=== PATIENT | female | born 1950 | race Hispanic/Latino ===

== ENCOUNTER 2017-06-29 15:21 | Inpatient (IN) | payer MEDICARE, BC ==
[~2017-06-29] VITALS: Ht 167.6 cm; Wt 86.2 kg
[~2017-06-29 15:21] MED LIST: ACETAMINOPHEN325 M1 PO; AMITIZA24 MCG PO; ASPIR 8181 MG PO; CARVEDILOL12.5 MG PO; COREG12.5 MG PO; GABAPENTIN300 MG PO; GLYBURIDE5 MG PO; LANTUS 3ML100 UNITS/ SQ; LIDODERM TP; METOPROLOL TART25 MG PO; MULTIVITAMINS1 EAC7 PO; NOVOLOG MI100 UNITS/ SQ; Novolog SC; PANTOPRAZOLE SO40 MG PO; PHOSLO667 MG PO; PLAVIX75 MG PO; RAMIPRIL5 MG PO; ULTRAM 50MG50 MG PO; ULTRAM50 MG PO; [UNRECOGNIZED DRUG - OTHER]
[2017-06-29] MEDS ORDERED: PANTOPRAZOLE SO40 MG PO (15:36)
[2017-06-29 16:06] LABS: BASOPHILS % 0.4 % (0.0-1.0); EOSINOPHILS # (AUTO) 0.1 (0.0-0.4); EOSINOPHILS % 2.2 % (0.0-6.0); LYMPHOCYTES # (AUTO) 0.3 (1.0-3.2); LYMPHOCYTES % 13.5 % (18.0-39.1); MEAN CORPUSCULAR HEMOGLOBIN 28.3 pg (28-32); MEAN CORPUSCULAR HGB CONC 32.3 g/dL (31-35); MEAN CORPUSCULAR VOLUME 87.7 fL (81-99); MONOCYTES # (AUTO) 0.1 (0.2-0.8); MONOCYTES % 5.2 % (4.4-11.3); NEUTROPHILS # (AUTO) 1.8 (2.1-6.9); NEUTROPHILS % 78.7 % (38.7-80.0); PLATELET COUNT 80 x10e3/uL (140-360); RED BLOOD COUNT 2.12 x10e6/uL (3.6-5.1); RED CELL DISTRIBUTION WIDTH 17.6 % (11.7-14.4)
[2017-06-29 16:09] LABS: HEMATOCRIT 18.6 % (34.2-44.1)
[2017-06-29 16:23] LABS: ALBUMIN 3.2 g/dL (3.5-5.0); ALBUMIN/GLOBULIN RATIO 0.8 (0.8-2.0); ANION GAP 11.9 mmol/L (8-16); CALCIUM 8.5 mg/dL (8.4-10.2); CREATININE, SERUM 3.76 mg/dL (0.57-1.11); POTASSIUM 3.9 mmol/L (3.5-5.1)
[2017-06-29 17:02] LABS: EOSINOPHILS % (MANUAL) 3 % (0-7); LYMPHOCYTES % (MANUAL) 12 % (19-48); MONOCYTES % (MANUAL) 8 % (3.4-9.0); NEUTROPHILS % (MANUAL) 77 % (40-74)
[2017-06-29 17:03] LABS: HYPOCHROMASIA MODERATE; OVALOCYTES FEW; PLATELET ESTIMATE MODERATELY DECREASED; RBC MORPHOLOGY COMMENT ABNORMAL; TEAR DROP CELLS FEW
[2017-06-29] MEDS ORDERED: SODIUM CHLORIDE 0.9% 250ML 250 ML IV ONE (18:00)
--- NOTE | 2017-06-29 18:43 | Diagnostic Imaging Report ---
PROCEDURE: Frontal and lateral views of the chest. COMPARISON: 04/07/2017 and prior INDICATIONS: SOB FINDINGS: Lines/tubes: None. Lungs: The lungs are well inflated and clear. There is no evidence of pneumonia or pulmonary edema. Stable calcified granuloma in the right midlung. Pleura: There is no pleural effusion or pneumothorax. Heart and mediastinum: The heart and the mediastinum are normal. Bones: No acute bony abnormality. IMPRESSION: 1. No acute cardiopulmonary disease. Dictated by: Nolan Ferrell M.D. on 06/29/2017 at 18:51 Electronically approved by: Nolan Ferrell M.D. on 06/29/2017 at 18:51
[2017-06-29] MEDS ORDERED: SODIUM CHLORIDE FLUSH 10 ML SYR INJ PRN (19:00)
[2017-06-29] MEDS ORDERED: SODIUM CHLORIDE 0.9% 250ML 250 ML ONE (21:01)
[2017-06-30] VITALS (8 sets, daily range): BP systolic 144–178; BP diastolic 53–74
[2017-06-30] MEDS ORDERED: DEXTROSE 50% SYRINGE 50 ML IV PRN (01:00)
[2017-06-30 03:36] LABS: HEMOGLOBIN 5.1 g/dL (12.0-16.0)
[2017-06-30] MEDS: INSULIN REGULAR, HUMAN 100 UNIT/1 ML 3ML VIAL SQ SCH ×4 (08:52→20:26)
[2017-06-30] MEDS: PANTOPRAZOLE 40 MG 10ML VIAL IV SCH (08:54)
[2017-06-30 09:49] LABS: HEMOGLOBIN 5.2 g/dL (12.0-16.0)
[2017-06-30 09:50] LABS: HEMATOCRIT 16.2 % (34.2-44.1)
[2017-06-30 10:21] LABS: % IRON SATURATION 18 % (15-50); IRON 46 ug/dL (50-170); TOTAL IRON BINDING CAPACITY 259 ug/dL (261-478); TRANSFERRIN 185 mg/dL (180-382)
[2017-06-30] MEDS ORDERED: SODIUM CHLORIDE 0.9% 250ML 250 ML IV ONE (10:30)
--- NOTE | 2017-06-30 13:07 | Consultation ---
DATE OF CONSULTATION: June 30, 2017 RENAL CONSULTATION HISTORY OF PRESENT ILLNESS: This is a delightful 66-year-old lady who is well known to me. Has numerous AV malformations, has been scoped and addressed multiple times and has had multiple packed RBC transfusions. Presented with black stools. Renal consulted for management of kidney failure. She is otherwise comfortable, lying supine, no apparent distress. Has an existing AV fistula. Her hemoglobin is 5.1. She has got antibodies in her blood; so, no blood is ready. She is scheduled for dialysis today. Rest of her labs show sodium 137, potassium 3.9, bicarbonate 31, creatinine 3.7. Platelets 80,000. White count 2.3. Hemoglobin 5.1. LFTs relatively normal. ALLERGIES: NO APPARENT DRUG ALLERGIES. SOCIAL HISTORY: Does not smoke or drink. FAMILY HISTORY: Significant for hypertension and diabetes. PAST MEDICAL HISTORY: End-stage renal disease. 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 Anemia due to gastrointestinal bleed. Underlying secondary hyperparathyroidism. Chronic thrombocytopenia. Has been seen by Dr. Bradford in the past. PHYSICAL EXAMINATION: GENERAL: Awake, alert, lying supine, no apparent distress. VITALS: Blood pressure 146/65. Pulse rate 81. Afebrile. Oxygen saturation 97% room air. Temperature 98.8. Respiratory rate 17. HEAD AND NECK: Cornea clear. Oral mucosa dry. LUNGS: Occasional rales, right lower zone more than left. HEART: S1/S2 audible. ABDOMEN: Soft, nontender. No apparent visceromegaly. LOWER EXTREMITY EXAMINATION: Shows no edema. IMPRESSION: 1. End-stage renal disease. 2. Anemia. Will consult GI. Obtain iron profile. Schedule dialysis. Will transfuse 3 units of packed RBC when blood available. Please see orders. Job#: [id number] EV
[2017-06-30 15:51] LABS: HEMATOCRIT 16.8 % (34.2-44.1); HEMOGLOBIN 5.3 g/dL (12.0-16.0)
[2017-06-30] MEDS ORDERED: HYDROCORTISONE SOD SUCCINATE 100 MG VIAL IV STA (16:25)
[2017-06-30] MEDS ORDERED: DIPHENHYDRAMINE HCL INJ 50 MG/ML VIAL IV ONE (16:30)
--- NOTE | 2017-06-30 17:00 | History and Physical ---
HISTORY OF PRESENT ILLNESS: Ms. Ware is a pleasant, 66-year-old woman known to us for many years, who presented to the emergency room with a complaint of weakness, anemia and black stools. The patient has had multiple similar hospitalizations requiring transfusions because of AV malformations. PAST MEDICAL HISTORY: Significant for repeated hospitalizations requiring transfusion. Also previous studies at [facility]. She has had upper GI's, colonoscopies and pill cams. She has history of colon cancer with partial colectomy in the past remote, remote hysterectomy, longstanding hypertension, diabetes and end-stage renal failure. HOME MEDICATIONS: Please see the chart. SOCIAL HISTORY: She does not smoke or drink and she lives with family. PHYSICAL EXAMINATION: GENERAL: Shows a pleasant, obese woman. VITAL SIGNS: Blood pressure 120/50. Pulse 80. HEENT: Unremarkable. NECK: No jugular venous distention. CARDIOVASCULAR: Heart sounds S1 and S3, murmurs. LUNGS: Clear. ABDOMEN: Protuberant. EXTREMITIES: No cyanosis, REVIEW OF SYSTEMS: CARDIAC: The patient had coronary stent placed in May of 2016 at [facility], but was unable to take aspirin and Plavix. Apparently did not have any cardiac complication with this probably due to her thrombocytopenia. PERTINENT LABORATORY: Now shows hemoglobin 5.2, platelet count 80,000, white count 2.3. BUN 42, creatinine 3.76, glucose 245. ASSESSMENT: 1. Gastrointestinal blood loss anemia. 2. AV malformations. 3. End-stage renal failure. 4. Type 2 adult onset diabetes. PLAN: Will continue medications and look for appropriate packed red blood cells for transfusion. Has been difficult due to cross tracking antibodies. Further management based on clinical course. Job#: [id number] cc:DENNIS ROJAS MD cc:ALFREDO PEREZ MD cc:JR GILLIS MD
[2017-06-30] MEDS: HYDROCORTISONE SOD SUCCINATE 100 MG VIAL IV SCH ×3 (17:05→19:21)
[2017-06-30] MEDS ORDERED: SODIUM CHLORIDE 0.9% 250ML 250 ML ONE (19:19)
[2017-06-30 21:38] LABS: HEMATOCRIT 27.2 % (34.2-44.1); HEMOGLOBIN 9.1 g/dL (12.0-16.0)
[2017-07-01] VITALS (7 sets, daily range): BP systolic 145–194; BP diastolic 65–82
[2017-07-01 06:47] LABS: HEMATOCRIT 25.1 % (34.2-44.1); HEMOGLOBIN 8.3 g/dL (12.0-16.0); LYMPHOCYTES # (AUTO) 0.6 (1.0-3.2); LYMPHOCYTES % 15.6 % (18.0-39.1); MEAN CORPUSCULAR HGB CONC 33.1 g/dL (31-35); MEAN CORPUSCULAR VOLUME 84.8 fL (81-99); MONOCYTES # (AUTO) 0.3 (0.2-0.8); MONOCYTES % 8.4 % (4.4-11.3); NEUTROPHILS # (AUTO) 2.8 (2.1-6.9); NEUTROPHILS % 75.2 % (38.7-80.0); PLATELET COUNT 75 x10e3/uL (140-360); RED BLOOD COUNT 2.96 x10e6/uL (3.6-5.1); RED CELL DISTRIBUTION WIDTH 17.4 % (11.7-14.4); RETICULOCYTE % 3.1 % (0.8-2.2)
[2017-07-01] MEDS ORDERED: SODIUM CHLORIDE 0.9% 1000ML 2,000 ML ONE (07:01)
[2017-07-01] MEDS: INSULIN REGULAR, HUMAN 100 UNIT/1 ML 3ML VIAL SQ SCH ×4 (08:40→20:40)
[2017-07-01] MEDS: CARVEDILOL 12.5 MG TAB PO SCH ×2 (09:00→17:00)
[2017-07-01] MEDS ORDERED: PANTOPRAZOLE SOD 40 MG TABEC PO SCH (09:00)
[2017-07-01] MEDS ORDERED: SODIUM CHLORIDE 0.9% 250ML 250 ML IV ONE (09:30)
[2017-07-01] MEDS ORDERED: ALBUMIN HUMAN 12.5GM / 50ML IV PRN (09:30)
[2017-07-01] MEDS ORDERED: SODIUM CHLORIDE 0.9% 250ML 500 ML IV PRN (09:30)
[2017-07-01] MEDS ORDERED: MANNITOL 25% 12.5GM/50 ML VIAL IV PRN (09:30)
[2017-07-01] MEDS ORDERED: SODIUM CHLORIDE 0.9% 1000ML 2,000 ML IV PRN (09:30)
[2017-07-01] MEDS: MULTIVITAMINS/MINERALS TAB PO SCH (10:11)
[2017-07-01] MEDS: PANTOPRAZOLE 40 MG 10ML VIAL IV SCH (10:11)
[2017-07-01] MEDS: ASPIRIN 81 MG CHEW TAB PO SCH (10:11)
[2017-07-01 10:54] LABS: INR 0.97; PARTIAL THROMBOPLASTIN TIME 26.5 seconds (23.8-35.5); PROTHROMBIN TIME 13.4 seconds (11.9-14.5)
[2017-07-01 11:03] LABS: HEMATOCRIT 28.6 % (34.2-44.1); HEMOGLOBIN 9.5 g/dL (12.0-16.0)
[2017-07-01 11:05] LABS: BLEEDING TIME 4.5 MINUTES (1-7)
[2017-07-01] MEDS: IRON SUCROSE 100 MG in SODIUM CHLORIDE 0.9% 100 ML 100 ML IV SCH (11:56)
[2017-07-01 18:59] LABS: HEMATOCRIT 27.4 % (34.2-44.1); HEMOGLOBIN 8.8 g/dL (12.0-16.0)
[2017-07-02 05:00] VITALS: BP 167/70
[2017-07-02 06:49] LABS: HEMATOCRIT 24.6 % (34.2-44.1)
[2017-07-02] MEDS: INSULIN REGULAR, HUMAN 100 UNIT/1 ML 3ML VIAL SQ SCH ×4 (07:30→21:11)
[2017-07-02 08:32] VITALS: BP 167/72
[2017-07-02] MEDS: ASPIRIN 81 MG CHEW TAB PO SCH (08:44)
[2017-07-02] MEDS: CARVEDILOL 12.5 MG TAB PO SCH ×2 (08:45→17:18)
[2017-07-02] MEDS: MULTIVITAMINS/MINERALS TAB PO SCH (08:45)
[2017-07-02] MEDS: PANTOPRAZOLE 40 MG 10ML VIAL IV SCH ×2 (08:54→21:11)
[2017-07-02 09:30] VITALS: BP 149/66
[2017-07-02] MEDS: IRON SUCROSE 100 MG in SODIUM CHLORIDE 0.9% 100 ML 100 ML IV SCH (11:14)
[2017-07-02 12:08] LABS: HEMATOCRIT 28.4 % (34.2-44.1); HEMOGLOBIN 9.2 g/dL (12.0-16.0)
[2017-07-02 12:45] VITALS: BP 148/67
[2017-07-02] MEDS ORDERED: GLUCAGON FOR INJ 1 MG VIAL ONE (13:41)
[2017-07-02] MEDS ORDERED: HYOSCYAMINE SULFATE 0.5 MG/ML AMP ONE (13:41)
[2017-07-02] MEDS ORDERED: LIDOCAINE HCL 2% LOCAL INJ 5 ML SDV VIAL INJ ONE (13:58)
[2017-07-02] MEDS ORDERED: PROPOFOL IV EMULSION 10 MG/ML 20 ML VIAL ONE (13:58)
[2017-07-02] MEDS ORDERED: FENTANYL CITRATE/PF 100MCG/2 ML INJ ONE (15:38)
[2017-07-02] MEDS ORDERED: PANTOPRAZOLE 40 MG 10ML VIAL IV STA (16:46)
[2017-07-02] MEDS ORDERED: PANTOPRAZOLE 40 MG 10ML VIAL IV SCH (17:00)
--- NOTE | 2017-07-02 17:28 | Operative Report ---
DATE OF PROCEDURE: July 02, 2017 REFERRING PHYSICIAN: Dr. Miquel Zelaya. PROCEDURE PERFORMED: 1. Esophagogastroduodenoscopy. 2. Enteroscopy with fulguration of gastric and jejunal arteriovenous malformations. INDICATIONS FOR PROCEDURE: Anemia, melena, history of AVMs. MEDICATION: Patient was done under MAC. Please see anesthesiologist's note. PROCEDURE: With the patient in the left lateral decubitus position, the flexible fiberoptic Olympus gastroscope was introduced into the esophagus under direct visualization without any difficulty. The esophagus appeared to be within normal limits. The scope was then advanced with ease into the stomach, and the mucosa overlying the antrum and the body revealed some patchy areas of erythema. A minute AVM was noted in the peripyloric area that was fulgurated with the size 7-[place] Gold Probe. The pylorus was of normal contour and shape, was intubated with ease, and the scope was advanced all the way to the 2nd portion of the duodenum. The scope was then withdrawn slowly. Mucosa overlying the 2nd portion as well as the duodenal bulb appeared to be within normal limits. The scope was then withdrawn back into the stomach and retroflexed, and an AVM was noted right below the cardia and that was also fulgurated with size 7-[place] Gold Probe. The scope was then straightened out. The stomach was decompressed. The scope was subsequently withdrawn. Olympus pediatric colonoscope was then introduced into the esophagus and advanced to a distal point of approximately 60 cm from the incisors. Two AVMs were noted in the proximal jejunum, and those were fulgurated with size 7-[place] Gold Probe. The scope was then withdrawn slowly, and the rest of the proximal jejunum as well as the 4th portion, 3rd portion of the duodenum, as well as the 2nd and the duodenal bulb all appeared to be within normal limits. The scope was subsequently withdrawn. Patient tolerated the procedure well. IMPRESSION: 1. Normal esophagus. 2. Arteriovenous malformations just below cardia, fulgurated with size 7-[place] Gold Probe. 3. Gastritis. 4. Arteriovenous malformations x 2, proximal jejunum, fulgurated with size 7-[place] Gold Probe. PLAN: Follow H\T\H. Continue current therapy. Job#: [id number] EV cc:MD DENNIS DICKERSON MD JACK MULLINS, MD
[2017-07-02 18:39] LABS: HEMATOCRIT 26.9 % (34.2-44.1); HEMOGLOBIN 8.6 g/dL (12.0-16.0)
[2017-07-02 19:30] VITALS: BP 117/55
[2017-07-02] MEDS: SUCRALFATE 1 GM TAB PO SCH (21:11)
[2017-07-03 04:00] VITALS: BP 163/71
[2017-07-03 07:29] LABS: BASOPHILS % 0.4 % (0.0-1.0); EOSINOPHILS # (AUTO) 0.1 (0.0-0.4); EOSINOPHILS % 1.7 % (0.0-6.0); HEMATOCRIT 25.3 % (34.2-44.1); HEMOGLOBIN 8.2 g/dL (12.0-16.0); LYMPHOCYTES # (AUTO) 0.7 (1.0-3.2); LYMPHOCYTES % 14.1 % (18.0-39.1); MEAN CORPUSCULAR HEMOGLOBIN 28.4 pg (28-32); MEAN CORPUSCULAR HGB CONC 32.4 g/dL (31-35); MEAN CORPUSCULAR VOLUME 87.5 fL (81-99); MONOCYTES # (AUTO) 0.3 (0.2-0.8); MONOCYTES % 7.1 % (4.4-11.3); NEUTROPHILS # (AUTO) 3.7 (2.1-6.9); NEUTROPHILS % 76.5 % (38.7-80.0); PLATELET COUNT 91 x10e3/uL (140-360); RED BLOOD COUNT 2.89 x10e6/uL (3.6-5.1); RED CELL DISTRIBUTION WIDTH 18.6 % (11.7-14.4)
[2017-07-03] MEDS: ASPIRIN 81 MG CHEW TAB PO SCH (08:25)
[2017-07-03] MEDS: PANTOPRAZOLE 40 MG 10ML VIAL IV SCH (08:25)
[2017-07-03] MEDS: SUCRALFATE 1 GM TAB PO SCH ×2 (08:25→11:18)
[2017-07-03] MEDS: CARVEDILOL 12.5 MG TAB PO SCH (08:26)
[2017-07-03] MEDS: INSULIN REGULAR, HUMAN 100 UNIT/1 ML 3ML VIAL SQ SCH ×2 (08:26→12:25)
[2017-07-03] MEDS: MULTIVITAMINS/MINERALS TAB PO SCH (08:26)
[2017-07-03 08:37] VITALS: BP 154/70
[2017-07-03] MEDS: IRON SUCROSE 100 MG in SODIUM CHLORIDE 0.9% 100 ML 100 ML IV SCH (11:18)
[2017-07-03 12:17] VITALS: BP 129/57
[2017-07-03 16:00] VITALS: BP 138/64
--- NOTE | 2017-07-04 09:04 | Discharge Summary ---
Ms. Ware was an unfortunate 66-year-old woman with long-standing hypertension, end-stage renal failure and chronic recurring gastrointestinal bleeding. HOSPITAL COURSE: Patient was admitted with severe anemia with hemoglobin of 5.2. There was difficulty obtaining cross match available blood due to the number of antibodies she has had due to the number of transfusions she has had in the past. However, eventually able to find some blood and she was transfused. Her dialysis was continued. She was seen by Dr. Bradford and given iron infusion for iron deficiency. On July 02, 2017, the patient had upper endoscopy, which showed suspicious areas in her stomach, although no active bleeding. Today, she has finished dialysis and feeling well. Her hemoglobin today is 8.2. She is discharged home to discontinue any aspirin, and will follow with Dr. Luciano Quinonez and with Dr. Anne for dialysis. DISCHARGE DIAGNOSES 1. Gastrointestinal bleeding. 2. Hypertension. 3. End-stage renal failure. 4. Type 2 adult-onset diabetes. ADONIS PENA MD Job#: [id number] RI cc:MD DENNIS ALVA MD MOHAMMED QURAISHI, MD
--- NOTE | 2017-08-14 13:09 | Consultation ---
DATE OF CONSULTATION: June 30, 2017 CONSULTATION TO: Dr. Miquel Lees Jeanie is a 66-year-old referred to me for evaluation of anemia. No history of having had a followup even though I have seen this lady in the past. Refuses to have a followup as she does not believe what she has. SOCIAL HISTORY: Noncontributory. FAMILY HISTORY: Noncontributory. ALLERGIES: REPORTED NONE. MEDICATIONS AT THIS TIME 1. Protonix. 2. Sodium chloride. 3. Insulin. 4. Hydrocortisone. REVIEW OF SYSTEMS HEENT: Normal. CARDIAC: History of congestive heart failure. RESPIRATORY: History of congestive heart failure. GI: AVM of the GI tract. Multiple GI bleeds. Cirrhosis of liver. : Normal. MUSCULOSKELETAL: Normal. SKIN AND BREASTS: Normal. NEUROENDOCRINE: History of diabetes mellitus. PHYSICAL EXAMINATION GENERAL: A rather obese female. No palpable adenopathy. HEART: Within normal limits. LUNGS: Coarse rales. ABDOMEN: Obese. There is no hepatosplenomegaly. RECTAL AND VAGINAL: Exams deferred. CENTRAL NERVOUS SYSTEM: Essentially normal. EXTREMITIES: 2+ pitting edema of the feet. LABORATORY DATA: Hemoglobin of 5.3, hematocrit 16.8, white count 2300, platelets 80,000. Sodium 137, potassium 3.9, chloride 98, CO2 31, BUN 42, creatinine 2.6, glucose 245. Bilirubin 0.7, SGOT 14, SGPT 19, alkaline phosphatase 125. IMPRESSION 1. Anemia of chronic disease. 2. Warm antibodies in the blood because of multiple blood transfusions. 3. Congestive heart failure. 4. Chronic renal failure. 5. Diabetes mellitus. 6. Gastrointestinal bleed. 7. Hyperkalemia initially. 8. Arteriovenous malformation of the gastrointestinal tract. 9. Thrombocytopenia. 10. Neutropenia. 11. Hypoalbuminemia. 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 PLAN, COMMENTS AND SUGGESTIONS: I will give her the blood. I have called Dr. Avalos, the pathologist, to release the blood as these are warm antibodies. I will give her Solu-Cortef. It is impossible to explain any of these things to the patient as she denies and cries as far as the diagnosis is concerned. She has never kept up with any appointments at the office as she does not want to perhaps come to costumer assistant with what she has I think. There was no hemolysis after transfusion. The patient was successfully transfused to 9.5 g on 07/01/2017. The LDH remained normal at 177. Job#: [id number] cc:MIQUEL DWYER MD
== END 2017-07-03 15:57 | disposition home or self-care (01) | DRG 299 ==
LOC: ER 15:21 → ERHOLD 19:23 → IMCU 06-30 00:23 → OBSVTOIN 07-01 10:02
PROVIDERS: ADMIT Internal Medicine Cardiovascular Disease; ATTEND Internal Medicine Cardiovascular Disease
PROC: 30233N1 Transfusion of Nonautologous Red Blood Cells into Peripheral Vein, Percutaneous Approach (ICD-10-PCS; principal; 2017-06-30)
PROC: 5A1D70Z Performance of Urinary Filtration, Intermittent, Less than 6 Hours Per Day (ICD-10-PCS; 2017-07-01)
PROC: 0D578ZZ Destruction of Stomach, Pylorus, Via Natural or Artificial Opening Endoscopic (ICD-10-PCS; 2017-07-02)
PROC: 5A1D70Z Performance of Urinary Filtration, Intermittent, Less than 6 Hours Per Day (ICD-10-PCS; 2017-07-03)
DX: Q27.33 Arteriovenous malformation of digestive system vessel (principal); N18.6 End stage renal disease; E11.22 Type 2 diabetes mellitus with diabetic chronic kidney disease; D69.6 Thrombocytopenia, unspecified; D70.9 Neutropenia, unspecified; I13.0 Hypertensive heart and chronic kidney disease with heart failure and stage 1 through stage 4 chronic kidney disease, or unspecified chronic kidney disease; D62 Acute posthemorrhagic anemia; I50.9 Heart failure, unspecified; E87.5 Hyperkalemia; D50.0 Iron deficiency anemia secondary to blood loss (chronic); Z85.41 Personal history of malignant neoplasm of cervix uteri; Z85.89 Personal history of malignant neoplasm of other organs and systems; I25.10 Atherosclerotic heart disease of native coronary artery without angina pectoris; Z95.5 Presence of coronary angioplasty implant and graft; R77.1 Abnormality of globulin; D63.1 Anemia in chronic kidney disease; Z85.038 Personal history of other malignant neoplasm of large intestine
CPT/HCPCS: 36415; 36430; 43235; 71020; 80053; 82728; 82948; 83540; 83615; 84466; 85002; 85014; 85018; 85025; 85045; 85610; 85730; 86704; 86706; 86850; 86870; 86880; 86900; 86905; 86920; 86922; 87340; 90962; 93005; 99001; 99284; G0378; J1200; J1610; J1720; J1756; J1980; J2001; J7030; J7050; P9016

== ENCOUNTER 2017-08-22 17:25 | Emergency (ER) | payer MEDICARE, BC ==
[~2017-08-22] VITALS: Ht 167.6 cm; Wt 86.2 kg
[2017-08-22] MEDS ORDERED: HYDROCODONE/APAP 7.5MG-325MG 1 EA TAB PO PRN (18:15)
--- NOTE | 2017-08-22 20:20 | Diagnostic Imaging Report ---
KNEE LEFT THREE VIEWS, LOWER LEG LEFT, ANKLE 3+ VIEWS LEFT Comparison: None Clinical history: Status post fall with left leg pain Findings: Decreased bone mineralization limits sensitivity in evaluating for nondisplaced fracture. Left knee: Suboptimal positioning with moderate joint effusion. No definite acute fracture or dislocation seen. Degenerative changes, medial compartment dominant. Left lower leg and ankle: No acute fracture or dislocation. Ankle mortise is intact. Vascular calcifications. Impression: Decreased bone mineralization limits sensitivity in evaluating for nondisplaced fracture. 1. Moderate knee joint effusion. 2. No definite acute fracture seen. Signed by: Dr Cassandra Souza MD on 08/22/2017 8:16 PM
== END 2017-08-22 20:33 | disposition home or self-care (01) ==
LOC: ER 17:25
DX: S80.02XA Contusion of left knee, initial encounter (principal); W01.0XXA Fall on same level from slipping, tripping and stumbling without subsequent striking against object, initial encounter; Y92.008 Other place in unspecified non-institutional (private) residence as the place of occurrence of the external cause
CPT/HCPCS: 99283

== ENCOUNTER → 2017-09-27 | Outpatient (CLI) | payer MEDICARE, BC ==
--- NOTE | 2017-09-27 08:57 | Diagnostic Imaging Report ---
PROCEDURE:ABDOMINAL ULTRASOUND COMPARISON:Right upper quadrant ultrasound 11/23/2016. INDICATIONS:RUQ Abdomen Pain FINDINGS: Liver: 14.8 cm in length in the right midclavicular line. Normal hepatic parenchymal echogenicity. No focal mass. Main portal vein: 1.1 cm in caliber. Hepatopedal flow. Gallbladder: Surgically removed. Common Bile Duct: 0.5 cm in caliber. No echogenic filling defect. Right kidney: 9 cm in length. No solid or cystic mass, or hydronephrosis. 7 mm echogenic focus with posterior acoustic shadowing in the midpole. Increased parenchymal echogenicity. Left kidney: 9.3 cm in length. No solid mass, echogenic calculi, or hydronephrosis. Adjacent round anechoic simple cysts measuring 2 cm and 1.8 m in maximum caliber in the mid pole. Increased parenchymal echogenicity. Spleen: 10.9 cm in length. Uniform echotexture. Pancreas: The visualized portions of the pancreas are normal. Inferior vena cava: Patent. Aorta: Non-aneurysmal. Ascites: None. CONCLUSION: Status post cholecystectomy with unremarkable sonographic appearance of the liver. 7 mm right renal calculus without hydronephrosis. Increased renal cortical echogenicity compatible with medical renal disease. Dictated by: Yg Eason M.D. on 09/27/2017 at 8:56 Electronically approved by: Yg Eason M.D. on 09/27/2017 at 8:56
== END ==
LOC: US 07:41
PROVIDERS: ATTEND Internal Medicine Gastroenterology
DX: R10.11 Right upper quadrant pain (principal)
CPT/HCPCS: 76700; 82105

== ENCOUNTER → 2018-08-22 | Day surgery (SDC) | payer MEDICARE, BC ==
[~2018-08-22] MED LIST changes: +DOCUSATE SODIU100 MG PO; +GLUCAGON FOR INJ 1 MG VIAL ONE; +HYDRALAZINE HCL25 MG PO; +INSULIN REGULAR, HUMAN 100 UNIT/1 ML 3ML VIAL ONE; +PROPOFOL IV EMULSION 10 MG/ML 50 ML VIAL ONE; +SODIUM CHLORIDE 0.9% 500ML 500 ML ONE
--- OUTSIDE RECORDS SUMMARY | 2018-08-22 08:56 | XMS REPORT | Clinical Summary ---
Author Author YUDELKA [facility] Address Unknown Phone Unavailable Care Team Providers Care Net Wpf Developer Name Role Phone HarryDulce young PCP Allergies No Known Allergies Medications End Date Status Medication Sig Dispensed Refills Start Date Active carvedilol (COREG) 12.5 Take 12.5 mg 0 MG tablet by mouth 2 (two) times daily with breakfast and dinner. Active insulin aspart (NOVOLOG) Inject 16 0 100 unit/mL Units InPnIndications: type 2 subcutaneousl diabetes mellitus y 3 (three) times daily as needed . 06/08/2018 Discontinued glipiZIDE (GLUCOTROL) 10 Take 10 mg by 0 MG tablet mouth 2 (two) times daily before meals. 06/08/2018 Discontinued aspirin 81 MG EC tablet Take 81 mg by 0 mouth daily. Active Problems Problem Noted Date Coronary artery disease involving napaimute coronary artery of napaimute heart 04/12/2016 Pre-transplant evaluation for end stage renal disease 04/10/2016 ESRD (end stage renal disease) on dialysis 04/10/2016 Essential hypertension 04/10/2016 Type 2 diabetes mellitus with neurologic complication 04/10/2016 Colon cancer 04/10/2016 ESRD (end stage renal disease) 04/10/2016 Hyperkalemia 04/10/2016 Encounters Care Team Description Date Type Specialty Antonieta Cadena MD Awaiting transplantation of kidney 07/11/2018 Orders Only Lab Aminah Trejo RN Awaiting transplantation of kidney (Primary Dx) 07/09/2018 Orders Only Transplant Antonieta Cadena MD Timmins, Katherine S., MD Awaiting transplantation of kidney (Primary Dx) 06/08/2018 Evaluation Transplant Joiner Юлия Appointment (Patient daughter called to confirm the appt for 06.08.18 and per the daugther the will be here for the appt) 06/07/2018 Telephone Transplant Antonieta Cadena MD Patient awaiting renal transplant 05/30/2018 Orders Only Lab Aminah Trejo, RICHARD Waitlist Maintenance 04/25/2018 Telephone Transplant Deng Villalpando II, MD Awaiting transplantation of kidney; ESRD (end stage renal disease) on dialysis (HCC); CAD in napaimute artery 04/20/2018 Hospital Cardiology Encounter Deng Villalpando II, MD Awaiting transplantation of kidney; ESRD (end stage renal disease) on dialysis (HCC); CAD in napaimute artery 04/20/2018 Hospital Radiology Encounter 04/20/2018 Orders Only General Internal Medicine Samira Almaguer Appointment 04/18/2018 Telephone Transplant Antonieta Cadena MD Patient awaiting renal transplant 04/14/2018 Orders Only Lab Alka Presley Appointment 03/30/2018 Telephone Transplant Alka Presley Appointment 03/28/2018 Telephone Transplant Aminah Trejo RN Awaiting transplantation of kidney (Primary Dx); ESRD (end stage renal disease) on dialysis (HCC); CAD in napaim[place] artery 03/28/2018 Documentation Transplant Antonieta Cadena MD Patient awaiting renal transplant 02/16/2018 Orders Only Lab Antonieta Cadena MD Patient awaiting renal transplant 11/22/2017 Orders Only Lab after 08/21/2017 Family History Medical History Relation Name Comments Diabetes Sister Relation Name Status Comments Sister Social History Date Tobacco Use Types Packs/Day Years Used Never Smoker Smokeless Tobacco: Never Used Alcohol Use Drinks/Week oz/Week Comments No Sex Assigned at Date Recorded Not on file Industry Job Start Date Occupation Not on file Not on file Not on file Travel End Travel History Travel Start No recent travel history available. Last Filed Vital Signs Time Taken Vital Sign Reading 06/08/2018 2:29 PM DIRECTOR OF SOFTWARE ENGINEERING Blood Pressure 148/73 06/08/2018 2:29 PM DIRECTOR OF SOFTWARE ENGINEERING Pulse 80 06/08/2018 2:29 PM DIRECTOR OF SOFTWARE ENGINEERING Temperature 37.5 C (99.5 F) 04/20/2018 9:30 AM CDT Respiratory Rate 14 06/08/2018 2:29 PM DIRECTOR OF SOFTWARE ENGINEERING Oxygen Saturation 97% - Inhaled Oxygen - Concentration 06/08/2018 2:29 PM DIRECTOR OF SOFTWARE ENGINEERING Weight 85 kg (187 lb 6.3 oz) 04/20/2018 9:00 AM CDT Height 167.6 cm (5' 6") 06/08/2018 2:29 PM DIRECTOR OF SOFTWARE ENGINEERING Body Mass Index 30.25 Plan of Treatment Health Maintenance Due Date Last Done Comments INFLUENZA VACCINE 04/04/2018 Implants Device Identifier Shelf Expiration Date Model / Serial / Lot Implanted Type Area Manufactur er 02/01/2017 [id number] / / [id number] Promus Premier Stents-Cor [place] Implanted: Qty: 1 on 04/10/2016 by MOLIsofía [employer] Sotero Bedoya MD Procedures Comments Procedure Name Priority Date/Time Associated Diagnosis AB SPECIFICITY CLASS II Routine 07/11/2018 Awaiting transplantation 12:36 PM DIRECTOR OF SOFTWARE ENGINEERING of kidney FLOW PRA CLASS I WITH Routine 07/11/2018 Awaiting transplantation REFLEX TO ANTIBODY 12:36 PM DIRECTOR OF SOFTWARE ENGINEERING of kidney SPECIFICITY FLOW PRA CLASS II WITH Routine 07/11/2018 Awaiting transplantation REFLEX TO ANTIBODY 12:36 PM DIRECTOR OF SOFTWARE ENGINEERING of kidney SPECIFICITY AB SPECIFICITY CLASS II Routine 05/30/2018 Patient awaiting renal 8:43 AM DIRECTOR OF SOFTWARE ENGINEERING transplant FLOW PRA CLASS II WITH Routine 05/30/2018 Patient awaiting renal REFLEX TO ANTIBODY 8:43 AM DIRECTOR OF SOFTWARE ENGINEERING transplant SPECIFICITY FLOW PRA CLASS I WITH Routine 05/30/2018 Patient awaiting renal REFLEX TO ANTIBODY 8:43 AM DIRECTOR OF SOFTWARE ENGINEERING transplant SPECIFICITY ECHOCARDIOGRAM REPORT - 04/20/2018 SCAN 6:50 PM CDT 2D ECHO W/ DOPPLER Routine 04/20/2018 Awaiting transplantation (CW/PW/COLOR) 10:25 AM CDT of kidney ESRD (end stage renal disease) on dialysis (HCC) CAD in napaim[place] artery NM CARDIAC PET PERFUSION Routine 04/20/2018 Awaiting transplantation REST AND/OR STRESS 10:07 AM CDT of kidney ESRD (end stage renal disease) on dialysis (HCC) CAD in napaimute artery TREADMILL Routine 04/20/2018 TOLERANCE(NON-NUCLEAR 9:24 AM CDT TREADMILL) ECG 12-LEAD Routine 04/20/2018 9:22 AM CDT ECG 12-LEAD Routine 04/20/2018 9:22 AM CDT Procedure Note - Interface, External Ris In - 04/20/2018 9:37 AM CDT Ventricula r Rate 81 BPM Atrial Rate 81 BPM P-R Interval 192 ms QRS Duration 170 ms Q-T Interval 472 ms QTC Calculatio n(Bazett) 548 ms P [place] 80 degrees R [place] -76 degrees T [place] 91 degrees Normal sinus rhythm Left axis deviation Non-specif ic intra-vent ricular conduction block Inferior infarct , age undetermin ed Abnormal ECG AB SPECIFICITY CLASS II Routine 04/14/2018 Patient awaiting renal 1:37 PM CDT transplant AB SPECIFICITY CLASS I Routine 04/14/2018 Patient awaiting renal 1:37 PM CDT transplant FLOW PRA CLASS II WITH Routine 04/14/2018 Patient awaiting renal REFLEX TO ANTIBODY 1:37 PM CDT transplant SPECIFICITY FLOW PRA CLASS I WITH Routine 04/14/2018 Patient awaiting renal REFLEX TO ANTIBODY 1:37 PM CDT transplant SPECIFICITY AB SPECIFICITY CLASS II Routine 02/16/2018 Patient awaiting renal 2:56 PM CDT transplant AB SPECIFICITY CLASS I Routine 02/16/2018 Patient awaiting renal 2:56 PM CDT transplant FLOW PRA CLASS II WITH Routine 02/16/2018 Patient awaiting renal REFLEX TO ANTIBODY 2:56 PM CDT transplant SPECIFICITY FLOW PRA CLASS I WITH Routine 02/16/2018 Patient awaiting renal REFLEX TO ANTIBODY 2:56 PM CDT transplant SPECIFICITY AB SPECIFICITY CLASS II Routine 11/22/2017 Patient awaiting renal 12:28 PM CDT transplant AB SPECIFICITY CLASS I Routine 11/22/2017 Patient awaiting renal 12:28 PM CDT transplant FLOW PRA CLASS II WITH Routine 11/22/2017 Patient awaiting renal REFLEX TO ANTIBODY 12:28 PM CDT transplant SPECIFICITY FLOW PRA CLASS I WITH Routine 11/22/2017 Patient awaiting renal REFLEX TO ANTIBODY 12:28 PM CDT transplant SPECIFICITY after 08/21/2017 Results * FLOW PRA CLASS II WITH REFLEX TO ANTIBODY SPECIFICITY (07/11/2018 12:36 PM DIRECTOR OF SOFTWARE ENGINEERING) Only the most recent of 5 results within the time period is included. Flow Class II Percent 22 [facility] Positive Flow Class Report [facility] Comments Specimen Blood Narrative Performed At Disclaimer: [facility] This test was developed and its performance characteristics determined by the [facility]. It has not been cleared or approved by the U.S. Food and Drug Administration. The FDA has determined that such clearance or approval is not necessary. This test is used for clinical purposes. It should not be regarded as investigational or for research. This laboratory is certified under the Clinical Laboratory Improvement Amendments of 1988 (CLIA-88) as qualified to perform high complexity clinical laboratory testing. Performing Organization Address City/[facility] Phone Number [facility] [address] Ace Mak, MS: [id number], [place] [id number] CLIA#[id number] CAP#[id number] UNOS#[id number] * FLOW PRA CLASS I WITH REFLEX TO ANTIBODY SPECIFICITY (07/11/2018 12:36 PM DIRECTOR OF SOFTWARE ENGINEERING) Only the most recent of 5 results within the time period is included. Flow Class I Percent 0 [facility] Positive Flow Class Report [facility] Comments Specimen Blood Narrative Performed At Disclaimer: [facility] This test was developed and its performance characteristics determined by the [facility]. It has not been cleared or approved by the U.S. Food and Drug Administration. The FDA has determined that such clearance or approval is not necessary. This test is used for clinical purposes. It should not be regarded as investigational or for research. This laboratory is certified under the Clinical Laboratory Improvement Amendments of 1988 (CLIA-88) as qualified to perform high complexity clinical laboratory testing. Performing Organization Address [facility] Phone Number [facility] [address] Ace Mak, MS: [id number], [place] [address] CLIA#[id number] CAP#[id number] UNOS#[id number] * AB SPECIFICITY CLASS II (07/11/2018 12:36 PM DIRECTOR OF SOFTWARE ENGINEERING) Only the most recent of 5 results within the time period is included. AB Specificity Class II NO CLASS II ANTIBODY DETECTED [facility] WITH MFIs > 4000 AB Specificity Titr Class [facility] Report Specimen Blood Narrative Performed At Disclaimer: [facility] This test was developed and its performance characteristics determined by the [facility]. It has not been cleared or approved by the U.S. Food and Drug Administration. The FDA has determined that such clearance or approval is not necessary. This test is used for clinical purposes. It should not be regarded as investigational or for research. This laboratory is certified under the Clinical Laboratory Improvement Amendments of 1988 (CLIA-88) as qualified to perform high complexity clinical laboratory testing. Performing Organization Address City/State/Zipcode Phone Number [facility] [address] [facility] Ob[address], MS: [id number], [place] [address] CLIA#[id number] CAP#[id number] UNOS#[id number] * ECHOCARDIOGRAM REPORT - SCAN (04/20/2018 6:50 PM CDT) Narrative Performed At * 2D Echo W/Doppler(CW/PW/Color) (04/20/2018 10:25 AM CDT) Ejection Fraction [facility] Narrative Performed At Transthoracic Echocardiography Report (TTE) [facility] Demographics 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 Clinical History Hypertension CKD Hyperlipidemia Valvular heart disease [employer] Consultant: Cherise Leon Height: 66 inches Weight: 81.19 kg (179 lbs) BSA: 1.91 m^2 BMI: 28.89 kg/m^2 HR: 77 bpm BP: 139/69 mmHg Summary 1. All of the LV segments contract normally . LVEF by Bedoya's method of disk assessment is normal (60%) . 2. The right ventricular chamber size and systolic function are within normal limits. 3. Moderate mitral annular calcification. MV gradients are moderately increased in part due to mitral annular calcification and elevated cardiac output (Mean Gradient 9.14mmhg at HR 78 bpm) 4. Mild to moderate mitral regurgitation (poorly visualized). Previous Study Compared to the previous study there was no significant change. Signature Findings Left Ventricle The left ventricle is chamber size (by PSLAX dimension) is normal (female - LVIDd 3.8-5.2cm) . Borderline concentric LV hypertrophy. All of the LV segments contract normally . LVEF by Bedoya's method of disk assessment is normal (60%) . Degree of diastolic dysfunction (LAP assessment) is inconclusive due to mitral annular calcification . Left AtriumLA size is severely enlarged (>48 ml/m2) . Right VentricleThe right ventricular chamber size and systolic function are within normal limits. Right Atrium RA size is normal. RA pacing wire is visualized . Atrial SeptumNormal interatrial septum by available views. Aortic Valve Mild AoV cusp thickening. Mild AoV cusp calcification. There is aortic valve sclerosis without evidence of significant stenosis. AoV area at rest by continuity equation is in the range of 1.8 cm2. AoV resting Peak/ Mean Gradient. 20/12 mmhg AoV resting dimensionless obstructive index (DOI). 0.6 Mitral Valve Moderate mitral annular calcification. Restricted MV leaflet mobility involves the posterior leaflet(s) and appear due to calcific degeneration . MV gradients are moderately increased in part due to mitral annular calcification and elevated cardiac output . (Mean Gradient 9.14mmhg at HR 78 bpm) Mild to moderate mitral regurgitation (poorly visualized). The mechanism for MR is calcific degeneration . Tricuspid ValveMild tricuspid regurgitation. Estimated peak systolic PA pressure is 35-40 mmHg . Pulmonic Valve Normal PV structure and function by limited views and Doppler. AortaAortic root size (SInus of Valsalva diameter) is normal . PericardiumAn echo lucent space is noted consistent with prominent pericardial fat pad. IVC/SVC/PA/PV/PleuralThe right upper pulmonary vein (RUPV) is abnormal . The estimated RA pressure by IVC dynamics 0-5mmHg . Chambers/Structures Left Atrium LA Volume: 105.14 ml LA Area: 27.6 cm^2 LA Vol. Index: 55 ml/m^2 Left Ventricle LVIDd: 5.42 cm LV Septum Diastolic: 1.16 cm LV PW Diastolic: 1.06 cm LVEDV Bedoya's:155.41 ml LVESV Bedoya's:61.76 ml LVEF Bedoya's: 60.3 %LVEDVI: 81 ml/m^2 LVESVI: 32 ml/m^2 LVOT Diameter: 1.88 cm Right Atrium RA Vol. (Sngl Plane): 25.47 ml Aorta Ao Root S of Nakita.: 2.79 cm Doppler/Quantitative Measurements Mitral Valve MV Peak E-Wave: 1.45 m/sMV Peak A-Wave: 1.56 m/s P1/2t: 84 msecE/A Ratio: 0.93 Mean Velocity: 1.45 m/s Peak Gradient: 8.44 mmHg Mean Gradient: 9.14 mmHgDeceleration Time: 234.4 msec MV Area (PHT): 2.62 cm^2Area (continuity): 1.84 cm^2 MR Velocity: 5.67 m/s MV VTI: 51.36 cm MV Blane. Peak: 2.24 m/s Tissue Doppler E' Septal Velocity: 0.04 m/sE/E': 34.25 E' Lateral Velocity: 0.06 m/s Aortic Valve Peak Velocity: 2.25 m/sMean Velocity: 1.66 m/s Peak Gradient: 20.27 mmHgMean Gradient: 12.18 mmHg AV Area (continuity): 1.87 cm^2 AV VTI: 50.64 cm AV DVI: 0.67 LVOT Peak Velocity: 1.02 m/s Peak Gradient: 4.17 mmHg Mean Velocity: 1.02 m/s Mean Gradient: 4.75 mmHg LVOT Diameter: 1.88 cmLVOT VTI: 34.08 cm LVOT Area: 2.78 cm^2LVOT SV:94.56 ml LVOT CO: 7.28 l/min LVOT CI: 3.81 l/min/m^2 Tricuspid Valve TR Velocity: 2.9 m/s TR Gradient: 33.56 mmHg Procedure Note Interface, External Ris In - 04/20/2018 6:26 PM CDT Transthoracic Echocardiography Report (TTE) Demographics Patient Name TOSHA WARE Date of Study 04/20/2018 AYO Gender Female Visit Number [id number] Race Unknown Room Number op Number Date of 1950 Referring Irasema Menjivra Physician Age 67 year(s) [employer] 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 Clinical History Hypertension CKD Hyperlipidemia Valvular heart disease [employer] Consultant: Cherise Leon Height: 66 inches Weight: 81.19 kg (179 lbs) BSA: 1.91 m^2 BMI: 28.89 kg/m^2 HR: 77 bpm BP: 139/69 mmHg Summary 1. All of the LV segments contract normally . LVEF by Bedoya's method of disk assessment is normal (60%) . 2. The right ventricular chamber size and systolic function are within normal limits. 3. Moderate mitral annular calcification. MV gradients are moderately increased in part due to mitral annular calcification and elevated cardiac output (Mean Gradient 9.14mmhg at HR 78 bpm) 4. Mild to moderate mitral regurgitation (poorly visualized). Previous Study Compared to the previous study there was no significant change. Signature Findings Left Ventricle The left ventricle is chamber size (by PSLAX dimension) is normal (female - LVIDd 3.8-5.2cm) . Borderline concentric LV hypertrophy. All of the LV segments contract normally . LVEF by Bedoya's method of disk assessment is normal (60%) . Degree of diastolic dysfunction (LAP assessment) is inconclusive due to mitral annular calcification . Left Atrium LA size is severely enlarged (>48 ml/m2) . Right Ventricle The right ventricular chamber size and systolic function are within normal limits. Right Atrium RA size is normal. RA pacing wire is visualized . Atrial Septum Normal interatrial septum by available views. Aortic Valve Mild AoV cusp thickening. Mild AoV cusp calcification. There is aortic valve sclerosis without evidence of significant stenosis. AoV area at rest by continuity equation is in the range of 1.8 cm2. AoV resting Peak/ Mean Gradient. 20/12 mmhg AoV resting dimensionless obstructive index (DOI). 0.6 Mitral Valve Moderate mitral annular calcification. Restricted MV leaflet mobility involves the posterior leaflet(s) and appear due to calcific degeneration . MV gradients are moderately increased in part due to mitral annular calcification and elevated cardiac output . (Mean Gradient 9.14mmhg at HR 78 bpm) Mild to moderate mitral regurgitation (poorly visualized). The mechanism for MR is calcific degeneration . Tricuspid Valve Mild tricuspid regurgitation. Estimated peak systolic PA pressure is 35-40 mmHg . Pulmonic Valve Normal PV structure and function by limited views and Doppler. Aorta Aortic root size (SInus of Valsalva diameter) is normal . Pericardium An echo lucent space is noted consistent with prominent pericardial fat pad. IVC/SVC/PA/PV/Pleural The right upper pulmonary vein (RUPV) is abnormal . The estimated RA pressure by IVC dynamics 0-5mmHg . Chambers/Structures Left Atrium LA Volume: 105.14 ml LA Area: 27.6 cm^2 LA Vol. Index: 55 ml/m^2 Left Ventricle LVIDd: 5.42 cm LV Septum Diastolic: 1.16 cm LV PW Diastolic: 1.06 cm LVEDV Bedoya's:155.41 ml LVESV Bedoya's:61.76 ml LVEF Bedoya's: 60.3 % LVEDVI: 81 ml/m^2 LVESVI: 32 ml/m^2 LVOT Diameter: 1.88 cm Right Atrium RA Vol. (Sngl Plane): 25.47 ml Aorta Ao Root S of Nakita.: 2.79 cm Doppler/Quantitative Measurements Mitral Valve MV Peak E-Wave: 1.45 m/s MV Peak A-Wave: 1.56 m/s P1/2t: 84 msec E/A Ratio: 0.93 Mean Velocity: 1.45 m/s Peak Gradient: 8.44 mmHg Mean Gradient: 9.14 mmHg Deceleration Time: 234.4 msec MV Area (PHT): 2.62 cm^2 Area (continuity): 1.84 cm^2 MR Velocity: 5.67 m/s MV VTI: 51.36 cm MV Blane. Peak: 2.24 m/s Tissue Doppler E' Septal Velocity: 0.04 m/s E/E': 34.25 E' Lateral Velocity: 0.06 m/s Aortic Valve Peak Velocity: 2.25 m/s Mean Velocity: 1.66 m/s Peak Gradient: 20.27 mmHg Mean Gradient: 12.18 mmHg AV Area (continuity): 1.87 cm^2 AV VTI: 50.64 cm AV DVI: 0.67 LVOT Peak Velocity: 1.02 m/s Peak Gradient: 4.17 mmHg Mean Velocity: 1.02 m/s Mean Gradient: 4.75 mmHg LVOT Diameter: 1.88 cm LVOT VTI: 34.08 cm LVOT Area: 2.78 cm^2 LVOT SV:94.56 ml LVOT CO: 7.28 l/min LVOT CI: 3.81 l/min/m^2 Tricuspid Valve TR Velocity: 2.9 m/s TR Gradient: 33.56 mmHg Performing Organization Address City/State/Zipcode Phone Number [facility] * NM myocardial perfusion PET (rest and stress) (04/20/2018 10:07 AM CDT) Narrative Performed At FINAL REPORT [employer] PROCEDURE: Rest/Stress MYOCARDIAL PERFUSION PET with regadenoson\\XA9\\ CPT CODE:48322 INDICATION:ESRD, Risk stratification, prior to renal transplant HISTORY: Cardiac risk factors: Diabetes, hypertension. Other cardiovascular history: Known CAD, prior coronary stent. Current cardiovascular-related medications: Carvedilol, hydralazine, nifedipine. PROTOCOL:Limited low-dose CT imaging was performed for attenuation correction. 40.1 mCi of Rb-82 chloride was injected iv at rest, and gated PET (positron emission tomography) images were obtained. Subsequently, 40.1 mCi of Rb-82 chloride was injected iv at expected peak pharmacologic effect, and gated PET images were obtained. PRELIMINARY STRESS TEST DATA FROM NONINVASIVE CARDIOLOGY: Pharmacologic stress was by 10-second iv infusion of 0.4 mg of regadenoson. Radiotracer was injected 30 seconds after start of stress. Heart rate was 81 beats/min at rest and 90 beats/min (59% of MPHR) at tracer injection. BP was 120/80 mmHg at rest and 128/62 mmHg at tracer injection. Stress was stopped for predetermined endpoint. The patient experienced dyspnea; treatment was not required. Preliminary ECG evaluation revealed sinus rhythm, first-degree AV block, and left bundle-branch block at rest and no ischemic changes with stress. (Final ECG interpretation and other stress and monitoring data are reported separately by Cardiology.) IMAGING FINDINGS: Study quality is good. Images obtained after stress injection show mild decrease in activity in the mid inferolateral LV. Images after resting injection show normal LV activity. LV and RV volumes appear normal. Gated images obtained at rest and with stress show mild apical tardykinesis but otherwise normal LV wall motion and thickening. LVEF at rest is 65%. LVEF at stress is 68%. IMPRESSION: 1. Abnormal study.2. Appropriate pharmacologic stress.3. Abnormal myocardial perfusion. There is a small, mild, reversible perfusion defect in the mid inferolateral LV. 4. Normal resting LVEF with mild focal wall motion defect. No deterioration of function is noted with pharmacologic stress.5. Normal extracardiac tracer distribution.6. No previous [facility] study for comparison. Signed: Dinesh Perez MD Report Verified Date/Time:04/20/2018 16:04:01 Reading Location: [address] Reading Room Procedure Note Interface, External Ris In - 04/20/2018 4:06 PM CDT FINAL REPORT PROCEDURE: Rest/Stress MYOCARDIAL PERFUSION PET with regadenoson\\XA9\\ CPT CODE: 02807 INDICATION: ESRD, Risk stratification, prior to renal transplant HISTORY: Cardiac risk factors: Diabetes, hypertension. Other cardiovascular history: Known CAD, prior coronary stent. Current cardiovascular-related medications: Carvedilol, hydralazine, nifedipine. PROTOCOL: Limited low-dose CT imaging was performed for attenuation correction. 40.1 mCi of Rb-82 chloride was injected iv at rest, and gated PET (positron emission tomography) images were obtained. Subsequently, 40.1 mCi of Rb-82 chloride was injected iv at expected peak pharmacologic effect, and gated PET images were obtained. PRELIMINARY STRESS TEST DATA FROM NONINVASIVE CARDIOLOGY: Pharmacologic stress was by 10-second iv infusion of 0.4 mg of regadenoson. Radiotracer was injected 30 seconds after start of stress. Heart rate was 81 beats/min at rest and 90 beats/min (59% of MPHR) at tracer injection. BP was 120/80 mmHg at rest and 128/62 mmHg at tracer injection. Stress was stopped for predetermined endpoint. The patient experienced dyspnea; treatment was not required. Preliminary ECG evaluation revealed sinus rhythm, first-degree AV block, and left bundle-branch block at rest and no ischemic changes with stress. (Final ECG interpretation and other stress and monitoring data are reported separately by Cardiology.) IMAGING FINDINGS: Study quality is good. Images obtained after stress injection show mild decrease in activity in the mid inferolateral LV. Images after resting injection show normal LV activity. LV and RV volumes appear normal. Gated images obtained at rest and with stress show mild apical tardykinesis but otherwise normal LV wall motion and thickening. LVEF at rest is 65%. LVEF at stress is 68%. IMPRESSION: 1. Abnormal study. 2. Appropriate pharmacologic stress. 3. Abnormal myocardial perfusion. There is a small, mild, reversible perfusion defect in the mid inferolateral LV. 4. Normal resting LVEF with mild focal wall motion defect. No deterioration of function is noted with pharmacologic stress. 5. Normal extracardiac tracer distribution. 6. No previous [facility] study for comparison. Signed: Dinesh Perez MD Report Verified Date/Time: 04/20/2018 16:04:01 Reading Location: [address] [facility] Reading Room Performing Organization Address City/State/Zipcode Phone Number GE RIS * Treadmill tolerance(Non-Nuclear Treadmill) (04/20/2018 9:24 AM CDT) Narrative Performed At Protocol Name Regadenoson GE MUSE Time In Exercise Phase 00:01:00 Max. Systolic BP 128 mmHg Max Diastolic BP 52 mmHg Max Heart Rate 90 BPM Max Predicted Heart Rate 152 BPM Reason For Termination Predetermined end point Reason for Test ESRD,Awaiting Renal Transplant Target HR Formula (220 - Age)*100% Arrhythmias none Resting ECG Normal sinus rhythm 1st Degree AV Block Left bundle branch block ST Changes No Significant Changes Overall Impression Indeterminate due to pharmacological stress Chest Pain none HR Response To Exercise BP Response To Exercise carvedilol,hydralazine,nifedipine, Confirmed by fellow Reji Wilkins ([id number]) on 04/20/2018 10:04:03 AM Confirmed by MD METZ JOSEPH P ([id number]) on 05/06/2018 6:05:04 AM Procedure Note Interface, External Ris In - 05/06/2018 6:05 AM CDT Protocol Name Regadenoson Time In Exercise Phase 00:01:00 Max. Systolic BP 128 mmHg Max Diastolic BP 52 mmHg Max Heart Rate 90 BPM Max Predicted Heart Rate 152 BPM Reason For Termination Predetermined end point Reason for Test ESRD,Awaiting Renal Transplant Target HR Formula (220 - Age)*100% Arrhythmias none Resting ECG Normal sinus rhythm 1st Degree AV Block Left bundle branch block ST Changes No Significant Changes Overall Impression Indeterminate due to pharmacological stress Chest Pain none HR Response To Exercise BP Response To Exercise carvedilol,hydralazine,nifedipine, Confirmed by fellow Reji Wilkins ([id number]) on 04/20/2018 10:04:03 AM Confirmed by MD METZ JOSEPH P ([id number]) on 05/06/2018 6:05:04 AM Performing Organization Address City/State/Zipcode Phone Number GE MUSE * ECG 12 lead (04/20/2018 9:22 AM CDT) Narrative Performed At Ventricular Rate 81 BPM GE MUSE Atrial Rate 81 BPM P-R Interval 192 ms QRS Duration 170 ms Q-T Interval 472 ms QTC Calculation(Bazett) 548 ms P [place] 80 degrees R [place] -76 degrees T [place] 91 degrees Normal sinus rhythm Left axis deviation Non-specific intra-ventricular conduction block Inferior infarct , age undetermined Abnormal ECG Confirmed by MD METZ JOSEPH P ([id number]) on 04/21/2018 6:24:52 AM Procedure Note Interface, External Ris In - 04/21/2018 6:25 AM CDT Ventricular Rate 81 BPM Atrial Rate 81 BPM P-R Interval 192 ms QRS Duration 170 ms Q-T Interval 472 ms QTC Calculation(Bazett) 548 ms P [place] 80 degrees R [place] -76 degrees T [place] 91 degrees Normal sinus rhythm Left axis deviation Non-specific intra-ventricular conduction block Inferior infarct , age undetermined Abnormal ECG Confirmed by MD METZ JOSEPH P ([id number]) on 04/21/2018 6:24:52 AM Performing Organization Address City/State/[facility] Phone Number GE MUSE * AB SPECIFICITY CLASS I (04/14/2018 1:37 PM CDT) Only the most recent of 3 results within the time period is included. AB Specificity Class I NO CLASS I ANTIBODY DETECTED [facility] WITH MFIs > 4000 AB Specificity Titr Class [facility] Report Specimen Blood Narrative Performed At Disclaimer: [facility] This test was developed and its performance characteristics determined by the [facility]. It has not been cleared or approved by the U.S. Food and Drug Administration. The FDA has determined that such clearance or approval is not necessary. This test is used for clinical purposes. It should not be regarded as investigational or for research. This laboratory is certified under the Clinical Laboratory Improvement Amendments of 1988 (CLIA-88) as qualified to perform high complexity clinical laboratory testing. Performing Organization Address City/[facility] Phone Number [facility] [address], [address]: [id number], [place] [address] CLIA#[id number] CAP#[id number] UNOS#[id number] after 08/21/2017 Insurance Payer Benefit Subscriber ID Type Phone Address Plan / Group MEDICARE MEDICARE A xxxxxxxxxx Medicare B BLUE CROSS/BLUE SHIELD BCBS xxxxxxxxxxxx PPO [phone] [address] [place] [address] [place] Advance Directives For more information, please contact: [address] [place] [address] Date Inactivated Comments Code Status Date Activated 04/11/2016 8:53 PM Full Code 04/10/2016 5:00 PM This code status was determined by: Patient 04/10/2016 5:00 PM Full Code 03/25/2016 10:46 AM This code status was determined by: Patient
--- OUTSIDE RECORDS SUMMARY | 2018-08-22 08:56 | XMS REPORT | Clinical Summary ---
Author Author [facility] Address Unknown Phone Unavailable Care Team Providers [employer] Name Role Phone System, Provider Not In MD PCP Unavailable Allergies No Known Allergies Medications End Date Status Medication Sig Dispensed Refills Start Date Active carvedilol (COREG) 12.5 Take 12.5 mg 0 MG tablet by mouth 2 (two) times a day. Active cholecalciferol, vitamin Take 1,000 0 D3, (VITAMIN D3) 1,000 Units by unit tablet mouth 3 (three) times a week. After dialysis on Wed. Kady. And Sat. Active insulin ASPART (NovoLOG) Inject 0-15 0 100 unit/mL injection Units under the skin 3 (three) times a day before meals. Per sliding scale Active multivitamin (THERAGRAN) Take 1 tablet 0 tablet by mouth daily. Active clopidogrel (PLAVIX) 75 Take 75 mg by 0 mg tablet mouth daily. Active traMADol (ULTRAM) 50 mg Take 50 mg by 0 tablet mouth every 8 (eight) hours as needed for moderate pain. Active gabapentin (NEURONTIN) Take 300 mg 0 300 MG capsule by mouth daily. Active glyBURIDE (DIABETA) 5 MG Take 5 mg by 0 tablet mouth 2 (two) times a day with meals. Active Problems Problem Noted Date Severe anemia 05/09/2016 GI bleed 12/20/2015 ESRD (end stage renal disease) on dialysis 12/13/2015 Acute blood loss anemia 12/13/2015 Anemia in chronic kidney disease 12/13/2015 Type 2 diabetes mellitus without complication 12/13/2015 Lower GI bleed 12/12/2015 Social History Date Tobacco Use Types Packs/Day Years Used Never Smoker Alcohol Use Drinks/Week oz/Week Comments No Sex Assigned at Date Recorded Not on file Industry Job Start Date Occupation Not on file Not on file Not on file Travel End Travel History Travel Start No recent travel history available. Last Filed Vital Signs Not on file Plan of Treatment Health Maintenance Due Date Last Done Comments DIABETIC RETINAL EYE EXAM 1950 DIABETIC FOOT EXAM 1959 BREAST CANCER SCREENING 1999 COLON CANCER SCREENING 1999 SHINGLES VACCINES (1 of 1999 2) PNEUMOCOCCAL 2014 POLYSACCHARIDE VACCINE AGE 65 AND OVER PNEUMOCOCCAL-13 2014 INFLUENZA VACCINE 02/02/2018 Procedures Comments Procedure Name Priority Date/Time Associated Diagnosis TRANSFUSE RED BLOOD CELLS STAT 03/09/2018 5:22 PM CDT TRANSFUSE RED BLOOD CELLS STAT 03/09/2018 5:22 PM CDT TRANSFUSE RED BLOOD CELLS Routine 03/09/2018 5:22 PM CDT after 08/21/2017 Results * Transfuse RBC (03/09/2018 5:22 PM CDT) Only the most recent of 3 results within the time period is included. after 08/21/2017 Insurance Payer Benefit Subscriber ID Type Phone Address Plan / Group MEDICARE MEDICARE xxxxxxxxxx Medicare [place], [place] PART A AND B BCBS BCBS xxxxxxxxxxxx Indemnity PAR/TRAD PLAN Advance Directives Patient has advance care planning documents, and code status on file. For more i nformation, please contact: Evan Bains [address] [place] [address] Date Inactivated Comments Code Status Date Activated 05/16/2016 7:14 PM Full Code 05/09/2016 4:19 PM Code Status decision reached by: Patient 12/25/2015 4:26 PM Full Code 12/20/2015 10:11 AM Code Status decision reached by: Patient 12/16/2015 1:17 AM Full Code 12/12/2015 11:14 PM Code Status decision reached by: Patient
--- OUTSIDE RECORDS SUMMARY | 2018-08-22 08:56 | XMS REPORT ---
Author Author [facility] Address Unknown Phone Unavailable Care Team Providers Care [employer] Name Role Phone ALFREDO PEREZ Unavailable Unavailable Radha BLUE Unavailable Unavailable Magui BRAVO Unavailable Unavailable Otto MORENO Unavailable Unavailable Problems This patient has no known problems. Allergies, Adverse Reactions, Alerts This patient has no known allergies or adverse reactions. Medications This patient has no known medications. Results Test Description Test Time Test Comments Text Results Atomic Results Result Comments PET, CARDIAC PERFUSION MULTIPLE STUDIES, REST AND STRESS 2018-04-20 16:04:00 PT started dialysis 03/05/2015. Reason for Exam:->Awaiting renal transplant, ESRD on HD FINAL REPORT PROCEDURE: Rest/Stress MYOCARDIAL PERFUSION PET with regadenoson\XA9\CPT CODE: [id number]: ESRD, Risk stratification, prior to renal transplantHISTORY: Cardiac risk factors: Diabetes, hypertension. Other cardiovascular history: Known CAD, prior coronary stent. Current cardiovascular-related medications: Carvedilol, hydralazine, nifedipine.PROTOCOL: Limited low-dose CT imaging was performed for [...] There is a small, mild, reversible perfusion d efect in the mid inferolateral LV. 4. Normal resting LVEF with mild focal wall motion defect. No deterioration of function is noted with pharmacologic stress. 5. Normal extracardiac tracer distribution. 6. No previous [facility] study for comparison. Signed: Dinesh Perez MDReport Verified Date/Time: 04/20/2018 16:04:01 Reading Location: [address] Reading Room SPECIFICITY CLASS II 2017-03-16 11:09:00 DATE OF SERUM (BEAKER) (test xeqj=8270) 879716 SERUM # (BEAKER) (test mvlg=5168) 510197 AB SPECIFICITY CLASS II (BEAKER) (test jigi=3164) See Scanned Report FLOW PRA CLASS I AND [id number] 23:14:00* Test Item Value Reference Range Comments DATE OF SERUM (BEAKER) (test prqm=0801) 328945 SERUM # (BEAKER) (test ijnv=7296) 193101 FLOW PRA CLASS I AND II (test mpkz=6572) See Scanned Report HEPATITIS B SURFACE [id number] 16:55:00* Test Item Value Reference Range Comments HEPATITIS B SURFACE ANTIBODY (BEAKER) (test aduh=092) 68.8 mIU/mL <8.0 AB SPECIFICITY CLASS [id number] 13:02:00* Test Item Value Reference Range Comments DATE OF SERUM (BEAKER) (test nieb=6141) 596507 SERUM # (BEAKER) (test idzn=4809) 359951 AB SPECIFICITY CLASS II (BEAKER) (test trgj=0379) See Scanned Report FLOW PRA CLASS I AND [id number] 12:56:00* Test Item Value Reference Range Comments DATE OF SERUM (BEAKER) (test wavy=5473) 170512 SERUM # (BEAKER) (test clkn=7745) 472785 FLOW PRA CLASS I AND II (test gtjl=8127) See Scanned Report US ABDOMEN COMPLETE [place] [address] Patient Name: SAGRARIO BEAVERS MR #: [id number] : 1950 Age/Sex: 67/F Req #: [id number] Adm Physician: Ordered by: ALFREDO PEREZ MD Report #: [id number] Location: US Room/Bed: Procedure: [id number] US/US ABDOMEN COMPLETE Exam Ramirez e: Exam Time: REPORT STATUS: Signed PROCED URE: ABDOMINAL ULTRASOUND COMPARISON: Right upper quadrant ultrasound 11/23. INDICATIONS: RUQ Abdomen Pain FINDINGS: Liver: 14.8 cm in length in the right midclavicular line. Normal hepatic parenchymal echoge nicity. No focal mass. Main portal vein: 1.1 cm in caliber. Hepatopedal flow. Gallbladder: Surgically removed. Common Bile Duct: 0.5 cm in caliber. No echogenic filling defect. Right kidney: 9 cm in length. No solid or cy stic mass, or hydronephrosis. 7 mm echogenic focus with posterior acoustic sh adowing in the midpole. Increased parenchymal echogenicity. Left kidney: 9. 3 cm in length. No solid mass, echogenic calculi, or hydronephrosis. Adjacent round anechoic simple cysts measuring 2 cm and 1.8 m in maximum caliber in t he mid pole. Increased parenchymal echogenicity. Spleen: 10.9 cm in le ngth. Uniform echotexture. Pancreas: The visualized portions of the pancreas a re normal. Inferior vena cava: Patent. Aorta: Non-aneurysmal. Ascites: None. CONCLUSION: Status post cholecystectomy with unremarkable sonographic appearance of the liver. 7 mm right renal calculus without hydronephrosis. Increased renal cortical echogenicity compatible with medi jim renal disease. Dictated by: Finesse Nascimento M.D. on 018 at 8:56 Electronically approved by: Finesse Nascimento M.D. on 09/27/2017 at 8:56 Dictated By: FINESSE NASCIMENTO MD 5 Transcribed By: STEPHANIE on 09/27/17855 CO PY TO: ALFREDO PEREZ MD KNEE LEFT THREE VIEWS [place] [address] Patient Name: SAGRARIO BEAVERS MR #: [id number] : 1950 Age/Sex: 67/F Req #: [id number] Adm Physician: Ordered by: ENRRIQUE ROJAS FREIGHT CLERK Report #: [id number] Location: ER Room/Bed: Procedure: [id number] DX/KNEE LEFT THREE VIEWS Exam Date: 08/22/17 Exam Time: 1835 REPORT STATUS: S igned KNEE LEFT THREE VIEWS, LOWER LEG LEFT, ANKLE 3+ VIEWS LEFT Compari son: None Clinical history: Status post fall with left leg pain Findings: Decreased bone mineralization limits sensitivity in evaluating for nondisplac ed fracture. Left knee: Suboptimal positioning with moderate joint effusi on. No definite acute fracture or dislocation seen. Degenerative changes, medi al compartment dominant. Left lower leg and ankle: No acute fracture or d islocation. Ankle mortise is intact. Vascular calcifications. Impres homar: Decreased bone mineralization limits sensitivity in evaluating for nondi splaced fracture. 1. Moderate knee joint effusion. 2. No definite acute fr acture seen. Signed by: Dr Candace Souza MD on 08/22/2017 8:16 PM Di ctated By: CANDACE SOUZA MD 15 Transcribed By: EMMA on 08/22/172015 COPY TO: BECKI ROJAS FREIGHT CLERK ANKLE 3+ VIEWS LEFT [place] [address] Patient Name: SAGRARIO BEAVERS MR #: [id number] : 1950 Age/Sex: 67/F Req #: [id number] Adm Physician: Ordered by: ENRRIQUE ROJAS FREIGHT CLERK Report #: [id number] Location: ER Room/Bed: Procedure: [id number] DX/ANKLE 3+ VIEWS LEFT Exam Da te: 08/22/17 Exam Time: 1807 REPORT STATUS: Sig pushpa KNEE LEFT THREE VIEWS, LOWER LEG LEFT, ANKLE 3+ VIEWS LEFT Compariso n: None Clinical history: Status post fall with left leg pain Findings: Decreased bone mineralization limits sensitivity in evaluating for nondisplaced fracture. Left knee: Suboptimal positioning with moderate joint effusion. No definite acute fracture or dislocation seen. Degenerative changes, medial compartment dominant. Left lower leg and ankle: No acute fracture or dis location. Ankle mortise is intact. Vascular calcifications. Impressi on: Decreased bone mineralization limits sensitivity in evaluating for nondisp laced fracture. 1. Moderate knee joint effusion. 2. No definite acute frac ture seen. Signed by: Dr Candace Souza MD on 08/22/2017 8:16 PM Dict ated By: CANDACE SOUZA MD 15 COPY TO: MEÑO ROJAS FREIGHT CLERK LOWER LEG LEFT [facility] [address] [place] [address] Patient Name: SAGRARIO BEAVERS MR #: [id number] : 1950 Age/Sex: 67/F Req #: [id number] Adm Physician: Ordered by: ENRRIQUE ROJAS FREIGHT CLERK Report #: [id number] Location: ER Room/Bed: Procedure: [id number] DX/LOWER LEG LEFT Exam Date: 0 08/22/17 Exam Time: 1835 REPORT STATUS: Signed KNEE LEFT THREE VIEWS, LOWER LEG LEFT, ANKLE 3+ VIEWS LEFT Comparison: No ne Clinical history: Status post fall with left leg pain Findings: Decr eased bone mineralization limits sensitivity in evaluating for nondisplaced fr acture. Left knee: Suboptimal positioning with moderate joint effusion. No definite acute fracture or dislocation seen. Degenerative changes, medial comp artment dominant. Left lower leg and ankle: No acute fracture or dislocat ion. Ankle mortise is intact. Vascular calcifications. Impression: Decreased bone mineralization limits sensitivity in evaluating for nondisplaced fracture. 1. Moderate knee joint effusion. 2. No definite acute fracture seen. Signed by: Dr Candace Souza MD on 08/22/2017 8:16 PM Dictated By: CANDACE SOUZA MD 15 Transcribed By: EMMA on 08/22/172015 COPY TO: ENRRIQUE ROJAS FREIGHT CLERK CHEST 2 VIEWS [facility] [address] [place] [address] Patient Name: SAGRARIO BEAVERS MR #: [id number] : 1950 Age/Sex: 66/F Req #: [id number] Adm Physician: Ordered by: VALENTÍN BRAVO MD Report #: [id number] Location: ER Room/Bed: Procedure: [id number] DX/CHEST 2 VIEWS Exam Date: Exam Time: 1819 REPORT STATUS: Signed PROCEDURE: Frontal and lateral views of the chest. COMPARISON: 04/07/2017 and prior INDICATIONS: SOB FINDINGS: Lines/tubes: None. Lungs: The lungs are well inflated and clear. There is no evidence of p neumonia or pulmonary edema. Stable calcified granuloma in the right midlung. Pleura: There is no pleural effusion or pneumothorax. Heart and me diastinum: The heart and the mediastinum are normal. Bones: No acute bon y abnormality. IMPRESSION: 1. No acute cardiopulmonary disease. Dictated by: Kristin Ferrell M.D. on 06/29/2017 at 18:51 Electronica lly approved by: Kristin Ferrell M.D. on 06/29/2017 at 18:51 Dictated By: KRISTIN FERRELL MD 50 Transcribed By: STEPHANIE on 06/29/171850 COPY TO: VALENTÍN BRAVO MD [facility] [place] [address] Patient Name: SAGRARIO BEAVERS MR #: [id number] : 1950 Age/Sex: 66/F Req #: [id number] Adm Physician: Ordered by: LB CRUZ MD Report #: [id number] Location: ER Room/Bed: Procedure: [id number] DX/CHEST SINGLE (PORTABLE) Exam Date: Exam Time: REPORT STATUS: Signed Examination: Single AP view of the chest. COMPARISON: Chest AP 02/26/2015 and 10/24/2016 INDICATION: Low blood count, weakness IMPRESSION: 1. Lines and Tubes: Interval removal of previously visualized, right IJ dialysis catheter. No lines. 2. Stable 6-7 mm calcified granuloma in the rig ht midlung. No consolidation or effusion. 3. Stable enlargement of the card iac silhouette. Central pulmonary vasculature is normal. Atherosclerotic calci fication of the aortic arch. 4. No acute bony abnormalities. Signed by: Dr. Igor Haines M.D. on 04/07/2017 8:53 PM Dictated By: IGOR HAINES MD 52 Trans cribed By: EMMA on 04/07/172052 COPY TO: LB CRUZ MD
[2018-08-22 09:44] LABS: BASOPHILS % 0.3 % (0.0-1.0); EOSINOPHILS # (AUTO) 0.1 (0.0-0.4); EOSINOPHILS % 3.9 % (0.0-6.0); HEMATOCRIT 31.3 % (34.2-44.1); HEMOGLOBIN 9.4 g/dL (12.0-16.0); LYMPHOCYTES # (AUTO) 0.7 (1.0-3.2); LYMPHOCYTES % 21.6 % (18.0-39.1); MEAN CORPUSCULAR HEMOGLOBIN 22.4 pg (28-32); MEAN CORPUSCULAR VOLUME 74.5 fL (81-99); MONOCYTES # (AUTO) 0.3 (0.2-0.8); MONOCYTES % 9.8 % (4.4-11.3); NEUTROPHILS % 64.4 % (38.7-80.0); PLATELET COUNT 121 x10e3/uL (140-360); RED CELL DISTRIBUTION WIDTH 19.1 % (11.7-14.4)
[2018-08-22 11:52] LABS: ALBUMIN 3.7 g/dL (3.5-5.0); BILIRUBIN,DIRECT 0.2 mg/dL (0.0-0.5)
--- NOTE | 2018-08-22 13:28 | Operative Report ---
DATE OF PROCEDURE: August 22, 2018 REFERRING PHYSICIAN: Dr. Dulce Mcdonald PROCEDURES PERFORMED 1. Esophagogastroduodenoscopy with biopsies. 2. Colonoscopy with polypectomy. INDICATIONS FOR EGD: Upper abdominal pain. INDICATIONS FOR COLONOSCOPY: Surveillance colonoscopy and personal history of colon polyps. MEDICATION: Patient was done under MAC. Please see anesthesiologist's note. PROCEDURE: With the patient in the left lateral decubitus position, the flexible fiberoptic Olympus gastroscope was introduced into the esophagus under direct visualization without any difficulty. The esophagus appeared to be within normal limits. The scope was then advanced with ease into the stomach. Mucosa overlying the antrum and the body revealed some diffuse erythema and low-grade to moderate edema, and biopsies were obtained and sent to stain for H. pylori. The pylorus appeared to be of normal contour and shape. It was intubated with ease. The scope was advanced all the way to the 2nd portion of the duodenum. The scope was then withdrawn slowly and mucosa overlying the proximal 2nd portion and the duodenal bulb appeared to be within normal limits. The scope was then withdrawn back into the stomach and retroflexed. Mucosa overlying the fundus and the cardia appeared to be within normal limits. The scope was then straightened out. The stomach was decompressed. The scope was subsequently withdrawn. Patient tolerated the procedure well. IMPRESSION 1. Normal esophagus. 2. Gastritis, biopsied. Biopsies sent to stain for Helicobacter pylori. PLAN: Follow up histology. Initiate Protonix 40 mg 1 p.o. q.a.m. a.c. Patient was then turned around. After adequate lubrication of the anal canal, a flexible fiberoptic Olympus colonoscope was inserted into the rectum with ease and advanced all the way to the cecum. One polyp was snared from the cecum and polypectomy site was hemoclipped. The scope was then withdrawn slowly. Mucosa overlying the ascending appeared to be within normal limits. One polyp was hot biopsied from the transverse colon. Diverticulosis was noted in the distal descending and the sigmoid colon. One polyp was snared from the from the descending colon. The rectum grossly appeared to be within normal limits. The scope was then retroflexed into the distal rectum small internal hemorrhoids were noted, none of which was actively bleeding. The scope was then straightened out. It was subsequently withdrawn. Patient tolerated the procedure well. IMPRESSION 1. Cecal polyp snared and hemoclipped. 2. Transverse colon polyp, hot biopsied. 3. Diverticulosis. 4. Descending colon polyp, snared. 5. Internal hemorrhoids, none actively bleeding. PLAN: Follow up histology. Initiate high-fiber and low-fat diet. Initiate high-fiber supplement. Patient might benefit from a followup colonoscopy in 5 years. Job#: [id number] cc:MD DENNIS BRUNO MD SATHISH CAYENNE, MD
[2018-08-22 13:30] VITALS: BP 151/71
== END | disposition home or self-care (01) ==
LOC: OR 08:53
PROVIDERS: ATTEND Internal Medicine Gastroenterology
DX: Z12.11 Encounter for screening for malignant neoplasm of colon (principal); D64.9 Anemia, unspecified; K29.70 Gastritis, unspecified, without bleeding; Z86.010 Personal history of colon polyps; E11.22 Type 2 diabetes mellitus with diabetic chronic kidney disease; I12.0 Hypertensive chronic kidney disease with stage 5 chronic kidney disease or end stage renal disease; N18.6 End stage renal disease; Z99.2 Dependence on renal dialysis; K92.1 Melena; D12.2 Benign neoplasm of ascending colon; D12.3 Benign neoplasm of transverse colon; K75.81 Nonalcoholic steatohepatitis (NASH); Q27.33 Arteriovenous malformation of digestive system vessel; K64.8 Other hemorrhoids; K57.30 Diverticulosis of large intestine without perforation or abscess without bleeding
CPT/HCPCS: 36415; 43239; 45384; 45385; 80076; 82150; 82948; 83690; 84132; 85025; 88305; 88312; 93005; J1610; J1817; J2704; J7040; 45378

== ENCOUNTER → 2018-11-21 | Outpatient (CLI) | payer MEDICARE, BC ==
[~2018-11-21] MED LIST changes: -GLUCAGON FOR INJ 1 MG VIAL ONE; -INSULIN REGULAR, HUMAN 100 UNIT/1 ML 3ML VIAL ONE; -PROPOFOL IV EMULSION 10 MG/ML 50 ML VIAL ONE; -SODIUM CHLORIDE 0.9% 500ML 500 ML ONE
--- NOTE | 2018-11-21 12:06 | Diagnostic Imaging Report ---
EXAM: Right upper quadrant abdominal ultrasound INDICATION: Cirrhosis of the liver. COMPARISON: Abdominal ultrasound 09/27/2017. TECHNIQUE: Transverse and longitudinal images of the right upper quadrant abdomen were obtained FINDINGS: Liver: Size: 14.9 cm in the right midclavicular line, normal Appearance: Normal echogenicity, smooth contour Mass: No focal masses Gallbladder: Status post cholecystectomy. Bile Ducts: Intrahepatic Ducts: No dilatation Extrahepatic Ducts: Common bile duct measures 0.3 cm, no dilatation Pancreas: Visualized portions of the pancreatic head, neck and proximal body are normal. Kidney: The right kidney measures 9.3 cm without evidence of hydronephrosis or stone. The kidney is echogenic in appearance. Vessels: Aorta: Visualized portions are normal Inferior Vena Cava: Visualized portions are normal Main Portal Vein: 1.0 cm, normal size with hepatopetal flow. Free Fluid: No evidence of ascites. IMPRESSION: No sonographic evidence of cirrhosis. Status post cholecystectomy. Echogenic appearance of the right kidney, which may reflect medical renal disease. Signed by: Dr. Ramona Stahl MD on 11/21/2018 12:02 PM
== END ==
LOC: US 11:08
PROVIDERS: ATTEND Internal Medicine Gastroenterology
DX: K74.60 Unspecified cirrhosis of liver (principal)
CPT/HCPCS: 76705

== ENCOUNTER 2019-04-12 14:36 | Observation (INO) | payer MEDICARE, BC ==
[~2019-04-12] VITALS: Ht 167.6 cm; Wt 88.8 kg
[2019-04-12 15:32] LABS: BASOPHILS % 0.4 % (0.0-1.0); EOSINOPHILS # (AUTO) 0.1 (0.0-0.4); EOSINOPHILS % 1.9 % (0.0-6.0); HEMATOCRIT 23.7 % (34.2-44.1); HEMOGLOBIN 7.1 g/dL (12.0-16.0); LYMPHOCYTES # (AUTO) 0.6 (1.0-3.2); MEAN CORPUSCULAR HEMOGLOBIN 24.6 pg (28-32); MONOCYTES # (AUTO) 0.3 (0.2-0.8); MONOCYTES % 7.3 % (4.4-11.3); NEUTROPHILS # (AUTO) 3.7 (2.1-6.9); PLATELET COUNT 133 x10e3/uL (140-360); RED BLOOD COUNT 2.89 x10e6/uL (3.6-5.1); RED CELL DISTRIBUTION WIDTH 20.3 % (11.7-14.4)
[2019-04-12 15:35] LABS: INR 0.99; PARTIAL THROMBOPLASTIN TIME 29.2 seconds (23.8-35.5); PROTHROMBIN TIME 13.6 seconds (11.9-14.5)
[2019-04-12 15:46] LABS: CREATINE KINASE MB 3.4 ng/mL (0-5.0)
[2019-04-12 15:50] LABS: ALBUMIN 3.5 g/dL (3.5-5.0); ALBUMIN/GLOBULIN RATIO 0.8 (0.8-2.0); ANION GAP 18.6 mmol/L (8-16); CALCIUM 8.7 mg/dL (8.4-10.2); CREATININE, SERUM 6.25 mg/dL (0.57-1.11)
[2019-04-12 16:00] LABS: POTASSIUM 5.6 mmol/L (3.5-5.1)
[2019-04-12] MEDS ORDERED: SOD POLYSTYRENE SULFONATE SUSP 15 GM/60 ML BTL PO ONE (16:45)
[2019-04-12] MEDS ORDERED: SODIUM CHLORIDE 0.9% 250ML 250 ML IV ONE (19:00)
--- NOTE | 2019-04-12 19:34 | NUR ---
PT ARRIVED ON THE UNIT VIA STRETCHER AT 1934. RESPIRATION IS EVEN AND UNLABORED, NO DISTRESS NOTED. PT AND HER ORIENTED TO THE ROOM, BED IN THE LOWEST POSITION, LOCKED, AND CALL LIGHT WITHIN REACH. ADMISSION AND HEAD TO TOE ASSESSMENT COMPLETE. WILL CONTINUE TO MONITOR.
[2019-04-12 19:52] VITALS: BP 138/69
[2019-04-13] VITALS (7 sets, daily range): BP systolic 121–174; BP diastolic 53–73
--- NOTE | 2019-04-13 06:00 | NUR ---
FIRST UNIT OF BLOOD STARTED. NO REACTION NOTED. WILL CONTINUE TO MONITOR.
[2019-04-13] MEDS ORDERED: SODIUM CHLORIDE 0.9% 250ML 250 ML ONE ×2 (06:14→14:37)
--- NOTE | 2019-04-13 07:15 | NUR ---
Received patient lying in bed. Respiration even and unlabored without SOB. Call light in reach
[2019-04-13] MEDS ORDERED: SODIUM CHLORIDE 0.9% 1000ML 2,000 ML ONE (13:18)
--- NOTE | 2019-04-13 13:24 | Consultation ---
DATE OF CONSULTATION: REQUESTING PHYSICIAN: Dr. Quinonez. REASON FOR CONSULTATION: ESRD. Thank you for allowing us to participate in Ms. Ware' care. HISTORY OF PRESENT ILLNESS: This is a 68-year-old female with a history of melanotic stool for the last 7 to 8 days. Because of this, came to the ER. Hemoglobin was 7.1. Has a history of warm antibody, given 1 unit without a problem. Potassium slightly high. She had end-stage renal disease, dialyzes on a Wednesday, , Wednesday basis. 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 Denies any uremic symptoms. She has been on etelcalcetide for secondary hyperparathyroidism. There is some reports of GI bleeding, although it is not clear that the drug was the cause. Nonetheless, we favor stopping it for the time being. Calcium still 8.7. PAST MEDICAL HISTORY: 1. ESRD, recurrent GI bleed. 2. AV malformation. 3. 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 4. Hyperkalemia, intermittent. 5. History of secondary hyperparathyroidism and poorly controlled phosphorus in the past. 6. History of CHF/fluid overload. MEDICATIONS: Please see list. She did in addition to her home medicines got one dose of Kayexalate here because the potassium was somewhat high. FAMILY HISTORY: Hypertension. REVIEW OF SYSTEMS: CONSTITUTIONAL: No fever or chills. Feels strong. CARDIAC: Denies angina or syncope. RESPIRATORY: Denies cough or hemoptysis. VASCULAR: Minimal leg swelling. GI: Bleeding as above. Rest of review is negative. PHYSICAL EXAMINATION: GENERAL: On examination, sitting up, no distress. VITAL SIGNS: Temperature 96.2, pulse 98, and blood pressure 174/73. HEENT: Atraumatic. NECK: No JVD. CHEST: Clear. SKIN: Pale. EXTREMITIES: Trace edema. Few varicosities. ABDOMEN: Benign. NEUROLOGIC: Alert and appropriate. Speech is normal. VASCULAR: Patent left upper extremity AV fistula. LABORATORY DATA: K is 5.6, creatinine 6.25, and BUN 54. Hemoglobin is 7.1. Albumin is 3.5. ASSESSMENT: 1. End-stage renal disease, anemia of chronic kidney disease plus anemia from recurrent gastrointestinal bleeding. 2. Mild hyperkalemia. 3. Hypertension. 4. Minimal fluid overload. 5. Gastrointestinal bleeding is presumably from mild AV malformation. PLAN: 1. Await GI evaluation. 2. Hemodialysis today per regular schedule. We will transfuse another unit of blood available for her given the hemoglobin was quite low and she does have a tendency to lose it. 3. Keep the low potassium, low phosphorus diet. 4. Start Renvela. 5. We will follow along. MD GARCÍA Monique/REAGANL /[id number]
[2019-04-13] MEDS ORDERED: SEVELAMER CARBONATE 800 MG TAB PO SCH (17:00)
--- NOTE | 2019-04-13 18:51 | NUR ---
CALL DR. PEREZ WITH [facility] FOR POSSIBLE DISCHARGE.
[2019-04-13 19:27] LABS: HEMATOCRIT 28.9 % (34.2-44.1); HEMOGLOBIN 8.9 g/dL (12.0-16.0)
--- NOTE | 2019-04-13 19:28 | NUR ---
Report given to multicraft operator. Respiration even and unlabored without SOB. Call light in reach.
--- NOTE | 2019-04-13 19:32 | NUR ---
PT IS RESTING IN BED WITH FAMILY AT BEDSIDE. RESPIRATION IS EVEN AND UNLABORED, NO DISTRESS NOTED. BED IN THE LOWEST POSITION, LOCKED, AND CALL LIGHT WITHIN REACH. WILL CONTINUE TO MONITOR.
--- NOTE | 2019-04-13 20:02 | NUR ---
PAGE DR Amanda PEREZ TO REPORT LAB RESULT. AWAITING CALL BACK. WILL CONTINUE TO MONITOR.
--- NOTE | 2019-04-13 21:09 | NUR ---
SPOKE TO DR PEREZ ON REGARD TO H&H RESULT. HGB 8.[address] PEREZ PT CAN BE DISCHARGED. WILL CONTINUE TO MONITOR.
== END 2019-04-13 21:50 | disposition home or self-care (01) ==
LOC: ER 14:36 → ERHOLD 17:11 → MED/SURG3 19:31
DX: I12.0 Hypertensive chronic kidney disease with stage 5 chronic kidney disease or end stage renal disease (principal); N18.6 End stage renal disease; E11.22 Type 2 diabetes mellitus with diabetic chronic kidney disease; D63.8 Anemia in other chronic diseases classified elsewhere; Z99.2 Dependence on renal dialysis; Z90.49 Acquired absence of other specified parts of digestive tract; Z95.810 Presence of automatic (implantable) cardiac defibrillator; I25.10 Atherosclerotic heart disease of native coronary artery without angina pectoris; N25.81 Secondary hyperparathyroidism of renal origin; E87.5 Hyperkalemia; K55.21 Angiodysplasia of colon with hemorrhage; Z79.4 Long term (current) use of insulin
CPT/HCPCS: 36415 ×2; 36430; 80053; 82550; 82553; 82948 ×2; 84484; 85014; 85018; 85025; 85610; 85730; 86705; 86706; 86850; 86870; 86880; 86900; 86905; 86920; 86922; 87340; 90935; 93005; 99001; 99284; G0378 ×2; J7030; J7050; P9016

== ENCOUNTER 2019-12-12 09:00 | Inpatient (IN) | payer MEDICARE, BC, OTHER ==
[~2019-12-12] VITALS: Ht 167.6 cm; Wt 88.5 kg
--- OUTSIDE RECORDS SUMMARY | 2019-12-12 09:05 | XMS REPORT | Clinical Summary ---
Author Author YUDELKA [facility] Organization [facility] Address Unknown Phone Unavailable Care Team Providers Care Graphic Design Teacher Name Role Phone Harry, Josee PCP Allergies No Known Allergies Medications End Date Status Medication Sig Dispensed Refills Start Date Active carvedilol (COREG) 12.5 Take 12.5 mg 0 MG tablet by mouth 2 (two) times daily with breakfast and dinner. Active insulin aspart (NOVOLOG) Inject 16 0 100 unit/mL Units InPnIndications: type 2 subcutaneousl diabetes mellitus y 3 (three) times daily as needed . Active Problems Problem Noted Date Coronary artery disease involving [place]qug[place] coronary art mitzi of iqugmiut heart 04/12/2016 Pre-transplant evaluation for end stage renal disease 04/10/2016 ESRD (end stage renal disease) on dialysis 6 Essential hypertension 04/10/2016 Type 2 diabetes mellitus with neurologic complication 04/10/2016 Colon cancer 04/10/2016 ESRD (end stage renal disease) 04/10/2016 Hyperkalemia 04/10/2016 Encounters Care Team Description Date Type Specialty Samira Almaguer Appointment 11/07/2019 Telephone Transplant Sotero Bedoya MD Pre-transplant evaluation for ESRD (end stage renal disease) (Primary Dx); Nonrheumatic mitral valve regurgitation 11/01/2019 Orders Only Cardiology Elva Yap, RICHARD Waitlist Maintenance 10/19/2019 Telephone Transplant Sim, Na Y 10/10/2019 Documentation Transplant Mora, Lexus E 10/09/2019 Documentation Transplant Samira Almaguer Appointment 09/15/2019 Telephone Transplant Samira Almaguer Appointment 09/15/2019 Telephone Transplant Samira Almaguer Appointment 09/11/2019 Telephone Transplant Elva Yap RN 08/16/2019 Documentation Transplant ProviderIsael MD 07/14/2019 Orders Only Transplant Elva Yap, RN Awaiting transplantation of kidney (Prim sofía Dx) 07/10/2019 Orders Only Transplant Presley Quianamariza Appointment 06/26/2019 Telephone Transplant PresleyAlka gonzalez Appointment 06/20/2019 Telephone Transplant Isael Tyler MD 06/19/2019 Orders Only Transplant PresleyAlka gonzalez Appointment 06/16/2019 Telephone Transplant Samira Almaguer Appointment 06/14/2019 Telephone Transplant Antonieta Cadena MD Awaiting transplantation of kidney 12/30/2018 Orders Only Lab after 12/11/2018 Family History Medical History Relation Name Comments [...] Signs Not on file Plan of Treatment Care Team Description Date Type Specialty Sotero Bedoya MD [address] [facility] [address] [place] [address] [phone] 12/27/2019 Appointment Cardiology 01/03/2020 Evaluation Transplant Antonieta Cadena MD [address] [facility] [address] [place] [address] [phone] 01/03/2020 Orders Only Transplant Hepatolo gy 01/03/2020 Evaluation Transplant Health Maintenance Due Date Last Done Comments BREAST CANCER SCREENING 1949 DIABETIC FOOT EXAM 1959 PNEUMOCOCCAL 65+ 2014 HIGH/HIGHEST RISK (1 of 2 - PCV13) MEDICARE ANNUAL WELLNESS 07/06/2015 (YEAR 2 or FIRST YEAR if no IPPE) HEMOGLOBIN A1C 09/20/2016 03/23/2016 COLON CANCER SCREENING 04/10/2017 04/10/2016 ANNUAL FOBT INFLUENZA VACCINE (Season 03/05/2020 Ended) Implants Device Identifier Shelf Expiration Date Model / Serial / L ot Implanted Type Area Manufactur er 02/01/2017 [id number] / / [id number] Promus Premier Stents-[employer] [place] Implanted: Qty: 1 on 04/10/2016 by Sotero Harris MD Procedures Comments Procedure Name Priority Date/Time Associated Diag nosis 2D ECHO MODE W/O DOPPLER Routine 07/12/2019 2D ECHO W/ DOPPLER Routine 05/29/2019 (CW/PW/COLOR) NM MYOCARDIAL PERFUSION Routine 05/29/2019 SPECT, PHARM(LEXISCAN) AB SPECIFICITY CLASS II Routine 12/30/2018 Awaiti ng transplantation 9:42 AM CDT of kidney FLOW PRA CLASS I WITH Routine 12/30/2018 Awaiting transplantation REFLEX TO ANTIBODY 9:42 AM CDT of kidney SPECIFICITY FLOW PRA CLASS II WITH Routine 12/30/2018 Awaitin g transplantation REFLEX TO ANTIBODY 9:42 AM CDT of kidney SPECIFICITY after 12/11/2018 Results * 2D Echo W/O Doppler(No Doppler) (07/12/2019) Narrative Performed At This result has an attachment that is n ot available. * 2D Echo W/Doppler(CW/PW/Color) (05/29/2019) Narrative Performed At This result has an attachment that is n ot available. * NM myocardial perfusion SPECT,pharm(LEXISCAN) (05/29/2019) Narrative Performed At This result has an attachment that is n ot available. * FLOW PRA CLASS II WITH REFLEX TO ANTIBODY SPECIFICITY (12/30/2018 9:42 AM CDT) Flow Class II Percent 22 [facility] NG Positive Flow Class Report [facility] Comments Specimen Blood Narrative Performed At Disclaimer: [facility] This test was developed and its perform ance characteristics determined by the [facility]. It has not been cleared or approved by the U.S. Food and Drug Administration. The FDA has determined that such clearance or approval is not necessary. This test is used for clinic al purposes. It should not be regarded as investigational or for research. This l aboratory is certified under the Clinical Laboratory Improvement Amendments of 19 88 (CLIA-88) as qualified to perform high complexity clinical laboratory testing. Performing Organization Address City/State/Zipcode Ph one Number [facility] ONE [facility] [address], [address]: [id number], [place] [address] CLIA#[id number] CAP#[id number] UNOS#[id number] * FLOW PRA CLASS I WITH REFLEX TO ANTIBODY SPECIFICITY (12/30/2018 9:42 AM CDT) Flow Class I Percent 0 [facility] G Positive Flow Class Report [facility] Comments Specimen Blood Narrative Performed At Disclaimer: [facility] This test was developed and its perform ance characteristics determined by the [facility]. It has not been cleared or approved by the U.S. Food and Drug Administration. The FDA has determined that such clearance or approval is not necessary. This test is used for clinic al purposes. It should not be regarded as investigational or for research. This l aboratory is certified under the Clinical Laboratory Improvement Amendments of 19 88 (CLIA-88) as qualified to perform high complexity clinical laboratory testing. Performing Organization Address City/[facility] Ph one Number [facility] ONE [address], [address]: [id number], [place] [address] CLIA#[id number] CAP#[id number] UNOS#[id number] * AB SPECIFICITY CLASS II (12/30/2018 9:42 AM CDT) AB Specificity Class II NO CLASS II ANTIBODY DETECTED [facility] WITH MFIs > 4000 AB Specificity Titr Class [facility] Report Specimen Blood Narrative Performed At Disclaimer: [facility] This test was developed and its perform ance characteristics determined by the [facility]. It has not been cleared or approved by the U.S. Food and Drug Administration. The FDA has determined that such clearance or approval is not necessary. This test is used for clinic al purposes. It should not be regarded as investigational or for research. This l aboratory is certified under the Clinical Laboratory Improvement Amendments of 19 88 (CLIA-88) as qualified to perform high complexity clinical laboratory testing. Performing Organization Address City/State/[facility] Ph one Number [facility] ONE [address], [address]: [id number], [place] [address] CLIA#[id number] CAP#[id number] UNOS#[id number] after 12/11/2018 Insurance Payer Benefit Subscriber ID Type Phone Address Plan / Group MEDICARE MEDICARE A xxxxxxxxxxx Medicare B BLUE CROSS/BLUE SHIELD BCBS xxxxxxxxxxxx [facility] [address] [place] [address] [place] [phone] Advance Directives For more information, please contact: [facility] [address] [place] [address] Date Inactivated Comments Code Status Date Activated 04/11/2016 8:53 PM Full Code 04/10/2016 5:00 PM This code status was determined by: Patient 04/10/2016 5:00 PM Full Code 03/25/2016 10:46 AM This code status was determined by: Patient
--- OUTSIDE RECORDS SUMMARY | 2019-12-12 09:05 | XMS REPORT | Clinical Summary ---
Author Author [facility] Organization [facility] Address Unknown Phone Unavailable Care Team Providers Care Flavorer Name Role Phone System, Provider Not In [...] times a week. After dialysis on Wed. Wed. And Sat. Active insulin ASPART (NovoLOG) Inject [...] (end stage renal disease) on dialysis 6 Acute blood loss anemia 12/13/2015 Anemia in chronic kidney disease 12/13/2015 Type 2 diabetes mellitus without complication 2015 Lower GI bleed 12/12/2015 Social History Date Tobacco Use Types Packs/Day Years Used Never Smoker Drinks/Week oz/Week Comments Alcohol Use No Sex Assigned at Date Recorded Not [...] FOOT EXAM 1959 BREAST CANCER SCREENING 1999 COLONOSCOPY SCREENING 1999 SHINGLES VACCINES (#1) 1999 65+ PNEUMOCOCCAL VACCINE 2014 (1 of 2 - PCV13) INFLUENZA VACCINE 02/03/2020 Results Not on fileafter 12/11/2018 Insurance Type Payer Benefit Subscriber ID Effective Phone Address Plan / Dates Group Medicare MEDICARE MEDICARE xxxxxxxxxx 2014-P [place], PART A AND resent [place] B Indemnity BCBS BCBS xxxxxxxxxxxx 2015-P PAR/TRAD resent PLAN Advance Directives For more information, please contact: [phone] 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
--- OUTSIDE RECORDS SUMMARY | 2019-12-12 09:06 | XMS REPORT | Continuity of Care Document ---
Author Author [facility] t Organization [facility] t Address [address] [place] [address] Phone Unavailable Care Team Providers Care Stallion Keeper Name Role Phone CARLITOS SAMUEL, DULCE PCP Samira Almaguer Attphys Unavailable Aureliano SAMUEL, Sotero Attphys Fracisco RN, Elva Attphys Unavailable Sim, Y Na Attphys Unavailable Leslie Mora Attphys Unavailable Nayeli SAMUEL, Isael Attphys Alka Presley Attphys Unavailable Tammi SAMUEL, Ericka Fung Attphys [phone] ALFREDO QUINONEZ Attphys Unavailable Radha BLUE Attphys Unavailable Paula BRAVO Attphys Unavailable Otto MORENO Attphys Unavailable Payers Payer Name Policy Type Policy Number Effective Date Expiration Date S mendoza MEDICAREMEDICARE A BxxxxxxxxxxxMedicare xxxxxxxxxxx [facility] BLUE CROSS/BLUE SHIELDBCBS INDEMN[place] [id number] [id number], [place] [address] xxxxxxxxxxxx [facility] [id number] 2015 00:00:00 [facility] Medicare A & B [id number] 2014 00:00:00 [facility] Problems Condition Name Condition Details Condition Category Status Onset Date Resolution Date Last Treatment Date Treating Clinician Comments Source Severe anemia Severe anemia Disease Active 2016-05-09 00:00:00 Evan Bains Coronary artery disease involving [place] coronary [place] of [place] heart Coronary artery disease involving [place]ann[place] coronary artery of [place]osh[place]ann[place] heart Disease Active 2016-04-12 00:00:00 [facility] Pre-transplant evaluation for end stage renal disease Pre-transplant evaluation for end stage renal disease Disease Active 2016-04-10 00:00:00 [facility] ESRD (end stage renal disease) on dialysis ESRD (end s tage renal disease) on dialysis Disease Active 2016-04-10 00:00:00 [facility] Essential hypertension Essential hypertension Disease Active 2016-04-10 00:00:00 [facility] 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 Disease Active 2016-04-10 00:00:00 [facility] Colon cancer Colon cancer Disease Active 2016-04-10 00:00:00 [facility] ESRD (end stage renal disease) ESRD (end stage renal disease) Disea se Active 2016-04-10 00:00:00 [facility] Hyperkalemia Hyperkalemia Disease Active 2016-04-10 00:00:00 [facility] 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 Problem Active 2016-03-24 00:00:00 [facility] Anemia Anemia Problem Active 2016-03-24 00:00:00 [facility] Diabetes mellitus Diabetes Problem Active 2016-03-24 00:00:00 [facility] End stage renal failure on dialysis ESRD (end stage renal di sease) on dialysis Problem Active 2016-03-24 00:00:00 [facility] Weakness Weakness Problem Active 2016-03-24 00:00:00 [facility] GI bleed GI bleed Disease Active 2015-12-20 00:00:00 Evan Bains ESRD (end stage renal disease) on dialysis ESRD (end s tage renal disease) on dialysis Disease Active 2015-12-13 00:00:00 Jared Bains Acute blood loss anemia Acute blood loss anemia Disease Active 2015-12-13 00:00:00 Gordon Xiomara puentes Anemia in chronic kidney disease Anemia in chronic kidney diseas e Disease Active 2015-12-13 00:00:00 Pascalepaula Bains Type 2 diabetes mellitus without complication Type 2 d iabetes mellitus without complication Disease Active 2015-12-13 00:00:00 Evan Bains Lower GI bleed Lower GI bleed Disease Active 2015-12-12 00:00:00 Evan Bains End stage renal failure on dialysis ESRD (end stage renal di sease) on dialysis Problem Active 2015-12-07 00:00:00 [facility] Upper gastrointestinal hemorrhage Upper GI bleed Problem Activ e 2015-12-07 00:00:00 [facility] Weakness Weakness Problem Active 2015-12-07 00:00:00 [facility] Anemia Anemia Problem Active 2015-05-21 00:00:00 [facility] Cardiomegaly Cardiomegaly Problem Active 2015-05-21 00:00:00 [facility] Diabetes mellitus Diabetes Problem Active 2015-05-21 00:00:00 [facility] End stage renal failure on dialysis ESRD (end stage renal di sease) on dialysis Problem Active 2015-05-21 00:00:00 [facility] Upper gastrointestinal hemorrhage Upper GI bleed Problem Activ e 2015-05-21 00:00:00 [facility] CHF (congestive heart failure) CHF (congestive heart failure) Probl em Active 2015-03-03 00:00:00 [facility] Anemia Anemia Problem Active 2014-09-05 00:00:00 [facility] Gastrointestinal hemorrhage GI bleed Problem Active 2014-09-05 00:00:00 [facility] Renal insufficiency Renal insufficiency Problem Active 2014-09-05 00:00 :00 [facility] Occult blood in stools Occult blood in stools Problem Active [facility] Allergies, Adverse Reactions, Alerts Allergy Name Allergy Type Status Severity Reaction(s) Onset Date Inacti ve Date Treating Clinician Comments Source No Known Allergies DA Active U 2019-11-08 00:00:00 [facility] No Known Allergies DA Active U 2017-10-04 00:00:00 [facility] Family History Family Member Diagnosis Comments Start Date Stop Date Source Natural sister Diabetes [facility] Social History Social Habit Start Date Stop Date Quantity Comments Source Sex Assigned At Jared dodge [place] Alcohol intake 2016-05-15 00:00:00 2016-05-15 00:00:00 Current non-drinker of alcohol (finding) Evan Bains Smoking Status Start Date Stop Date Source Never smoker Evan Padilla t Medications Ordered Medication Name Filled Medication Name Start Date Stop Da te Current Medication? Ordering Clinician Indication Dosage Frequency Signature (SIG) Comments Components Source carvedilol (COREG) 12.5 MG tablet 2016-05-16 17:14:03 Yes 12.5mg Q.5D Take 12.5 mg by mouth 2 (two) times a day. Evan Bains cholecalciferol, vitamin D3, (VITAMIN D3) 1,000 unit tablet 2016-05-16 17:14:03 Yes 1000U Q.[id number] 3W Take 1,000 Units by mouth 3 (three) times a week. After dialysis on Wed. And Sat. Evan Bains insulin ASPART (NovoLOG) 100 unit/mL injection 2016-05-16 17:14: 03 Yes 0U Q.[id number] Inject 0-15 Units under the skin 3 (three) times a day before meals. Per sliding scale Evan Bains multivitamin (THERAGRAN) tablet 2016-05-16 17:14:03 Yes 1{tbl} QD Take 1 tablet by mouth daily. Evan Bains clopidogrel (PLAVIX) 75 mg tablet 2016-05-16 17:14:03 Yes 75mg QD Take 75 mg by mouth daily. Evan Bains traMADol (ULTRAM) 50 mg tablet 2016-05-16 17:14:03 Yes 50mg Q8H Take 50 mg by mouth every 8 (eight) hours as needed for moderate pain. Evan Bains gabapentin (NEURONTIN) 300 MG capsule 2016-05-16 17:14:03 Y es 300mg QD Take 300 mg by mouth daily. Evan Torres odcamille glyBURIDE (DIABETA) 5 MG tablet 2016-05-16 17:14:03 Yes 5mg Q.5D Take 5 mg by mouth 2 (two) times a day with meals. Evan Bains insulin aspart (NOVOLOG) 100 unit/mL InPn 2016-04-10 11:01:0 5 Yes type 2 diabetes mellitus 16U Inject 16 Units subc utaneously 3 (three) times daily as needed . [facility] carvedilol (COREG) 12.5 MG tablet 2016-01-08 14:42:49 Yes 12.5mg Take 12.5 mg by mouth 2 (two) times daily with breakfast and dinner. [facility] Carvedilol (Coreg) 12.5 Mg Tab, 12.5 Mg Oral Carvedilo l (Coreg) 12.5 Mg Tab, 12.5 Mg Oral 2015-03-07 00:00:00 2016-10-24 00:00:00 No Teodoro sky 12.5 Twice A Day [facility] Carvedilol 12.5 Mg Tablet Carvedilol 12.5 Mg Tablet Yes 25 Twice A Day [facility] Docusate Sodium 100 Mg Capsule Docusate Sodium 100 Mg Capsule Yes 100 Twice A Day [facility] Hydralazine Hcl 25 Mg Tab Hydralazine Hcl 25 Mg Tab Yes 50 Twice A Day [facility] Novolog Novolog Yes Before Meals C [facility] Multivitamin (Multivitamins) 1 Each Capsule, 1 Cap Ora l Multivitamin (Multivitamins) 1 Each Capsule, 1 Cap Oral 2018-08-15 00:00:00 No 1 Daily [facility] Pantoprazole Sodium (Protonix) 40 Mg Tablet., 40 Mg Oral Pantoprazole Sodium (Protonix) 40 Mg Tablet.dr, 40 Mg Oral 2018-08-15 00:00:00 No 40 Daily [facility] Aspirin (Aspir 81) 81 Mg Tablet., 1 Tab Oral Aspirin (Aspir 81) 81 Mg Tablet., 1 Tab Oral 2017-07-03 00:00:00 No 1 Da kenneth [facility] Acetaminophen 325 Mg Tablet, 325 Mg Oral Acetaminophen 325 Mg Tablet, 325 Mg Oral 2017-06-29 00:00:00 No 325 Every 6 Hours as n eeded for Pain [facility] Lidoderm 1 Patch Apply For 12HOURS On. , Topical Lid oderm 1 Patch Apply For 12HOURS On. , Topical 2017-06-29 00:00:00 No Every 12 Hours [facility] Tramadol Hcl (Ultram 50MG*) 50 Mg Tab, 50 Mg Oral Tram adol Hcl (Ultram 50MG*) 50 Mg Tab, 50 Mg Oral 2017-06-29 00:00:00 No 50 Twice A Day for Pain [facility] Gabapentin 300 Mg Capsule, 300 Mg Oral Gabapentin 300 Mg Capsule , 300 Mg Oral 2017-02-03 00:00:00 No 300 Daily [facility] Clopidogrel Bisulfate (Plavix) 75 Mg Tablet, 75 Mg Ora l Clopidogrel Bisulfate (Plavix) 75 Mg Tablet, 75 Mg Oral 2016-12-15 00:00:00 No 75 Daily [facility] Clopidogrel Bisulfate (Plavix) 75 Mg Tablet, 75 Mg Ora l Clopidogrel Bisulfate (Plavix) 75 Mg Tablet, 75 Mg Oral 2016-10-30 00:00:00 No 75 Daily [facility] Insulin Aspart (Novolog Mix 70-30 Vial) 100 Units/Ml M l, 16 Units Sub-Q Insulin Aspart (Novolog Mix 70-30 Vial) 100 Units/Ml Ml, 16 Units Sub-Q 2016-10-30 00:00:00 No 16 Three Times Daily With Meals [facility] Tramadol Hcl (Ultram) 50 Mg Tablet, 50 Mg Oral Tramado l Hcl (Ultram) 50 Mg Tablet, 50 Mg Oral 2016-10-24 00:00:00 No 50 Every 6 Hours as needed for Pain [facility] Calcium Acetate (Phoslo) 667 Mg Cap, 2 Tab Oral Calciu m Acetate (Phoslo) 667 Mg Cap, 2 Tab Oral 2016-08-04 00:00:00 No 2 Th ree Times Daily With Meals [facility] Glyburide 5 Mg Tablet, 10 Mg Oral Glyburide 5 Mg Tablet, 10 Mg O ral 2016-08-04 00:00:00 No 10 Twice A Day [facility] Insulin Glargine (Lantus 3ML Pen) 100 Units/1 Ml Inj, 30 Sub-Q Insulin Glargine (Lantus 3ML Pen) 100 Units/1 Ml Inj, 30 Sub-Q 2016-03-24 00:00:00 No 30 Bedtime [facility] Pantoprazole Sodium (Protonix) 40 Mg Tablet., 40 Mg Oral Pantoprazole Sodium (Protonix) 40 Mg Tablet.dr, 40 Mg Oral 2015-07-07 00:00:00 No 40 Daily [facility] Home , Home , 2015-03-07 00:00:00 No [facility] Lubiprostone (Amitiza) 24 Mcg Capsule, 8 Mcg Oral Lubi prostone (Amitiza) 24 Mcg Capsule, 8 Mcg Oral 2015-03-07 00:00:00 No 8 Twice A Day as needed for Constipation [facility] Metoprolol Tartrate 25 Mg Tablet, 25 Mg Oral Metoprolo l Tartrate 25 Mg Tablet, 25 Mg Oral 2015-03-07 00:00:00 No 25 Twice A Day [facility] Ramipril 5 Mg Capsule, 5 Mg Oral Ramipril 5 Mg Capsule, 5 Mg Ora l 2015-03-07 00:00:00 No 5 Twice A Day [facility] Insulin Aspart (Novolog Mix 70-30 Vial) 100 Units/Ml M l, 16 U Sub-Q Insulin Aspart (Novolog Mix 70-30 Vial) 100 Units/Ml Ml, 16 U Sub-Q 2014-09-05 00:00:00 No 16 Twice A Day [facility] Procedures Procedure Date / Time Performed Performing Clinician Sourvamsi e 2D ECHO MODE W/O DOPPLER 2019-07-12 00:00:00 ProviderNorberto [facility] NM MYOCARDIAL PERFUSION SPECT, PHARM(LEXISCAN) 2019-05-29 00 :00:00 ProviderIsael [facility] 2D ECHO W/ DOPPLER (CW/PW/COLOR) 2019-05-29 00:00:00 Elvin [place] istoryang [facility] FLOW PRA CLASS II WITH REFLEX TO ANTIBODY SPECIFICITY 12-30 09:42:00 Tammi [facility] FLOW PRA CLASS I WITH REFLEX TO ANTIBODY SPECIFICITY 2018-12 09:42:00 Tammi [facility] AB SPECIFICITY CLASS II 2018-12-30 09:42:00 Tammi Antonieta [facility] US Liver 2018-11-21 00:00:00 ALFREDO QUINONEZ [facility] EGD BIOPSY SINGLE/MULTIPLE 2018-08-22 00:00:00 ALFREDO QUINONEZ [facility] COLONOSCOPY W/LESION REMOVAL 2018-08-22 00:00:00 ANA ALFREDO [facility] COLONOSCOPY W/LESION REMOVAL 2018-08-22 00:00:00 QUINONEZ, ALFREDO [facility] Plan of Care Planned Activity Planned Date Details Comments Source Future Scheduled Test 2020-03-05 00:00:00 INFLUENZA VACCINE (Season Ended) [code = INFLUENZA VACCINE (Season Ended)] [facility] Future Scheduled Test 2020-02-03 00:00:00 INFLUENZA VACCINE [code = INFLUENZA VACCINE] Evan Bains Future Scheduled Test 2017-04-10 00:00:00 COLON CANCER SCREE CHANEL ANNUAL FOBT [code = COLON CANCER SCREENING ANNUAL FOBT] [facility] Future Scheduled Test 2016-09-20 00:00:00 HEMOGLOBIN A1C [co de = HEMOGLOBIN A1C] [facility] Future Scheduled Test 2015-07-06 00:00:00 MEDICARE ANNUAL WE LLNESS (YEAR 2 or FIRST YEAR if no IPPE) [code = MEDICARE ANNUAL WELLNESS (YEAR 2 or FIRST YEAR if no IPPE)] [facility] Future Scheduled Test 2014 00:00:00 PNEUMOCOCCAL 65+ H IGH/HIGHEST RISK (1 of 2 - PCV13) [code = PNEUMOCOCCAL 65+ HIGH/HIGHEST RISK (1 of 2 - PCV13)] [facility] Future Scheduled Test 2014 00:00:00 65+ PNEUMOCOCCAL V ACCINE (1 of 2 - PCV13) [code = 65+ PNEUMOCOCCAL VACCINE (1 of 2 - PCV13)] [facility] Scheduled Test 1999 00:00:00 BREAST CANCER SCRE ENING [code = BREAST CANCER SCREENING] [facility] Scheduled Test 1999 00:00:00 COLONOSCOPY SCREEN ING [code = COLONOSCOPY SCREENING] [facility] Scheduled Test 1999 00:00:00 SHINGLES VACCINES (#1) [code = SHINGLES VACCINES (#1)] [facility] Scheduled Test 1959 00:00:00 Diabetic foot exam ination (regime/therapy) [code = 634007325] [facility] Future Scheduled Test 1959 00:00:00 DIABETIC FOOT EXAM [code = DIABETIC FOOT EXAM] [facility] Scheduled Test 1949 00:00:00 BREAST CANCER SCRE ENING [code = BREAST CANCER SCREENING] [facility] Future Scheduled Test 1949 00:00:00 DIABETIC RETINAL E YE EXAM [code = DIABETIC RETINAL EYE EXAM] [facility] Encounters Start Date/Time End Date/Time Encounter Type Admission Type Att[facility] Care Department Encounter ID Source 2019-04-12 17:11:00 2019-04-13 21:50:00 Discharged Inpatient (obs) [facility] [id number] [facility] 2018-11-21 11:08:00 2018-11-21 11:08:00 Registered Clinic [address] [facility] [id number] [facility] 2018-08-22 08:53:00 2018-08-22 08:53:00 Registered Surgical Day Care [id number] [facility] Results Test Description Test Time Test Comments Results Result Comments Source GLUBED 2019-12-11 20:35:00 Test Item GLUBED (test code = GLUBED) 145 mg/dL 70-110 H [id number] 20:35:00* Test Item Value Reference Range Interpretation Comments GLUBED (test code = GLUBED) 271 mg/dL 70-110 H [id number] 20:35:00* Test Item Value Reference Range Interpretation Comments GLUBED (test code = GLUBED) 301 mg/dL 70-110 H [id number] 20:35:00* Test Item Value Reference Range Interpretation Comments GLUBED (test code = GLUBED) 193 mg/dL 70-110 H [id number] 20:35:00* Test Item Value Reference Range Interpretation Comments GLUBED (test code = GLUBED) 319 mg/dL 70-110 H [id number] 20:35:00* Test Item Value Reference Range Interpretation Comments GLUBED (test code = GLUBED) 303 mg/dL 70-110 H [id number] 20:35:00* Test Item Value Reference Range Interpretation Comments GLUBED (test code = GLUBED) 181 mg/dL 70-110 H [id number] 20:35:00* Test Item Value Reference Range Interpretation Comments GLUBED (test code = GLUBED) 182 mg/dL 70-110 H [id number] 20:35:00* Test Item Value Reference Range Interpretation Comments GLUBED (test code = GLUBED) 265 mg/dL 70-110 H ACUTE HEPATITIS [id number] 09:59:00* Test Item Value Reference Range Interpretation Comments AB HEPATITIS A IGM (test code = HAVMAB) NON REACTIVE INDEX NON REAC T. Testing done at [facility] [address] [place] [address] AB HEPATITIS B SURFACE (test code = HBSAB) 164.2 mIU/mL Immunity>9. 9 Status of Immunity Anti-HBs Level Inconsistent with Immunity 0.0 - 9.9Consistent with Immunity >9.9TEST PERFORMED AT [facility] [address] AG HEPATITIS B SURFACE (test code = HBSAG) NON REACTIVE INDEX NonRe active Testing done at [facility] [address] [place] [address] AB HEPATITIS B CORE IGM (test code = HBCMAB) NON REACTIVE INDEX NON REACT. Testing done at [facility] [address] [place] [address] AB HEPATITIS C (test code = HCVAB) NON REACTIVE INDEX NON REACT. Testing done at [facility] [address] [place] [address] AB HEPATITIS B [id number] 09:59:00* Test Item Value Reference Range Interpretation Comments AB HEPATITIS B CORE (test code = HBCAB) Negative Negative Performed At: [facility] [id number] Kyle L MD Ph:[phone] ACUTE HEPATITIS [id number] 03:19:00* Test Item Value Reference Range Interpretation Comments AB HEPATITIS A IGM (test code = HAVMAB) NON REACTIVE INDEX NON REAC T. Testing done at [facility] [address] [place] [address] AB HEPATITIS B SURFACE (test code = HBSAB) mIU/mL Immune >9.9 AG HEPATITIS B SURFACE (test code = HBSAG) NON REACTIVE INDEX NonRe active Testing done at [facility] [address] [place] [address] AB HEPATITIS B CORE IGM (test code = HBCMAB) NON REACTIVE INDEX NON REACT. Testing done at [facility] [address] [place] [address] AB HEPATITIS C (test code = HCVAB) NON REACTIVE INDEX NON REACT. Testing done at [facility] [address] [place] [address] AB HEPATITIS B [id number] 03:19:00* Test Item Value Reference Range Interpretation Comments AB HEPATITIS B CORE (test code = HBCAB) NON REACT. AB HEPATITIS A [id number] 02:39:00* Test Item Value Reference Range Interpretation Comments AB HEPATITIS A IGM (test code = HAVMAB) NON REACTIVE INDEX NON REAC T. AG HEPATITIS B [id number] 02:39:00* Test Item Value Reference Range Interpretation Comments AG HEPATITIS B SURFACE (test code = HBSAG) NON REACTIVE INDEX NonRe active AB HEPATITIS B CORE [id number] 02:39:00* Test Item Value Reference Range Interpretation Comments AB HEPATITIS B CORE IGM (test code = HBCMAB) NON REACTIVE INDEX NON REACT. AB HEPATITIS [id number] 02:39:00* Test Item Value Reference Range Interpretation Comments AB HEPATITIS C (test code = HCVAB) NON REACTIVE INDEX NON REACT. AB HEPATITIS A [id number] 02:38:00* Test Item Value Reference Range Interpretation Comments AB HEPATITIS A IGM (test code = HAVMAB) INDEX NON REACT. AG HEPATITIS B [id number] 02:38:00* Test Item Value Reference Range Interpretation Comments AG HEPATITIS B SURFACE (test code = HBSAG) NON REACTIVE INDEX NonRe active AB HEPATITIS B CORE [id number] 02:38:00* Test Item Value Reference Range Interpretation Comments AB HEPATITIS B CORE IGM (test code = HBCMAB) NON REACTIVE INDEX NON REACT. AB HEPATITIS [id number] 02:38:00* Test Item Value Reference Range Interpretation Comments AB HEPATITIS C (test code = HCVAB) NON REACTIVE INDEX NON REACT. AB HEPATITIS A [id number] 02:37:00* Test Item Value Reference Range Interpretation Comments AB HEPATITIS A IGM (test code = HAVMAB) INDEX NON REACT. AG HEPATITIS B [id number] 02:37:00* Test Item Value Reference Range Interpretation Comments AG HEPATITIS B SURFACE (test code = HBSAG) NON REACTIVE INDEX NonRe active AB HEPATITIS B CORE [id number] 02:37:00* Test Item Value Reference Range Interpretation Comments AB HEPATITIS B CORE IGM (test code = HBCMAB) INDEX NON REACT . AB HEPATITIS [id number] 02:37:00* Test Item Value Reference Range Interpretation Comments AB HEPATITIS C (test code = HCVAB) NON REACTIVE INDEX NON REACT. AB HEPATITIS A [id number] 02:12:00* Test Item Value Reference Range Interpretation Comments AB HEPATITIS A IGM (test code = HAVMAB) INDEX NON REACT. AG HEPATITIS B [id number] 02:12:00* Test Item Value Reference Range Interpretation Comments AG HEPATITIS B SURFACE (test code = HBSAG) NON REACTIVE INDEX NonRe active AB HEPATITIS B CORE [id number] 02:12:00* Test Item Value Reference Range Interpretation Comments AB HEPATITIS B CORE IGM (test code = HBCMAB) INDEX NON REACT . AB HEPATITIS [id number] 02:12:00* Test Item Value Reference Range Interpretation Comments AB HEPATITIS C (test code = HCVAB) INDEX NON REACT. [id number] 18:52:00* Test Item Value Reference Range Interpretation Comments GLUBED (test code = GLUBED) 187 mg/dL 70-110 H BASIC METABOLIC [id number] 14:13:00* Test Item Value Reference Range Interpretation Comments SODIUM (test code = NA) 130 mmol/l 134.0-147.0 L POTASSIUM (test code = K) 4.7 mmol/L 3.6-5.2 N CHLORIDE (test code = CL) 94 mmol/l 98.0-107.0 L CARBON DIOXIDE (test code = CO2) 23.2 mmol/l 21.0-33.0 N ANION GAP (test code = GAP) 17.5 0-20 N GLUCOSE (test code = GLU) 136 mg/dl 70.0-110.0 H BLOOD UREA NITROGEN (test code = BUN) 50 mg/dl 7.0-18.0 H CREATININE (test code = CREAT) 6.64 mg/dL 0.60-1.30 HH GFR NON BLACK (test code = GFRNONBLACK) 7 mL/min 70-80 L GFR BLACK (test code = GFRBLACK) 8 mL/min 85-97 L CALCIUM (test code = CA) 7.3 mg/dl 8.0-10.5 L NURSE DRAW CBC W/AUTO [id number] 13:59:00* Test Item Value Reference Range Interpretation Comments WHITE BLOOD CELL (test code = WBC) 4.7 K/mm3 4.5-11.0 N RED BLOOD CELL (test code = RBC) 2.69 M/mm3 3.80-5.20 L HEMOGLOBIN (test code = HGB) 8.3 gm/dL 12.0-16.0 L HEMATOCRIT (test code = HCT) 25.0 % 36.0-48.0 L MEAN CELL VOLUME (test code = MCV) 92.9 UM3 82.0-99.0 N MEAN CELL HGB (test code = MCH) 30.9 UUG 25.5-32.5 N MEAN CELL HGB CONCETRATION (test code = MCHC) 33.2 gm/dL 29.0-35. 5 N RED CELL DISTRIBUTION WIDTH (test code = RDW) 17.2 % 11.5-15. 0 H RED CELL DISTRIBUTION WIDTH SD (test code = RDW-SD) 57.6 fL 34 .8-50.2 H PLATELET COUNT (test code = PLT) 118 K/mm3 150-400 L MEAN PLATELET VOLUME (test code = MPV) 11.4 fl 7.4-10.4 H NEUTROPHIL % (test code = NT%) 75.2 % 49.0-76.0 N IMMATURE GRANULOCYTE % (test code = IG%) 0.2 % 0.0-0.4 N LYMPHOCYTE % (test code = LY%) 12.9 % 23.0-38.0 L MONOCYTE % (test code = MO%) 7.9 % 1.0-10.0 N EOSINOPHIL % (test code = EO%) 3.2 % 1.0-5.0 N BASOPHIL % (test code = BA%) 0.6 % 0.0-1.0 N NEUTROPHIL # (test code = NT#) 3.5 K/mm3 2.4-6.3 N IMMATURE GRANULOCYTE # (test code = IG#) 0.01 x10 3/uL 0.00-0.07 N LYMPHOCYTE # (test code = LY#) 0.6 K/mm3 1.2-4.0 L MONOCYTE # (test code = MO#) 0.4 K/mm3 0.0-0.6 N EOSINOPHIL # (test code = EO#) 0.2 K/MM3 0.0-0.7 N BASOPHIL # (test code = BA#) 0.0 K/mm3 0.0-0.2 N NURSE DRAW [id number] 12:19:00* Test Item Value Reference Range Interpretation Comments GLUBED (test code = GLUBED) 90 mg/dL 70-110 N [id number] 07:08:00* Test Item Value Reference Range Interpretation Comments GLUBED (test code = GLUBED) 123 mg/dL 70-110 H [id number] 04:32:00* Test Item Value Reference Range Interpretation Comments GLUBED (test code = GLUBED) 221 mg/dL 70-110 H [id number] 04:32:00* Test Item Value Reference Range Interpretation Comments GLUBED (test code = GLUBED) 231 mg/dL 70-110 H Novel Coronavirus 03:25:00* Test Item Value Reference Range Interpretation Comments Novel Coronavirus 2019 Inhouse (test code = [id number]) Negative Negative Positive results are indicative of the presence [id number] RNA, clinical correlation with patient historyand other diagnostic information is necessary to determinepatient infection status. Positive results do not rule outbacterial infection or co-infection with other viruses. Negative results do not preclude SARS-CoV-2 infection andshould not be used as the sole basis for patient managementdecisions. Negative results must be combined with otherclinical observations, patient history, and epidemiologicalinformation. Detection of SARS-CoV-2 RNA may be affected bysample collection methods, storage conditions, and/or stageof infection. Viral RNA mutations, vaccinations, antiviraltherapeutics, antibiotics, chemotherapeutic orimmunosuppressant drugs have not been evaluated for effectson detection. Results are for the identification of SARS-CoV-2 RNA usingthe [employer] M2000 System under the FDA Emergency UseAuthorization. The testing is performed by personneltrained in the procedures for the [employer] M2000 moleculardiagnostic SARS-CoV-2 assay in vitro.Testing done at [address] [address] Testing Criteria: OtherOther: NEEDED FOR [id number] 23:53:00* Test Item Value Reference Range Interpretation Comments GLUBED (test code = GLUBED) 133 mg/dL 70-110 H Novel Coronavirus 23:28:00* Test Item Value Reference Range Interpretation Comments Novel Coronavirus 2019 Inhouse (test code = BIEOB94SE) Negative Negative Positive results are indicative of the presence vlSKOC-JyH-1 RNA, clinical correlation with patient historyand other diagnostic information is necessary to determinepatient infection status. Positive results do not rule outbacterial infection or co-infection with other viruses. Negative results do not preclude SARS-CoV-2 infection andshould not be used as the sole basis for patient managementdecisions. Negative results must be combined with otherclinical observations, patient history, and epidemiologicalinformation. Detection of SARS-CoV-2 RNA may be affected bysample collection methods, storage conditions, and/or stageof infection. Viral RNA mutations, vaccinations, antiviraltherapeutics, antibiotics, chemotherapeutic orimmunosuppressant drugs have not been evaluated for effectson detection. Results are for the identification of SARS-CoV-2 RNA usingthe [employer] M2000 System under the FDA Emergency UseAuthorization. The testing is performed by personneltrained in the procedures for the [employer] M2000 moleculardiagnostic SARS-CoV-2 assay in vitro. Testing Criteria: OtherOther: NEEDED FOR [id number] 10:46:00* Test Item Value Reference Range Interpretation Comments GLUBED (test code = GLUBED) 120 mg/dL 70-110 H [id number] 06:58:00* Test Item Value Reference Range Interpretation Comments GLUBED (test code = GLUBED) 106 mg/dL 70-110 N D-DIMER/[id number] 06:15:00* Test Item Value Reference Range Interpretation Comments D-DIMER/FSP (test code = DDIMER) 1369 ng/mLFEU 0-500 HH Thrombosis and/or Pulmonary Embolism and the clinicalcut-off value for exclusion (500 ng/mL FEU) of theseconditions is validated by the obstetrics and gynecology professor of the method. A negative D- Dimer result when combined with a clinicalassessment of low pretest probability has been shown to havea high negative predictive value of DVT or PE. D-Dimer values >500 ng/mL FEU are not diagnostic for DVT,PE, or DIC without other confirmatory tests and appropriateclinical evaluations. NURSE DRAW [id number] 22:36:00* Test Item Value Reference Range Interpretation Comments GLUBED (test code = GLUBED) 166 mg/dL 70-110 H [id number] 16:55:00* Test Item Value Reference Range Interpretation Comments GLUBED (test code = GLUBED) 257 mg/dL 70-110 H COMPREHENSIVE METABOLIC [id number] 13:47:00* Test Item Value Reference Range Interpretation Comments SODIUM (test code = NA) 125 mmol/l 134.0-147.0 L POTASSIUM (test code = K) 4.5 mmol/L 3.6-5.2 N CHLORIDE (test code = CL) 91 mmol/l 98.0-107.0 L CARBON DIOXIDE (test code = CO2) 20.0 mmol/l 21.0-33.0 L ANION GAP (test code = GAP) 17.5 0-20 N GLUCOSE (test code = GLU) 118 mg/dl 70.0-110.0 H BLOOD UREA NITROGEN (test code = BUN) 67 mg/dl 7.0-18.0 H CREATININE (test code = CREAT) 7.68 mg/dL 0.60-1.30 HH GFR NON BLACK (test code = GFRNONBLACK) 6 mL/min 70-80 L GFR BLACK (test code = GFRBLACK) 7 mL/min 85-97 L TOTAL PROTEIN (test code = PROT) 7.0 GM/DL 6.0-8.1 N ALBUMIN (test code = ALB) 2.2 gm/dL 3.2-4.7 L CALCIUM (test code = CA) 7.5 mg/dl 8.0-10.5 L BILIRUBIN TOTAL (test code = BILT) 0.5 mg/dl 0.0-1.0 N SGOT/AST (test code = AST) 22 Units/L 15.0-37.0 N SGPT/ALT (test code = ALT) 21 Units/L 12.0-78.0 N ALKALINE PHOSPHATASE TOTAL (test code = ALKP) 164 Units/L 50.0-136 .0 H NURSE DRAW [id number] 13:47:00* Test Item Value Reference Range Interpretation Comments MAGNESIUM (test code = MAG) 1.9 mg/dl 1.8-2.4 N NURSE DRAW CBC W/AUTO [id number] 13:30:00* Test Item Value Reference Range Interpretation Comments WHITE BLOOD CELL (test code = WBC) 6.3 K/mm3 4.5-11.0 N RED BLOOD CELL (test code = RBC) 2.96 M/mm3 3.80-5.20 L HEMOGLOBIN (test code = HGB) 8.9 gm/dL 12.0-16.0 L HEMATOCRIT (test code = HCT) 26.8 % 36.0-48.0 L MEAN CELL VOLUME (test code = MCV) 90.5 UM3 82.0-99.0 N MEAN CELL HGB (test code = MCH) 30.1 UUG 25.5-32.5 N MEAN CELL HGB CONCETRATION (test code = MCHC) 33.2 gm/dL 29.0-35. 5 N RED CELL DISTRIBUTION WIDTH (test code = RDW) 17.0 % 11.5-15. 0 H RED CELL DISTRIBUTION WIDTH SD (test code = RDW-SD) 55.8 fL 34 .8-50.2 H PLATELET COUNT (test code = PLT) 131 K/mm3 150-400 L MEAN PLATELET VOLUME (test code = MPV) 11.4 fl 7.4-10.4 H NEUTROPHIL % (test code = NT%) 81.0 % 49.0-76.0 H IMMATURE GRANULOCYTE % (test code = IG%) 0.5 % 0.0-0.4 H LYMPHOCYTE % (test code = LY%) 8.2 % 23.0-38.0 L MONOCYTE % (test code = MO%) 8.2 % 1.0-10.0 N EOSINOPHIL % (test code = EO%) 1.6 % 1.0-5.0 N BASOPHIL % (test code = BA%) 0.5 % 0.0-1.0 N NEUTROPHIL # (test code = NT#) 5.1 K/mm3 2.4-6.3 N IMMATURE GRANULOCYTE # (test code = IG#) 0.03 x10 3/uL 0.00-0.07 N LYMPHOCYTE # (test code = LY#) 0.5 K/mm3 1.2-4.0 L MONOCYTE # (test code = MO#) 0.5 K/mm3 0.0-0.6 N EOSINOPHIL # (test code = EO#) 0.1 K/MM3 0.0-0.7 N BASOPHIL # (test code = BA#) 0.0 K/mm3 0.0-0.2 N NURSE DRAW [id number] 12:45:00* Test Item Value Reference Range Interpretation Comments GLUBED (test code = GLUBED) 55 mg/dL 70-110 L [id number] 06:55:00* Test Item Value Reference Range Interpretation Comments GLUBED (test code = GLUBED) 113 mg/dL 70-110 H [id number] 22:55:00* Test Item Value Reference Range Interpretation Comments GLUBED (test code = GLUBED) 318 mg/dL 70-110 H [id number] 17:34:00* Test Item Value Reference Range Interpretation Comments GLUBED (test code = GLUBED) 109 mg/dL 70-110 N [id number] 12:14:00* Test Item Value Reference Range Interpretation Comments GLUBED (test code = GLUBED) 106 mg/dL 70-110 N [id number] 08:54:00* Test Item Value Reference Range Interpretation Comments GLUBED (test code = GLUBED) 159 mg/dL 70-110 H [id number] 22:50:00* Test Item Value Reference Range Interpretation Comments GLUBED (test code = GLUBED) 316 mg/dL 70-110 H AG [id number] 20:29:00* Test Item Value Reference Range Interpretation Comments AG CARCINOEMBRYONIC (test code = CEA) 4.8 ng/mL 0.0-4.7 H Nonsmokers <3.9 Smokers <5.6[employer]ostics Electrochemiluminescence Immunoassay(ECLIA)Values obtained with different assay methods or kitscannot be used interchangeably. Results cannot beinterpreted as absolute evidence of the presence orabsence of malignant disease.Performed At: [facility] [place], [place] [id number] Kyle L MD Ph:[phone] NURSES DRAW [id number] 16:49:00* Test Item Value Reference Range Interpretation Comments GLUBED (test code = GLUBED) 95 mg/dL 70-110 N [id number] 13:29:00* Test Item Value Reference Range Interpretation Comments GLUBED (test code = GLUBED) 108 mg/dL 70-110 N [id number] 08:53:00* Test Item Value Reference Range Interpretation Comments GLUBED (test code = GLUBED) 126 mg/dL 70-110 H [id number] 22:45:00* Test Item Value Reference Range Interpretation Comments GLUBED (test code = GLUBED) 192 mg/dL 70-110 H [id number] 17:31:00* Test Item Value Reference Range Interpretation Comments GLUBED (test code = GLUBED) 123 mg/dL 70-110 H BASIC METABOLIC [id number] 14:53:00* Test Item Value Reference Range Interpretation Comments SODIUM (test code = NA) 127 mmol/l 134.0-147.0 L POTASSIUM (test code = K) 4.7 mmol/L 3.6-5.2 N CHLORIDE (test code = CL) 92 mmol/l 98.0-107.0 L CARBON DIOXIDE (test code = CO2) 23.8 mmol/l 21.0-33.0 N ANION GAP (test code = GAP) 15.9 0-20 N GLUCOSE (test code = GLU) 125 mg/dl 70.0-110.0 H BLOOD UREA NITROGEN (test code = BUN) 58 mg/dl 7.0-18.0 H CREATININE (test code = CREAT) 6.11 mg/dL 0.60-1.30 HH GFR NON BLACK (test code = GFRNONBLACK) 7 mL/min 70-80 L GFR BLACK (test code = GFRBLACK) 9 mL/min 85-97 L CALCIUM (test code = CA) 7.9 mg/dl 8.0-10.5 L [id number] 12:06:00* Test Item Value Reference Range Interpretation Comments GLUBED (test code = GLUBED) 134 mg/dL 70-110 H GASTRIC,[id number] 10:49:00 RUN DATE: 12/01/19 [facility] - Lab PAGE 1 RUN TIME: 1049 Specimen Inqui ry RUN USER: INTERFACE PATIENT: BARBARA WARE ACCT #: [id number] LOC: EVI U #: [id number] AGE/SX: 69/F ROOM: RE11/28/19REG DR: Chico Royal MD : 48 BED: DIS: STATUS: [facility] TLOC: SPEC #: [id number] RECD: 11/28/19 STATUS: ROSALIO RE #: [id number] SAL: 11/28/19- SUBM DR: Chico Royal MD ENTERED: 11/28/19 SP TYPE: GASTRIC BX OTHR DR: Jessica Ana Lilia karsisa or Family Physician Self ReferredORDERED: SPEC STAIN TARUN, GM LEVEL 4, IMMUNOHISTOCHEM, REQUEST COPIES TO: No Primary or Family Physician Self Referred Chico Royal MD [address] [place] [address] [id number] [place] [address] OTHER PHONE [phone] (CELL) PROCEDURES: SPEC STAIN TRAUN (11/29/19-1224) GM LEVEL 4 (11/29/19-1224) REQUEST (-[phone]) TISSUES: GASTRIC MUCOUS MEMBRANE - ANTRUM BX CLIN ICAL HISTORY Melena FINAL DIAGNOSIS GASTRIC ANTRUM BIOPSY: ANTRAL TYPE MUCOSA WITH MILD TO MODERATE CHRONIC GASTRITIS. NO INTESTINAL METAPLASIA. GIEMSA STAIN SHOWS STRUCTURES SUSPICIOUS FOR BACTERIA. AN H. PYLORI IMMUNOSTAIN WITH APPROPRIATE CONTROLS SHOWS NO BACTERIA. CPT CODE: 02963, 75018, 96957 MACROSCOPIC Specimen in formalin l abeled "biopsy antrum" consists of two pink fragments, 1 and 4 mm,one cassette. CONTINUED ON NEXT PAGE RUN DATE: 12/01/19 [facility] P AGE 1 RUN TIME: 1048 Specimen Inquiry RUN USER: INTERFACE SPEC #: [id number] PATIENT: BARBARA WARE #[id number] (Continued) MICROSCOPIC SEE DIAGNOSIS -- Signed SIGNATURE ON FILE Divine Ramon 0 12/01/19 1049 END OF REPORT CBC W/AUTO [id number] 08:24:00* Test Item Value Reference Range Interpretation Comments WHITE BLOOD CELL (test code = WBC) 4.9 K/mm3 4.5-11.0 N RED BLOOD CELL (test code = RBC) 3.14 M/mm3 3.80-5.20 L HEMOGLOBIN (test code = HGB) 9.5 gm/dL 12.0-16.0 L HEMATOCRIT (test code = HCT) 28.8 % 36.0-48.0 L MEAN CELL VOLUME (test code = MCV) 91.7 UM3 82.0-99.0 N MEAN CELL HGB (test code = MCH) 30.3 UUG 25.5-32.5 N MEAN CELL HGB CONCETRATION (test code = MCHC) 33.0 gm/dL 29.0-35. 5 N RED CELL DISTRIBUTION WIDTH (test code = RDW) 17.2 % 11.5-15. 0 H RED CELL DISTRIBUTION WIDTH SD (test code = RDW-SD) 57.3 fL 34 .8-50.2 H PLATELET COUNT (test code = PLT) 153 K/mm3 150-400 N MEAN PLATELET VOLUME (test code = MPV) 11.4 fl 7.4-10.4 H NEUTROPHIL % (test code = NT%) 74.8 % 49.0-76.0 N IMMATURE GRANULOCYTE % (test code = IG%) 0.4 % 0.0-0.4 N LYMPHOCYTE % (test code = LY%) 12.1 % 23.0-38.0 L MONOCYTE % (test code = MO%) 8.4 % 1.0-10.0 N EOSINOPHIL % (test code = EO%) 3.3 % 1.0-5.0 N BASOPHIL % (test code = BA%) 1.0 % 0.0-1.0 N NEUTROPHIL # (test code = NT#) 3.6 K/mm3 2.4-6.3 N IMMATURE GRANULOCYTE # (test code = IG#) 0.02 x10 3/uL 0.00-0.07 N LYMPHOCYTE # (test code = LY#) 0.6 K/mm3 1.2-4.0 L MONOCYTE # (test code = MO#) 0.4 K/mm3 0.0-0.6 N EOSINOPHIL # (test code = EO#) 0.2 K/MM3 0.0-0.7 N BASOPHIL # (test code = BA#) 0.1 K/mm3 0.0-0.2 N NURSE DRAW [id number] 07:10:00* Test Item Value Reference Range Interpretation Comments GLUBED (test code = GLUBED) 152 mg/dL 70-110 H [id number] 06:04:00* Test Item Value Reference Range Interpretation Comments GLUBED (test code = GLUBED) 160 mg/dL 70-110 H [id number] 00:32:00* Test Item Value Reference Range Interpretation Comments GLUBED (test code = GLUBED) 121 mg/dL 70-110 H [id number] 06:43:00* Test Item Value Reference Range Interpretation Comments GLUBED (test code = GLUBED) 214 mg/dL 70-110 H [id number] 23:02:00* Test Item Value Reference Range Interpretation Comments GLUBED (test code = GLUBED) 141 mg/dL 70-110 H BASIC METABOLIC [id number] 19:06:00* Test Item Value Reference Range Interpretation Comments SODIUM (test code = NA) 131 mmol/l 134.0-147.0 L POTASSIUM (test code = K) 4.4 mmol/L 3.6-5.2 N CHLORIDE (test code = CL) 95 mmol/l 98.0-107.0 L CARBON DIOXIDE (test code = CO2) 22.3 mmol/l 21.0-33.0 N ANION GAP (test code = GAP) 18.1 0-20 N GLUCOSE (test code = GLU) 151 mg/dl 70.0-110.0 H BLOOD UREA NITROGEN (test code = BUN) 64 mg/dl 7.0-18.0 H CREATININE (test code = CREAT) 6.43 mg/dL 0.60-1.30 HH GFR NON BLACK (test code = GFRNONBLACK) 7 mL/min 70-80 L GFR BLACK (test code = GFRBLACK) 8 mL/min 85-97 L CALCIUM (test code = CA) 7.5 mg/dl 8.0-10.5 L NURSE DRAW CBC W/AUTO [id number] 18:57:00* Test Item Value Reference Range Interpretation Comments WHITE BLOOD CELL (test code = WBC) 6.2 K/mm3 4.5-11.0 N RED BLOOD CELL (test code = RBC) 3.09 M/mm3 3.80-5.20 L HEMOGLOBIN (test code = HGB) 9.2 gm/dL 12.0-16.0 L HEMATOCRIT (test code = HCT) 28.0 % 36.0-48.0 L MEAN CELL VOLUME (test code = MCV) 90.6 UM3 82.0-99.0 N MEAN CELL HGB (test code = MCH) 29.8 UUG 25.5-32.5 N MEAN CELL HGB CONCETRATION (test code = MCHC) 32.9 gm/dL 29.0-35. 5 N RED CELL DISTRIBUTION WIDTH (test code = RDW) 17.0 % 11.5-15. 0 H RED CELL DISTRIBUTION WIDTH SD (test code = RDW-SD) 55.2 fL 34 .8-50.2 H PLATELET COUNT (test code = PLT) 165 K/mm3 150-400 N MEAN PLATELET VOLUME (test code = MPV) 11.3 fl 7.4-10.4 H NEUTROPHIL % (test code = NT%) 78.5 % 49.0-76.0 H IMMATURE GRANULOCYTE % (test code = IG%) 0.6 % 0.0-0.4 H LYMPHOCYTE % (test code = LY%) 9.8 % 23.0-38.0 L MONOCYTE % (test code = MO%) 7.9 % 1.0-10.0 N EOSINOPHIL % (test code = EO%) 2.6 % 1.0-5.0 N BASOPHIL % (test code = BA%) 0.6 % 0.0-1.0 N NEUTROPHIL # (test code = NT#) 4.9 K/mm3 2.4-6.3 N IMMATURE GRANULOCYTE # (test code = IG#) 0.04 x10 3/uL 0.00-0.07 N LYMPHOCYTE # (test code = LY#) 0.6 K/mm3 1.2-4.0 L MONOCYTE # (test code = MO#) 0.5 K/mm3 0.0-0.6 N EOSINOPHIL # (test code = EO#) 0.2 K/MM3 0.0-0.7 N BASOPHIL # (test code = BA#) 0.0 K/mm3 0.0-0.2 N NURSE DRAW [id number] 18:17:00* Test Item Value Reference Range Interpretation Comments GLUBED (test code = GLUBED) 146 mg/dL 70-110 H [id number] 13:07:00* Test Item Value Reference Range Interpretation Comments GLUBED (test code = GLUBED) 284 mg/dL 70-110 H [id number] 06:55:00* Test Item Value Reference Range Interpretation Comments GLUBED (test code = GLUBED) 145 mg/dL 70-110 H Novel Coronavirus 2019 [id number] 02:20:00* Test Item Value Reference Range Interpretation Comments Novel Coronavirus 2019 Inhouse (test code = COVNONPUI) Positive Negative A Novel Coronavirus 2019 [id number] 02:18:00* Test Item Value Reference Range Interpretation Comments Novel Coronavirus 2019 Inhouse (test code = COVNONPUI) Positive Negative A [id number] 23:20:00* Test Item Value Reference Range Interpretation Comments GLUBED (test code = GLUBED) 221 mg/dL 70-110 H [id number] 16:42:00* Test Item Value Reference Range Interpretation Comments GLUBED (test code = GLUBED) 198 mg/dL 70-110 H [id number] 11:59:00* Test Item Value Reference Range Interpretation Comments GLUBED (test code = GLUBED) 199 mg/dL 70-110 H [id number] 08:08:00* Test Item Value Reference Range Interpretation Comments GLUBED (test code = GLUBED) 173 mg/dL 70-110 H COMPREHENSIVE METABOLIC [id number] 06:25:00* Test Item Value Reference Range Interpretation Comments SODIUM (test code = NA) 133 mmol/l 134.0-147.0 L POTASSIUM (test code = K) 3.8 mmol/L 3.6-5.2 N CHLORIDE (test code = CL) 96 mmol/l 98.0-107.0 L CARBON DIOXIDE (test code = CO2) 27.6 mmol/l 21.0-33.0 N ANION GAP (test code = GAP) 13.2 0-20 N GLUCOSE (test code = GLU) 178 mg/dl 70.0-110.0 H BLOOD UREA NITROGEN (test code = BUN) 34 mg/dl 7.0-18.0 H CREATININE (test code = CREAT) 3.88 mg/dL 0.60-1.30 H GFR NON BLACK (test code = GFRNONBLACK) 12 mL/min 70-80 L GFR BLACK (test code = GFRBLACK) 15 mL/min 85-97 L TOTAL PROTEIN (test code = PROT) 7.5 GM/DL 6.0-8.1 N ALBUMIN (test code = ALB) 2.3 gm/dL 3.2-4.7 L CALCIUM (test code = CA) 8.0 mg/dl 8.0-10.5 N BILIRUBIN TOTAL (test code = BILT) 0.4 mg/dl 0.0-1.0 N SGOT/AST (test code = AST) 22 Units/L 15.0-37.0 N SGPT/ALT (test code = ALT) 26 Units/L 12.0-78.0 N ALKALINE PHOSPHATASE TOTAL (test code = ALKP) 167 Units/L 50.0-136 .0 H NURSE DRAW CBC W/AUTO [id number] 05:50:00* Test Item Value Reference Range Interpretation Comments WHITE BLOOD CELL (test code = WBC) 6.0 K/mm3 4.5-11.0 N RED BLOOD CELL (test code = RBC) 3.31 M/mm3 3.80-5.20 L HEMOGLOBIN (test code = HGB) 9.9 gm/dL 12.0-16.0 L HEMATOCRIT (test code = HCT) 29.8 % 36.0-48.0 L MEAN CELL VOLUME (test code = MCV) 90.0 UM3 82.0-99.0 N MEAN CELL HGB (test code = MCH) 29.9 UUG 25.5-32.5 N MEAN CELL HGB CONCETRATION (test code = MCHC) 33.2 gm/dL 29.0-35. 5 N RED CELL DISTRIBUTION WIDTH (test code = RDW) 16.8 % 11.5-15. 0 H RED CELL DISTRIBUTION WIDTH SD (test code = RDW-SD) 54.3 fL 34 .8-50.2 H PLATELET COUNT (test code = PLT) 177 K/mm3 150-400 N MEAN PLATELET VOLUME (test code = MPV) 10.5 fl 7.4-10.4 H NEUTROPHIL % (test code = NT%) 78.9 % 49.0-76.0 H IMMATURE GRANULOCYTE % (test code = IG%) 0.7 % 0.0-0.4 H LYMPHOCYTE % (test code = LY%) 9.6 % 23.0-38.0 L MONOCYTE % (test code = MO%) 8.6 % 1.0-10.0 N EOSINOPHIL % (test code = EO%) 1.7 % 1.0-5.0 N BASOPHIL % (test code = BA%) 0.5 % 0.0-1.0 N NEUTROPHIL # (test code = NT#) 4.8 K/mm3 2.4-6.3 N IMMATURE GRANULOCYTE # (test code = IG#) 0.04 x10 3/uL 0.00-0.07 N LYMPHOCYTE # (test code = LY#) 0.6 K/mm3 1.2-4.0 L MONOCYTE # (test code = MO#) 0.5 K/mm3 0.0-0.6 N EOSINOPHIL # (test code = EO#) 0.1 K/MM3 0.0-0.7 N BASOPHIL # (test code = BA#) 0.0 K/mm3 0.0-0.2 N NURSE DRAW COMPREHENSIVE METABOLIC [id number] 22:07:00* Test Item Value Reference Range Interpretation Comments SODIUM (test code = NA) 132 mmol/l 134.0-147.0 L POTASSIUM (test code = K) 4.9 mmol/L 3.6-5.2 N CHLORIDE (test code = CL) 95 mmol/l 98.0-107.0 L CARBON DIOXIDE (test code = CO2) 22.3 mmol/l 21.0-33.0 N ANION GAP (test code = GAP) 19.6 0-20 N GLUCOSE (test code = GLU) 169 mg/dl 70.0-110.0 H BLOOD UREA NITROGEN (test code = BUN) 81 mg/dl 7.0-18.0 H CREATININE (test code = CREAT) 7.34 mg/dL 0.60-1.30 HH GFR NON BLACK (test code = GFRNONBLACK) 6 mL/min 70-80 L GFR BLACK (test code = GFRBLACK) 7 mL/min 85-97 L TOTAL PROTEIN (test code = PROT) 6.8 GM/DL 6.0-8.1 N ALBUMIN (test code = ALB) 2.1 gm/dL 3.2-4.7 L CALCIUM (test code = CA) 7.2 mg/dl 8.0-10.5 L BILIRUBIN TOTAL (test code = BILT) 0.4 mg/dl 0.0-1.0 N SGOT/AST (test code = AST) 20 Units/L 15.0-37.0 N SGPT/ALT (test code = ALT) 23 Units/L 12.0-78.0 N ALKALINE PHOSPHATASE TOTAL (test code = ALKP) 183 Units/L 50.0-136 .0 H NURSES DRAW [id number] 22:07:00* Test Item Value Reference Range Interpretation Comments MAGNESIUM (test code = MAG) 1.9 mg/dl 1.8-2.4 N NURSES DRAW CBC W/AUTO [id number] 21:54:00* Test Item Value Reference Range Interpretation Comments WHITE BLOOD CELL (test code = WBC) 6.4 K/mm3 4.5-11.0 N RED BLOOD CELL (test code = RBC) 2.30 M/mm3 3.80-5.20 L HEMOGLOBIN (test code = HGB) 6.8 gm/dL 12.0-16.0 LL HEMATOCRIT (test code = HCT) 21.2 % 36.0-48.0 LL MEAN CELL VOLUME (test code = MCV) 92.2 UM3 82.0-99.0 N MEAN CELL HGB (test code = MCH) 29.6 UUG 25.5-32.5 N MEAN CELL HGB CONCETRATION (test code = MCHC) 32.1 gm/dL 29.0-35. 5 N RED CELL DISTRIBUTION WIDTH (test code = RDW) 17.8 % 11.5-15. 0 H RED CELL DISTRIBUTION WIDTH SD (test code = RDW-SD) 58.8 fL 34 .8-50.2 H PLATELET COUNT (test code = PLT) 189 K/mm3 150-400 N MEAN PLATELET VOLUME (test code = MPV) 11.6 fl 7.4-10.4 H NEUTROPHIL % (test code = NT%) 79.4 % 49.0-76.0 H IMMATURE GRANULOCYTE % (test code = IG%) 0.8 % 0.0-0.4 H LYMPHOCYTE % (test code = LY%) 10.3 % 23.0-38.0 L MONOCYTE % (test code = MO%) 6.7 % 1.0-10.0 N EOSINOPHIL % (test code = EO%) 2.2 % 1.0-5.0 N BASOPHIL % (test code = BA%) 0.6 % 0.0-1.0 N NEUTROPHIL # (test code = NT#) 5.1 K/mm3 2.4-6.3 N IMMATURE GRANULOCYTE # (test code = IG#) 0.05 x10 3/uL 0.00-0.07 N LYMPHOCYTE # (test code = LY#) 0.7 K/mm3 1.2-4.0 L MONOCYTE # (test code = MO#) 0.4 K/mm3 0.0-0.6 N EOSINOPHIL # (test code = EO#) 0.1 K/MM3 0.0-0.7 N BASOPHIL # (test code = BA#) 0.0 K/mm3 0.0-0.2 N NURSES DRAW [id number] 18:10:00* Test Item Value Reference Range Interpretation Comments GLUBED (test code = GLUBED) 132 mg/dL 70-110 H [id number] 11:59:00* Test Item Value Reference Range Interpretation Comments GLUBED (test code = GLUBED) 160 mg/dL 70-110 H [id number] 07:53:00* Test Item Value Reference Range Interpretation Comments GLUBED (test code = GLUBED) 251 mg/dL 70-110 H [id number] 23:05:00* Test Item Value Reference Range Interpretation Comments GLUBED (test code = GLUBED) 204 mg/dL 70-110 H [id number] 17:20:00* Test Item Value Reference Range Interpretation Comments GLUBED (test code = GLUBED) 142 mg/dL 70-110 H [id number] 11:42:00* Test Item Value Reference Range Interpretation Comments GLUBED (test code = GLUBED) 270 mg/dL 70-110 H [id number] 07:16:00* Test Item Value Reference Range Interpretation Comments GLUBED (test code = GLUBED) 191 mg/dL 70-110 H [id number] 23:00:00* Test Item Value Reference Range Interpretation Comments GLUBED (test code = GLUBED) 186 mg/dL 70-110 H [id number] 16:54:00* Test Item Value Reference Range Interpretation Comments GLUBED (test code = GLUBED) 248 mg/dL 70-110 H [id number] 07:09:00* Test Item Value Reference Range Interpretation Comments GLUBED (test code = GLUBED) 207 mg/dL 70-110 H [id number] 23:10:00* Test Item Value Reference Range Interpretation Comments GLUBED (test code = GLUBED) 128 mg/dL 70-110 H [id number] 17:43:00* Test Item Value Reference Range Interpretation Comments GLUBED (test code = GLUBED) 155 mg/dL 70-110 H HGB [id number] 15:58:00* Test Item Value Reference Range Interpretation Comments HEMOGLOBIN (test code = HGB) 6.8 gm/dL 12.0-16.0 LL HEMATOCRIT (test code = HCT) 21.2 % 36.0-48.0 LL CBC W/AUTO [id number] 14:36:00* Test Item Value Reference Range Interpretation Comments WHITE BLOOD CELL (test code = WBC) 7.0 K/mm3 4.5-11.0 N RED BLOOD CELL (test code = RBC) 2.16 M/mm3 3.80-5.20 L HEMOGLOBIN (test code = HGB) 6.3 gm/dL 12.0-16.0 LL HEMATOCRIT (test code = HCT) 19.6 % 36.0-48.0 LL MEAN CELL VOLUME (test code = MCV) 90.7 UM3 82.0-99.0 N MEAN CELL HGB (test code = MCH) 29.2 UUG 25.5-32.5 N MEAN CELL HGB CONCETRATION (test code = MCHC) 32.1 gm/dL 29.0-35. 5 N RED CELL DISTRIBUTION WIDTH (test code = RDW) 18.3 % 11.5-15. 0 H RED CELL DISTRIBUTION WIDTH SD (test code = RDW-SD) 58.8 fL 34 .8-50.2 H PLATELET COUNT (test code = PLT) 188 K/mm3 150-400 N MEAN PLATELET VOLUME (test code = MPV) 11.0 fl 7.4-10.4 H NEUTROPHIL % (test code = NT%) 81.9 % 49.0-76.0 H IMMATURE GRANULOCYTE % (test code = IG%) 0.9 % 0.0-0.4 H LYMPHOCYTE % (test code = LY%) 9.4 % 23.0-38.0 L MONOCYTE % (test code = MO%) 5.8 % 1.0-10.0 N EOSINOPHIL % (test code = EO%) 1.7 % 1.0-5.0 N BASOPHIL % (test code = BA%) 0.3 % 0.0-1.0 N NEUTROPHIL # (test code = NT#) 5.7 K/mm3 2.4-6.3 N IMMATURE GRANULOCYTE # (test code = IG#) 0.06 x10 3/uL 0.00-0.07 N LYMPHOCYTE # (test code = LY#) 0.7 K/mm3 1.2-4.0 L MONOCYTE # (test code = MO#) 0.4 K/mm3 0.0-0.6 N EOSINOPHIL # (test code = EO#) 0.1 K/MM3 0.0-0.7 N BASOPHIL # (test code = BA#) 0.0 K/mm3 0.0-0.2 N BASIC METABOLIC [id number] 14:02:00* Test Item Value Reference Range Interpretation Comments SODIUM (test code = NA) 131 mmol/l 134.0-147.0 L POTASSIUM (test code = K) 5.0 mmol/L 3.6-5.2 N CHLORIDE (test code = CL) 94 mmol/l 98.0-107.0 L CARBON DIOXIDE (test code = CO2) 22.8 mmol/l 21.0-33.0 N ANION GAP (test code = GAP) 19.2 0-20 N GLUCOSE (test code = GLU) 153 mg/dl 70.0-110.0 H BLOOD UREA NITROGEN (test code = BUN) 103 mg/dl 7.0-18.0 H CREATININE (test code = CREAT) 7.84 mg/dL 0.60-1.30 HH GFR NON BLACK (test code = GFRNONBLACK) 5 mL/min 70-80 L GFR BLACK (test code = GFRBLACK) 6 mL/min 85-97 L CALCIUM (test code = CA) 7.6 mg/dl 8.0-10.5 L [id number] 12:35:00* Test Item Value Reference Range Interpretation Comments GLUBED (test code = GLUBED) 218 mg/dL 70-110 H [id number] 10:44:00* Test Item Value Reference Range Interpretation Comments GLUBED (test code = GLUBED) 255 mg/dL 70-110 H [id number] 00:30:00* Test Item Value Reference Range Interpretation Comments GLUBED (test code = GLUBED) 199 mg/dL 70-110 H [id number] 16:45:00* Test Item Value Reference Range Interpretation Comments GLUBED (test code = GLUBED) 155 mg/dL 70-110 H [id number] 11:53:00* Test Item Value Reference Range Interpretation Comments GLUBED (test code = GLUBED) 240 mg/dL 70-110 H [id number] 06:41:00* Test Item Value Reference Range Interpretation Comments GLUBED (test code = GLUBED) 250 mg/dL 70-110 H [id number] 03:17:00* Test Item Value Reference Range Interpretation Comments GLUBED (test code = GLUBED) 275 mg/dL 70-110 H [id number] 23:01:00* Test Item Value Reference Range Interpretation Comments GLUBED (test code = GLUBED) 323 mg/dL 70-110 H VITAMIN [id number] 17:24:00* Test Item Value Reference Range Interpretation Comments VITAMIN B12 (test code = VITB12) 1312 pg/mL 193-986 H NURSES DRAW THYROID STIMULATING [id number] 17:24:00* Test Item Value Reference Range Interpretation Comments THYROID STIMULATING HORMONE (test code = TSH) 1.74 IU/ML 0.47-5.0 1 N Result is in International Units/milliliter NURSES DRAW COMPREHENSIVE METABOLIC [id number] 17:23:00* Test Item Value Reference Range Interpretation Comments SODIUM (test code = NA) 127 mmol/l 134.0-147.0 L POTASSIUM (test code = K) 5.7 mmol/L 3.6-5.2 H IS SAMPLE HEMOLYSED? NO CHLORIDE (test code = CL) 91 mmol/l 98.0-107.0 L CARBON DIOXIDE (test code = CO2) 19.5 mmol/l 21.0-33.0 L ANION GAP (test code = GAP) 22.2 0-20 H GLUCOSE (test code = GLU) 160 mg/dl 70.0-110.0 H BLOOD UREA NITROGEN (test code = BUN) 111 mg/dl 7.0-18.0 H CREATININE (test code = CREAT) 9.28 mg/dL 0.60-1.30 HH GFR NON BLACK (test code = GFRNONBLACK) 4 mL/min 70-80 L GFR BLACK (test code = GFRBLACK) 5 mL/min 85-97 L TOTAL PROTEIN (test code = PROT) 7.3 gm/dL 6.4-8.2 N ALBUMIN (test code = ALB) 2.0 gm/dl 3.2-4.7 L CALCIUM (test code = CA) 7.7 mg/dl 8.0-10.5 L BILIRUBIN TOTAL (test code = BILT) 0.5 mg/dl 0.0-1.0 N SGOT/AST (test code = AST) 21 Units/L 15.0-37.0 N SGPT/ALT (test code = ALT) 27 Units/L 12.0-78.0 N ALKALINE PHOSPHATASE TOTAL (test code = ALKP) 151 Units/L 50.0-136 .0 H NURSES DRAW Specimen comments: .[id number] 17:23:00* Test Item Value Reference Range Interpretation Comments MAGNESIUM (test code = MAG) 2.0 mg/dl 1.8-2.4 N NURSES DRAW Specimen comments: .[id number] 17:17:00* Test Item Value Reference Range Interpretation Comments GLUBED (test code = GLUBED) 226 mg/dL 70-110 H CBC W/AUTO [id number] 16:43:00* Test Item Value Reference Range Interpretation Comments WHITE BLOOD CELL (test code = WBC) 5.7 K/mm3 4.5-11.0 N RED BLOOD CELL (test code = RBC) 2.60 M/mm3 3.80-5.20 L HEMOGLOBIN (test code = HGB) 7.5 gm/dL 12.0-16.0 L HEMATOCRIT (test code = HCT) 23.3 % 36.0-48.0 LL MEAN CELL VOLUME (test code = MCV) 89.6 UM3 82.0-99.0 MEAN CELL HGB (test code = MCH) 28.8 UUG 25.5-32.5 N MEAN CELL HGB CONCETRATION (test code = MCHC) 32.2 gm/dL 29.0-35. 5 N RED CELL DISTRIBUTION WIDTH (test code = RDW) 18.4 % 11.5-15. 0 H RED CELL DISTRIBUTION WIDTH SD (test code = RDW-SD) 59.4 fL 34 .8-50.2 H PLATELET COUNT (test code = PLT) 207 K/mm3 150-400 N MEAN PLATELET VOLUME (test code = MPV) 10.9 fl 7.4-10.4 H NEUTROPHIL % (test code = NT%) 83.8 % 49.0-76.0 H IMMATURE GRANULOCYTE % (test code = IG%) 1.2 % 0.0-0.4 H LYMPHOCYTE % (test code = LY%) 8.1 % 23.0-38.0 L MONOCYTE % (test code = MO%) 4.6 % 1.0-10.0 N EOSINOPHIL % (test code = EO%) 1.9 % 1.0-5.0 N BASOPHIL % (test code = BA%) 0.4 % 0.0-1.0 N NEUTROPHIL # (test code = NT#) 4.8 K/mm3 2.4-6.3 N IMMATURE GRANULOCYTE # (test code = IG#) 0.07 x10 3/uL 0.00-0.07 N LYMPHOCYTE # (test code = LY#) 0.5 K/mm3 1.2-4.0 L MONOCYTE # (test code = MO#) 0.3 K/mm3 0.0-0.6 N EOSINOPHIL # (test code = EO#) 0.1 K/MM3 0.0-0.7 N BASOPHIL # (test code = BA#) 0.0 K/mm3 0.0-0.2 N NURSES DRAW [id number] 12:39:00* Test Item Value Reference Range Interpretation Comments GLUBED (test code = GLUBED) 142 mg/dL 70-110 H [id number] 07:53:00* Test Item Value Reference Range Interpretation Comments GLUBED (test code = GLUBED) 235 mg/dL 70-110 H [id number] 23:47:00* Test Item Value Reference Range Interpretation Comments GLUBED (test code = GLUBED) 134 mg/dL 70-110 H [id number] 18:54:00* Test Item Value Reference Range Interpretation Comments GLUBED (test code = GLUBED) 136 mg/dL 70-110 H [id number] 15:32:00* Test Item Value Reference Range Interpretation Comments GLUBED (test code = GLUBED) 260 mg/dL 70-110 H [id number] 08:47:00* Test Item Value Reference Range Interpretation Comments [id number] (test code = RHAVA70Cwgkedmb) POSITIVE Negative A Note: this entry is for TRACKING purposes only and the testwas done outside [facility], the performing entity isfound in specimen comments.Note: this entry is for TRACKING purposes only and the testwas done outside [facility], the performing entity isfound in specimen comments. The test was performed at: [facility]: 11/08/19Patient's account number fro m transferring facility: [id number] patient's current lab results are: Posi [id number] 07:58:00* Test Item Value Reference Range Interpretation Comments GLUBED (test code = GLUBED) 233 mg/dL 70-110 H [id number] 18:26:00* Test Item Value Reference Range Interpretation Comments GLUBED (test code = GLUBED) 149 mg/dL 70-110 H BASIC METABOLIC [id number] 08:09:00* Test Item Value Reference Range Interpretation Comments SODIUM (test code = NA) 128 mmol/l 134.0-147.0 L POTASSIUM (test code = K) 4.6 mmol/L 3.6-5.2 N CHLORIDE (test code = CL) 91 mmol/l 98.0-107.0 L CARBON DIOXIDE (test code = CO2) 20.7 mmol/l 21.0-33.0 L ANION GAP (test code = GAP) 20.9 0-20 H GLUCOSE (test code = GLU) 192 mg/dl 70.0-110.0 H BLOOD UREA NITROGEN (test code = BUN) 56 mg/dl 7.0-18.0 H CREATININE (test code = CREAT) 6.62 mg/dL 0.60-1.30 HH GFR NON BLACK (test code = GFRNONBLACK) 7 mL/min 70-80 L GFR BLACK (test code = GFRBLACK) 8 mL/min 85-97 L CALCIUM (test code = CA) 8.6 mg/dl 8.0-10.5 N NURSES DRAW CBC W/AUTO [id number] 07:22:00* Test Item Value Reference Range Interpretation Comments WHITE BLOOD CELL (test code = WBC) 4.0 K/mm3 4.5-11.0 L RED BLOOD CELL (test code = RBC) 3.06 M/mm3 3.80-5.20 L HEMOGLOBIN (test code = HGB) 9.1 gm/dL 12.0-16.0 L HEMATOCRIT (test code = HCT) 28.7 % 36.0-48.0 L MEAN CELL VOLUME (test code = MCV) 93.8 UM3 82.0-99.0 N MEAN CELL HGB (test code = MCH) 29.7 UUG 25.5-32.5 N MEAN CELL HGB CONCETRATION (test code = MCHC) 31.7 gm/dL 29.0-35. 5 N RED CELL DISTRIBUTION WIDTH (test code = RDW) 18.8 % 11.5-15. 0 H RED CELL DISTRIBUTION WIDTH SD (test code = RDW-SD) 62.7 fL 34 .8-50.2 H PLATELET COUNT (test code = PLT) 192 K/mm3 150-400 N MEAN PLATELET VOLUME (test code = MPV) 11.4 fl 7.4-10.4 H NEUTROPHIL % (test code = NT%) 77.4 % 49.0-76.0 H IMMATURE GRANULOCYTE % (test code = IG%) 1.5 % 0.0-0.4 H LYMPHOCYTE % (test code = LY%) 10.9 % 23.0-38.0 L MONOCYTE % (test code = MO%) 6.2 % 1.0-10.0 N EOSINOPHIL % (test code = EO%) 3.5 % 1.0-5.0 N BASOPHIL % (test code = BA%) 0.5 % 0.0-1.0 N NEUTROPHIL # (test code = NT#) 3.1 K/mm3 2.4-6.3 N IMMATURE GRANULOCYTE # (test code = IG#) 0.06 x10 3/uL 0.00-0.07 N LYMPHOCYTE # (test code = LY#) 0.4 K/mm3 1.2-4.0 L MONOCYTE # (test code = MO#) 0.3 K/mm3 0.0-0.6 N EOSINOPHIL # (test code = EO#) 0.1 K/MM3 0.0-0.7 N BASOPHIL # (test code = BA#) 0.0 K/mm3 0.0-0.2 N NURSES DRAW CBC W/AUTO [id number] 06:45:00* Test Item Value Reference Range Interpretation Comments WHITE BLOOD CELL (test code = WBC) 5.1 K/mm3 4.5-11.0 N RED BLOOD CELL (test code = RBC) 2.91 M/mm3 3.80-5.20 L HEMOGLOBIN (test code = HGB) 8.5 gm/dL 12.0-16.0 L HEMATOCRIT (test code = HCT) 27.2 % 36.0-48.0 L MEAN CELL VOLUME (test code = MCV) 93.5 UM3 82.0-99.0 N MEAN CELL HGB (test code = MCH) 29.2 UUG 25.5-32.5 N MEAN CELL HGB CONCETRATION (test code = MCHC) 31.3 gm/dL 29.0-35. 5 N RED CELL DISTRIBUTION WIDTH (test code = RDW) 18.9 % 11.5-15. 0 H RED CELL DISTRIBUTION WIDTH SD (test code = RDW-SD) 63.8 fL 34 .8-50.2 H PLATELET COUNT (test code = PLT) 202 K/mm3 150-400 N MEAN PLATELET VOLUME (test code = MPV) 11.4 fl 7.4-10.4 H NEUTROPHIL % (test code = NT%) 85.3 % 49.0-76.0 H IMMATURE GRANULOCYTE % (test code = IG%) 0.6 % 0.0-0.4 H LYMPHOCYTE % (test code = LY%) 6.3 % 23.0-38.0 L MONOCYTE % (test code = MO%) 4.7 % 1.0-10.0 N EOSINOPHIL % (test code = EO%) 2.9 % 1.0-5.0 N BASOPHIL % (test code = BA%) 0.2 % 0.0-1.0 N NEUTROPHIL # (test code = NT#) 4.4 K/mm3 2.4-6.3 N IMMATURE GRANULOCYTE # (test code = IG#) 0.03 x10 3/uL 0.00-0.07 N LYMPHOCYTE # (test code = LY#) 0.3 K/mm3 1.2-4.0 L MONOCYTE # (test code = MO#) 0.2 K/mm3 0.0-0.6 N EOSINOPHIL # (test code = EO#) 0.2 K/MM3 0.0-0.7 N BASOPHIL # (test code = BA#) 0.0 K/mm3 0.0-0.2 N BASIC METABOLIC [id number] 06:36:00* Test Item Value Reference Range Interpretation Comments SODIUM (test code = NA) 132 mmol/l 134.0-147.0 L POTASSIUM (test code = K) 4.1 mmol/L 3.6-5.2 N CHLORIDE (test code = CL) 95 mmol/l 98.0-107.0 L CARBON DIOXIDE (test code = CO2) 25.9 mmol/l 21.0-33.0 N ANION GAP (test code = GAP) 15.2 0-20 N GLUCOSE (test code = GLU) 285 mg/dl 70.0-110.0 H BLOOD UREA NITROGEN (test code = BUN) 39 mg/dl 7.0-18.0 H CREATININE (test code = CREAT) 5.29 mg/dL 0.60-1.30 HH GFR NON BLACK (test code = GFRNONBLACK) 8 mL/min 70-80 L GFR BLACK (test code = GFRBLACK) 10 mL/min 85-97 L CALCIUM (test code = CA) 8.4 mg/dl 8.0-10.5 N ACUTE HEPATITIS [id number] 20:56:00* Test Item Value Reference Range Interpretation Comments AB HEPATITIS A IGM (test code = HAVMAB) NON REACTIVE INDEX NON REAC T. Testing done at [facility] [address] [place] [id number] AB HEPATITIS B SURFACE (test code = HBSAB) 152.3 mIU/mL Immunity>9. 9 Status of Immunity Anti-HBs Level Inconsistent with Immunity 0.0 - 9.9Consistent with Immunity >9.9TEST PERFORMED AT [facility] [address] AG HEPATITIS B SURFACE (test code = HBSAG) NON REACTIVE INDEX NonRe active Testing done at [facility] [address] [place] [address] AB HEPATITIS B CORE IGM (test code = HBCMAB) NON REACTIVE INDEX NON REACT. Testing done at [facility] [address] [place] [address] AB HEPATITIS C (test code = HCVAB) NON REACTIVE INDEX NON REACT. Testing done at [facility] [address] [place] [address] AB HEPATITIS B [id number] 20:56:00* Test Item Value Reference Range Interpretation Comments AB HEPATITIS B CORE (test code = HBCAB) Negative Negative Performed At: [facility] [id number] Kyle L MD Ph:[phone] BASIC METABOLIC [id number] 09:12:00* Test Item Value Reference Range Interpretation Comments SODIUM (test code = NA) 130 mmol/l 134.0-147.0 L POTASSIUM (test code = K) 4.7 mmol/L 3.6-5.2 N CHLORIDE (test code = CL) 92 mmol/l 98.0-107.0 L CARBON DIOXIDE (test code = CO2) 25.2 mmol/l 21.0-33.0 N ANION GAP (test code = GAP) 17.5 0-20 N GLUCOSE (test code = GLU) 186 mg/dl 70.0-110.0 H BLOOD UREA NITROGEN (test code = BUN) 56 mg/dl 7.0-18.0 H CREATININE (test code = CREAT) 7.82 mg/dL 0.60-1.30 HH GFR NON BLACK (test code = GFRNONBLACK) 5 mL/min 70-80 L GFR BLACK (test code = GFRBLACK) 7 mL/min 85-97 L CALCIUM (test code = CA) 8.3 mg/dl 8.0-10.5 N CBC W/AUTO [id number] 09:01:00* Test Item Value Reference Range Interpretation Comments WHITE BLOOD CELL (test code = WBC) 6.0 K/mm3 4.5-11.0 N RED BLOOD CELL (test code = RBC) 3.11 M/mm3 3.80-5.20 L HEMOGLOBIN (test code = HGB) 8.9 gm/dL 12.0-16.0 L HEMATOCRIT (test code = HCT) 28.2 % 36.0-48.0 L MEAN CELL VOLUME (test code = MCV) 90.7 UM3 82.0-99.0 N MEAN CELL HGB (test code = MCH) 28.6 UUG 25.5-32.5 N MEAN CELL HGB CONCETRATION (test code = MCHC) 31.6 gm/dL 29.0-35. 5 N RED CELL DISTRIBUTION WIDTH (test code = RDW) 19.1 % 11.5-15. 0 H RED CELL DISTRIBUTION WIDTH SD (test code = RDW-SD) 63.2 fL 34 .8-50.2 H PLATELET COUNT (test code = PLT) 182 K/mm3 150-400 N MEAN PLATELET VOLUME (test code = MPV) 10.4 fl 7.4-10.4 N NEUTROPHIL % (test code = NT%) 86.6 % 49.0-76.0 H IMMATURE GRANULOCYTE % (test code = IG%) 0.5 % 0.0-0.4 H LYMPHOCYTE % (test code = LY%) 6.7 % 23.0-38.0 L MONOCYTE % (test code = MO%) 3.7 % 1.0-10.0 N EOSINOPHIL % (test code = EO%) 2.2 % 1.0-5.0 N BASOPHIL % (test code = BA%) 0.3 % 0.0-1.0 N NEUTROPHIL # (test code = NT#) 5.2 K/mm3 2.4-6.3 N IMMATURE GRANULOCYTE # (test code = IG#) 0.03 x10 3/uL 0.00-0.07 N LYMPHOCYTE # (test code = LY#) 0.4 K/mm3 1.2-4.0 L MONOCYTE # (test code = MO#) 0.2 K/mm3 0.0-0.6 N EOSINOPHIL # (test code = EO#) 0.1 K/MM3 0.0-0.7 N BASOPHIL # (test code = BA#) 0.0 K/mm3 0.0-0.2 N COMPREHENSIVE METABOLIC [id number] 12:52:00* Test Item Value Reference Range Interpretation Comments SODIUM (test code = NA) 131 mmol/l 134.0-147.0 L POTASSIUM (test code = K) 4.5 mmol/L 3.6-5.2 N CHLORIDE (test code = CL) 91 mmol/l 98.0-107.0 L CARBON DIOXIDE (test code = CO2) 27.7 mmol/l 21.0-33.0 N ANION GAP (test code = GAP) 16.8 0-20 N GLUCOSE (test code = GLU) 276 mg/dl 70.0-110.0 H BLOOD UREA NITROGEN (test code = BUN) 41 mg/dl 7.0-18.0 H CREATININE (test code = CREAT) 6.40 mg/dL 0.60-1.30 HH GFR NON BLACK (test code = GFRNONBLACK) 7 mL/min 70-80 L GFR BLACK (test code = GFRBLACK) 8 mL/min 85-97 L TOTAL PROTEIN (test code = PROT) 8.1 GM/DL 6.0-8.1 N ALBUMIN (test code = ALB) 2.3 gm/dL 3.2-4.7 L CALCIUM (test code = CA) 8.1 mg/dl 8.0-10.5 N BILIRUBIN TOTAL (test code = BILT) 1.3 mg/dl 0.0-1.0 H SGOT/AST (test code = AST) 26 Units/L 15.0-37.0 N SGPT/ALT (test code = ALT) 13 Units/L 12.0-78.0 N ALKALINE PHOSPHATASE TOTAL (test code = ALKP) 159 Units/L 50.0-136 .0 H [id number] 12:52:00* Test Item Value Reference Range Interpretation Comments MAGNESIUM (test code = MAG) 1.8 mg/dl 1.8-2.4 N D-DIMER/[id number] 12:38:00* Test Item Value Reference Range Interpretation Comments D-DIMER/FSP (test code = DDIMER) 856 ng/mL 200.0-230.0 H Per obstetrics and gynecology professor recommendation, the CUT OFFfor the Diagnosis of PE or DVT with a 100% SENSITIVITY &100% PREDICTIVE VALUE is suggested to be 230 ng/mL D- DIMERUNIT(DDU). D-DIMER RESULTS MAY BE AFFECTED BY:1. HEMOGLOBIN > 100 mg/dL2. BILIRUBIN > 10 mg/dL3. TRIGLYCERIDES > 1500 mg/dL4. The presence of RHEUMATIOID FACTOR may produce an overestimation of the test result. Specimen comments: PLEASE DRAW WITH AM LABSComments to [employer] Teacher: DRAW WITH A M LABSCBC W/AUTO [id number] 12:27:00* Test Item Value Reference Range Interpretation Comments WHITE BLOOD CELL (test code = WBC) 7.7 K/mm3 4.5-11.0 N RED BLOOD CELL (test code = RBC) 3.51 M/mm3 3.80-5.20 L HEMOGLOBIN (test code = HGB) 9.9 gm/dL 12.0-16.0 L HEMATOCRIT (test code = HCT) 31.7 % 36.0-48.0 L MEAN CELL VOLUME (test code = MCV) 90.3 UM3 82.0-99.0 N MEAN CELL HGB (test code = MCH) 28.2 UUG 25.5-32.5 N MEAN CELL HGB CONCETRATION (test code = MCHC) 31.2 gm/dL 29.0-35. 5 N RED CELL DISTRIBUTION WIDTH (test code = RDW) 19.3 % 11.5-15. 0 H RED CELL DISTRIBUTION WIDTH SD (test code = RDW-SD) 63.3 fL 34 .8-50.2 H PLATELET COUNT (test code = PLT) 220 K/mm3 150-400 N MEAN PLATELET VOLUME (test code = MPV) 11.3 fl 7.4-10.4 H NEUTROPHIL % (test code = NT%) 90.7 % 49.0-76.0 H IMMATURE GRANULOCYTE % (test code = IG%) 0.9 % 0.0-0.4 H LYMPHOCYTE % (test code = LY%) 4.5 % 23.0-38.0 L MONOCYTE % (test code = MO%) 2.8 % 1.0-10.0 N EOSINOPHIL % (test code = EO%) 1.0 % 1.0-5.0 N BASOPHIL % (test code = BA%) 0.1 % 0.0-1.0 N NEUTROPHIL # (test code = NT#) 7.0 K/mm3 2.4-6.3 H IMMATURE GRANULOCYTE # (test code = IG#) 0.07 x10 3/uL 0.00-0.07 N LYMPHOCYTE # (test code = LY#) 0.4 K/mm3 1.2-4.0 L MONOCYTE # (test code = MO#) 0.2 K/mm3 0.0-0.6 N EOSINOPHIL # (test code = EO#) 0.1 K/MM3 0.0-0.7 N BASOPHIL # (test code = BA#) 0.0 K/mm3 0.0-0.2 N ACUTE HEPATITIS [id number] 08:19:00* Test Item Value Reference Range Interpretation Comments AB HEPATITIS A IGM (test code = HAVMAB) NON REACTIVE INDEX NON REAC T. Testing done at [facility] [address] [place] [address] AB HEPATITIS B SURFACE (test code = HBSAB) mIU/mL Immune >9.9 AG HEPATITIS B SURFACE (test code = HBSAG) NON REACTIVE INDEX NonRe active Testing done at [facility] [address] [place], [place] [id number] AB HEPATITIS B CORE IGM (test code = HBCMAB) NON REACTIVE INDEX NON REACT. Testing done at [facility] [address] [place] [address] AB HEPATITIS C (test code = HCVAB) NON REACTIVE INDEX NON REACT. Testing done at [facility] [address] [place], [place] [id number] AB HEPATITIS B [id number] 08:19:00* Test Item Value Reference Range Interpretation Comments AB HEPATITIS B CORE (test code = HBCAB) NON REACT. AB HEPATITIS A [id number] 03:31:00* Test Item Value Reference Range Interpretation Comments AB HEPATITIS A IGM (test code = HAVMAB) NON REACTIVE INDEX NON REAC T. AG HEPATITIS B [id number] 03:31:00* Test Item Value Reference Range Interpretation Comments AG HEPATITIS B SURFACE (test code = HBSAG) NON REACTIVE INDEX NonRe active AB HEPATITIS B CORE [id number] 03:31:00* Test Item Value Reference Range Interpretation Comments AB HEPATITIS B CORE IGM (test code = HBCMAB) NON REACTIVE INDEX NON REACT. AB HEPATITIS [id number] 03:31:00* Test Item Value Reference Range Interpretation Comments AB HEPATITIS C (test code = HCVAB) NON REACTIVE INDEX NON REACT. AB HEPATITIS A [id number] 02:30:00* Test Item Value Reference Range Interpretation Comments AB HEPATITIS A IGM (test code = HAVMAB) INDEX NON REACT. AG HEPATITIS B [id number] 02:30:00* Test Item Value Reference Range Interpretation Comments AG HEPATITIS B SURFACE (test code = HBSAG) NON REACTIVE INDEX NonRe active AB HEPATITIS B CORE [id number] 02:30:00* Test Item Value Reference Range Interpretation Comments AB HEPATITIS B CORE IGM (test code = HBCMAB) INDEX NON REACT . AB HEPATITIS [id number] 02:30:00* Test Item Value Reference Range Interpretation Comments AB HEPATITIS C (test code = HCVAB) INDEX NON REACT. [id number] 12:52:00* Test Item Value Reference Range Interpretation Comments GLUBED (test code = GLUBED) 208 mg/dL 70-110 H [id number] 12:52:00* Test Item Value Reference Range Interpretation Comments GLUBED (test code = GLUBED) 213 mg/dL 70-110 H [id number] 10:06:00* Test Item Value Reference Range Interpretation Comments [id number] (test code = [id number]) POSITIVE Negative A Note: this entry is for TRACKING purposes only and the testwas done outside [facility], the performing entity isfound in specimen comments.Note: this entry is for TRACKING purposes only and the testwas done outside [facility], the performing entity isfound in specimen comments. The test was performed at: [facility]: 11/08/19Patient's account number fro m transferring facility: [id number] patient's current lab results are: Posi tiveCBC W/AUTO [id number] 03:54:00* Test Item Value Reference Range Interpretation Comments WHITE BLOOD CELL (test code = WBC) 8.7 K/mm3 4.5-11.0 N RED BLOOD CELL (test code = RBC) 3.59 M/mm3 3.80-5.20 L HEMOGLOBIN (test code = HGB) 10.1 gm/dL 12.0-16.0 L HEMATOCRIT (test code = HCT) 31.5 % 36.0-48.0 L MEAN CELL VOLUME (test code = MCV) 87.7 UM3 82.0-99.0 N MEAN CELL HGB (test code = MCH) 28.1 UUG 25.5-32.5 N MEAN CELL HGB CONCETRATION (test code = MCHC) 32.1 gm/dL 29.0-35. 5 N RED CELL DISTRIBUTION WIDTH (test code = RDW) 19.6 % 11.5-15. 0 H RED CELL DISTRIBUTION WIDTH SD (test code = RDW-SD) 62.1 fL 34 .8-50.2 H PLATELET COUNT (test code = PLT) 192 K/mm3 150-400 N MEAN PLATELET VOLUME (test code = MPV) 11.8 fl 7.4-10.4 H NEUTROPHIL % (test code = NT%) 93.3 % 49.0-76.0 H IMMATURE GRANULOCYTE % (test code = IG%) 0.5 % 0.0-0.4 H LYMPHOCYTE % (test code = LY%) 3.5 % 23.0-38.0 L MONOCYTE % (test code = MO%) 2.0 % 1.0-10.0 N EOSINOPHIL % (test code = EO%) 0.5 % 1.0-5.0 L BASOPHIL % (test code = BA%) 0.2 % 0.0-1.0 N NEUTROPHIL # (test code = NT#) 8.1 K/mm3 2.4-6.3 H IMMATURE GRANULOCYTE # (test code = IG#) 0.04 x10 3/uL 0.00-0.07 N LYMPHOCYTE # (test code = LY#) 0.3 K/mm3 1.2-4.0 L MONOCYTE # (test code = MO#) 0.2 K/mm3 0.0-0.6 N EOSINOPHIL # (test code = EO#) 0.0 K/MM3 0.0-0.7 N BASOPHIL # (test code = BA#) 0.0 K/mm3 0.0-0.2 N ELLIPTOCYTES (test code = ELL) 1+ PLATELET ESTIMATE (test code = PLTEST) ADQ - XR CHEST 1 [id number] 02:32:00 FAX: Mike Maravilla [phone] [employer]: St: REG Name: BARBARA CRUZ [facility] : [birth year] Age/S: 69/F [address] [facility] Unit #: [id number] [place]: [place] Phys: [place] [id number] Acct: [id number] Dis Date: Status: REG ER PHONE #: [phone] Exam Date: 11/16/2019 020 FAX #: [phone] Reason: SOB EXAMS: CPT CODE: [id number] XR CHEST 1 V [id number] Exam: Chest portable erect Location: H 12 History: SOB Comparison: 11/07. Findings: Pulmonary congestion and edema are present. The heart size is enlarged. 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 Atherosclerosis inv olves the aorta. The mediastinal silhouette is unremarkable. The bony thor ax is intact with degenerative changes noted. Impression: Chest. at 0232 Reported and signed by: Terence Garcia M.D. CC: Mike Maravilla MD Fernandez hnologist: AFTAB ESPINOZA Trnscrd Date/T laurie/By: 11/16/2019 (0232) : By: SonjaFC PAGE 1 Signed Report FAX: Mike Maravilla [phone] [employer]: St: REG Name: BARBARA WARE [facility] : 1950 Age/S: 69/F [address] [place] [facility] Unit #: [id number] Loc: [facility] Phys: [place] [id number] Acct: [id number] Dis Date: Status: REG ER PHONE #: [phone] Exam Date: 11/16/2019 020 FAX #: [phone] Reason: SOB EXAMS: CPT CODE: [id number] XR CHEST 1 V [id number] <Continued> Orig Print D/T: S: 11/16/2019 (0235) PAGE 2 Signed Report BASIC METABOLIC [id number] 02:03:00* Test Item Value Reference Range Interpretation Comments SODIUM (test code = NA) 128 mmol/l 134.0-147.0 L POTASSIUM (test code = K) 4.9 mmol/L 3.6-5.2 N CHLORIDE (test code = CL) 90 mmol/l 98.0-107.0 L CARBON DIOXIDE (test code = CO2) 26.1 mmol/l 21.0-33.0 N ANION GAP (test code = GAP) 16.8 0-20 N GLUCOSE (test code = GLU) 219 mg/dl 70.0-110.0 H BLOOD UREA NITROGEN (test code = BUN) 52 mg/dl 7.0-18.0 H CREATININE (test code = CREAT) 7.07 mg/dL 0.60-1.30 HH GFR NON BLACK (test code = GFRNONBLACK) 6 mL/min 70-80 L GFR BLACK (test code = GFRBLACK) 7 mL/min 85-97 L CALCIUM (test code = CA) 7.5 mg/dl 8.0-10.5 L HEPATIC FUNCTION PANEL [id number] 02:03:00* Test Item Value Reference Range Interpretation Comments TOTAL PROTEIN (test code = PROT) 8.5 GM/DL 6.0-8.1 H ALBUMIN (test code = ALB) 2.1 gm/dL 3.2-4.7 L BILIRUBIN TOTAL (test code = BILT) 1.2 mg/dl 0.0-1.0 H BILIRUBIN DIRECT (test code = BILD) <0.1 mg/dl 0.0-0.3 N SGOT/AST (test code = AST) 39 Units/L 15.0-37.0 H SGPT/ALT (test code = ALT) 22 Units/L 12.0-78.0 N ALKALINE PHOSPHATASE TOTAL (test code = ALKP) 140 Units/L 50.0-136 .0 H [id number] 02:03:00* Test Item Value Reference Range Interpretation Comments MAGNESIUM (test code = MAG) 2.0 mg/dl 1.8-2.4 N B-TYPE NATRIURETIC [id number] 02:03:00* Test Item Value Reference Range Interpretation Comments B-TYPE NATRIURETIC PEPTIDE (test code = BNP) 2250 PG/ML 5-100 H [id number] 02:03:00* Test Item Value Reference Range Interpretation Comments TROPONIN-I (test code = TROPI) 0.02 NG/ML 0.00-0.06 N REFERENCE RANGE TROPONIN I HEALTHY INDIVIDUALS: <0.06 ng/mL R/O ISCHEMIA: 0.07 - 0.60 ng/mL CUT-OFF RANGE FOR AMI: 0.60 - 1.5 ng/mL BASIC METABOLIC [id number] 01:59:00* Test Item Value Reference Range Interpretation Comments SODIUM (test code = NA) mmol/l 134.0-147.0 POTASSIUM (test code = K) mmol/L 3.6-5.2 CHLORIDE (test code = CL) mmol/l 98.0-107.0 CARBON DIOXIDE (test code = CO2) mmol/l 21.0-33.0 N ANION GAP (test code = GAP) 0-20 GLUCOSE (test code = GLU) 219 mg/dl 70.0-110.0 H BLOOD UREA NITROGEN (test code = BUN) 52 mg/dl 7.0-18.0 H CREATININE (test code = CREAT) 7.07 mg/dL 0.60-1.30 HH GFR NON BLACK (test code = GFRNONBLACK) 6 mL/min 70-80 L GFR BLACK (test code = GFRBLACK) 7 mL/min 85-97 L CALCIUM (test code = CA) 7.5 mg/dl 8.0-10.5 L HEPATIC FUNCTION PANEL [id number] 01:59:00* Test Item Value Reference Range Interpretation Comments TOTAL PROTEIN (test code = PROT) 8.5 GM/DL 6.0-8.1 H ALBUMIN (test code = ALB) 2.1 gm/dL 3.2-4.7 L BILIRUBIN TOTAL (test code = BILT) 1.2 mg/dl 0.0-1.0 H BILIRUBIN DIRECT (test code = BILD) <0.1 mg/dl 0.0-0.3 N SGOT/AST (test code = AST) Units/L 15.0-37.0 SGPT/ALT (test code = ALT) 22 Units/L 12.0-78.0 N ALKALINE PHOSPHATASE TOTAL (test code = ALKP) 140 Units/L 50.0-136 .0 H [id number] 01:59:00* Test Item Value Reference Range Interpretation Comments MAGNESIUM (test code = MAG) 2.0 mg/dl 1.8-2.4 N B-TYPE NATRIURETIC [id number] 01:59:00* Test Item Value Reference Range Interpretation Comments B-TYPE NATRIURETIC PEPTIDE (test code = BNP) 2250 PG/ML 5-100 H [id number] 01:59:00* Test Item Value Reference Range Interpretation Comments TROPONIN-I (test code = TROPI) 0.02 NG/ML 0.00-0.06 N REFERENCE RANGE TROPONIN I HEALTHY INDIVIDUALS: <0.06 ng/mL R/O ISCHEMIA: 0.07 - 0.60 ng/mL CUT-OFF RANGE FOR AMI: 0.60 - 1.5 ng/mL BASIC METABOLIC [id number] 01:59:00* Test Item Value Reference Range Interpretation Comments SODIUM (test code = NA) 128 mmol/l 134.0-147.0 L POTASSIUM (test code = K) 4.9 mmol/L 3.6-5.2 N CHLORIDE (test code = CL) 90 mmol/l 98.0-107.0 L CARBON DIOXIDE (test code = CO2) 26.1 mmol/l 21.0-33.0 N ANION GAP (test code = GAP) 16.8 0-20 N GLUCOSE (test code = GLU) 219 mg/dl 70.0-110.0 H BLOOD UREA NITROGEN (test code = BUN) 52 mg/dl 7.0-18.0 H CREATININE (test code = CREAT) 7.07 mg/dL 0.60-1.30 HH GFR NON BLACK (test code = GFRNONBLACK) 6 mL/min 70-80 L GFR BLACK (test code = GFRBLACK) 7 mL/min 85-97 L CALCIUM (test code = CA) 7.5 mg/dl 8.0-10.5 L HEPATIC FUNCTION PANEL [id number] 01:59:00* Test Item Value Reference Range Interpretation Comments TOTAL PROTEIN (test code = PROT) 8.5 GM/DL 6.0-8.1 H ALBUMIN (test code = ALB) 2.1 gm/dL 3.2-4.7 L BILIRUBIN TOTAL (test code = BILT) 1.2 mg/dl 0.0-1.0 H BILIRUBIN DIRECT (test code = BILD) <0.1 mg/dl 0.0-0.3 N SGOT/AST (test code = AST) Units/L 15.0-37.0 SGPT/ALT (test code = ALT) 22 Units/L 12.0-78.0 N ALKALINE PHOSPHATASE TOTAL (test code = ALKP) 140 Units/L 50.0-136 .0 H [id number] 01:59:00* Test Item Value Reference Range Interpretation Comments MAGNESIUM (test code = MAG) 2.0 mg/dl 1.8-2.4 N B-TYPE NATRIURETIC [id number] 01:59:00* Test Item Value Reference Range Interpretation Comments B-TYPE NATRIURETIC PEPTIDE (test code = BNP) 2250 PG/ML 5-100 H [id number] 01:59:00* Test Item Value Reference Range Interpretation Comments TROPONIN-I (test code = TROPI) 0.02 NG/ML 0.00-0.06 N REFERENCE RANGE TROPONIN I HEALTHY INDIVIDUALS: <0.06 ng/mL R/O ISCHEMIA: 0.07 - 0.60 ng/mL CUT-OFF RANGE FOR AMI: 0.60 - 1.5 ng/mL PROTHROMBIN [id number] 01:55:00* Test Item Value Reference Range Interpretation Comments PROTHROMBIN TIME PATIENT (test code = PTP) 14.1 SECONDS 9.9-12.8 H INTERNATIONAL NORMAL RATIO (test code = INR) 1.2 0.89-1.14 H THE INR IS TO BE USED ONLY FOR MONITORING ORAL ANTICOAGULANTTHERAPY. THE FOLLOWING ARE SUGGESTED RANGES FROM THEAMERICAN COLLEGE OF CHEST PHYSICIANS:INDICATION INR VALUEPROPHYLAXIS OF VENOUS THROMBOSIS (ORTHOPEDIC SURGERY) 2.0 - 3.0PROPHYLAXIS OF VENOUS THROMBOSIS (OTHER THAN HIGH-RISK SURGERY) 2.0 - 3.0TREATMENT OF DEEP VEIN THROMBOSIS OR PULMONARY EMBOLISM 2.0 - 3.0PREVENTION OF SYSTEMIC EMBOLISM TISSUE HEART VALVES 2.0 - 3.0 ACUTE MYOCARDIAL INFARCTION (TO PREVENT SYSTEMIC EMBOLISM) 2.0 - 3.0 ACUTE MYOCARDIAL INFARCTION (TO PREVENT RECURRENT INFARCT) 2.5 - 3.0 VALVULAR HEART DISEASE 2.0 - 3.0 ATRIAL FIBRILATION 2.0 - 3.0BILEAFLET MECHANICAL VALVE IN AORTIC POSITION 2.0 - 3.0MECHANICAL PROSTHETIC VALVES (HIGH RISK) 2.5 - 3.5PRESENCE OF LUPUS ANTICOAGULANT OR ANTIPHOSPHOLIPID ANTIBODIES 2.5 - 3.5 Is patient on anticoagulants? NBASIC METABOLIC [id number] 01:54:00* Test Item Value Reference Range Interpretation Comments SODIUM (test code = NA) mmol/l 134.0-147.0 POTASSIUM (test code = K) mmol/L 3.6-5.2 CHLORIDE (test code = CL) mmol/l 98.0-107.0 CARBON DIOXIDE (test code = CO2) mmol/l 21.0-33.0 N ANION GAP (test code = GAP) 0-20 GLUCOSE (test code = GLU) 219 mg/dl 70.0-110.0 H BLOOD UREA NITROGEN (test code = BUN) 52 mg/dl 7.0-18.0 H CREATININE (test code = CREAT) 7.07 mg/dL 0.60-1.30 HH GFR NON BLACK (test code = GFRNONBLACK) 6 mL/min 70-80 L GFR BLACK (test code = GFRBLACK) 7 mL/min 85-97 L CALCIUM (test code = CA) 7.5 mg/dl 8.0-10.5 L HEPATIC FUNCTION PANEL [id number] 01:54:00* Test Item Value Reference Range Interpretation Comments TOTAL PROTEIN (test code = PROT) 8.5 GM/DL 6.0-8.1 H ALBUMIN (test code = ALB) 2.1 gm/dL 3.2-4.7 L BILIRUBIN TOTAL (test code = BILT) 1.2 mg/dl 0.0-1.0 H BILIRUBIN DIRECT (test code = BILD) <0.1 mg/dl 0.0-0.3 N SGOT/AST (test code = AST) Units/L 15.0-37.0 SGPT/ALT (test code = ALT) 22 Units/L 12.0-78.0 N ALKALINE PHOSPHATASE TOTAL (test code = ALKP) 140 Units/L 50.0-136 .0 H [id number] 01:54:00* Test Item Value Reference Range Interpretation Comments MAGNESIUM (test code = MAG) 2.0 mg/dl 1.8-2.4 N B-TYPE NATRIURETIC [id number] 01:54:00* Test Item Value Reference Range Interpretation Comments B-TYPE NATRIURETIC PEPTIDE (test code = BNP) PG/ML 5-100 [id number] 01:54:00* Test Item Value Reference Range Interpretation Comments TROPONIN-I (test code = TROPI) 0.02 NG/ML 0.00-0.06 N REFERENCE RANGE TROPONIN I HEALTHY INDIVIDUALS: <0.06 ng/mL R/O ISCHEMIA: 0.07 - 0.60 ng/mL CUT-OFF RANGE FOR AMI: 0.60 - 1.5 ng/mL [id number] 01:49:00* Test Item Value Reference Range Interpretation Comments PHOSPHOROUS (test code = PHOS) 4.7 mg/dl 2.5-4.9 N CBC W/AUTO [id number] 01:37:00* Test Item Value Reference Range Interpretation Comments WHITE BLOOD CELL (test code = WBC) 8.7 K/mm3 4.5-11.0 N RED BLOOD CELL (test code = RBC) 3.59 M/mm3 3.80-5.20 L HEMOGLOBIN (test code = HGB) 10.1 gm/dL 12.0-16.0 L HEMATOCRIT (test code = HCT) 31.5 % 36.0-48.0 L MEAN CELL VOLUME (test code = MCV) 87.7 UM3 82.0-99.0 N MEAN CELL HGB (test code = MCH) 28.1 UUG 25.5-32.5 N MEAN CELL HGB CONCETRATION (test code = MCHC) 32.1 gm/dL 29.0-35. 5 N RED CELL DISTRIBUTION WIDTH (test code = RDW) 19.6 % 11.5-15. 0 H RED CELL DISTRIBUTION WIDTH SD (test code = RDW-SD) 62.1 fL 34 .8-50.2 H PLATELET COUNT (test code = PLT) 192 K/mm3 150-400 N MEAN PLATELET VOLUME (test code = MPV) 11.8 fl 7.4-10.4 H NEUTROPHIL % (test code = NT%) 93.3 % 49.0-76.0 H IMMATURE GRANULOCYTE % (test code = IG%) 0.5 % 0.0-0.4 H LYMPHOCYTE % (test code = LY%) 3.5 % 23.0-38.0 L MONOCYTE % (test code = MO%) 2.0 % 1.0-10.0 N EOSINOPHIL % (test code = EO%) 0.5 % 1.0-5.0 L BASOPHIL % (test code = BA%) 0.2 % 0.0-1.0 N NEUTROPHIL # (test code = NT#) 8.1 K/mm3 2.4-6.3 H IMMATURE GRANULOCYTE # (test code = IG#) 0.04 x10 3/uL 0.00-0.07 N LYMPHOCYTE # (test code = LY#) 0.3 K/mm3 1.2-4.0 L MONOCYTE # (test code = MO#) 0.2 K/mm3 0.0-0.6 N EOSINOPHIL # (test code = EO#) 0.0 K/MM3 0.0-0.7 N BASOPHIL # (test code = BA#) 0.0 K/mm3 0.0-0.2 N [id number] 05:51:00* Test Item Value Reference Range Interpretation Comments GLUBED (test code = GLUBED) 286 mg/dL 70-110 H [id number] 16:19:00* Test Item Value Reference Range Interpretation Comments GLUBED (test code = GLUBED) 252 mg/dL 70-110 H [id number] 16:18:00* Test Item Value Reference Range Interpretation Comments GLUBED (test code = GLUBED) 239 mg/dL 70-110 H [id number] 16:18:00* Test Item Value Reference Range Interpretation Comments GLUBED (test code = GLUBED) 109 mg/dL 70-110 N [id number] 16:18:00* Test Item Value Reference Range Interpretation Comments GLUBED (test code = GLUBED) 285 mg/dL 70-110 H [id number] 16:18:00* Test Item Value Reference Range Interpretation Comments GLUBED (test code = GLUBED) 238 mg/dL 70-110 H ACUTE HEPATITIS [id number] 23:13:00* Test Item Value Reference Range Interpretation Comments AB HEPATITIS A IGM (test code = HAVMAB) NON REACTIVE INDEX NON REAC T. Testing done at [facility] [address] [place] [address] AB HEPATITIS B SURFACE (test code = HBSAB) 219.1 mIU/mL Immunity>9. 9 Status of Immunity Anti-HBs Level Inconsistent with Immunity 0.0 - 9.9Consistent with Immunity >9.9TEST PERFORMED AT [address] [address] AG HEPATITIS B SURFACE (test code = HBSAG) NON REACTIVE INDEX NonRe active Testing done at [facility] [address] [place] [address] AB HEPATITIS B CORE IGM (test code = HBCMAB) NON REACTIVE INDEX NON REACT. Testing done at [address] [address] AB HEPATITIS C (test code = HCVAB) NON REACTIVE INDEX NON REACT. Testing done at [facility] [address] [place] [address] AB HEPATITIS B [id number] 23:13:00* Test Item Value Reference Range Interpretation Comments AB HEPATITIS B CORE (test code = HBCAB) Negative Negative Performed At: [facility] [address] [id number] Misael Morris MD Ph:[phone] [id number] 12:52:00* Test Item Value Reference Range Interpretation Comments HGBA1C% (test code = HGBA1C%) 8.9 %A1C 4.8-6.0 H ESTIMATED AVERAGE GLUCOSE (test code = EAG) 209 MG/DL BASIC METABOLIC [id number] 12:51:00* Test Item Value Reference Range Interpretation Comments SODIUM (test code = NA) 130 mmol/l 134.0-147.0 L POTASSIUM (test code = K) 4.8 mmol/L 3.6-5.2 N CHLORIDE (test code = CL) 93 mmol/l 98.0-107.0 L CARBON DIOXIDE (test code = CO2) 25.3 mmol/l 21.0-33.0 N ANION GAP (test code = GAP) 16.5 0-20 N GLUCOSE (test code = GLU) 203 mg/dl 70.0-110.0 H BLOOD UREA NITROGEN (test code = BUN) 54 mg/dl 7.0-18.0 H CREATININE (test code = CREAT) 8.33 mg/dL 0.60-1.30 HH GFR NON BLACK (test code = GFRNONBLACK) 5 mL/min 70-80 L GFR BLACK (test code = GFRBLACK) 6 mL/min 85-97 L CALCIUM (test code = CA) 7.4 mg/dl 8.0-10.5 L CBC W/AUTO [id number] 12:41:00* Test Item Value Reference Range Interpretation Comments WHITE BLOOD CELL (test code = WBC) 3.3 K/mm3 4.5-11.0 L RED BLOOD CELL (test code = RBC) 3.44 M/mm3 3.80-5.20 L HEMOGLOBIN (test code = HGB) 9.7 gm/dL 12.0-16.0 L HEMATOCRIT (test code = HCT) 30.1 % 36.0-48.0 L MEAN CELL VOLUME (test code = MCV) 87.5 UM3 82.0-99.0 N MEAN CELL HGB (test code = MCH) 28.2 UUG 25.5-32.5 N MEAN CELL HGB CONCETRATION (test code = MCHC) 32.2 gm/dL 29.0-35. 5 N RED CELL DISTRIBUTION WIDTH (test code = RDW) 18.6 % 11.5-15. 0 H RED CELL DISTRIBUTION WIDTH SD (test code = RDW-SD) 59.6 fL 34 .8-50.2 H PLATELET COUNT (test code = PLT) 92 K/mm3 150-400 L MEAN PLATELET VOLUME (test code = MPV) 11.7 fl 7.4-10.4 H NEUTROPHIL % (test code = NT%) 73.5 % 49.0-76.0 N IMMATURE GRANULOCYTE % (test code = IG%) 0.3 % 0.0-0.4 N LYMPHOCYTE % (test code = LY%) 16.5 % 23.0-38.0 L MONOCYTE % (test code = MO%) 8.8 % 1.0-10.0 N EOSINOPHIL % (test code = EO%) 0.3 % 1.0-5.0 L BASOPHIL % (test code = BA%) 0.6 % 0.0-1.0 N NEUTROPHIL # (test code = NT#) 2.4 K/mm3 2.4-6.3 N IMMATURE GRANULOCYTE # (test code = IG#) 0.01 x10 3/uL 0.00-0.07 N LYMPHOCYTE # (test code = LY#) 0.5 K/mm3 1.2-4.0 L MONOCYTE # (test code = MO#) 0.3 K/mm3 0.0-0.6 N EOSINOPHIL # (test code = EO#) 0.0 K/MM3 0.0-0.7 N BASOPHIL # (test code = BA#) 0.0 K/mm3 0.0-0.2 N D-DIMER/[id number] 11:54:00* Test Item Value Reference Range Interpretation Comments D-DIMER/FSP (test code = DDIMER) 649 ng/mL 200.0-230.0 H Per obstetrics and gynecology professor recommendation, the CUT OFFfor the Diagnosis of PE or DVT with a 100% SENSITIVITY &100% PREDICTIVE VALUE is suggested to be 230 ng/mL D- DIMERUNIT(DDU). D-DIMER RESULTS MAY BE AFFECTED BY:1. HEMOGLOBIN > 100 mg/dL2. BILIRUBIN > 10 mg/dL3. TRIGLYCERIDES > 1500 mg/dL4. The presence of RHEUMATIOID FACTOR may produce an overestimation of the test result. CBC W/AUTO [id number] 11:42:00* Test Item Value Reference Range Interpretation Comments WHITE BLOOD CELL (test code = WBC) 3.8 K/mm3 4.5-11.0 L RED BLOOD CELL (test code = RBC) 3.67 M/mm3 3.80-5.20 L HEMOGLOBIN (test code = HGB) 10.4 gm/dL 12.0-16.0 L HEMATOCRIT (test code = HCT) 33.0 % 36.0-48.0 L MEAN CELL VOLUME (test code = MCV) 89.9 UM3 82.0-99.0 N MEAN CELL HGB (test code = MCH) 28.3 UUG 25.5-32.5 N MEAN CELL HGB CONCETRATION (test code = MCHC) 31.5 gm/dL 29.0-35. 5 N RED CELL DISTRIBUTION WIDTH (test code = RDW) 18.9 % 11.5-15. 0 H RED CELL DISTRIBUTION WIDTH SD (test code = RDW-SD) 63.2 fL 34 .8-50.2 H PLATELET COUNT (test code = PLT) 106 K/mm3 150-400 L MEAN PLATELET VOLUME (test code = MPV) 11.9 fl 7.4-10.4 H NEUTROPHIL % (test code = NT%) 77.1 % 49.0-76.0 H IMMATURE GRANULOCYTE % (test code = IG%) 0.3 % 0.0-0.4 N LYMPHOCYTE % (test code = LY%) 11.6 % 23.0-38.0 L MONOCYTE % (test code = MO%) 10.5 % 1.0-10.0 H EOSINOPHIL % (test code = EO%) 0.0 % 1.0-5.0 L BASOPHIL % (test code = BA%) 0.5 % 0.0-1.0 N NEUTROPHIL # (test code = NT#) 2.9 K/mm3 2.4-6.3 N IMMATURE GRANULOCYTE # (test code = IG#) 0.01 x10 3/uL 0.00-0.07 N LYMPHOCYTE # (test code = LY#) 0.4 K/mm3 1.2-4.0 L MONOCYTE # (test code = MO#) 0.4 K/mm3 0.0-0.6 N EOSINOPHIL # (test code = EO#) 0.0 K/MM3 0.0-0.7 N BASOPHIL # (test code = BA#) 0.0 K/mm3 0.0-0.2 N NOT DRAWN BY DIALYSIS. AT [address] [place] [address] HEPATITIS [id number] 08:20:00* Test Item Value Reference Range Interpretation Comments AB HEPATITIS A IGM (test code = HAVMAB) NON REACTIVE INDEX NON REAC T. Testing done at [facility] [address] [place] [address] AB HEPATITIS B SURFACE (test code = HBSAB) mIU/mL Immune >9.9 AG HEPATITIS B SURFACE (test code = HBSAG) NON REACTIVE INDEX NonRe active Testing done at [facility] [address] [place] [address] AB HEPATITIS B CORE IGM (test code = HBCMAB) NON REACTIVE INDEX NON REACT. Testing done at [facility] [address] [place] [address]. [place] [address] AB HEPATITIS C (test code = HCVAB) NON REACTIVE INDEX NON REACT. Testing done at [facility] [address] [place] [address] AB HEPATITIS B [id number] 08:20:00* Test Item Value Reference Range Interpretation Comments AB HEPATITIS B CORE (test code = HBCAB) NON REACT. AB HEPATITIS A [id number] 03:11:00* Test Item Value Reference Range Interpretation Comments AB HEPATITIS A IGM (test code = HAVMAB) NON REACTIVE INDEX NON REAC T. AG HEPATITIS B [id number] 03:11:00* Test Item Value Reference Range Interpretation Comments AG HEPATITIS B SURFACE (test code = HBSAG) NON REACTIVE INDEX NonRe active AB HEPATITIS B CORE [id number] 03:11:00* Test Item Value Reference Range Interpretation Comments AB HEPATITIS B CORE IGM (test code = HBCMAB) NON REACTIVE INDEX NON REACT. AB HEPATITIS [id number] 03:11:00* Test Item Value Reference Range Interpretation Comments AB HEPATITIS C (test code = HCVAB) NON REACTIVE INDEX NON REACT. AB HEPATITIS A [id number] 02:42:00* Test Item Value Reference Range Interpretation Comments AB HEPATITIS A IGM (test code = HAVMAB) INDEX NON REACT. AG HEPATITIS B [id number] 02:42:00* Test Item Value Reference Range Interpretation Comments AG HEPATITIS B SURFACE (test code = HBSAG) NON REACTIVE INDEX NonRe active AB HEPATITIS B CORE [id number] 02:42:00* Test Item Value Reference Range Interpretation Comments AB HEPATITIS B CORE IGM (test code = HBCMAB) INDEX NON REACT . AB HEPATITIS [id number] 02:42:00* Test Item Value Reference Range Interpretation Comments AB HEPATITIS C (test code = HCVAB) INDEX NON REACT. BASIC METABOLIC [id number] 15:23:00* Test Item Value Reference Range Interpretation Comments SODIUM (test code = NA) 135 mmol/l 134.0-147.0 N POTASSIUM (test code = K) 5.1 mmol/L 3.6-5.2 N NO HEMOLYSIS OBSERVED IN THE SAMPLE. CHLORIDE (test code = CL) 97 mmol/l 98.0-107.0 L CARBON DIOXIDE (test code = CO2) 24.9 mmol/l 21.0-33.0 N ANION GAP (test code = GAP) 18.2 0-20 N GLUCOSE (test code = GLU) 86 mg/dl 70.0-110.0 N BLOOD UREA NITROGEN (test code = BUN) 45 mg/dl 7.0-18.0 H CREATININE (test code = CREAT) 8.04 mg/dL 0.60-1.30 HH GFR NON BLACK (test code = GFRNONBLACK) 5 mL/min 70-80 L GFR BLACK (test code = GFRBLACK) 6 mL/min 85-97 L CALCIUM (test code = CA) 7.5 mg/dl 8.0-10.5 L [id number] 08:11:00* Test Item Value Reference Range Interpretation Comments [id number] (test code = [id number]) POSITIVE Negative A Note: this entry is for TRACKING purposes only and the testwas done outside [facility], the performing entity isfound in specimen comments.Note: this entry is for TRACKING purposes only and the testwas done outside [facility], the performing entity isfound in specimen comments. [facility]Patient's account number aida m transferring facility: [id number] patient's current lab results are: Posi tiveCBC W/AUTO [id number] 05:25:00* Test Item Value Reference Range Interpretation Comments WHITE BLOOD CELL (test code = WBC) 4.9 K/mm3 4.5-11.0 N RED BLOOD CELL (test code = RBC) 3.67 M/mm3 3.80-5.20 L HEMOGLOBIN (test code = HGB) 10.4 gm/dL 12.0-16.0 L HEMATOCRIT (test code = HCT) 33.4 % 36.0-48.0 L MEAN CELL VOLUME (test code = MCV) 91.0 UM3 82.0-99.0 N MEAN CELL HGB (test code = MCH) 28.3 UUG 25.5-32.5 N MEAN CELL HGB CONCETRATION (test code = MCHC) 31.1 gm/dL 29.0-35. 5 N RED CELL DISTRIBUTION WIDTH (test code = RDW) 19.0 % 11.5-15. 0 H RED CELL DISTRIBUTION WIDTH SD (test code = RDW-SD) 63.3 fL 34 .8-50.2 H PLATELET COUNT (test code = PLT) 114 K/mm3 150-400 L MEAN PLATELET VOLUME (test code = MPV) 12.1 fl 7.4-10.4 H NEUTROPHIL % (test code = NT%) 82.9 % 49.0-76.0 H IMMATURE GRANULOCYTE % (test code = IG%) 0.4 % 0.0-0.4 N LYMPHOCYTE % (test code = LY%) 8.7 % 23.0-38.0 L MONOCYTE % (test code = MO%) 7.6 % 1.0-10.0 N EOSINOPHIL % (test code = EO%) 0.2 % 1.0-5.0 L BASOPHIL % (test code = BA%) 0.2 % 0.0-1.0 N NEUTROPHIL # (test code = NT#) 4.0 K/mm3 2.4-6.3 N IMMATURE GRANULOCYTE # (test code = IG#) 0.02 x10 3/uL 0.00-0.07 N LYMPHOCYTE # (test code = LY#) 0.4 K/mm3 1.2-4.0 L MONOCYTE # (test code = MO#) 0.4 K/mm3 0.0-0.6 N EOSINOPHIL # (test code = EO#) 0.0 K/MM3 0.0-0.7 N BASOPHIL # (test code = BA#) 0.0 K/mm3 0.0-0.2 N NURSES DRAW BASIC METABOLIC [id number] 05:25:00* Test Item Value Reference Range Interpretation Comments SODIUM (test code = NA) 130 mmol/l 134.0-147.0 L POTASSIUM (test code = K) 5.3 mmol/L 3.6-5.2 H IS SAMPLE HEMOLYSED? NO CHLORIDE (test code = CL) 92 mmol/l 98.0-107.0 L CARBON DIOXIDE (test code = CO2) 26.5 mmol/l 21.0-33.0 N ANION GAP (test code = GAP) 16.8 0-20 N GLUCOSE (test code = GLU) 255 mg/dl 70.0-110.0 H BLOOD UREA NITROGEN (test code = BUN) 39 mg/dl 7.0-18.0 H CREATININE (test code = CREAT) 7.34 mg/dL 0.60-1.30 HH GFR NON BLACK (test code = GFRNONBLACK) 6 mL/min 70-80 L GFR BLACK (test code = GFRBLACK) 7 mL/min 85-97 L CALCIUM (test code = CA) 7.7 mg/dl 8.0-10.5 L NURSES DRAW STREPTOCOCCUS PCR [id number] 01:44:00* Test Item Value Reference Range Interpretation Comments STREPTOCOCCUS DYSGALACTIAE (test code = STREPGC) NEGATIVE FOR G/C N EGATIVE STREPA MOLECULAR (test code = STREPAMOL) NEGATIVE FOR GRP A NEGATIV E LACTIC [id number] 17:50:00* Test Item Value Reference Range Interpretation Comments LACTIC ACID (test code = LACT) 1.1 MMOL/L 0.4-1.9 N COMPREHENSIVE METABOLIC [id number] 17:47:00* Test Item Value Reference Range Interpretation Comments SODIUM (test code = NA) 133 mmol/L 136-145 L POTASSIUM (test code = K) 5.2 mmol/L 3.5-5.1 H CHLORIDE (test code = CL) 93 mmol/L 101-109 L CARBON DIOXIDE (test code = CO2) 27.2 mmol/L 21-32 N ANION GAP (test code = GAP) 18 mmol/L 10-20 N GLUCOSE (test code = GLU) 194 mg/dL 74-106 H BLOOD UREA NITROGEN (test code = BUN) 29 mg/dL 3-21 H CREATININE (test code = CREAT) 6.75 mg/dL 0.55-1.3 H BUN/CREATININE RATIO (test code = BUN/CREA) 4.3 10-20 L TOTAL PROTEIN (test code = PROT) 8.7 g/dL 6.5-8.4 H ALBUMIN (test code = ALB) 3.3 g/dL 3.4-4.8 L GLOBULIN (test code = GLOB) 5.4 G/DL 1-10 N ALBUMIN/GLOBULIN RATIO (test code = A/G) 0.61 RATIO 0.75-1.50 L CALCIUM (test code = CA) 8.0 mg/dL 8.4-10.2 L BILIRUBIN TOTAL (test code = BILT) 0.80 mg/dL 0.0-1.0 N SGOT/AST (test code = AST) 30 U/L 6-32 N SGPT/ALT (test code = ALT) 20 U/L 12-78 N N ote: Change in REFERENCE RANGE due to new reagent method. ALKALINE PHOSPHATASE TOTAL (test code = ALKP) 164 U/L 38-126 H COMPREHENSIVE METABOLIC [id number] 17:42:00* Test Item Value Reference Range Interpretation Comments SODIUM (test code = NA) 133 mmol/L 136-145 L POTASSIUM (test code = K) 5.2 mmol/L 3.5-5.1 H CHLORIDE (test code = CL) 93 mmol/L 101-109 L CARBON DIOXIDE (test code = CO2) 27.2 mmol/L 21-32 N ANION GAP (test code = GAP) 18 mmol/L 10-20 N GLUCOSE (test code = GLU) 194 mg/dL 74-106 H BLOOD UREA NITROGEN (test code = BUN) 29 mg/dL 3-21 H CREATININE (test code = CREAT) 6.75 mg/dL 0.55-1.3 H BUN/CREATININE RATIO (test code = BUN/CREA) 4.3 10-20 L TOTAL PROTEIN (test code = PROT) gram/dL 6.4-8.2 ALBUMIN (test code = ALB) g/dL 3.4-5.0 GLOBULIN (test code = GLOB) g/dL 2.7-4.2 ALBUMIN/GLOBULIN RATIO (test code = A/G) 0.75-1.50 CALCIUM (test code = CA) 8.0 mg/dL 8.4-10.2 L BILIRUBIN TOTAL (test code = BILT) mg/dL 0.2-1.2 SGOT/AST (test code = AST) IUnit/L 15-37 SGPT/ALT (test code = ALT) U/L 10-69 ALKALINE PHOSPHATASE TOTAL (test code = ALKP) IUnit/L 45-117 CBC W/AUTO [id number] 17:33:00* Test Item Value Reference Range Interpretation Comments WHITE BLOOD CELL (test code = WBC) 4.7 K/mm3 4.5-12.5 N RED BLOOD CELL (test code = RBC) 4.14 mill/mm3 3.7-5.2 N HEMOGLOBIN (test code = HGB) 11.5 gram/dL 11.5-15.5 N HEMATOCRIT (test code = HCT) 38.1 % 36.0-46.0 N MEAN CELL VOLUME (test code = MCV) 92.0 fL 80-98 N MEAN CELL HGB (test code = MCH) 27.8 picogram 27.0-33.0 N MEAN CELL HGB CONCETRATION (test code = MCHC) 30.2 gram/dL 33.0-36. 0 L RED CELL DISTRIBUTION WIDTH (test code = RDW) 18.9 % 11.6-16. 2 H RED CELL DISTRIBUTION WIDTH SD (test code = RDW-SD) 64.3 fL 37 .0-51.0 H PLATELET COUNT (test code = PLT) 125 K/mm3 150-450 L MEAN PLATELET VOLUME (test code = MPV) 10.8 fL 6.7-11.0 N NEUTROPHIL % (test code = NT%) 78.7 % 39.0-69.0 H LYMPHOCYTE % (test code = LY%) 10.9 % 25.0-55.0 L MONOCYTE % (test code = MO%) 9.2 % 0.0-10.0 N EOSINOPHIL % (test code = EO%) 0.4 % 0.0-5.0 N BASOPHIL % (test code = BA%) 0.6 % 0.0-1.0 N NEUTROPHIL # (test code = NT#) 3.68 K/mm3 1.8-7.7 N LYMPHOCYTE # (test code = LY#) 0.51 K/mm3 1.0-5.0 L MONOCYTE # (test code = MO#) 0.43 K/mm3 0-0.8 N EOSINOPHIL # (test code = EO#) 0.02 K/mm3 0.0-0.5 N BASOPHIL # (test code = BA#) 0.03 K/mm3 0.0-0.2 N MANUAL DIFF REQUIRED (test code = MDIFF) NO Coronavirus 2018 nCoV [id number] 16:38:00* Test Item Value Reference Range Interpretation Comments Coronavirus 2019 nCoV Bedside (test code = [id number]) Positive Is patient requiring admission or transfer? YIndication for rapid COVID-19 testi ng: High Clinical Suspicion- XR CHEST 2 V 2019-11-08 16:16:00 Name: BARBARA WARE [facility] : 1950 Age/S:69 /F [address] [facility] Unit#:[id number] Loc: [place] [address] Phys: Annel Stringer MD Dis Date: PHONE #: [phone] Status: REG ER FAX #: [phone] Exam Date: 11/08/2019 Reason: cough,fever EXAMS: CPT CODE: [id number] XR CHEST 2 V [id number] EXAM: Chest x-ray,, 2 views; INFORMATION: Fever and cough; IMPRESSION: 1. No evidence of pulmonary infiltrates or other signs of active cardiopulmonary disease. 2. Compared with a study from August 22, 2019 the heart has decreased in size. It is borderline in size. 3. Otherwise, stable findings including a calcified granuloma in the right lung; dense calcifications of the mitral annulus, a stent in the LAD and calcifications of the aortic arch. 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 Location code: [facility] at 1616 Reported and signed by: Dani Meléndez M.D. CC: Annel Stringer MD; Nell Quinonez MD Technologist: CANDELARIA ALLRED, RT(R),CT Trnscrpt Data: 11/08/2019 (1616) [email or web address] Orig Print D/T: S: 11/08/2019 (7955) PAGE 1 Signed Report BASIC METABOLIC [id number] 10:34:00* Test Item Value Reference Range Interpretation Comments SODIUM (test code = NA) 132 mmol/L 136-145 L POTASSIUM (test code = K) 4.7 mmol/L 3.5-5.1 N CHLORIDE (test code = CL) 95.0 mmol/L 98-107 L CARBON DIOXIDE (test code = CO2) 27.0 mmol/L 21-32 N ANION GAP (test code = GAP) 14.7 10-20 N GLUCOSE (test code = GLU) 248 mg/dL 74-106 H BLOOD UREA NITROGEN (test code = BUN) 32 mg/dL 7-18 H RESULT VERIFIED BY REPEAT ANALYSIS GLOMERULAR FILTRATION RATE (test code = GFR) 8 mL/min >=60 Estimated GFR by using Modified MDRD formula.Chronic kidney disease is defined as either kidney damageor GFR <60 mL/min/1.73 m2 for >3 months. CREATININE (test code = CREAT) 5.60 mg/dL 0.55-1.02 H Note change in reference range due to change in reagent. BUN/CREATININE RATIO (test code = BUN/CREA) 5.7 10-20 L CALCIUM (test code = CA) 8.9 mg/dL 8.5-10.1 N CBC W/AUTO [id number] 10:29:00* Test Item Value Reference Range Interpretation Comments WHITE BLOOD CELL (test code = WBC) 3.0 K/mm3 4.5-12.5 L RED BLOOD CELL (test code = RBC) 5.59 mill/mm3 3.7-5.2 H HEMOGLOBIN (test code = HGB) 13.8 gram/dL 11.5-15.5 N HEMATOCRIT (test code = HCT) 45.6 % 36.0-46.0 N MEAN CELL VOLUME (test code = MCV) 81.6 fL 80-98 N MEAN CELL HGB (test code = MCH) 24.7 picogram 27.0-33.0 L MEAN CELL HGB CONCETRATION (test code = MCHC) 30.3 gram/dL 33.0-36. 0 L RED CELL DISTRIBUTION WIDTH (test code = RDW) 23.1 % 11.6-16. 2 H RED CELL DISTRIBUTION WIDTH SD (test code = RDW-SD) 66.8 fL 37 .0-51.0 H PLATELET COUNT (test code = PLT) 109 K/mm3 150-450 L MEAN PLATELET VOLUME (test code = MPV) TEST NOT PERFORMED fL 6.7-11 .0 NEUTROPHIL % (test code = NT%) 64.7 % 39.0-69.0 N IMMATURE GRANULOCYTE % (test code = IG%) 0.0 % 0.0-5.0 N LYMPHOCYTE % (test code = LY%) 18.0 % 25.0-55.0 L MONOCYTE % (test code = MO%) 12.9 % 0.0-10.0 H EOSINOPHIL % (test code = EO%) 3.4 % 0.0-5.0 N BASOPHIL % (test code = BA%) 1.0 % 0.0-1.0 N NUCLEATED RBC % (test code = NRBC%) 0.0 % 0-0 N NEUTROPHIL # (test code = NT#) 1.91 K/mm3 1.8-7.7 N IMMATURE GRANULOCYTE # (test code = IG#) 0.00 x10 3/uL 0-0.03 N LYMPHOCYTE # (test code = LY#) 0.53 K/mm3 1.0-5.0 L MONOCYTE # (test code = MO#) 0.38 K/mm3 0-0.8 N EOSINOPHIL # (test code = EO#) 0.10 K/mm3 0.0-0.5 N BASOPHIL # (test code = BA#) 0.03 K/mm3 0.0-0.2 N NUCLEATED RBC # (test code = NRBC#) 0.00 K/mm3 0.0-0.1 N MANUAL DIFF REQUIRED (test code = MDIFF) NO, ONLY SCAN NEEDED DIFFERENTIAL [id number] 10:29:00* Test Item Value Reference Range Interpretation Comments STAIN ACCEPTABILITY (test code = STN ACCEPTABLE) STAIN ACCEPTABLE POIKILOCYTOSIS (test code = POIK) 1+ ANISOCYTOSIS (test code = ANISO) 1+ MICROCYTOSIS (test code = MICR) 1+ PLATELET ESTIMATE (test code = PLTEST) SLIGHTLY DECREASED PLATELET MORPHOLOGY (test code = PLTMORPH) SIZE VARIABLE BASIC METABOLIC [id number] 10:17:00* Test Item Value Reference Range Interpretation Comments SODIUM (test code = NA) 132 mmol/L 136-145 L POTASSIUM (test code = K) 4.7 mmol/L 3.5-5.1 N CHLORIDE (test code = CL) 95.0 mmol/L 98-107 L CARBON DIOXIDE (test code = CO2) mmol/L 21-32 ANION GAP (test code = GAP) 10-20 GLUCOSE (test code = GLU) mg/dL 74-106 BLOOD UREA NITROGEN (test code = BUN) mg/dL 7-18 GLOMERULAR FILTRATION RATE (test code = GFR) mL/min >=60 CREATININE (test code = CREAT) mg/dL 0.55-1.02 BUN/CREATININE RATIO (test code = BUN/CREA) 10-20 CALCIUM (test code = CA) mg/dL 8.5-10.1 CBC W/AUTO [id number] 09:47:00* Test Item Value Reference Range Interpretation Comments WHITE BLOOD CELL (test code = WBC) 3.0 K/mm3 4.5-12.5 L RED BLOOD CELL (test code = RBC) 5.59 mill/mm3 3.7-5.2 H HEMOGLOBIN (test code = HGB) 13.8 gram/dL 11.5-15.5 N HEMATOCRIT (test code = HCT) 45.6 % 36.0-46.0 N MEAN CELL VOLUME (test code = MCV) 81.6 fL 80-98 N MEAN CELL HGB (test code = MCH) 24.7 picogram 27.0-33.0 L MEAN CELL HGB CONCETRATION (test code = MCHC) 30.3 gram/dL 33.0-36. 0 L RED CELL DISTRIBUTION WIDTH (test code = RDW) 23.1 % 11.6-16. 2 H RED CELL DISTRIBUTION WIDTH SD (test code = RDW-SD) 66.8 fL 37 .0-51.0 H PLATELET COUNT (test code = PLT) 109 K/mm3 150-450 L MEAN PLATELET VOLUME (test code = MPV) TEST NOT PERFORMED fL 6.7-11 .0 NEUTROPHIL % (test code = NT%) 64.7 % 39.0-69.0 N IMMATURE GRANULOCYTE % (test code = IG%) 0.0 % 0.0-5.0 N LYMPHOCYTE % (test code = LY%) 18.0 % 25.0-55.0 L MONOCYTE % (test code = MO%) 12.9 % 0.0-10.0 H EOSINOPHIL % (test code = EO%) 3.4 % 0.0-5.0 N BASOPHIL % (test code = BA%) 1.0 % 0.0-1.0 N NUCLEATED RBC % (test code = NRBC%) 0.0 % 0-0 N NEUTROPHIL # (test code = NT#) 1.91 K/mm3 1.8-7.7 N IMMATURE GRANULOCYTE # (test code = IG#) 0.00 x10 3/uL 0-0.03 N LYMPHOCYTE # (test code = LY#) 0.53 K/mm3 1.0-5.0 L MONOCYTE # (test code = MO#) 0.38 K/mm3 0-0.8 N EOSINOPHIL # (test code = EO#) 0.10 K/mm3 0.0-0.5 N BASOPHIL # (test code = BA#) 0.03 K/mm3 0.0-0.2 N NUCLEATED RBC # (test code = NRBC#) 0.00 K/mm3 0.0-0.1 N MANUAL DIFF REQUIRED (test code = MDIFF) NO, ONLY SCAN NEEDED DIFFERENTIAL [id number] 09:47:00* Test Item Value Reference Range Interpretation Comments STAIN ACCEPTABILITY (test code = STN ACCEPTABLE) CABOT RINGS (test code = CAB) MORPHOLOGY COMMENT (test code = MOC) PLATELET ESTIMATE (test code = PLTEST) PLATELET MORPHOLOGY (test code = PLTMORPH) CBC W/AUTO [id number] 09:47:00* Test Item Value Reference Range Interpretation Comments WHITE BLOOD CELL (test code = WBC) 3.0 K/mm3 4.5-12.5 L RED BLOOD CELL (test code = RBC) 5.59 mill/mm3 3.7-5.2 H HEMOGLOBIN (test code = HGB) 13.8 gram/dL 11.5-15.5 N HEMATOCRIT (test code = HCT) 45.6 % 36.0-46.0 N MEAN CELL VOLUME (test code = MCV) 81.6 fL 80-98 N MEAN CELL HGB (test code = MCH) 24.7 picogram 27.0-33.0 L MEAN CELL HGB CONCETRATION (test code = MCHC) 30.3 gram/dL 33.0-36. 0 L RED CELL DISTRIBUTION WIDTH (test code = RDW) 23.1 % 11.6-16. 2 H RED CELL DISTRIBUTION WIDTH SD (test code = RDW-SD) 66.8 fL 37 .0-51.0 H PLATELET COUNT (test code = PLT) 109 K/mm3 150-450 L MEAN PLATELET VOLUME (test code = MPV) TEST NOT PERFORMED fL 6.7-11 .0 NEUTROPHIL % (test code = NT%) 64.7 % 39.0-69.0 N IMMATURE GRANULOCYTE % (test code = IG%) 0.0 % 0.0-5.0 N LYMPHOCYTE % (test code = LY%) 18.0 % 25.0-55.0 L MONOCYTE % (test code = MO%) 12.9 % 0.0-10.0 H EOSINOPHIL % (test code = EO%) 3.4 % 0.0-5.0 N BASOPHIL % (test code = BA%) 1.0 % 0.0-1.0 N NUCLEATED RBC % (test code = NRBC%) 0.0 % 0-0 N NEUTROPHIL # (test code = NT#) 1.91 K/mm3 1.8-7.7 N IMMATURE GRANULOCYTE # (test code = IG#) 0.00 x10 3/uL 0-0.03 N LYMPHOCYTE # (test code = LY#) 0.53 K/mm3 1.0-5.0 L MONOCYTE # (test code = MO#) 0.38 K/mm3 0-0.8 N EOSINOPHIL # (test code = EO#) 0.10 K/mm3 0.0-0.5 N BASOPHIL # (test code = BA#) 0.03 K/mm3 0.0-0.2 N NUCLEATED RBC # (test code = NRBC#) 0.00 K/mm3 0.0-0.1 N MANUAL DIFF REQUIRED (test code = MDIFF) NO, ONLY SCAN NEEDED DIFFERENTIAL [id number] 09:47:00* Test Item Value Reference Range Interpretation Comments STAIN ACCEPTABILITY (test code = STN ACCEPTABLE) CABOT RINGS (test code = CAB) MORPHOLOGY COMMENT (test code = MOC) PLATELET ESTIMATE (test code = PLTEST) PLATELET MORPHOLOGY (test code = PLTMORPH) CBC W/AUTO [id number] 09:47:00* Test Item Value Reference Range Interpretation Comments WHITE BLOOD CELL (test code = WBC) 3.0 K/mm3 4.5-12.5 L RED BLOOD CELL (test code = RBC) 5.59 mill/mm3 3.7-5.2 H HEMOGLOBIN (test code = HGB) 13.8 gram/dL 11.5-15.5 N HEMATOCRIT (test code = HCT) 45.6 % 36.0-46.0 N MEAN CELL VOLUME (test code = MCV) 81.6 fL 80-98 N MEAN CELL HGB (test code = MCH) 24.7 picogram 27.0-33.0 L MEAN CELL HGB CONCETRATION (test code = MCHC) 30.3 gram/dL 33.0-36. 0 L RED CELL DISTRIBUTION WIDTH (test code = RDW) 23.1 % 11.6-16. 2 H RED CELL DISTRIBUTION WIDTH SD (test code = RDW-SD) 66.8 fL 37 .0-51.0 H PLATELET COUNT (test code = PLT) 109 K/mm3 150-450 L MEAN PLATELET VOLUME (test code = MPV) TEST NOT PERFORMED fL 6.7-11 .0 NEUTROPHIL % (test code = NT%) 64.7 % 39.0-69.0 N IMMATURE GRANULOCYTE % (test code = IG%) 0.0 % 0.0-5.0 N LYMPHOCYTE % (test code = LY%) 18.0 % 25.0-55.0 L MONOCYTE % (test code = MO%) 12.9 % 0.0-10.0 H EOSINOPHIL % (test code = EO%) 3.4 % 0.0-5.0 N BASOPHIL % (test code = BA%) 1.0 % 0.0-1.0 N NUCLEATED RBC % (test code = NRBC%) 0.0 % 0-0 N NEUTROPHIL # (test code = NT#) 1.91 K/mm3 1.8-7.7 N IMMATURE GRANULOCYTE # (test code = IG#) 0.00 x10 3/uL 0-0.03 N LYMPHOCYTE # (test code = LY#) 0.53 K/mm3 1.0-5.0 L MONOCYTE # (test code = MO#) 0.38 K/mm3 0-0.8 N EOSINOPHIL # (test code = EO#) 0.10 K/mm3 0.0-0.5 N BASOPHIL # (test code = BA#) 0.03 K/mm3 0.0-0.2 N NUCLEATED RBC # (test code = NRBC#) 0.00 K/mm3 0.0-0.1 N MANUAL DIFF REQUIRED (test code = MDIFF) NO, ONLY SCAN NEEDED DIFFERENTIAL [id number] 09:47:00* Test Item Value Reference Range Interpretation Comments STAIN ACCEPTABILITY (test code = STN ACCEPTABLE) MORPHOLOGY COMMENT (test code = MOC) PLATELET ESTIMATE (test code = PLTEST) PLATELET MORPHOLOGY (test code = PLTMORPH) CBC W/AUTO [id number] 09:47:00* Test Item Value Reference Range Interpretation Comments WHITE BLOOD CELL (test code = WBC) 3.0 K/mm3 4.5-12.5 L RED BLOOD CELL (test code = RBC) 5.59 mill/mm3 3.7-5.2 H HEMOGLOBIN (test code = HGB) 13.8 gram/dL 11.5-15.5 N HEMATOCRIT (test code = HCT) 45.6 % 36.0-46.0 N MEAN CELL VOLUME (test code = MCV) 81.6 fL 80-98 N MEAN CELL HGB (test code = MCH) 24.7 picogram 27.0-33.0 L MEAN CELL HGB CONCETRATION (test code = MCHC) 30.3 gram/dL 33.0-36. 0 L RED CELL DISTRIBUTION WIDTH (test code = RDW) 23.1 % 11.6-16. 2 H RED CELL DISTRIBUTION WIDTH SD (test code = RDW-SD) 66.8 fL 37 .0-51.0 H PLATELET COUNT (test code = PLT) 109 K/mm3 150-450 L MEAN PLATELET VOLUME (test code = MPV) TEST NOT PERFORMED fL 6.7-11 .0 NEUTROPHIL % (test code = NT%) 64.7 % 39.0-69.0 N IMMATURE GRANULOCYTE % (test code = IG%) 0.0 % 0.0-5.0 N LYMPHOCYTE % (test code = LY%) 18.0 % 25.0-55.0 L MONOCYTE % (test code = MO%) 12.9 % 0.0-10.0 H EOSINOPHIL % (test code = EO%) 3.4 % 0.0-5.0 N BASOPHIL % (test code = BA%) 1.0 % 0.0-1.0 N NUCLEATED RBC % (test code = NRBC%) 0.0 % 0-0 N NEUTROPHIL # (test code = NT#) 1.91 K/mm3 1.8-7.7 N IMMATURE GRANULOCYTE # (test code = IG#) 0.00 x10 3/uL 0-0.03 N LYMPHOCYTE # (test code = LY#) 0.53 K/mm3 1.0-5.0 L MONOCYTE # (test code = MO#) 0.38 K/mm3 0-0.8 N EOSINOPHIL # (test code = EO#) 0.10 K/mm3 0.0-0.5 N BASOPHIL # (test code = BA#) 0.03 K/mm3 0.0-0.2 N NUCLEATED RBC # (test code = NRBC#) 0.00 K/mm3 0.0-0.1 N MANUAL DIFF REQUIRED (test code = MDIFF) NO, ONLY SCAN NEEDED DIFFERENTIAL [id number] 09:47:00* Test Item Value Reference Range Interpretation Comments STAIN ACCEPTABILITY (test code = STN ACCEPTABLE) CABOT RINGS (test code = CAB) MORPHOLOGY COMMENT (test code = MOC) PLATELET ESTIMATE (test code = PLTEST) PLATELET MORPHOLOGY (test code = PLTMORPH) AB HEPATITIS B [id number] 07:35:00* Test Item Value Reference Range Interpretation Comments AB HEPATITIS B SURFACE (test code = HBSAB) Reactive () Non Reactive: Inconsistent with immunity, less than 10 mIU/mL Reactive: Consistent with immunity, greater than 9.9 mIU/mLPerformed At: [facility] [address] [id number] Kyle L MD Ph:[phone] [id number] 03:54:00* Test Item Value Reference Range Interpretation Comments GLUBED (test code = GLUBED) 292 mg/dL 74-106 H Performed by certified hydropress operator at [facility] [id number] 22:16:00* Test Item Value Reference Range Interpretation Comments GLUBED (test code = GLUBED) 257 mg/dL 74-106 H Performed by certified hydropress operator at [facility] [id number] 18:04:00* Test Item Value Reference Range Interpretation Comments GLUBED (test code = GLUBED) 177 mg/dL 74-106 H Performed by certified hydropress operator at [facility] BASIC METABOLIC [id number] 17:42:00* Test Item Value Reference Range Interpretation Comments SODIUM (test code = NA) 136 mmol/L 136-145 RESU LT VERIFIED BY REPEAT ANALYSIS POTASSIUM (test code = K) 3.7 mmol/L 3.5-5.1 RE SULT VERIFIED BY REPEAT ANALYSIS CHLORIDE (test code = CL) 98.0 mmol/L 98-107 N CARBON DIOXIDE (test code = CO2) 28.0 mmol/L 21-32 N ANION GAP (test code = GAP) 13.7 10-20 N GLUCOSE (test code = GLU) 200 mg/dL 74-106 H BLOOD UREA NITROGEN (test code = BUN) 14 mg/dL 7-18 RESULT VERIFIED BY REPEAT ANALYSIS GLOMERULAR FILTRATION RATE (test code = GFR) 17 mL/min >=60 Estimated GFR by using Modified MDRD formula.Chronic kidney disease is defined as either kidney damageor GFR <60 mL/min/1.73 m2 for >3 months. CREATININE (test code = CREAT) 2.80 mg/dL 0.55-1.02 H RESULT VERIFIED BY REPEAT ANALYSISNote change in reference range due to change in reagent. BUN/CREATININE RATIO (test code = BUN/CREA) 5.0 10-20 L CALCIUM (test code = CA) 9.2 mg/dL 8.5-10.1 N BASIC METABOLIC [id number] 17:28:00* Test Item Value Reference Range Interpretation Comments SODIUM (test code = NA) 136 mmol/L 136-145 RESU LT VERIFIED BY REPEAT ANALYSIS POTASSIUM (test code = K) 3.7 mmol/L 3.5-5.1 RE SULT VERIFIED BY REPEAT ANALYSIS CHLORIDE (test code = CL) 98.0 mmol/L 98-107 N CARBON DIOXIDE (test code = CO2) 28.0 mmol/L 21-32 N ANION GAP (test code = GAP) 13.7 10-20 N GLUCOSE (test code = GLU) 200 mg/dL 74-106 H BLOOD UREA NITROGEN (test code = BUN) 14 mg/dL 7-18 RESULT VERIFIED BY REPEAT ANALYSIS GLOMERULAR FILTRATION RATE (test code = GFR) 17 mL/min >=60 Estimated GFR by using Modified MDRD formula.Chronic kidney disease is defined as either kidney damageor GFR <60 mL/min/1.73 m2 for >3 months. CREATININE (test code = CREAT) 2.80 mg/dL 0.55-1.02 H Note change in reference range due to change in reagent. BUN/CREATININE RATIO (test code = BUN/CREA) 5.0 10-20 L CALCIUM (test code = CA) 9.2 mg/dL 8.5-10.1 N BASIC METABOLIC [id number] 17:15:00* Test Item Value Reference Range Interpretation Comments SODIUM (test code = NA) 136 mmol/L 136-145 POTASSIUM (test code = K) 3.7 mmol/L 3.5-5.1 CHLORIDE (test code = CL) 98.0 mmol/L 98-107 N CARBON DIOXIDE (test code = CO2) 28.0 mmol/L 21-32 N ANION GAP (test code = GAP) 13.7 10-20 N GLUCOSE (test code = GLU) 200 mg/dL 74-106 H BLOOD UREA NITROGEN (test code = BUN) 14 mg/dL 7-18 GLOMERULAR FILTRATION RATE (test code = GFR) 17 mL/min >=60 Estimated GFR by using Modified MDRD formula.Chronic kidney disease is defined as either kidney damageor GFR <60 mL/min/1.73 m2 for >3 months. CREATININE (test code = CREAT) 2.80 mg/dL 0.55-1.02 H Note change in reference range due to change in reagent. BUN/CREATININE RATIO (test code = BUN/CREA) 5.0 10-20 L CALCIUM (test code = CA) 9.2 mg/dL 8.5-10.1 N BASIC METABOLIC [id number] 17:09:00* Test Item Value Reference Range Interpretation Comments SODIUM (test code = NA) 136 mmol/L 136-145 POTASSIUM (test code = K) 3.7 mmol/L 3.5-5.1 CHLORIDE (test code = CL) 98.0 mmol/L 98-107 N CARBON DIOXIDE (test code = CO2) mmol/L 21-32 ANION GAP (test code = GAP) 10-20 GLUCOSE (test code = GLU) mg/dL 74-106 BLOOD UREA NITROGEN (test code = BUN) mg/dL 7-18 GLOMERULAR FILTRATION RATE (test code = GFR) mL/min >=60 CREATININE (test code = CREAT) mg/dL 0.55-1.02 BUN/CREATININE RATIO (test code = BUN/CREA) 10-20 CALCIUM (test code = CA) mg/dL 8.5-10.1 AG HEPAT B [id number] 12:28:00* Test Item Value Reference Range Interpretation Comments AG HEPAT B SURF (test code = HBSAG) Nonreactive Index Nonreactive BASIC METABOLIC [id number] 11:25:00* Test Item Value Reference Range Interpretation Comments SODIUM (test code = NA) 127 mmol/L 136-145 L POTASSIUM (test code = K) 7.5 mmol/L 3.5-5.1 Krystin ron called to [employer] [id number] V.LAB.OA 08/22/19 1125Critical results verified and read back by Nurse? Y CHLORIDE (test code = CL) 94.1 mmol/L 98-107 L CARBON DIOXIDE (test code = CO2) 23.0 mmol/L 21-32 N ANION GAP (test code = GAP) 17.4 10-20 N GLUCOSE (test code = GLU) 289 mg/dL 74-106 H BLOOD UREA NITROGEN (test code = BUN) 76 mg/dL 7-18 H GLOMERULAR FILTRATION RATE (test code = GFR) 5 mL/min >=60 Estimated GFR by using Modified MDRD formula.Chronic kidney disease is defined as either kidney damageor GFR <60 mL/min/1.73 m2 for >3 months. CREATININE (test code = CREAT) 8.62 mg/dL 0.55-1.02 H Note change in reference range due to change in reagent. BUN/CREATININE RATIO (test code = BUN/CREA) 8.8 10-20 L CALCIUM (test code = CA) 8.3 mg/dL 8.5-10.1 L [id number] 11:25:00* Test Item Value Reference Range Interpretation Comments TROPONIN-I (test code = TROPI) <0.015 ng/mL 0-0.045 N CBC W/O [id number] 10:27:00* Test Item Value Reference Range Interpretation Comments WHITE BLOOD CELL (test code = WBC) 4.3 K/mm3 4.5-12.5 L RED BLOOD CELL (test code = RBC) 5.05 mill/mm3 3.7-5.2 N HEMOGLOBIN (test code = HGB) 12.7 gram/dL 11.5-15.5 N HEMATOCRIT (test code = HCT) 41.1 % 36.0-46.0 N MEAN CELL VOLUME (test code = MCV) 81.4 fL 80-98 N MEAN CELL HGB (test code = MCH) 25.1 picogram 27.0-33.0 L MEAN CELL HGB CONCETRATION (test code = MCHC) 30.9 gram/dL 33.0-36. 0 L RED CELL DISTRIBUTION WIDTH (test code = RDW) 23.0 % 11.6-16. 2 H PLATELET COUNT (test code = PLT) 98 K/mm3 150-450 L - XR CHEST 1 [id number] 10:12:00 FAX: Dulce Obando MD [phone] [employer]: [facility]: [facility] FAX: Gretchen Gilmore DO Name: BARBAAR WARE [facility] : 1950 Age/S: 69/F [address] [facility] Unit #: [id number] Loc: [place] [address] Phys: Gretchen Gilmore DO Acct: [id number] Dis Date: Status: REG ER PHONE #: [phone] Exam Date: 08/22/[address] [facility] FAX #: [phone] Reason: CHEST PAIN EXAMS: CPT CODE: [id number] XR CHEST 1 V 90530 REASON FOR EXAM: CHEST PAIN Exam Order Date: 08/22/2019 9:05 AM Ordering MNasim: Gretchen Gilmore DO PROCEDURE: - XR CHEST 1 V COMPARISON: Chest x-ray October 20, 2017 FINDINGS: The lungs are clear other than a calcified granuloma the right midlung. There is no pleural effusion or pneumothorax. Pulmonary vascularity is within normal limits. Cardiomediastinal silhouette is prominent but stable in size. Right subclavian dual-lead pacemaker is present with leads in the right atrium and right ventricle. Mitral annular calcifications are present. Coronary stent is unchanged. Musculoskeletal structures are within normal limits. Prior cholecystectomy. IMPRESSION: No acute car diopulmonary process or significant change from prior exam. Location: [facility] Electronically Signed by Rob Romero MD on 08/22 at 1012 Reported and signed by: Rob Romero MD CC: Dulce Mcdonald MD; Gretchen Gilmore DO Technologist: RT SHARON(R) Trnscrd Date/Time/By: 08/22 (1012) : By: [email or web address] Orig Print D/T: S: 08/22/2019 (1015) PAGE 1 Signed Report - CTA ABD AORTA IF LWEX [id number] 15:03:00 Name: BARBARA WARE [facility] : 1950 Age/S: 68 / F [address] [place] [address] Blvd Unit #: [id number] Loc: [place] [address] Phys: Paulino Cavanaugh MD Acct: [id number] Dis Date: Status: REG CLI PHONE #: [phone] Exam Date: 07/26/2019 0957 FAX #: [phone] Reason: I70.223,ARTHEROSCLEROSIS OF [place] OF [place] ARTERIES OF EXAMS: CPT CODE: [id number] [place] [id number] ABDOMEN AND BILATERAL LOWER EXTREMITY RUNOFF CT ANGIOGRAM WITH IV CONTRAST AND MULTIPLANAR REFORMATS AND 3-D RECONSTRUCTIONS 07/26/2019. MEDICAL HISTORY: Bilateral leg pain. Atherosclerosis of [place] arteries of extremities. COMPARISON STUDIES: None relevant. ADMINISTERED CONTRAST: 100 mL o f Isovue 370 intravenously. DLP: 1335.3 mGy-cm FINDINGS: Con tiguous 2 mm axial images of the abdomen, pelvis and bilateral lower extre mities were obtained after IV contrast administration using the runoff CT angiogram protocol. The acquired data was used to create multiplanar refor matted images as well as 3-D volume rendering reconstructions with the use of the Workstation. Vessel probe analysis of the renal arterial circulati on was also performed with the use of the workstation. ABDOM EN AND PELVIS: CTA: Moderate aortoiliac atherosclerosis without an eurysm or dissection. Patent celiac and mesenteric arterial circulation. Heavy right and moderate left renal artery ostial calcification with at least 50-60% stenosis of the proximal 2 cm of the right main renal ar kelsey and roughly 30% stenosis of the proximal left main renal artery. Ashley re vascular calcification in the renal lay bilaterally. Cardiomegaly with multichamber enlargement and severe coronary and mitral annulus calcifica tion. No pericardial thickening or effusion. Mild to moderate eccentric ca lcified plaque involving both common iliac, external iliac and common femo ral arteries with otherwise patent iliofemoral circulation. Other abdominal findings: A cirrhotic liver is identified with no gross en hancing lesion. Cholecystectomy clips are seen with no biliary dilatation. The spleen, pancreas, adrenal glands and kidneys show no gross focal abno rmality. No hydronephrosis. Nonobstructive bowel gas pattern with moderat e colonic fecal material. Colonic diverticulosis is noted with no signs of diverticulitis. Normal caliber small bowel. The bladder is empty. The doug teena is absent. Moderate lumbosacral spondylosis without destructive bone lesions. 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 Roughly 30% stenos is of the distal right superficial femoral artery just above Osvaldo' s PAGE 1 Signed Report (CONTINUED) Na me: BARBARA WARE [facility] : Age/S: 68 / F [address] [place] [address] Blvd Unit #: [id number] Loc: [place] [address] Phys: Paulino Cavanaugh MD Acct: [id number] Dis Da te: Status: REG CLI PHONE #: Exam Date: 07/26/2019 0957 FAX #: [phone] Reason: I70.223,ARTHEROSCLEROSIS OF [place] ARTERIES OF EXAMS: CPT CODE: [id number] [place] [id number] <Continued> canal and roughly 20% multilevel segmental stenosis throughout the left superficial femoral artery, not flow-limiting. Moderate bilateral popliteal atherosclerosis with roughly 20-30% right popliteal artery stenosis by soft plaque. TRIFURCATION VESSELS: Bilateral 3 vessel trifurcation runoffs with severe diffuse porcelain calcification. A short high-grade stenosis is identified involving the left posterior tibialis artery r oughly 9 cm from its takeoff. An with preserved distal runoff to the right foot. Additional multilevel moderate segmental stenosis are seen t hroughout the right posterior tibialis artery with preserved distal runoff to the right foot. Mild bilateral heel soft tissue edema is seen without gross visible ulceration. IMPRESSION: 1. Cardiomegaly a nd moderate aortoiliac atherosclerosis without aneurysm or dissection. 2. Heavy atherosclerotic burden involving both proximal main renal arteries with at least 50% right and 30% left main renal artery stenos is. No signs of ischemic nephropathy. 3. Patent celiac, mesenteric and iliofemoral arterial circulation. 4. 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 5. Bilateral 3 vessel trifurcation runoffs with severe bilateral tri furcation atherosclerosis. Short high-grade stenosis in the left posteri or tibialis artery roughly 9 cm from its takeoff. 6. Multilevel moderate segmental stenosis throughout the right posterior tibialis artery. 7. Mild bilateral heel soft tissue edema without visible ulceration. No fluid collection. 8. Cirrhotic liver without enhancing lesion. 9. Cholecystectomy and hysterectomy. 10. Colonic diverticulosis. ____ CT imaging performed at this location utilizes radiat ion dose optimization techniques which include one or more of the follow ing: -Automated exposure control -Adjustment of the mA and/or kV according to patient size -Use of iterative reconstruction technique PAGE 2 Signed Report (CONT INUED) Name: WAREBARBARA [facility] : 1950 Age/S: 68 / F [address] [place] [address] Blvd Unit #: [id number] Loc: [place] [address] Phys: Paulino Luong MD Acct: [id number] Dis Date: Status: REG CLI LUZ NE #: [phone] Exam Date: 07/26/2019956 FAX #: Reason: I70.223,ARTHEROSCLEROSIS OF PAIUTE OF [place] ARTERIES OF EXAM S: CPT CODE: [id number] [place] [address] <Continued> SL: ER-H at 1503 Reported and signed by: Philip Pardo M.D. CC: Paulino Cavanaugh MD; Dulce Mcdonald MD Technologist:Ayo Dent RT(R) CTDI: DLP: Trnscb Date/Time: 07/26/2019 (1503) t.SDR.ERR2 Orig Print D/T: S: 07/26/2019 (5636) PAGE 3 Signed Report Bedside Uzredlo4527-19-83 21:19:00* Test Item Value Reference Range Interpretation Comments Bedside Glucose (test code = 84301-9) 218 70-120 H Meter ID: [id number] [facility] 19:29:00* Test Item Value Reference Range Interpretation Comments Hemoglobin (test code = 50824-4) 8.9 12.0-16.0 L [facility]Hematocrit2019-10-10 19:29:00* Test Item Value Reference Range Interpretation Comments Hematocrit (test code = 4544-3) 28.9 34.2-44.1 L [facility] Dpmld4769-05-32 16:00:00* Test Item Value Reference Range Interpretation Comments Sodium Level (test code = 2951-2) 133 136-145 L [facility]manPotassium Fvntd2910-15-52 16:00:00* Test Item Value Reference Range Interpretation Comments Potassium Level (test code = 2823-3) 5.6 3.5-5.1 H NO HEMOLYSIS PRESENTTexas Health KaufmanChloride Level 2019-04-12 16:00:00* Test Item Value Reference Range Interpretation Comments Chloride Level (test code = 2075-0) 92 98-107 L [facility]manCarbon Dioxide Ugrgd7880-71-03 16:00:00* Test Item Value Reference Range Interpretation Comments Carbon Dioxide Level (test code = 2028-9) 28 22-29 [facility]manAnion Scw8559-29-47 16:00:00* Test Item Value Reference Range Interpretation Comments Anion Gap (test code = 65189-8) 18.6 8-16 H [facility]manBlood Urea Cqklaaxk0568-81-73 16:00:00* Test Item Value Reference Range Interpretation Comments Blood Urea Nitrogen (test code = 3094-0) 54 7-26 H [facility]manCreatinine2019-10-09 16:00:00* Test Item Value Reference Range Interpretation Comments Creatinine (test code = 2160-0) 6.25 0.57-1.11 H [facility]manBUN/Creatinine Idxym5622-94-87 16:00:00* Test Item Value Reference Range Interpretation Comments BUN/Creatinine Ratio (test code = 3097-3) 9 6-25 [facility]aufmanEstimat Glomerular Filtration Rate 2019-04-12 16:00:00* Test Item Value Reference Range Interpretation Comments Estimat Glomerular Filtration Rate (test code = 950522820) 7 >60 L Ranges were taken from the National Kidney Disease Education Program and the [place] replaced by [facility] literature.Reference ranges:60 or greater: Svmotz18-48 ( for 3 consecutive months): Chronic kidney disease 15 or less: Kidney failureTexas Health KaufmanGlucose Trstn7790-60-70 16:00:00* Test Item Value Reference Range Interpretation Comments Glucose Level (test code = PGC0956) 278 74-118 H [facility]manCalcium Hzoty9138-27-62 16:00:00* Test Item Value Reference Range Interpretation Comments Calcium Level (test code = 36522-2) 8.7 8.4-10.2 [facility]manTotal Orejhuolq6176-40-97 16:00:00* Test Item Value Reference Range Interpretation Comments Total Bilirubin (test code = 1975-2) 0.7 0.2-1.2 [facility]aufmanAspartate Amino Transf (AST/SGOT) 2019-04-12 16:00:00* Test Item Value Reference Range Interpretation Comments Aspartate Amino Transf (AST/SGOT) (test code = Aspartate Amino Transf (AST/SGOT)) 18 5-34 [facility]manAlanine Aminotransferase (ALT/SGPT) 2019-04-12 16:00:00* Test Item Value Reference Range Interpretation Comments Alanine Aminotransferase (ALT/SGPT) (test code = 1742-6) 17 0-55 [facility] Catojyr7170-53-57 16:00:00* Test Item Value Reference Range Interpretation Comments Total Protein (test code = 2885-2) 8.1 6.5-8.1 [facility]manAlbumin2019-10-09 16:00:00* Test Item Value Reference Range Interpretation Comments Albumin (test code = 1751-7) 3.5 3.5-5.0 [facility]manGlobulin2019-10-09 16:00:00* Test Item Value Reference Range Interpretation Comments Globulin (test code = 31004-6) 4.6 2.3-3.5 H [facility]manAlbumin/Globulin Nbztw6098-75-91 16:00:00 * Test Item Value Reference Range Interpretation Comments Albumin/Globulin Ratio (test code = 1759-0) 0.8 0.8-2.0 [facility]manAlkaline Cyovdixummc2491-90-95 16:00:00* Test Item Value Reference Range Interpretation Comments Alkaline Phosphatase (test code = 6768-6) 131 40-150 [facility]manCreatine Kmzsbf9131-01-29 16:00:00* Test Item Value Reference Range Interpretation Comments Creatine Kinase (test code = 2157-6) 56 29-168 [facility]manCreatine Kinase VD2236-70-85 15:47:00* Test Item Value Reference Range Interpretation Comments Creatine Kinase MB (test code = 66727-1) 3.40 0-5.0 [facility]manTroponin T6095-80-42 15:47:00* Test Item Value Reference Range Interpretation Comments Troponin I (test code = RUP9204) 0.027 0-0.300 [facility]manProthrombin Qeuz8124-44-02 15:37:00* Test Item Value Reference Range Interpretation Comments Prothrombin Time (test code = 5902-2) 13.6 11.9-14.5 [facility]manProthromb Time International Ratio 2019-04-12 15:37:00* Test Item Value Reference Range Interpretation Comments Prothromb Time International Ratio (test code = 6301-6) 0.99 Oral Anticoagulant Therapy INR Values:1. Low Intensity Therapy 1.5 - 2.02 . Moderate Intensity Therapy 2.0 - 3.03. High Intensity Therapy(1) 2.5 - 3. 54. High Intensity Therapy(2) 3.0 - 4.05. Panic Value INR > 5.0 [facility]aufmanActivated Partial Thromboplast Time 2019-04-12 15:37:00* Test Item Value Reference Range Interpretation Comments Activated Partial Thromboplast Time (test code = 88885-5) 29.2 23.8-35.5 [facility]aufmanWhite Blood Zsoaj2070-07-38 15:36:00* Test Item Value Reference Range Interpretation Comments White Blood Count (test code = 6690-2) 4.68 4.8-10.8 L [facility]aufmanRed Blood Mxwjq6143-50-02 15:36:00* Test Item Value Reference Range Interpretation Comments Red Blood Count (test code = 789-8) 2.89 3.6-5.1 L [facility]aufmanMean Corpuscular Foseko4030-99-57 15:36:00* Test Item Value Reference Range Interpretation Comments Mean Corpuscular Volume (test code = 787-2) 82.0 81-99 [facility]manMean Corpuscular Lysgsfkkcw9367-99-00 15:36:00* Test Item Value Reference Range Interpretation Comments Mean Corpuscular Hemoglobin (test code = 785-6) 24.6 28-32 L [facility]aufmanMean Corpuscular Hemoglobin Concent 2019-04-12 15:36:00* Test Item Value Reference Range Interpretation Comments Mean Corpuscular Hemoglobin Concent (test code = 786-4) 30.0 31-35 L [facility]aufmanRed Cell Distribution Gnqqw6900-44-03 15:36:00* Test Item Value Reference Range Interpretation Comments Red Cell Distribution Width (test code = 85034-9) 20.3 11.7 -14.4 H [facility] KaufmanPlatelet Wydic4906-98-88 15:36:00* Test Item Value Reference Range Interpretation Comments Platelet Count (test code = 777-3) 133 140-360 L [facility]manNeutrophils (%) (Auto)2019-04-12 15:36:00 * Test Item Value Reference Range Interpretation Comments Neutrophils (%) (Auto) (test code = 86101-5) 78.0 38.7-80.0 [facility]manLymphocytes (%) (Auto)2019-04-12 15:36:00 * Test Item Value Reference Range Interpretation Comments Lymphocytes (%) (Auto) (test code = 736-9) 12.0 18.0-39.1 L [facility]manMonocytes (%) (Auto)2019-04-12 15:36:00* Test Item Value Reference Range Interpretation Comments Monocytes (%) (Auto) (test code = 5905-5) 7.3 4.4-11.3 [facility]manEosinophils (%) (Auto)2019-04-12 15:36:00 * Test Item Value Reference Range Interpretation Comments Eosinophils (%) (Auto) (test code = 713-8) 1.9 0.0-6.0 [facility]manBasophils (%) (Auto)2019-04-12 15:36:00* Test Item Value Reference Range Interpretation Comments Basophils (%) (Auto) (test code = 706-2) 0.4 0.0-1.0 [facility]manIM GRANULOCYTES %2019-04-12 15:36:00* Test Item Value Reference Range Interpretation Comments IM GRANULOCYTES % (test code = IM GRANULOCYTES %) 0.4 0.0- 1.0 [facility]manNeutrophils # (Auto)2019-04-12 15:36:00* Test Item Value Reference Range Interpretation Comments Neutrophils # (Auto) (test code = 751-8) 3.7 2.1-6.9 [facility]manLymphocytes # (Auto)2019-04-12 15:36:00* Test Item Value Reference Range Interpretation Comments Lymphocytes # (Auto) (test code = 48321-9) 0.6 1.0-3.2 L [facility]manMonocytes # (Auto)2019-04-12 15:36:00* Test Item Value Reference Range Interpretation Comments Monocytes # (Auto) (test code = 742-7) 0.3 0.2-0.8 [facility]manEosinophils # (Auto)2019-04-12 15:36:00* Test Item Value Reference Range Interpretation Comments Eosinophils # (Auto) (test code = 711-2) 0.1 0.0-0.4 [facility]manBasophils # (Auto)2019-04-12 15:36:00* Test Item Value Reference Range Interpretation Comments Basophils # (Auto) (test code = 704-7) 0.0 0.0-0.1 [facility]aufmanAbsolute Immature Granulocyte (auto 2019-04-12 15:36:00* Test Item Value Reference Range Interpretation Comments Absolute Immature Granulocyte (auto (noemi t code = Absolute Immature Granulocyte (auto) 0.02 0-0.1 [facility]aufmanAB SPECIFICITY CLASS JE7174-56-02 16:37:00* Test Item Value Reference Range Interpretation Comments AB Specificity Class II (test code = 3458) NO CLASS II ANTIBODY DETECTED WITH MFIs > 4000 AB Specificity Titr Class Report (test code = 3251) CHETNA (test code = CHETNA) Disclaimer: This test was de veloped and its performance characteristics determined by the [facility]. It has not been cleared or [...] to perform high complexity clinical laboratory testing. [facility] HospitalFLOW PRA CLASS I WITH REFLEX TO ANTIBODY RDKFNASKAYO6208-64-83 17:35:00* Test Item Value Reference Range Interpretation Comments Flow Class I Percent Positive (test code = 3229) 0 Flow Class Report Comments (test code = 3230) CHETNA (test code = CHETNA) Disclaimer: This test was de veloped and its performance characteristics determined by the [facility]. It has not been cleared or [...] to perform high complexity clinical laboratory testing. [facility] HospitalFLOW PRA CLASS II WITH REFLEX TO ANTIBODY XECUJGQTTMI2465-37-44 17:35:00* Test Item Value Reference Range Interpretation Comments Flow Class II Percent Positive (test code = 3231) 22 Flow Class Report Comments (test code = 3230) CHETNA (test code = CHETNA) Disclaimer: This test was de veloped and its performance characteristics determined by the [facility]. It has not been cleared or [...] to perform high complexity clinical laboratory testing. [facility] HospitalUS CGLJZ5977-82-54 12:00:00 [place] [address] Patient Name: SAGRARIO WARE MR #: [id number] : 1950 Age/Sex: 68/F Req #: [id number] Adm Physician: Ordered by: ALFREDO QUINONEZ MD Report #: [id number] Location: Room/Bed: Procedure: [id number] US/US LIVER Exam Date: 11/21/18 Exam Time: 1132 REPORT STATUS: Signed EXAM: Right upper q uadrant abdominal ultrasound INDICATION: Cirrhosis of the liver. KILLIAN RISON: Abdominal ultrasound 09/27/2017. TECHNIQUE: Transverse and longitudin al images of the right upper quadrant abdomen were obtained FINDINGS: Liver: Size: 14.9 cm in the right midclavicular line, normal Appearance: Normal echogenicity, smooth contour Mass: No focal masses Gallbladder: S tatus post cholecystectomy. Bile Ducts: Intrahepatic Ducts: No dilatation Extrahepatic Ducts: Common bile duct measures 0.3 cm, no dilatation Panc reas: Visualized portions of the pancreatic head, neck and proximal body are n ormal. Kidney: The right kidney measures 9.3 cm without evidence of hydrone phrosis or stone. The kidney is echogenic in appearance. Vessels: Aorta : Visualized portions are normal Inferior Vena Cava: Visualized portions are n ormal Main Portal Vein: 1.0 cm, normal size with hepatopetal flow. Free F luid: No evidence of ascites. IMPRESSION: No sonographic evidence of ci rrhosis. Status post cholecystectomy. Echogenic appearance of the righ t kidney, which may reflect medical renal disease. Signed by: Dr. Romy Estes MD on 11/21/2018 12:02 PM Dictated By: ROMY ESTES MD 1202 Transcribed By: EMMA on 11/21/18 202 COPY TO: ALFREDO QUINONEZ MD Direct Awlgwywfw1431-31-96 11:52:00* Test Item Value Reference Range Interpretation Comments Direct Bilirubin (test code = 74765-0) 0.2 0.0-0.5 [facility]manAmylase Mqvzj4110-72-44 11:52:00* Test Item Value Reference Range Interpretation Comments Amylase Level (test code = 1798-8) 56 25-125 [facility]aufmanLipase2019-02-18 11:52:00* Test Item Value Reference Range Interpretation Comments Lipase (test code = 3040-3) 58 8-78 [facility]aufmanPET, CARDIAC PERFUSION MULTIPLE STUDIES, REST AND GSKFUX0819-49-65 16:04:00PT started dialysis 03/05/2015. Reason for Exam:->Awaiting renal transplant, ESRD on HDFINAL REPORT PROCEDURE: Rest/Stress MYOCARDIAL PERFUSION PET with regadenoson\\XA9\\CPT CODE: 96259SCYHYUZVYG: ESRD, Risk stratification, prior to renal transplantHISTORY: Cardiac risk factors: Diabetes, hypertension. Other cardiovascular history: Known CAD, prior coronary stent. Current cardiovascular-related medications: Carvedilol, hydralazine, nifedipine.PROTOCOL: Limited low-dose CT imaging was performed for att enuation correction. 40.1 mCi of Rb-82 chloride was injected iv at rest, and gat ed PET (positron emission tomography) images were obtained. Subsequently, 40.1 m Ci of Rb-82 chloride was injected iv at expected peak pharmacologic effect, and gated PET images were obtained. PRELIMINARY STRESS TEST DATA FROM NONINVASIVE C ARDIOLOGY: Pharmacologic stress was by 10-second iv infusion of 0.4 mg of re gadenoson. Radiotracer was injected 30 seconds after start of stress. Heart rate was 81 beats/min at rest and 90 beats/min (59% of MPHR) at tracer injection. BP was 120/80 mmHg at rest and 128/62 mmHg at tracer injection. Stress was stopped for predetermined endpoint. The patient experienced dyspnea; treatment was not required. Preliminary ECG evaluation revealed sinus rhythm, first-degree AV bloc k, and left bundle-branch block at rest and no ischemic changes with stress. ([facility] ECG interpretation and other stress and monitoring data are reported separat shannan by Cardiology.) IMAGING FINDINGS: Study quality is good. Images obtaine d after stress injection show mild decrease in activity in the mid inferolateral LV. Images after resting injection show normal LV activity. LV and RV volumes a ppear normal. Gated images obtained at rest and with stress show mild apical tar dykinesis but otherwise normal LV wall motion and thickening. LVEF at rest is 65 %. LVEF at stress is 68%. IMPRESSION: 1. Abnormal study. 2. Appropriate pha rmacologic stress. 3. Abnormal myocardial perfusion. There is a small, mild, re versible perfusion defect in the mid inferolateral LV. 4. Normal resting LVEF wi th mild focal wall motion defect. No deterioration of function is noted with pha rmacologic stress. 5. Normal extracardiac tracer distribution. 6. No previous [facility] study for comparison. Signed: Malik Perez MDReport Verified Date/Time: 04/20/2018 16:04:01 Reading Location: [address] Reading Room SPECIFICITY CLASS [id number] 11:09:00* Test Item Value Reference Range Interpretation Comments DATE OF SERUM (BEAKER) (test code = 2288) 790843 SERUM # (BEAKER) (test code = 2290) 142596 AB SPECIFICITY CLASS II (BEAKER) (test code = 2430) See Scanned Rep ort FLOW PRA CLASS I AND [id number] 23:14:00* Test Item Value Reference Range Interpretation Comments DATE OF SERUM (BEAKER) (test code = 2288) 424291 SERUM # (BEAKER) (test code = 2290) 956434 FLOW PRA CLASS I AND II (test code = 2421) See Scanned Report HEPATITIS B SURFACE SZPARPCY8537-28-49 16:55:00* Test Item Value Reference Range Interpretation Comments HEPATITIS B SURFACE ANTIBODY (BEAKER) (test code = 647) 68.8 mIU/mL <8.0 H AB SPECIFICITY CLASS [id number] 13:02:00* Test Item Value Reference Range Interpretation Comments DATE OF SERUM (BEAKER) (test code = 2288) 605275 SERUM # (BEAKER) (test code = 2290) 740836 AB SPECIFICITY CLASS II (BEAKER) (test code = 2430) See Scanned Rep ort FLOW PRA CLASS I AND [id number] 12:56:00* Test Item Value Reference Range Interpretation Comments DATE OF SERUM (BEAKER) (test code = 3549) 432917 SERUM # (JACE) (test code = 0969) 451076 FLOW PRA CLASS I AND II (test code = 2421) See Scanned Report US ABDOMEN COMPLETE [place] [address] [place] [address] Patient Name: SAGRARIO WARE MR #: [id number] : 1950 Age/Sex: 67/F Req #: [id number] Adm Physician: Ordered by: ALFREDO QUINONEZ MD Report #: [id number] Location: US Room/Bed: Procedure: [id number] US/US ABDOMEN COMPLETE Exam Ramirez e: Exam [...] medi jim renal disease. Dictated by: Finesse Eason M.D. on 018 at 8:56 Electronically approved by: Finesse Eason M.D. on 09/27/2017 at 8:56 Dictated By: FINESSE EASON MD 5 Transcribed By: STEPHANIE on 09/27/17855 CO PY TO: ALFREDO QUINONEZ MD KNEE LEFT THREE VIEWS [place] [address] Patient Name: SAGRARIO WARE MR #: [id number] : 1950 Age/Sex: 67/F Req #: [id number] Adm Physician: Ordered by: ENRRIQUE ROJAS REFUSE DRIVER Report #: [id number] Location: ER Room/Bed: Procedure: [id number] DX/KNEE LEFT THREE VIEWS Exam Date: 08/22/17 [...] fr acture seen. Signed by: Dr Candace Strong MD on 08/22/2017 8:16 PM Di ctated By: CANDACE STRONG MD 15 Transcribed By: EMMA on 08/22/172015 COPY TO: BECKI ROJAS REFUSE DRIVER ANKLE 3+ VIEWS LEFT [place] [address] Patient Name: SAGRARIO WARE MR #: [id number] : 1950 Age/Sex: 67/F Req #: [id number] Adm Physician: Ordered by: ENRRIQUE ROJAS NP Report #: [id number] Location: ER Room/Bed: Procedure: [id number] DX/ANKLE 3+ VIEWS LEFT Exam Da te: [...] frac ture seen. Signed by: Dr Candace Strong MD on 08/22/2017 8:16 PM Dict ated By: CANDACE STRONG MD 15 COPY TO: MEÑO ROJAS REFUSE DRIVER LOWER LEG LEFT [place] [address] Patient Name: SAGRARIO WARE MR #: [id number] : 1950 Age/Sex: 67/F Req #: [id number] Adm Physician: Ordered by: ENRRIQUE ROJAS REFUSE DRIVER Report #: [id number] Location: ER Room/Bed: Procedure: [id number] DX/LOWER LEG LEFT Exam Date: 0 08/22/17 Exam Time: 183 REPORT STATUS: Signed KNEE LEFT THREE VIEWS, [...] acute fracture seen. Signed by: Dr Candace Strong MD on 08/22/2017 8:16 PM Dictated By: CANDACE STRONG MD 15 Transcribed By: EMMA on 08/22/172015 COPY TO: ENRRIQUE ROJAS NP CHEST 2 VIEWS [facility] [address] [place] [address] Patient Name: SAGRARIO WARE MR #: [id number] : 1950 Age/Sex: 66/F Req #: [id number] Adm Physician: Ordered by: VALENTÍN BRAVO MD Report #: [id number] Location: ER Room/Bed: Procedure: [id number] DX/CHEST 2 VIEWS Exam Date: Exam Time: [...] No acute cardiopulmonary disease. Dictated by: Kristin Ramirez M.D. on 06/29/2017 at 18:51 Electronica lly approved by: Kristin Ramirez M.D. on 06/29/2017 at 18:51 Dictated By: KRISTIN RAMIREZ MD 50 Transcribed By: STEPHANIE on 06/29/171850 COPY TO: VALENTÍN BRAVO MD CHEST SINGLE (PORTABLE) [place] [address] Patient Name: SAGRARIO WARE MR #: [id number] : 1950 Age/Sex: 66/F Req #: [id number] Adm Physician: Ordered by: LB CRUZ MD Report #: [id number] Location: ER Room/Bed: Procedure: [id number] DX/CHEST SINGLE (PORTABLE) Exam Date: Exam Time: [...] acute bony abnormalities. Signed by: Dr. Igor Garsia M.D. on 04/07/2017 8:53 PM Dictated By: IGOR GARSIA MD 52 Trans cribed By: EMMA on 04/07/172052 COPY TO: BL CRUZ MD
[2019-12-12] MEDS ORDERED: ONDANSETRON HCL INJ 2MG/ML 2ML 2 MG/ML VIAL IV NR (09:15)
--- NOTE | 2019-12-12 09:22 | NUR ---
IV INSERTION PERFORMED ANDREA [place], CLIENT BLOOD WAS COLLECTED, ALSO COLLECTED TYPE AND SCREEN AND BLOOD BAND PLACED IN CLIENT LEFT WRIST. BLOOD SENT TO LAB.
[2019-12-12 09:33] LABS: BASOPHILS % 0.8 % (0.0-1.0); EOSINOPHILS # (AUTO) 0.2 (0.0-0.4); EOSINOPHILS % 4.7 % (0.0-6.0); HEMATOCRIT 29.7 % (34.2-44.1); HEMOGLOBIN 9.3 g/dL (12.0-16.0); LYMPHOCYTES # (AUTO) 0.5 (1.0-3.2); LYMPHOCYTES % 9.8 % (18.0-39.1); MEAN CORPUSCULAR HEMOGLOBIN 28.9 pg (28-32); MEAN CORPUSCULAR HGB CONC 31.3 g/dL (31-35); MEAN CORPUSCULAR VOLUME 92.2 fL (81-99); MONOCYTES # (AUTO) 0.3 (0.2-0.8); MONOCYTES % 5.5 % (4.4-11.3); NEUTROPHILS # (AUTO) 3.9 (2.1-6.9); NEUTROPHILS % 78.6 % (38.7-80.0); PLATELET COUNT 137 x10e3/uL (140-360); RED BLOOD COUNT 3.22 x10e6/uL (3.6-5.1); RED CELL DISTRIBUTION WIDTH 17.2 % (11.7-14.4)
[2019-12-12 09:43] LABS: INR 0.96; PARTIAL THROMBOPLASTIN TIME 34.4 seconds (23.8-35.5); PROTHROMBIN TIME 13.4 seconds (11.9-14.5)
[2019-12-12] MEDS ORDERED: PROTONIX20 MG PO (09:53)
[2019-12-12] MEDS ORDERED: [UNRECOGNIZED DRUG - OTHER] PO (09:53)
[2019-12-12] MEDS ORDERED: D3 PO (09:53)
[2019-12-12] MEDS ORDERED: FERROUS SULFAT325 MG PO (09:53)
[2019-12-12] MEDS ORDERED: PANTOPRAZOLE 40 MG 10ML VIAL IV NR (10:00)
--- NOTE | 2019-12-12 10:05 | Diagnostic Imaging Report ---
Chest, 1 view, 12/12/2019. History: Shortness of breath. Comparison: None available. Findings: The cardiomediastinal silhouette and pulmonary vasculature are prominent. Diffuse bilateral alveolar opacities are present. There is no focal consolidation or effusion. Right subclavian dual-lead pacer is present. There are no acute osseous or soft tissue abnormalities. Surgical clips are noted in the left upper arm. Impression: Findings suggestive of CHF, although superimposed pneumonia cannot be excluded. Signed by: Spenser Martin on 12/12/2019 10:01 AM
--- OUTSIDE RECORDS SUMMARY | 2019-12-12 10:42 | XMS REPORT | Clinical Summary ---
Author Author YUDELKA [facility] Organization [facility] Address Unknown Phone Unavailable Care Team Providers Care Clipman Name Role Phone Harry, Josee PCP Allergies [...] Problem Noted Date Coronary artery disease involving [place] coronary art [facility] [place] heart 04/12/2016 Pre-transplant evaluation for end stage [...] regurgitation 11/01/2019 Orders Only Cardiology Elva Yap, RICHRAD Waitlist Maintenance 10/19/2019 Telephone Transplant Sim, Na [...] Date Type Specialty Sotero Bedoya MD [address] [facility] [address] [place] [address] [phone] 12/27/2019 Appointment Cardiology 01/03/2020 Evaluation Transplant Antonieta Cadena MD [address] [facility] [address] [place] [address] [phone] 01/03/2020 Orders Only Transplant Hepatolo gy 01/03/2020 [...] ot Implanted Type Area Manufactur er 02/01/2017 [id number] / / [id number] [employer] Premier Stents-Cor [place] Implanted: Qty: 1 [...] AM CDT) Flow Class II Percent 22 [facility] NG Positive Flow Class Report [facility] Comments Specimen Blood Narrative Performed At Disclaimer: [facility] This test was developed and its perform ance characteristics determined by the [facility]. It has not been cleared or [...] Performing Organization Address City/State/Zipcode Ph one Number [facility] ONE [facility] [address], MS: [id number], [place] [address] CLIA#[id number] CAP#[id number]#[id number] * FLOW PRA CLASS I WITH REFLEX TO ANTIBODY SPECIFICITY (12/30/2018 9:42 AM CDT) Flow Class I Percent 0 [facility] G Positive Flow Class Report [facility] Comments Specimen Blood Narrative Performed At Disclaimer: [facility] This test was developed and its perform ance characteristics determined by the [facility]. It has not been cleared or [...] complexity clinical laboratory testing. Performing Organization Address City/[facility] Ph one Number [facility] ONE Ace Mak, MS: [id number], [place] [address] CLIA#[id number] CAP#[id number] * AB SPECIFICITY CLASS II (12/30/2018 9:42 AM CDT) AB Specificity Class II NO CLASS II ANTIBODY DETECTED [facility] WITH MFIs > 4000 AB Specificity Titr Class [facility] Report Specimen Blood Narrative Performed At Disclaimer: [facility] This test was developed and its perform ance characteristics determined by the [facility]. It has not been cleared or [...] complexity clinical laboratory testing. Performing Organization Address City/State/[facility] Ph one Number [facility] Ace Mak, [place]: [id number], [place] [address] CLIA#[id number] CAP#[id number] UNOS#[id number] after 12/11/2018 Insurance Payer Benefit Subscriber ID Type Phone Address Plan / Group MEDICARE MEDICARE A xxxxxxxxxxx Medicare B BLUE CROSS/BLUE SHIELD BCBS xxxxxxxxxxxx [facility] [id number] [place] [address] [place] [phone] Advance Directives For more information, please contact: [facility] [address] [place] [address] Date Inactivated Comments Code Status Date Activated 04/11/2016 8:53 PM Full Code 04/10/2016 5:00 PM This code status was determined by: Patient 04/10/2016 5:00 PM Full Code 03/25/2016 10:46 AM This code status was determined by: Patient
--- OUTSIDE RECORDS SUMMARY | 2019-12-12 10:42 | XMS REPORT | Clinical Summary ---
Author Author [facility] Organization [facility] Address Unknown Phone Unavailable Care Team Providers Care Custodian Athletic Equipment Name Role Phone System, Provider Not In [...] Advance Directives For more information, please contact: [phone] Patient Collective Bargaining Specialist Explanation Type Date Recorded Advance Directives, Living Will and Medical Power of Chief Innovation Officer Date Inactivated Comments Code Status Date Activated 05/16/2016 7:14 PM Full Code 05/09/2016 4:19 PM Code Status decision reached by: Patient 12/25/2015 4:26 PM Full Code 12/20/2015 10:11 AM Code Status decision reached by: Patient 12/16/2015 1:17 AM Full Code 12/12/2015 11:14 PM Code Status decision reached by: Patient
--- OUTSIDE RECORDS SUMMARY | 2019-12-12 10:43 | XMS REPORT | Continuity of Care Document ---
Author Author [facility] t Organization [facility] t Address [address] [place] [address] Phone Unavailable Care Team Providers Care Marketing Team Lead Name Role Phone CARLITOS SAMUEL, DULCE PCP Ash CERON Attphys Unavailable Samira Almaguer Attphys Unavailable Aureliano SAMUEL, Sotero Attphys Fracisco RAMOS, Elva Attphys Unavailable Sim, Y Na Attphys Unavailable Leslie Mora Attphys Unavailable Nayeli SAMUEL, Isael Attphys Alka Presley Attphys Unavailable Tammi SAMUEL, Ericka Fung Attphys [phone] ALFREDO QUINONEZ Attphys Unavailable Radha BLUE Attphys Unavailable Magui BRAVO Attphys Unavailable Otto MORENO Attphys Unavailable Payers Payer Name Policy Type Policy Number Effective Date Expiration Date S mendoza MEDICAREMEDICARE A BxxxxxxxxxxxMedicare xxxxxxxxxxx [facility] BLUE CROSS/BLUE SHIELDBS IN[place]MN[place] [id number] [id number], [place] [address] xxxxxxxxxxxx [facility] [id number] 2015 00:00:00 [facility] Medicare A & B [id number] 2014 00:00:00 [facility] Problems Condition Name Condition Details Condition Category Status Onset Date Resolution Date Last Treatment Date Treating Clinician Comments Source Severe anemia Severe anemia Disease Active 2016-05-09 00:00:00 Evan Bains Coronary artery disease involving [place] coronary [place] heart Coronary artery disease involving [place] coronary artery of [place] heart Disease Active 2016-04-12 00:00:00 [facility] Pre-transplant evaluation for end stage renal disease Pre-transplant evaluation for end stage renal disease Disease Active 2016-04-10 00:00:00 [facility] ESRD (end stage renal disease) on dialysis ESRD (end s tage renal disease) on dialysis Disease Active 2016-04-10 00:00:00 [facility] Essential hypertension Essential hypertension Disease Active 2016-04-10 00:00:00 [facility] 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 Disease Active 2016-04-10 00:00:00 [facility] Colon cancer Colon cancer Disease Active 2016-04-10 00:00:00 [facility] ESRD (end stage renal disease) ESRD (end stage renal disease) Disea se Active 2016-04-10 00:00:00 [facility] Hyperkalemia Hyperkalemia Disease Active 2016-04-10 00:00:00 [facility] 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 Problem Active 2016-03-24 00:00:00 [facility] Anemia Anemia Problem Active 2016-03-24 00:00:00 [facility] Diabetes mellitus Diabetes Problem Active 2016-03-24 00:00:00 [facility] End stage renal failure on dialysis ESRD (end stage renal di sease) on dialysis Problem Active 2016-03-24 00:00:00 [facility] Weakness Weakness Problem Active 2016-03-24 00:00:00 [facility] GI bleed GI bleed Disease Active 2015-12-20 00:00:00 Evan Bains ESRD (end stage renal disease) on dialysis ESRD (end s tage renal disease) on dialysis Disease Active 2015-12-13 00:00:00 Jared Bains Acute blood loss anemia Acute blood loss anemia Disease Active 2015-12-13 00:00:00 Evan puentes Anemia in chronic kidney disease Anemia in chronic kidney diseas e Disease Active 2015-12-13 00:00:00 Reny Bains Type 2 diabetes mellitus without complication Type 2 d iabetes mellitus without complication Disease Active 2015-12-13 00:00:00 Evan Bains Lower GI bleed Lower GI bleed Disease Active 2015-12-12 00:00:00 Evan Bains End stage renal failure on dialysis ESRD (end stage renal di sease) on dialysis Problem Active 2015-12-07 00:00:00 [facility] Upper gastrointestinal hemorrhage Upper GI bleed Problem Activ e 2015-12-07 00:00:00 [facility] Weakness Weakness Problem Active 2015-12-07 00:00:00 [facility] Anemia Anemia Problem Active 2015-05-21 00:00:00 [facility] Cardiomegaly Cardiomegaly Problem Active 2015-05-21 00:00:00 [facility] Diabetes mellitus Diabetes Problem Active 2015-05-21 00:00:00 [facility] End stage renal failure on dialysis ESRD (end stage renal di sease) on dialysis Problem Active 2015-05-21 00:00:00 [facility] Upper gastrointestinal hemorrhage Upper GI bleed Problem Activ e 2015-05-21 00:00:00 [facility] CHF (congestive heart failure) CHF (congestive heart failure) Probl em Active 2015-03-03 00:00:00 [facility] Anemia Anemia Problem Active 2014-09-05 00:00:00 [facility] Gastrointestinal hemorrhage GI bleed Problem Active 2014-09-05 00:00:00 [facility] Renal insufficiency Renal insufficiency Problem Active 2014-09-05 00:00 :00 [facility] Occult blood in stools Occult blood in stools Problem Active [facility] Allergies, Adverse Reactions, Alerts Allergy Name Allergy Type Status Severity Reaction(s) Onset Date Inacti ve Date Treating Clinician Comments Source No Known Allergies DA Active U 2019-11-08 00:00:00 [facility] No Known Allergies DA Active U 2017-10-04 00:00:00 [facility] Family History Family Member Diagnosis Comments Start Date Stop Date Source Natural sister Diabetes [facility] Social History Social Habit Start Date Stop Date Quantity Comments Source Sex Assigned At [facility] Alcohol intake 2016-05-15 00:00:00 2016-05-15 00:00:00 Current non-drinker of alcohol (finding) Evan Bains Smoking Status Start Date Stop Date Source Never smoker [facility] Medications Ordered Medication Name Filled Medication Name Start Date Stop Da te Current Medication? Ordering Clinician Indication Dosage Frequency Signature (SIG) Comments Components Source carvedilol (COREG) 12.5 MG tablet 2016-05-16 17:14:03 Yes 12.5mg Q.5D Take 12.5 mg by mouth 2 (two) times a day. Evan Bains cholecalciferol, vitamin D3, (VITAMIN D3) 1,000 unit tablet 2016-05-16 17:14:03 Yes 1000U [id number] 3W Take 1,000 Units by mouth 3 (three) times a week. After dialysis on Wed. And Sat. Evan Bains insulin ASPART (NovoLOG) 100 unit/mL injection 2016-05-16 17:14: 03 Yes 0U [id number] Inject 0-15 Units under the skin 3 [...] 2 (two) times a day with meals. [facility] insulin aspart (NOVOLOG) 100 unit/mL InPn 2016-04-10 11:01:0 5 Yes type 2 diabetes mellitus 16U Inject 16 Units subc utaneously 3 (three) times daily as needed . [facility] carvedilol (COREG) 12.5 MG tablet 2016-01-08 14:42:49 Yes 12.5mg Take 12.5 mg by mouth 2 (two) times daily with breakfast and dinner. [facility] Carvedilol (Coreg) 12.5 Mg Tab, 12.5 Mg Oral Carvedilo l (Coreg) 12.5 Mg Tab, 12.5 Mg Oral 2015-03-07 00:00:00 2016-10-24 00:00:00 No Teodoro sky 12.5 Twice A Day [facility] Carvedilol 12.5 Mg Tablet Carvedilol 12.5 Mg Tablet Yes 25 Twice A Day [facility] Docusate Sodium 100 Mg Capsule Docusate Sodium 100 Mg Capsule Yes 100 Twice A Day [facility] Hydralazine Hcl 25 Mg Tab Hydralazine Hcl 25 Mg Tab Yes 50 Twice A Day [facility] Novolog Novolog Yes Before Meals C [facility] Multivitamin (Multivitamins) 1 Each Capsule, 1 Cap Ora l Multivitamin (Multivitamins) 1 Each Capsule, 1 Cap Oral 2018-08-15 00:00:00 No 1 Daily [facility] Pantoprazole Sodium (Protonix) 40 Mg Tablet., 40 Mg Oral Pantoprazole Sodium (Protonix) 40 Mg Tablet., 40 Mg Oral 2018-08-15 00:00:00 No 40 Daily [facility] Aspirin (Aspir 81) 81 Mg Tablet., 1 Tab Oral Aspirin (Aspir 81) 81 Mg Tablet.dr, 1 Tab Oral 2017-07-03 00:00:00 No 1 Da kenneth [facility] Acetaminophen 325 Mg Tablet, 325 Mg Oral Acetaminophen 325 Mg Tablet, 325 Mg Oral 2017-06-29 00:00:00 No 325 Every 6 Hours as n eeded for Pain [facility] Lidoderm 1 Patch Apply For 12HOURS On. , Topical Lid oderm 1 Patch Apply For 12HOURS On. , Topical 2017-06-29 00:00:00 No Every 12 Hours [facility] Tramadol Hcl (Ultram 50MG*) 50 Mg Tab, 50 Mg Oral Tram adol Hcl (Ultram 50MG*) 50 Mg Tab, 50 Mg Oral 2017-06-29 00:00:00 No 50 Twice A Day for Pain [facility] Gabapentin 300 Mg Capsule, 300 Mg Oral Gabapentin 300 Mg Capsule , 300 Mg Oral 2017-02-03 00:00:00 No 300 Daily [facility] Clopidogrel Bisulfate (Plavix) 75 Mg Tablet, 75 Mg Ora l Clopidogrel Bisulfate (Plavix) 75 Mg Tablet, 75 Mg Oral 2016-12-15 00:00:00 No 75 Daily [facility] Clopidogrel Bisulfate (Plavix) 75 Mg Tablet, 75 Mg Ora l Clopidogrel Bisulfate (Plavix) 75 Mg Tablet, 75 Mg Oral 2016-10-30 00:00:00 No 75 Daily [facility] Insulin Aspart (Novolog Mix 70-30 Vial) 100 Units/Ml M l, 16 Units Sub-Q Insulin Aspart (Novolog Mix 70-30 Vial) 100 Units/Ml Ml, 16 Units Sub-Q 2016-10-30 00:00:00 No 16 Three Times Daily With Meals [facility] Tramadol Hcl (Ultram) 50 Mg Tablet, 50 Mg Oral Tramado l Hcl (Ultram) 50 Mg Tablet, 50 Mg Oral 2016-10-24 00:00:00 No 50 Every 6 Hours as needed for Pain [facility] Calcium Acetate (Phoslo) 667 Mg Cap, 2 Tab Oral Calciu m Acetate (Phoslo) 667 Mg Cap, 2 Tab Oral 2016-08-04 00:00:00 No 2 Th ree Times Daily With Meals [facility] Glyburide 5 Mg Tablet, 10 Mg Oral Glyburide 5 Mg Tablet, 10 Mg O ral 2016-08-04 00:00:00 No 10 Twice A Day [facility] Insulin Glargine (Lantus 3ML Pen) 100 Units/1 Ml Inj, 30 Sub-Q Insulin Glargine (Lantus 3ML Pen) 100 Units/1 Ml Inj, 30 Sub-Q 2016-03-24 00:00:00 No 30 Bedtime [facility] Pantoprazole Sodium (Protonix) 40 Mg Tablet.dr, 40 Mg Oral Pantoprazole Sodium (Protonix) 40 Mg Tablet.dr, 40 Mg Oral 2015-07-07 00:00:00 No 40 Daily [facility] Home , Home , 2015-03-07 00:00:00 No [facility] Lubiprostone (Amitiza) 24 Mcg Capsule, 8 Mcg Oral Lubi prostone (Amitiza) 24 Mcg Capsule, 8 Mcg Oral 2015-03-07 00:00:00 No 8 Twice A Day as needed for Constipation [facility] Metoprolol Tartrate 25 Mg Tablet, 25 Mg Oral Metoprolo l Tartrate 25 Mg Tablet, 25 Mg Oral 2015-03-07 00:00:00 No 25 Twice A Day [facility] Ramipril 5 Mg Capsule, 5 Mg Oral Ramipril 5 Mg Capsule, 5 Mg Ora l 2015-03-07 00:00:00 No 5 Twice A Day [facility] Insulin Aspart (Novolog Mix 70-30 Vial) 100 Units/Ml M l, 16 U Sub-Q Insulin Aspart (Novolog Mix 70-30 Vial) 100 Units/Ml Ml, 16 U Sub-Q 2014-09-05 00:00:00 No 16 Twice A Day [facility] Procedures Procedure Date / Time Performed Performing Clinician Boris e 2D ECHO MODE W/O DOPPLER 2019-07-12 00:00:00 ProviderNorberto [facility] NM MYOCARDIAL PERFUSION SPECT, PHARM(LEXISCAN) 2019-05-29 00 :00:00 ProviderIsael [facility] 2D ECHO W/ DOPPLER (CW/PW/COLOR) 2019-05-29 00:00:00 Elvin Tyler [facility] FLOW PRA CLASS II WITH REFLEX TO ANTIBODY SPECIFICITY 12-30 09:42:00 Tammi Antonieta [facility] FLOW PRA CLASS I WITH REFLEX TO ANTIBODY SPECIFICITY 2018-12 09:42:00 Tammi [facility] AB SPECIFICITY CLASS II 2018-12-30 09:42:00 Antonieta Cadena [facility] US Liver 2018-11-21 00:00:00 ALFREDO QUINONEZ [facility] EGD BIOPSY SINGLE/MULTIPLE 2018-08-22 00:00:00 ALFREDO QUINONEZ [facility] COLONOSCOPY W/LESION REMOVAL 2018-08-22 00:00:00 ALFREDO QUINONEZ [facility] COLONOSCOPY W/LESION REMOVAL 2018-08-22 00:00:00 ALFREDO QUINONEZ [facility] Plan of Care Planned Activity Planned Date Details Comments Source Future Scheduled Test 2020-03-05 00:00:00 INFLUENZA VACCINE (Season Ended) [code = INFLUENZA VACCINE (Season Ended)] [facility] Future Scheduled Test 2020-02-03 00:00:00 INFLUENZA VACCINE [code = INFLUENZA VACCINE] Evan Bains Future Scheduled Test 2017-04-10 00:00:00 COLON CANCER SCREE CHANEL ANNUAL FOBT [code = COLON CANCER SCREENING ANNUAL FOBT] [facility] Future Scheduled Test 2016-09-20 00:00:00 HEMOGLOBIN A1C [co de = HEMOGLOBIN A1C] [facility] 2015-07-06 00:00:00 MEDICARE ANNUAL WE LLNESS (YEAR 2 or FIRST YEAR if no IPPE) [code = MEDICARE ANNUAL WELLNESS (YEAR 2 or FIRST YEAR if no IPPE)] [facility] Future Scheduled Test 2014 00:00:00 65+ PNEUMOCOCCAL V ACCINE (1 of 2 - PCV13) [code = 65+ PNEUMOCOCCAL VACCINE (1 of 2 - PCV13)] [facility] Scheduled Test 2014 00:00:00 PNEUMOCOCCAL 65+ H IGH/HIGHEST RISK (1 of 2 - PCV13) [code = PNEUMOCOCCAL 65+ HIGH/HIGHEST RISK (1 of 2 - PCV13)] [facility] Future Scheduled Test 1999 00:00:00 BREAST CANCER SCRE ENING [code = BREAST CANCER SCREENING] [facility] Scheduled Test 1999 00:00:00 COLONOSCOPY SCREEN ING [code = COLONOSCOPY SCREENING] [facility] Scheduled Test 1999 00:00:00 SHINGLES VACCINES (#1) [code = SHINGLES VACCINES (#1)] [facility] Scheduled Test 1959 00:00:00 DIABETIC FOOT EXAM [code = DIABETIC FOOT EXAM] [facility] Scheduled Test 1959 00:00:00 Diabetic foot exam ination (regime/therapy) [code = 812741314] [facility] Future Scheduled Test 1949 00:00:00 DIABETIC RETINAL E YE EXAM [code = DIABETIC RETINAL EYE EXAM] [facility] Scheduled Test 1949 00:00:00 BREAST CANCER SCRE ENING [code = BREAST CANCER SCREENING] [facility] Encounters Start Date/Time End Date/Time Encounter Type Admission Type Attendi [facility] Care Department Encounter ID Source 2019-04-12 17:11:00 2019-04-13 21:50:00 Discharged Inpatient (obs) [facility] [id number] [facility] 2018-11-21 11:08:00 2018-11-21 11:08:00 Registered Clinic [address] [facility] [id number] [facility] 2018-08-22 08:53:00 2018-08-22 08:53:00 Registered Surgical Day Care [facility] [id number] [facility] Results Test Description Test Time Test Comments Results Result Comments Source CHEST SINGLE (PORTABLE) 2019-12-12 10:00:00 [facility] [address] [place], [place] [address] Patient Name: SAGRARIO WARE MR #: [id number] : 1950 Age/Sex: 69/F Req #: [id number] Adm Physician: Ordered by: REGI CERON MD Report #: [id number] Location: ER Room/Bed: Procedure: [id number] DX/CHEST SINGLE (PORTABLE) Exam Date: 12/12/19 Exam Time: 909 REPORT STATUS: Signed Chest, 1 view, 12/12/2019. History: Shortness of breath. Comparison: None available. Findings: The cardiomediastinal silhouette and pulmonary vasculature are prominent. Diffuse bilateral alveolar opacities are present. There is no focal consolidation or effusion. Right subclavian dual-lead pacer is present. There are no acute osseous or soft tissue abnormalities. Surgical clips are noted in the left upper arm. Impression: Findings suggestive of CHF, although superimposed pneumonia cannot be excluded. Signed by: Spenser Martin on 12/12/2019 10:01 AM Dictated By: SPENSER MARTIN MD 1001 Transcribed By: EMMA on 12/12/19 1001 COPY TO: REGI CERON MD GLUBED 2019-12-11 20:35:00 Test Item GLUBED (test code = GLUBED) 145 mg/dL 70-110 H [id number] 20:35:00* Test Item Value Reference Range Interpretation Comments GLUBED (test code = GLUBED) 271 mg/dL 70-110 H [id number] 20:35:00* Test Item Value Reference Range Interpretation Comments GLUBED (test code = GLUBED) 301 mg/dL 70-110 H [id number] 20:35:00* Test Item Value Reference Range Interpretation Comments GLUBED (test code = GLUBED) 193 mg/dL 70-110 H [id number] 20:35:00* Test Item Value Reference Range Interpretation Comments GLUBED (test code = GLUBED) 319 mg/dL 70-110 H [id number] 20:35:00* Test Item Value Reference Range Interpretation Comments GLUBED (test code = GLUBED) 303 mg/dL 70-110 H [id number] 20:35:00* Test Item Value Reference Range Interpretation Comments GLUBED (test code = GLUBED) 181 mg/dL 70-110 H [id number] 20:35:00* Test Item Value Reference Range Interpretation Comments GLUBED (test code = GLUBED) 182 mg/dL 70-110 H [id number] 20:35:00* Test Item Value Reference Range Interpretation Comments GLUBED (test code = GLUBED) 265 mg/dL 70-110 H ACUTE HEPATITIS [id number] 09:59:00* Test Item Value Reference Range Interpretation Comments AB HEPATITIS A IGM (test code = HAVMAB) NON REACTIVE INDEX NON REAC T. Testing done at [facility] [address] [place] [address] AB HEPATITIS B SURFACE (test code = HBSAB) 164.2 mIU/mL Immunity>9. 9 Status of Immunity Anti-HBs Level Inconsistent with Immunity 0.0 - 9.9Consistent with Immunity >9.9TEST PERFORMED AT [facility] [address] AG HEPATITIS B SURFACE (test code = HBSAG) NON REACTIVE INDEX NonRe active Testing done at [facility] [address] [place] [address] AB HEPATITIS B CORE IGM (test code = HBCMAB) NON REACTIVE INDEX NON REACT. Testing done at [facility] [address] [place] [address] AB HEPATITIS C (test code = HCVAB) NON REACTIVE INDEX NON REACT. Testing done at [facility] [address] [place] [address] AB HEPATITIS B [id number] 09:59:00* Test Item Value Reference Range Interpretation Comments AB HEPATITIS B CORE (test code = HBCAB) Negative Negative Performed At: [facility] [id number] [place], [place] [id number] Misael Morris MD Ph:[phone] ACUTE HEPATITIS [id number] 03:19:00* Test Item Value Reference Range Interpretation Comments AB HEPATITIS A IGM (test code = HAVMAB) NON REACTIVE INDEX NON REAC T. Testing done at [facility] [address] [place] [address] AB HEPATITIS B SURFACE (test code = HBSAB) mIU/mL Immune >9.9 AG HEPATITIS B SURFACE (test code = HBSAG) NON REACTIVE INDEX NonRe active Testing done at [facility] [address] [place] [address] AB HEPATITIS B CORE IGM (test code = HBCMAB) NON REACTIVE INDEX NON REACT. Testing done at [facility] [address] [place] [address] AB HEPATITIS C (test code = HCVAB) NON REACTIVE INDEX NON REACT. Testing done at [facility] [address] [place] [address] AB HEPATITIS B [id number] 03:19:00* Test Item Value Reference Range Interpretation Comments AB HEPATITIS B CORE (test code = HBCAB) NON REACT. AB HEPATITIS A [id number] 02:39:00* Test Item Value Reference Range Interpretation Comments AB HEPATITIS A IGM (test code = HAVMAB) NON REACTIVE INDEX NON REAC T. AG HEPATITIS B [id number] 02:39:00* Test Item Value Reference Range Interpretation Comments AG HEPATITIS B SURFACE (test code = HBSAG) NON REACTIVE INDEX NonRe active AB HEPATITIS B CORE [id number] 02:39:00* Test Item Value Reference Range Interpretation Comments AB HEPATITIS B CORE IGM (test code = HBCMAB) NON REACTIVE INDEX NON REACT. AB HEPATITIS [id number] 02:39:00* Test Item Value Reference Range Interpretation Comments AB HEPATITIS C (test code = HCVAB) NON REACTIVE INDEX NON REACT. AB HEPATITIS A [id number] 02:38:00* Test Item Value Reference Range Interpretation Comments AB HEPATITIS A IGM (test code = HAVMAB) INDEX NON REACT. AG HEPATITIS B [id number] 02:38:00* Test Item Value Reference Range Interpretation Comments AG HEPATITIS B SURFACE (test code = HBSAG) NON REACTIVE INDEX NonRe active AB HEPATITIS B CORE [id number] 02:38:00* Test Item Value Reference Range Interpretation Comments AB HEPATITIS B CORE IGM (test code = HBCMAB) NON REACTIVE INDEX NON REACT. AB HEPATITIS [id number] 02:38:00* Test Item Value Reference Range Interpretation Comments AB HEPATITIS C (test code = HCVAB) NON REACTIVE INDEX NON REACT. AB HEPATITIS A [id number] 02:37:00* Test Item Value Reference Range Interpretation Comments AB HEPATITIS A IGM (test code = HAVMAB) INDEX NON REACT. AG HEPATITIS B [id number] 02:37:00* Test Item Value Reference Range Interpretation Comments AG HEPATITIS B SURFACE (test code = HBSAG) NON REACTIVE INDEX NonRe active AB HEPATITIS B CORE [id number] 02:37:00* Test Item Value Reference Range Interpretation Comments AB HEPATITIS B CORE IGM (test code = HBCMAB) INDEX NON REACT . AB HEPATITIS [id number] 02:37:00* Test Item Value Reference Range Interpretation Comments AB HEPATITIS C (test code = HCVAB) NON REACTIVE INDEX NON REACT. AB HEPATITIS A [id number] 02:12:00* Test Item Value Reference Range Interpretation Comments AB HEPATITIS A IGM (test code = HAVMAB) INDEX NON REACT. AG HEPATITIS B [id number] 02:12:00* Test Item Value Reference Range Interpretation Comments AG HEPATITIS B SURFACE (test code = HBSAG) NON REACTIVE INDEX NonRe active AB HEPATITIS B CORE [id number] 02:12:00* Test Item Value Reference Range Interpretation Comments AB HEPATITIS B CORE IGM (test code = HBCMAB) INDEX NON REACT . AB HEPATITIS [id number] 02:12:00* Test Item Value Reference Range Interpretation Comments AB HEPATITIS C (test code = HCVAB) INDEX NON REACT. [id number] 18:52:00* Test Item Value Reference Range Interpretation Comments GLUBED (test code = GLUBED) 187 mg/dL 70-110 H BASIC METABOLIC [id number] 14:13:00* Test Item Value Reference Range Interpretation [...] mg/dl 8.0-10.5 L NURSE DRAW CBC W/AUTO [id number] 13:59:00* Test Item Value Reference Range Interpretation [...] BA#) 0.0 K/mm3 0.0-0.2 N NURSE DRAW [id number] 12:19:00* Test Item Value Reference Range Interpretation Comments GLUBED (test code = GLUBED) 90 mg/dL 70-110 N [id number] 07:08:00* Test Item Value Reference Range Interpretation Comments GLUBED (test code = GLUBED) 123 mg/dL 70-110 H [id number] 04:32:00* Test Item Value Reference Range Interpretation Comments GLUBED (test code = GLUBED) 221 mg/dL 70-110 H [id number] 04:32:00* Test Item Value Reference Range Interpretation Comments GLUBED (test code = GLUBED) 231 mg/dL 70-110 H Novel Coronavirus 03:25:00* Test Item Value Reference Range Interpretation Comments Novel Coronavirus 2019 Inhouse (test code = [id number]) Negative Negative Positive results are indicative of the presence [id number] RNA, clinical correlation with patient historyand other [...] for the identification of SARS-CoV-2 RNA usingthe [employer] M2000 System under the FDA Emergency UseAuthorization. The testing is performed by personneltrained in the procedures for the [employer] M2000 moleculardiagnostic SARS-CoV-2 assay in vitro.Testing done at [address] [address] Testing Criteria: OtherOther: NEEDED FOR [id number] 23:53:00* Test Item Value Reference Range Interpretation Comments GLUBED (test code = GLUBED) 133 mg/dL 70-110 H Novel Coronavirus 23:28:00* Test Item Value Reference Range Interpretation Comments Novel Coronavirus 2019 Inhouse (test code = [id number]) Negative Negative Positive results are indicative of the presence ktNCHV-YwL-2 RNA, clinical correlation with patient historyand other [...] for the identification of SARS-CoV-2 RNA usingthe [employer] M2000 System under the FDA Emergency UseAuthorization. The testing is performed by personneltrained in the procedures for the [employer] M2000 moleculardiagnostic SARS-CoV-2 assay in vitro. Testing Criteria: OtherOther: NEEDED FOR [id number] 10:46:00* Test Item Value Reference Range Interpretation Comments GLUBED (test code = GLUBED) 120 mg/dL 70-110 H [id number] 06:58:00* Test Item Value Reference Range Interpretation Comments GLUBED (test code = GLUBED) 106 mg/dL 70-110 N D-DIMER/[id number] 06:15:00* Test Item Value Reference Range Interpretation Comments D-DIMER/FSP (test code = DDIMER) 1369 ng/mLFEU 0-500 HH Thrombosis and/or Pulmonary Embolism and the clinicalcut-off value for exclusion (500 ng/mL FEU) of theseconditions is validated by the material spreader of the method. A negative D- Dimer result when combined with a clinicalassessment of low pretest probability has been shown to havea high negative predictive value of DVT or PE. D-Dimer values >500 ng/mL FEU are not diagnostic for DVT,PE, or DIC without other confirmatory tests and appropriateclinical evaluations. NURSE DRAW [id number] 22:36:00* Test Item Value Reference Range Interpretation Comments GLUBED (test code = GLUBED) 166 mg/dL 70-110 H [id number] 16:55:00* Test Item Value Reference Range Interpretation Comments GLUBED (test code = GLUBED) 257 mg/dL 70-110 H COMPREHENSIVE METABOLIC [id number] 13:47:00* Test Item Value Reference Range Interpretation [...] 164 Units/L 50.0-136 .0 H NURSE DRAW [id number] 13:47:00* Test Item Value Reference Range Interpretation Comments MAGNESIUM (test code = MAG) 1.9 mg/dl 1.8-2.4 N NURSE DRAW CBC W/AUTO [id number] 13:30:00* Test Item Value Reference Range Interpretation [...] BA#) 0.0 K/mm3 0.0-0.2 N NURSE DRAW [id number] 12:45:00* Test Item Value Reference Range Interpretation Comments GLUBED (test code = GLUBED) 55 mg/dL 70-110 L [id number] 06:55:00* Test Item Value Reference Range Interpretation Comments GLUBED (test code = GLUBED) 113 mg/dL 70-110 H [id number] 22:55:00* Test Item Value Reference Range Interpretation Comments GLUBED (test code = GLUBED) 318 mg/dL 70-110 H [id number] 17:34:00* Test Item Value Reference Range Interpretation Comments GLUBED (test code = GLUBED) 109 mg/dL 70-110 N [id number] 12:14:00* Test Item Value Reference Range Interpretation Comments GLUBED (test code = GLUBED) 106 mg/dL 70-110 N [id number] 08:54:00* Test Item Value Reference Range Interpretation Comments GLUBED (test code = GLUBED) 159 mg/dL 70-110 H [id number] 22:50:00* Test Item Value Reference Range Interpretation Comments GLUBED (test code = GLUBED) 316 mg/dL 70-110 H AG [id number] 20:29:00* Test Item Value Reference Range Interpretation Comments AG CARCINOEMBRYONIC (test code = CEA) 4.8 ng/mL 0.0-4.7 H Nonsmokers <3.9 Smokers <5.6[employer]ostics Electrochemiluminescence Immunoassay(ECLIA)Values obtained with different assay methods or kitscannot be used interchangeably. Results cannot beinterpreted as absolute evidence of the presence orabsence of malignant disease.Performed At: [facility] [id number] Misael Morris MD Ph:[phone] NURSES DRAW [id number] 16:49:00* Test Item Value Reference Range Interpretation Comments GLUBED (test code = GLUBED) 95 mg/dL 70-110 N [id number] 13:29:00* Test Item Value Reference Range Interpretation Comments GLUBED (test code = GLUBED) 108 mg/dL 70-110 N [id number] 08:53:00* Test Item Value Reference Range Interpretation Comments GLUBED (test code = GLUBED) 126 mg/dL 70-110 H [id number] 22:45:00* Test Item Value Reference Range Interpretation Comments GLUBED (test code = GLUBED) 192 mg/dL 70-110 H [id number] 17:31:00* Test Item Value Reference Range Interpretation Comments GLUBED (test code = GLUBED) 123 mg/dL 70-110 H BASIC METABOLIC [id number] 14:53:00* Test Item Value Reference Range Interpretation [...] code = CA) 7.9 mg/dl 8.0-10.5 L [id number] 12:06:00* Test Item Value Reference Range Interpretation Comments GLUBED (test code = GLUBED) 134 mg/dL 70-110 H GASTRIC,[id number] 10:49:00 RUN DATE: 12/01/[address] [facility] - Lab PAGE 1 RUN TIME: 1049 Specimen Inqui ry RUN USER: INTERFACE PATIENT: BARBARA WARE ACCT #: [id number] LOC: EVI #: [id number] AGE/SX: 69/F ROOM: RE11/28/19REG DR: Chico Royal MD : 48 BED: DIS: STATUS: [facility] TLOC: SPEC #: [id number] RECD: 11/28/19 STATUS: [facility] #: [id number] SAL: 11/28/19- SUBM DR: Chico Royal MD ENTERED: 11/28/19 SP TYPE: GASTRIC BX OTHR DR: No Ana Lilia karissa or Family Physician Self ReferredORDERED: SPEC STAIN TARUN, GM LEVEL 4, IMMUNOHISTOCHEM, REQUEST COPIES TO: No Primary or Family Physician Self Referred Chico Royal MD [address] [facility] [address] [place] [address] OTHER PHONE [phone] (CELL) PROCEDURES: SPEC STAIN TARUN (11/29/19-1224) GM LEVEL 4 (11/29/19-1224) REQUEST (-1009) TISSUES: GASTRIC MUCOUS MEMBRANE - ANTRUM BX CLIN ICAL HISTORY Melena FINAL DIAGNOSIS GASTRIC ANTRUM BIOPSY: ANTRAL TYPE MUCOSA WITH MILD TO MODERATE CHRONIC GASTRITIS. NO INTESTINAL METAPLASIA. GIEMSA STAIN SHOWS STRUCTURES SUSPICIOUS FOR BACTERIA. AN H. PYLORI IMMUNOSTAIN WITH APPROPRIATE CONTROLS SHOWS NO BACTERIA. CPT CODE: 04854, 39746, [id number] MACROSCOPIC Specimen in formalin l abeled "biopsy antrum" consists of two pink fragments, 1 and 4 mm,one cassette. CONTINUED ON NEXT PAGE RUN DATE: 12/01/[address] [facility] - Lab P AGE 1 RUN TIME: 104 Specimen Inquiry RUN USER: INTERFACE SPEC #: [id number] PATIENT: BARBARA WARE #[id number] (Continued) MICROSCOPIC SEE DIAGNOSIS -- Signed SIGNATURE ON FILE Divine Ramon 0 12/01/19 1049 END OF REPORT CBC W/AUTO [id number] 08:24:00* Test Item Value Reference Range Interpretation [...] BA#) 0.1 K/mm3 0.0-0.2 N NURSE DRAW [id number] 07:10:00* Test Item Value Reference Range Interpretation Comments GLUBED (test code = GLUBED) 152 mg/dL 70-110 H [id number] 06:04:00* Test Item Value Reference Range Interpretation Comments GLUBED (test code = GLUBED) 160 mg/dL 70-110 H [id number] 00:32:00* Test Item Value Reference Range Interpretation Comments GLUBED (test code = GLUBED) 121 mg/dL 70-110 H [id number] 06:43:00* Test Item Value Reference Range Interpretation Comments GLUBED (test code = GLUBED) 214 mg/dL 70-110 H [id number] 23:02:00* Test Item Value Reference Range Interpretation Comments GLUBED (test code = GLUBED) 141 mg/dL 70-110 H BASIC METABOLIC [id number] 19:06:00* Test Item Value Reference Range Interpretation [...] mg/dl 8.0-10.5 L NURSE DRAW CBC W/AUTO [id number] 18:57:00* Test Item Value Reference Range Interpretation [...] BA#) 0.0 K/mm3 0.0-0.2 N NURSE DRAW [id number] 18:17:00* Test Item Value Reference Range Interpretation Comments GLUBED (test code = GLUBED) 146 mg/dL 70-110 H [id number] 13:07:00* Test Item Value Reference Range Interpretation Comments GLUBED (test code = GLUBED) 284 mg/dL 70-110 H [id number] 06:55:00* Test Item Value Reference Range Interpretation Comments GLUBED (test code = GLUBED) 145 mg/dL 70-110 H Novel Coronavirus 2019 [id number] 02:20:00* Test Item Value Reference Range Interpretation Comments Novel Coronavirus 2019 Inhouse (test code = COVNONPUI) Positive Negative A Novel Coronavirus 2019 [id number] 02:18:00* Test Item Value Reference Range Interpretation Comments Novel Coronavirus 2019 Inhouse (test code = COVNONPUI) Positive Negative A [id number] 23:20:00* Test Item Value Reference Range Interpretation Comments GLUBED (test code = GLUBED) 221 mg/dL 70-110 H [id number] 16:42:00* Test Item Value Reference Range Interpretation Comments GLUBED (test code = GLUBED) 198 mg/dL 70-110 H [id number] 11:59:00* Test Item Value Reference Range Interpretation Comments GLUBED (test code = GLUBED) 199 mg/dL 70-110 H [id number] 08:08:00* Test Item Value Reference Range Interpretation Comments GLUBED (test code = GLUBED) 173 mg/dL 70-110 H COMPREHENSIVE METABOLIC [id number] 06:25:00* Test Item Value Reference Range Interpretation [...] 50.0-136 .0 H NURSE DRAW CBC W/AUTO [id number] 05:50:00* Test Item Value Reference Range Interpretation [...] K/mm3 0.0-0.2 N NURSE DRAW COMPREHENSIVE METABOLIC [id number] 22:07:00* Test Item Value Reference Range Interpretation [...] 183 Units/L 50.0-136 .0 H NURSES DRAW [id number] 22:07:00* Test Item Value Reference Range Interpretation Comments MAGNESIUM (test code = MAG) 1.9 mg/dl 1.8-2.4 N NURSES DRAW CBC W/AUTO [id number] 21:54:00* Test Item Value Reference Range Interpretation [...] BA#) 0.0 K/mm3 0.0-0.2 N NURSES DRAW [id number] 18:10:00* Test Item Value Reference Range Interpretation Comments GLUBED (test code = GLUBED) 132 mg/dL 70-110 H [id number] 11:59:00* Test Item Value Reference Range Interpretation Comments GLUBED (test code = GLUBED) 160 mg/dL 70-110 H [id number] 07:53:00* Test Item Value Reference Range Interpretation Comments GLUBED (test code = GLUBED) 251 mg/dL 70-110 H [id number] 23:05:00* Test Item Value Reference Range Interpretation Comments GLUBED (test code = GLUBED) 204 mg/dL 70-110 H [id number] 17:20:00* Test Item Value Reference Range Interpretation Comments GLUBED (test code = GLUBED) 142 mg/dL 70-110 H [id number] 11:42:00* Test Item Value Reference Range Interpretation Comments GLUBED (test code = GLUBED) 270 mg/dL 70-110 H [id number] 07:16:00* Test Item Value Reference Range Interpretation Comments GLUBED (test code = GLUBED) 191 mg/dL 70-110 H [id number] 23:00:00* Test Item Value Reference Range Interpretation Comments GLUBED (test code = GLUBED) 186 mg/dL 70-110 H [id number] 16:54:00* Test Item Value Reference Range Interpretation Comments GLUBED (test code = GLUBED) 248 mg/dL 70-110 H [id number] 07:09:00* Test Item Value Reference Range Interpretation Comments GLUBED (test code = GLUBED) 207 mg/dL 70-110 H [id number] 23:10:00* Test Item Value Reference Range Interpretation Comments GLUBED (test code = GLUBED) 128 mg/dL 70-110 H [id number] 17:43:00* Test Item Value Reference Range Interpretation Comments GLUBED (test code = GLUBED) 155 mg/dL 70-110 H HGB [id number] 15:58:00* Test Item Value Reference Range Interpretation Comments HEMOGLOBIN (test code = HGB) 6.8 gm/dL 12.0-16.0 LL HEMATOCRIT (test code = HCT) 21.2 % 36.0-48.0 LL CBC W/AUTO [id number] 14:36:00* Test Item Value Reference Range Interpretation [...] BA#) 0.0 K/mm3 0.0-0.2 N BASIC METABOLIC [id number] 14:02:00* Test Item Value Reference Range Interpretation [...] code = CA) 7.6 mg/dl 8.0-10.5 L [id number] 12:35:00* Test Item Value Reference Range Interpretation Comments GLUBED (test code = GLUBED) 218 mg/dL 70-110 H [id number] 10:44:00* Test Item Value Reference Range Interpretation Comments GLUBED (test code = GLUBED) 255 mg/dL 70-110 H [id number] 00:30:00* Test Item Value Reference Range Interpretation Comments GLUBED (test code = GLUBED) 199 mg/dL 70-110 H [id number] 16:45:00* Test Item Value Reference Range Interpretation Comments GLUBED (test code = GLUBED) 155 mg/dL 70-110 H [id number] 11:53:00* Test Item Value Reference Range Interpretation Comments GLUBED (test code = GLUBED) 240 mg/dL 70-110 H [id number] 06:41:00* Test Item Value Reference Range Interpretation Comments GLUBED (test code = GLUBED) 250 mg/dL 70-110 H [id number] 03:17:00* Test Item Value Reference Range Interpretation Comments GLUBED (test code = GLUBED) 275 mg/dL 70-110 H [id number] 23:01:00* Test Item Value Reference Range Interpretation Comments GLUBED (test code = GLUBED) 323 mg/dL 70-110 H VITAMIN [id number] 17:24:00* Test Item Value Reference Range Interpretation Comments VITAMIN B12 (test code = VITB12) 1312 pg/mL 193-986 H NURSES DRAW THYROID STIMULATING [id number] 17:24:00* Test Item Value Reference Range Interpretation Comments THYROID STIMULATING HORMONE (test code = TSH) 1.74 IU/ML 0.47-5.0 1 N Result is in International Units/milliliter NURSES DRAW COMPREHENSIVE METABOLIC [id number] 17:23:00* Test Item Value Reference Range Interpretation [...] 50.0-136 .0 H NURSES DRAW Specimen comments: .[id number] 17:23:00* Test Item Value Reference Range Interpretation Comments MAGNESIUM (test code = MAG) 2.0 mg/dl 1.8-2.4 N NURSES DRAW Specimen comments: .[id number] 17:17:00* Test Item Value Reference Range Interpretation Comments GLUBED (test code = GLUBED) 226 mg/dL 70-110 H CBC W/AUTO [id number] 16:43:00* Test Item Value Reference Range Interpretation [...] BA#) 0.0 K/mm3 0.0-0.2 N NURSES DRAW [id number] 12:39:00* Test Item Value Reference Range Interpretation Comments GLUBED (test code = GLUBED) 142 mg/dL 70-110 H [id number] 07:53:00* Test Item Value Reference Range Interpretation Comments GLUBED (test code = GLUBED) 235 mg/dL 70-110 H [id number] 23:47:00* Test Item Value Reference Range Interpretation Comments GLUBED (test code = GLUBED) 134 mg/dL 70-110 H [id number] 18:54:00* Test Item Value Reference Range Interpretation Comments GLUBED (test code = GLUBED) 136 mg/dL 70-110 H [id number] 15:32:00* Test Item Value Reference Range Interpretation Comments GLUBED (test code = GLUBED) 260 mg/dL 70-110 H [id number] 08:47:00* Test Item Value Reference Range Interpretation Comments ZWGBZ50Pbgvedtn (test code = HOENK90Yadlkjzk) POSITIVE Negative A Note: this entry is for TRACKING purposes only and the testwas done outside [facility], the performing entity isfound in specimen comments.Note: this entry is for TRACKING purposes only and the testwas done outside [facility], the performing entity isfound in specimen comments. [facility]Patient's account number fro m transferring facility: [id number] patient's current lab results are: Posi [id number] 07:58:00* Test Item Value Reference Range Interpretation Comments GLUBED (test code = GLUBED) 233 mg/dL 70-110 H [id number] 18:26:00* Test Item Value Reference Range Interpretation Comments GLUBED (test code = GLUBED) 149 mg/dL 70-110 H BASIC METABOLIC [id number] 08:09:00* Test Item Value Reference Range Interpretation [...] mg/dl 8.0-10.5 N NURSES DRAW CBC W/AUTO [id number] 07:22:00* Test Item Value Reference Range Interpretation [...] K/mm3 0.0-0.2 N NURSES DRAW CBC W/AUTO [id number] 06:45:00* Test Item Value Reference Range Interpretation [...] BA#) 0.0 K/mm3 0.0-0.2 N BASIC METABOLIC [id number] 06:36:00* Test Item Value Reference Range Interpretation [...] CA) 8.4 mg/dl 8.0-10.5 N ACUTE HEPATITIS [id number] 20:56:00* Test Item Value Reference Range Interpretation Comments AB HEPATITIS A IGM (test code = HAVMAB) NON REACTIVE INDEX NON REAC T. Testing done at [facility] [address] [place] [id number] AB HEPATITIS B SURFACE (test code = HBSAB) 152.3 mIU/mL Immunity>9. 9 Status of Immunity Anti-HBs Level Inconsistent with Immunity 0.0 - 9.9Consistent with Immunity >9.9TEST PERFORMED AT [facility] [address] AG HEPATITIS B SURFACE (test code = HBSAG) NON REACTIVE INDEX NonRe active Testing done at [facility] [address] [place] [address] AB HEPATITIS B CORE IGM (test code = HBCMAB) NON REACTIVE INDEX NON REACT. Testing done at [facility] [address] [place] [address] AB HEPATITIS C (test code = HCVAB) NON REACTIVE INDEX NON REACT. Testing done at [facility] [address] [place] [address] AB HEPATITIS B [id number] 20:56:00* Test Item Value Reference Range Interpretation Comments AB HEPATITIS B CORE (test code = HBCAB) Negative Negative Performed At: [facility] [address] [id number] Kyle L MD Ph:[phone] BASIC METABOLIC [id number] 09:12:00* Test Item Value Reference Range Interpretation [...] CA) 8.3 mg/dl 8.0-10.5 N CBC W/AUTO [id number] 09:01:00* Test Item Value Reference Range Interpretation [...] BA#) 0.0 K/mm3 0.0-0.2 N COMPREHENSIVE METABOLIC [id number] 12:52:00* Test Item Value Reference Range Interpretation [...] = ALKP) 159 Units/L 50.0-136 .0 H [id number] 12:52:00* Test Item Value Reference Range Interpretation Comments MAGNESIUM (test code = MAG) 1.8 mg/dl 1.8-2.4 N D-DIMER/[id number] 12:38:00* Test Item Value Reference Range Interpretation Comments D-DIMER/FSP (test code = DDIMER) 856 ng/mL 200.0-230.0 H Per material spreader recommendation, the CUT OFFfor the Diagnosis of [...] comments: PLEASE DRAW WITH AM LABSComments to Security Strategist: DRAW WITH A M LABSCBC W/AUTO [id number] 12:27:00* Test Item Value Reference Range Interpretation [...] BA#) 0.0 K/mm3 0.0-0.2 N ACUTE HEPATITIS [id number] 08:19:00* Test Item Value Reference Range Interpretation Comments AB HEPATITIS A IGM (test code = HAVMAB) NON REACTIVE INDEX NON REAC T. Testing done at [facility] [address] [place] [address] AB HEPATITIS B SURFACE (test code = HBSAB) mIU/mL Immune >9.9 AG HEPATITIS B SURFACE (test code = HBSAG) NON REACTIVE INDEX NonRe active Testing done at [facility] [address] [place] [address] AB HEPATITIS B CORE IGM (test code = HBCMAB) NON REACTIVE INDEX NON REACT. Testing done at [facility] [address] [place] [address] AB HEPATITIS C (test code = HCVAB) NON REACTIVE INDEX NON REACT. Testing done at [facility] [address] [place] [address] AB HEPATITIS B [id number] 08:19:00* Test Item Value Reference Range Interpretation Comments AB HEPATITIS B CORE (test code = HBCAB) NON REACT. AB HEPATITIS A [id number] 03:31:00* Test Item Value Reference Range Interpretation Comments AB HEPATITIS A IGM (test code = HAVMAB) NON REACTIVE INDEX NON REAC T. AG HEPATITIS B [id number] 03:31:00* Test Item Value Reference Range Interpretation Comments AG HEPATITIS B SURFACE (test code = HBSAG) NON REACTIVE INDEX NonRe active AB HEPATITIS B CORE [id number] 03:31:00* Test Item Value Reference Range Interpretation Comments AB HEPATITIS B CORE IGM (test code = HBCMAB) NON REACTIVE INDEX NON REACT. AB HEPATITIS [id number] 03:31:00* Test Item Value Reference Range Interpretation Comments AB HEPATITIS C (test code = HCVAB) NON REACTIVE INDEX NON REACT. AB HEPATITIS A [id number] 02:30:00* Test Item Value Reference Range Interpretation Comments AB HEPATITIS A IGM (test code = HAVMAB) INDEX NON REACT. AG HEPATITIS B [id number] 02:30:00* Test Item Value Reference Range Interpretation Comments AG HEPATITIS B SURFACE (test code = HBSAG) NON REACTIVE INDEX NonRe active AB HEPATITIS B CORE [id number] 02:30:00* Test Item Value Reference Range Interpretation Comments AB HEPATITIS B CORE IGM (test code = HBCMAB) INDEX NON REACT . AB HEPATITIS [id number] 02:30:00* Test Item Value Reference Range Interpretation Comments AB HEPATITIS C (test code = HCVAB) INDEX NON REACT. [id number] 12:52:00* Test Item Value Reference Range Interpretation Comments GLUBED (test code = GLUBED) 208 mg/dL 70-110 H [id number] 12:52:00* Test Item Value Reference Range Interpretation Comments GLUBED (test code = GLUBED) 213 mg/dL 70-110 H [id number] 10:06:00* Test Item Value Reference Range Interpretation Comments LYOZW17Dcigfsxc (test code = MVKWM00Dvgchunx) POSITIVE Negative A Note: this entry is for TRACKING purposes only and the testwas done outside [facility], the performing entity isfound in specimen comments.Note: this entry is for TRACKING purposes only and the testwas done outside [facility], the performing entity isfound in specimen comments. The test was performed at: [facility]: 11/08/19Patient's account number fro m transferring facility: [id number] patient's current lab results are: Posi tiveCBC W/AUTO [id number] 03:54:00* Test Item Value Reference Range Interpretation [...] = PLTEST) ADQ - XR CHEST 1 [id number] 02:32:00 FAX: Mike Maravilla [phone] [place]: St: REG Name: BARBARA CRUZ [facility] : [birth year] Age/S: 69/F [address] Unit #: [id number] Loc: [place], [place]: [place] [address] Acct: [id number] Dis Date: Status: REG ER PHONE #: [phone] Exam Date: 11/16/2019 0201 FAX #: [phone] Reason: SOB EXAMS: CPT CODE: [id number] XR CHEST 1 V 50336 Exam: Chest portable erect Location: H 12 [...] Trnscrd Date/T laurie/By: 11/16/2019 (0232) : By: Sonja PAGE 1 Signed Report FAX: Mike Maravilla [phone] [place]: St: REG Name: BARBARA WARE [facility] : 1950 Age/S: 69/F [address] Unit #: [id number] Loc: [facility] ex [place]: [place] [address] Acct: [id number] Dis Date: Status: REG ER PHONE #: [phone] Exam Date: 11/16/2019 020 FAX #: [phone] Reason: SOB EXAMS: CPT CODE: [id number] XR CHEST 1 V 08802 <Continued> Orig Print D/T: S: 11/16/2019 (0235) PAGE 2 Signed Report BASIC METABOLIC [id number] 02:03:00* Test Item Value Reference Range Interpretation [...] 7.5 mg/dl 8.0-10.5 L HEPATIC FUNCTION PANEL [id number] 02:03:00* Test Item Value Reference Range Interpretation [...] = ALKP) 140 Units/L 50.0-136 .0 H [id number] 02:03:00* Test Item Value Reference Range Interpretation Comments MAGNESIUM (test code = MAG) 2.0 mg/dl 1.8-2.4 N B-TYPE NATRIURETIC [id number] 02:03:00* Test Item Value Reference Range Interpretation Comments B-TYPE NATRIURETIC PEPTIDE (test code = BNP) 2250 PG/ML 5-100 H [id number] 02:03:00* Test Item Value Reference Range Interpretation Comments TROPONIN-I (test code = TROPI) 0.02 NG/ML 0.00-0.06 N REFERENCE RANGE TROPONIN I HEALTHY INDIVIDUALS: <0.06 ng/mL R/O ISCHEMIA: 0.07 - 0.60 ng/mL CUT-OFF RANGE FOR AMI: 0.60 - 1.5 ng/mL BASIC METABOLIC [id number] 01:59:00* Test Item Value Reference Range Interpretation [...] 7.5 mg/dl 8.0-10.5 L HEPATIC FUNCTION PANEL [id number] 01:59:00* Test Item Value Reference Range Interpretation [...] = ALKP) 140 Units/L 50.0-136 .0 H [id number] 01:59:00* Test Item Value Reference Range Interpretation Comments MAGNESIUM (test code = MAG) 2.0 mg/dl 1.8-2.4 N B-TYPE NATRIURETIC [id number] 01:59:00* Test Item Value Reference Range Interpretation Comments B-TYPE NATRIURETIC PEPTIDE (test code = BNP) 2250 PG/ML 5-100 H [id number] 01:59:00* Test Item Value Reference Range Interpretation Comments TROPONIN-I (test code = TROPI) 0.02 NG/ML 0.00-0.06 N REFERENCE RANGE TROPONIN I HEALTHY INDIVIDUALS: <0.06 ng/mL R/O ISCHEMIA: 0.07 - 0.60 ng/mL CUT-OFF RANGE FOR AMI: 0.60 - 1.5 ng/mL BASIC METABOLIC [id number] 01:59:00* Test Item Value Reference Range Interpretation [...] 7.5 mg/dl 8.0-10.5 L HEPATIC FUNCTION PANEL [id number] 01:59:00* Test Item Value Reference Range Interpretation [...] = ALKP) 140 Units/L 50.0-136 .0 H [id number] 01:59:00* Test Item Value Reference Range Interpretation Comments MAGNESIUM (test code = MAG) 2.0 mg/dl 1.8-2.4 N B-TYPE NATRIURETIC [id number] 01:59:00* Test Item Value Reference Range Interpretation Comments B-TYPE NATRIURETIC PEPTIDE (test code = BNP) 2250 PG/ML 5-100 H [id number] 01:59:00* Test Item Value Reference Range Interpretation Comments TROPONIN-I (test code = TROPI) 0.02 NG/ML 0.00-0.06 N REFERENCE RANGE TROPONIN I HEALTHY INDIVIDUALS: <0.06 ng/mL R/O ISCHEMIA: 0.07 - 0.60 ng/mL CUT-OFF RANGE FOR AMI: 0.60 - 1.5 ng/mL PROTHROMBIN [id number] 01:55:00* Test Item Value Reference Range Interpretation [...] 3.5 Is patient on anticoagulants? NBASIC METABOLIC [id number] 01:54:00* Test Item Value Reference Range Interpretation [...] 7.5 mg/dl 8.0-10.5 L HEPATIC FUNCTION PANEL [id number] 01:54:00* Test Item Value Reference Range Interpretation [...] = ALKP) 140 Units/L 50.0-136 .0 H [id number] 01:54:00* Test Item Value Reference Range Interpretation Comments MAGNESIUM (test code = MAG) 2.0 mg/dl 1.8-2.4 N B-TYPE NATRIURETIC [id number] 01:54:00* Test Item Value Reference Range Interpretation Comments B-TYPE NATRIURETIC PEPTIDE (test code = BNP) PG/ML 5-100 [id number] 01:54:00* Test Item Value Reference Range Interpretation Comments TROPONIN-I (test code = TROPI) 0.02 NG/ML 0.00-0.06 N REFERENCE RANGE TROPONIN I HEALTHY INDIVIDUALS: <0.06 ng/mL R/O ISCHEMIA: 0.07 - 0.60 ng/mL CUT-OFF RANGE FOR AMI: 0.60 - 1.5 ng/mL [id number] 01:49:00* Test Item Value Reference Range Interpretation Comments PHOSPHOROUS (test code = PHOS) 4.7 mg/dl 2.5-4.9 N CBC W/AUTO [id number] 01:37:00* Test Item Value Reference Range Interpretation [...] code = BA#) 0.0 K/mm3 0.0-0.2 N [id number] 05:51:00* Test Item Value Reference Range Interpretation Comments GLUBED (test code = GLUBED) 286 mg/dL 70-110 H [id number] 16:19:00* Test Item Value Reference Range Interpretation Comments GLUBED (test code = GLUBED) 252 mg/dL 70-110 H [id number] 16:18:00* Test Item Value Reference Range Interpretation Comments GLUBED (test code = GLUBED) 239 mg/dL 70-110 H [id number] 16:18:00* Test Item Value Reference Range Interpretation Comments GLUBED (test code = GLUBED) 109 mg/dL 70-110 N [id number] 16:18:00* Test Item Value Reference Range Interpretation Comments GLUBED (test code = GLUBED) 285 mg/dL 70-110 H [id number] 16:18:00* Test Item Value Reference Range Interpretation Comments GLUBED (test code = GLUBED) 238 mg/dL 70-110 H ACUTE HEPATITIS [id number] 23:13:00* Test Item Value Reference Range Interpretation Comments AB HEPATITIS A IGM (test code = HAVMAB) NON REACTIVE INDEX NON REAC T. Testing done at [facility] [address] [place] [address] AB HEPATITIS B SURFACE (test code = HBSAB) 219.1 mIU/mL Immunity>9. 9 Status of Immunity Anti-HBs Level Inconsistent with Immunity 0.0 - 9.9Consistent with Immunity >9.9TEST PERFORMED AT [facility] [address] AG HEPATITIS B SURFACE (test code = HBSAG) NON REACTIVE INDEX NonRe active Testing done at [facility] [address] [place] [address] AB HEPATITIS B CORE IGM (test code = HBCMAB) NON REACTIVE INDEX NON REACT. Testing done at [facility] [address] [place] [address] AB HEPATITIS C (test code = HCVAB) NON REACTIVE INDEX NON REACT. Testing done at [facility] [address] [place] [address] AB HEPATITIS B [id number] 23:13:00* Test Item Value Reference Range Interpretation Comments AB HEPATITIS B CORE (test code = HBCAB) Negative Negative Performed At: [facility] [address] [id number] Kyle L MD Ph:[phone] [id number] 12:52:00* Test Item Value Reference Range Interpretation Comments HGBA1C% (test code = HGBA1C%) 8.9 %A1C 4.8-6.0 H ESTIMATED AVERAGE GLUCOSE (test code = EAG) 209 MG/DL BASIC METABOLIC [id number] 12:51:00* Test Item Value Reference Range Interpretation [...] CA) 7.4 mg/dl 8.0-10.5 L CBC W/AUTO [id number] 12:41:00* Test Item Value Reference Range Interpretation [...] code = BA#) 0.0 K/mm3 0.0-0.2 N D-DIMER/[id number] 11:54:00* Test Item Value Reference Range Interpretation Comments D-DIMER/FSP (test code = DDIMER) 649 ng/mL 200.0-230.0 H Per material spreader recommendation, the CUT OFFfor the Diagnosis of PE or DVT with a 100% SENSITIVITY &100% PREDICTIVE VALUE is suggested to be 230 ng/mL D- DIMERUNIT(DDU). D-DIMER RESULTS MAY BE AFFECTED BY:1. HEMOGLOBIN > 100 mg/dL2. BILIRUBIN > 10 mg/dL3. TRIGLYCERIDES > 1500 mg/dL4. The presence of RHEUMATIOID FACTOR may produce an overestimation of the test result. CBC W/AUTO [id number] 11:42:00* Test Item Value Reference Range Interpretation [...] 0.0-0.2 N NOT DRAWN BY DIALYSIS. AT [address] [place] [address] HEPATITIS [id number] 08:20:00* Test Item Value Reference Range Interpretation Comments AB HEPATITIS A IGM (test code = HAVMAB) NON REACTIVE INDEX NON REAC T. Testing done at [facility] [address] [place] [address]. [place] [address] AB HEPATITIS B SURFACE (test code = HBSAB) mIU/mL Immune >9.9 AG HEPATITIS B SURFACE (test code = HBSAG) NON REACTIVE INDEX NonRe active Testing done at [facility] [address] [place] [address]. [place] [address] AB HEPATITIS B CORE IGM (test code = HBCMAB) NON REACTIVE INDEX NON REACT. Testing done at [facility] [address] [place] [address]. [place] [id number] AB HEPATITIS C (test code = HCVAB) NON REACTIVE INDEX NON REACT. Testing done at [facility] [address] [place] [address]. [place] [id number] AB HEPATITIS B [id number] 08:20:00* Test Item Value Reference Range Interpretation Comments AB HEPATITIS B CORE (test code = HBCAB) NON REACT. AB HEPATITIS A [id number] 03:11:00* Test Item Value Reference Range Interpretation Comments AB HEPATITIS A IGM (test code = HAVMAB) NON REACTIVE INDEX NON REAC T. AG HEPATITIS B [id number] 03:11:00* Test Item Value Reference Range Interpretation Comments AG HEPATITIS B SURFACE (test code = HBSAG) NON REACTIVE INDEX NonRe active AB HEPATITIS B CORE [id number] 03:11:00* Test Item Value Reference Range Interpretation Comments AB HEPATITIS B CORE IGM (test code = HBCMAB) NON REACTIVE INDEX NON REACT. AB HEPATITIS [id number] 03:11:00* Test Item Value Reference Range Interpretation Comments AB HEPATITIS C (test code = HCVAB) NON REACTIVE INDEX NON REACT. AB HEPATITIS A [id number] 02:42:00* Test Item Value Reference Range Interpretation Comments AB HEPATITIS A IGM (test code = HAVMAB) INDEX NON REACT. AG HEPATITIS B [id number] 02:42:00* Test Item Value Reference Range Interpretation Comments AG HEPATITIS B SURFACE (test code = HBSAG) NON REACTIVE INDEX NonRe active AB HEPATITIS B CORE [id number] 02:42:00* Test Item Value Reference Range Interpretation Comments AB HEPATITIS B CORE IGM (test code = HBCMAB) INDEX NON REACT . AB HEPATITIS [id number] 02:42:00* Test Item Value Reference Range Interpretation Comments AB HEPATITIS C (test code = HCVAB) INDEX NON REACT. BASIC METABOLIC [id number] 15:23:00* Test Item Value Reference Range Interpretation [...] code = CA) 7.5 mg/dl 8.0-10.5 L [id number] 08:11:00* Test Item Value Reference Range Interpretation Comments KSGFQ40Oalbzswc (test code = JNSJO06Glmmmljz) POSITIVE Negative A Note: this entry is for TRACKING purposes only and the testwas done outside [facility], the performing entity isfound in specimen comments.Note: this entry is for TRACKING purposes only and the testwas done outside [facility], the performing entity isfound in specimen comments. The test was performed at: [facility]: 11/08/19Patient's account number fro m transferring facility: [id number] patient's current lab results are: Posi tiveCBC W/AUTO [id number] 05:25:00* Test Item Value Reference Range Interpretation [...] K/mm3 0.0-0.2 N NURSES DRAW BASIC METABOLIC [id number] 05:25:00* Test Item Value Reference Range Interpretation [...] mg/dl 8.0-10.5 L NURSES DRAW STREPTOCOCCUS PCR [id number] 01:44:00* Test Item Value Reference Range Interpretation Comments STREPTOCOCCUS DYSGALACTIAE (test code = STREPGC) NEGATIVE FOR G/C N EGATIVE STREPA MOLECULAR (test code = STREPAMOL) NEGATIVE FOR GRP A NEGATIV E LACTIC [id number] 17:50:00* Test Item Value Reference Range Interpretation Comments LACTIC ACID (test code = LACT) 1.1 MMOL/L 0.4-1.9 N COMPREHENSIVE METABOLIC [id number] 17:47:00* Test Item Value Reference Range Interpretation [...] ALKP) 164 U/L 38-126 H COMPREHENSIVE METABOLIC [id number] 17:42:00* Test Item Value Reference Range Interpretation [...] code = ALKP) IUnit/L 45-117 CBC W/AUTO [id number] 17:33:00* Test Item Value Reference Range Interpretation [...] code = MDIFF) NO Coronavirus 2018 nCoV [id number] 16:38:00* Test Item Value Reference Range Interpretation Comments Coronavirus 2019 nCoV Bedside (test code = ERJAM69FUJED) Positive Is patient requiring admission or transfer? 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 Location code: [facility] at 1616 Reported and signed by: Dani Meléndez M.D. CC: Annel Stringer MD; Nell Quinonez MD Technologist: CANDELARIA ALLRED, RT(R),CT Trnscrpt Data: 11/08/2019 (1616) Steffany.GRW Orig Print D/T: S: 11/08/2019 (7907) PAGE 1 Signed Report BASIC METABOLIC [id number] 10:34:00* Test Item Value Reference Range Interpretation [...] CA) 8.9 mg/dL 8.5-10.1 N CBC W/AUTO [id number] 10:29:00* Test Item Value Reference Range Interpretation [...] = MDIFF) NO, ONLY SCAN NEEDED DIFFERENTIAL [id number] 10:29:00* Test Item Value Reference Range Interpretation Comments STAIN ACCEPTABILITY (test code = STN ACCEPTABLE) STAIN ACCEPTABLE POIKILOCYTOSIS (test code = POIK) 1+ ANISOCYTOSIS (test code = ANISO) 1+ MICROCYTOSIS (test code = MICR) 1+ PLATELET ESTIMATE (test code = PLTEST) SLIGHTLY DECREASED PLATELET MORPHOLOGY (test code = PLTMORPH) SIZE VARIABLE BASIC METABOLIC [id number] 10:17:00* Test Item Value Reference Range Interpretation [...] code = CA) mg/dL 8.5-10.1 CBC W/AUTO [id number] 09:47:00* Test Item Value Reference Range Interpretation [...] = MDIFF) NO, ONLY SCAN NEEDED DIFFERENTIAL [id number] 09:47:00* Test Item Value Reference Range Interpretation Comments STAIN ACCEPTABILITY (test code = STN ACCEPTABLE) CABOT RINGS (test code = CAB) MORPHOLOGY COMMENT (test code = MOC) PLATELET ESTIMATE (test code = PLTEST) PLATELET MORPHOLOGY (test code = PLTMORPH) CBC W/AUTO [id number] 09:47:00* Test Item Value Reference Range Interpretation [...] = MDIFF) NO, ONLY SCAN NEEDED DIFFERENTIAL [id number] 09:47:00* Test Item Value Reference Range Interpretation Comments STAIN ACCEPTABILITY (test code = STN ACCEPTABLE) CABOT RINGS (test code = CAB) MORPHOLOGY COMMENT (test code = MOC) PLATELET ESTIMATE (test code = PLTEST) PLATELET MORPHOLOGY (test code = PLTMORPH) CBC W/AUTO [id number] 09:47:00* Test Item Value Reference Range Interpretation [...] = MDIFF) NO, ONLY SCAN NEEDED DIFFERENTIAL [id number] 09:47:00* Test Item Value Reference Range Interpretation Comments STAIN ACCEPTABILITY (test code = STN ACCEPTABLE) MORPHOLOGY COMMENT (test code = MOC) PLATELET ESTIMATE (test code = PLTEST) PLATELET MORPHOLOGY (test code = PLTMORPH) CBC W/AUTO [id number] 09:47:00* Test Item Value Reference Range Interpretation [...] = MDIFF) NO, ONLY SCAN NEEDED DIFFERENTIAL [id number] 09:47:00* Test Item Value Reference Range Interpretation Comments STAIN ACCEPTABILITY (test code = STN ACCEPTABLE) CABOT RINGS (test code = CAB) MORPHOLOGY COMMENT (test code = MOC) PLATELET ESTIMATE (test code = PLTEST) PLATELET MORPHOLOGY (test code = PLTMORPH) AB HEPATITIS B [id number] 07:35:00* Test Item Value Reference Range Interpretation Comments AB HEPATITIS B SURFACE (test code = HBSAB) Reactive () Non Reactive: Inconsistent with immunity, less than 10 mIU/mL Reactive: Consistent with immunity, greater than 9.9 mIU/mLPerformed At: [facility] [address] [id number] Misael Morris MD Ph:[phone] [id number] 03:54:00* Test Item Value Reference Range Interpretation Comments GLUBED (test code = GLUBED) 292 mg/dL 74-106 H Performed by certified bias machine operator at [facility] [id number] 22:16:00* Test Item Value Reference Range Interpretation Comments GLUBED (test code = GLUBED) 257 mg/dL 74-106 H Performed by certified bias machine operator at [facility] [id number] 18:04:00* Test Item Value Reference Range Interpretation Comments GLUBED (test code = GLUBED) 177 mg/dL 74-106 H Performed by certified bias machine operator at [facility] BASIC METABOLIC [id number] 17:42:00* Test Item Value Reference Range Interpretation [...] CA) 9.2 mg/dL 8.5-10.1 N BASIC METABOLIC [id number] 17:28:00* Test Item Value Reference Range Interpretation [...] CA) 9.2 mg/dL 8.5-10.1 N BASIC METABOLIC [id number] 17:15:00* Test Item Value Reference Range Interpretation [...] CA) 9.2 mg/dL 8.5-10.1 N BASIC METABOLIC [id number] 17:09:00* Test Item Value Reference Range Interpretation [...] = CA) mg/dL 8.5-10.1 AG HEPAT B [id number] 12:28:00* Test Item Value Reference Range Interpretation Comments AG HEPAT B SURF (test code = HBSAG) Nonreactive Index Nonreactive BASIC METABOLIC [id number] 11:25:00* Test Item Value Reference Range Interpretation Comments SODIUM (test code = NA) 127 mmol/L 136-145 L POTASSIUM (test code = K) 7.5 mmol/L 3.5-5.1 [facility] to [place] [id number] V.LAB.OA 08/22/19 1125Critical results verified and read [...] code = CA) 8.3 mg/dL 8.5-10.1 L [id number] 11:25:00* Test Item Value Reference Range Interpretation Comments TROPONIN-I (test code = TROPI) <0.015 ng/mL 0-0.045 N CBC W/O [id number] 10:27:00* Test Item Value Reference Range Interpretation [...] K/mm3 150-450 L - XR CHEST 1 [id number] 10:12:00 FAX: Dulce Obando MD [phone] [place]: St: [facility] FAX: Gretchen Gilmore DO Name: BARBARA WARE [facility] : 1950 Age/S: 69/F [address] [facility] Unit #: [id number] Loc: [place] [address] Phys: Gretchen Gilmore DO Acct: [id number] Dis Date: Status: REG ER PHONE #: [phone] Exam Date: 08/22/2019 1007 FAX #: [phone] Reason: CHEST PAIN EXAMS: CPT CODE: [id number] XR CHEST 1 V 05722 REASON FOR EXAM: CHEST PAIN Exam Order Date: 08/22/2019 9:05 AM Ordering Nael: Gretchen Gilmore DO PROCEDURE: - XR CHEST [...] or significant change from prior exam. Location: [facility] Electronically Signed by Rob Romero MD on 08/22 at 1012 Reported and signed by: Rob Romero MD CC: Dulce Mcdonald MD; Gretchen Gilmore DO Technologist: RT SHARON(R) Trnscrd Date/Time/By: 08/22 (1012) : By: [email or web address] Orig Print D/T: S: 08/22/2019 (1015) PAGE 1 Signed Report - CTA ABD AORTA IF LWEX [id number] 15:03:00 Name: BARBARA WARE [facility] : 1950 Age/S: 68 / F [address] [place] [address] Blvd Unit #: [id number] Loc: [place] [address] Phys: Paulino Cavanaugh MD Acct: [id number] Dis Date: Status: REG CLI PHONE #: [phone] Exam Date: 07/26/2019956 FAX #: [phone] Reason: I70.223,ARTHEROSCLEROSIS OF [place] ARTERIES OF EXAMS: CPT CODE: [id number] [place] [address] ABDOMEN AND BILATERAL LOWER EXTREMITY RUNOFF CT ANGIOGRAM WITH IV CONTRAST AND MULTIPLANAR REFORMATS AND 3-D RECONSTRUCTIONS 07/26/2019. MEDICAL HISTORY: Bilateral leg pain. Atherosclerosis of [place] arteries of extremities. COMPARISON STUDIES: None relevant. [...] Signed Report (CONTINUED) Na me: BARBARA WARE [facility] : Age/S: 68 / F [address] [place] [address] Blvd Unit #: [id number] Loc: [place] [address] Phys: Paulino Cavanaugh MD Acct: [id number] Dis Da te: Status: REG CLI PHONE #: [phone] Exam Date: 07/26/2019 0957 FAX #: [phone] Reason: I70.223,ARTHEROSCLEROSIS OF [place] ARTERIES OF EXAMS: CPT CODE: [id number] [place] [address] <Continued> canal and roughly 20% multilevel segmental [...] PAGE 2 Signed Report (CONT INUED) Name: BARBARA WARE [facility] : 1950 Age/S: 68 / F [address] [place], [place] [address]vd Unit #: [id number] Loc: [place] [address] Phys: Paulino Luong MD Acct: [id number] Dis Date: Status: REG CLI LUZ NE #: [phone] Exam Date: 07/26/2019 0957 FAX #: Reason: I70.223,ARTHEROSCLEROSIS OF [place] ARTERIES OF EXAM S: CPT CODE: [id number] [place] [address] <Continued> SL: ER-H at 1503 Reported and signed by: Philip Pardo M.D. CC: Paulino Cavanaugh MD; Dulce Mcdonald MD Technologist:Ayo Dent, RT(R) CTDI: DLP: Trnscb Date/Time: 07/26/2019 (1503) [email or web address] Orig Print D/T: S: 07/26/2019 (7926) PAGE 3 Signed Report Bedside [id number] 21:19:00* Test Item Value Reference Range Interpretation Comments Bedside Glucose (test code = 49421-4) 218 70-120 H Meter ID: [id number] [facility] 19:29:00* Test Item Value Reference Range Interpretation Comments Hemoglobin (test code = 29132-1) 8.9 12.0-16.0 L [facility]neyHematocrit2019-10-10 19:29:00* Test Item Value Reference Range Interpretation Comments Hematocrit (test code = 4544-3) 28.9 34.2-44.1 L [facility] Aeyjr9725-10-80 16:00:00* Test Item Value Reference Range Interpretation Comments Sodium Level (test code = 2951-2) 133 136-145 L [facility]neyPotassium [id number] 16:00:00* Test Item Value Reference Range Interpretation Comments Potassium Level (test code = 2823-3) 5.6 3.5-5.1 H NO HEMOLYSIS PRESENTBaylor Scott & [facility] – McKinneyChloride Level 2019-04-12 16:00:00* Test Item Value Reference Range Interpretation Comments Chloride Level (test code = 2075-0) 92 98-107 L [facility] McKinneyCarbon Dioxide [id number] 16:00:00* Test Item Value Reference Range Interpretation Comments Carbon Dioxide Level (test code = 2028-9) 28 22-29 [facility] McKinneyAnion [id number] 16:00:00* Test Item Value Reference Range Interpretation Comments Anion Gap (test code = 05740-0) 18.6 8-16 H [facility] McKinneyBlood Urea Dvvttfzx6956-18-93 16:00:00* Test Item Value Reference Range Interpretation Comments Blood Urea Nitrogen (test code = 3094-0) 54 7-26 H [facility] McKinneyCreatinine2019-10-09 16:00:00* Test Item Value Reference Range Interpretation Comments Creatinine (test code = 2160-0) 6.25 0.57-1.11 H [facility] McKinneyBUN/Creatinine Vivul3756-45-68 16:00:00* Test Item Value Reference Range Interpretation Comments BUN/Creatinine Ratio (test code = 3097-3) 9 6-25 [facility] McKinneyEstimat Glomerular Filtration Rate 2019-04-12 16:00:00* Test Item Value Reference Range Interpretation Comments Estimat Glomerular Filtration Rate (test code = 079656413) 7 >60 L Ranges were taken from the National Kidney Disease Education Program and the [facility] Foundation literature.Reference ranges:60 or greater: Ssleen97-64 ( for 3 consecutive months): Chronic kidney disease 15 or less: Kidney failureBaylor Scott & White Medical Center – McKinneyGlucose Uxill2983-65-55 16:00:00* Test Item Value Reference Range Interpretation Comments Glucose Level (test code = TIB1288) 278 74-118 H [facility] McKinneyCalcium Pbpxf0820-28-52 16:00:00* Test Item Value Reference Range Interpretation Comments Calcium Level (test code = 76353-1) 8.7 8.4-10.2 [facility] McKinneyTotal Mhmvjyqdc0129-00-06 16:00:00* Test Item Value Reference Range Interpretation Comments Total Bilirubin (test code = 1975-2) 0.7 0.2-1.2 [facility] McKinneyAspartate Amino Transf (AST/SGOT) 2019-04-12 16:00:00* Test Item Value Reference Range Interpretation Comments Aspartate Amino Transf (AST/SGOT) (test code = Aspartate Amino Transf (AST/SGOT)) 18 5-34 [facility] McKinneyAlanine Aminotransferase (ALT/SGPT) 2019-04-12 16:00:00* Test Item Value Reference Range Interpretation Comments Alanine Aminotransferase (ALT/SGPT) (test code = 1742-6) 17 0-55 [facility] McKinneyTotal Rlvhgoa3522-98-38 16:00:00* Test Item Value Reference Range Interpretation Comments Total Protein (test code = 2885-2) 8.1 6.5-8.1 [facility] McKinneyAlbumin2019-10-09 16:00:00* Test Item Value Reference Range Interpretation Comments Albumin (test code = 1751-7) 3.5 3.5-5.0 [facility] McKinneyGlobulin2019-10-09 16:00:00* Test Item Value Reference Range Interpretation Comments Globulin (test code = 84231-0) 4.6 2.3-3.5 H [facility] McKinneyAlbumin/Globulin Abiqq8572-56-93 16:00:00 * Test Item Value Reference Range Interpretation Comments Albumin/Globulin Ratio (test code = 1759-0) 0.8 0.8-2.0 [facility] McKinneyAlkaline Npmlfirdipw7125-83-49 16:00:00* Test Item Value Reference Range Interpretation Comments Alkaline Phosphatase (test code = 6768-6) 131 40-150 [facility] McKinneyCreatine Hxnkfk0287-85-15 16:00:00* Test Item Value Reference Range Interpretation Comments Creatine Kinase (test code = 2157-6) 56 29-168 [facility] McKinneyCreatine Kinase [id number] 15:47:00* Test Item Value Reference Range Interpretation Comments Creatine Kinase MB (test code = 61143-2) 3.40 0-5.0 [facility] McKinneyTroponin [id number] 15:47:00* Test Item Value Reference Range Interpretation Comments Troponin I (test code = DNJ7160) 0.027 0-0.300 [facility] McKinneyProthrombin Digf7595-15-06 15:37:00* Test Item Value Reference Range Interpretation Comments Prothrombin Time (test code = 5902-2) 13.6 11.9-14.5 [facility] McKinneyProthromb Time International Ratio 2019-04-12 15:37:00* Test Item Value Reference Range Interpretation Comments Prothromb Time International Ratio (test code = 6301-6) 0.99 Oral Anticoagulant Therapy INR Values:1. Low Intensity Therapy 1.5 - 2.02 . Moderate Intensity Therapy 2.0 - 3.03. High Intensity Therapy(1) 2.5 - 3. 54. High Intensity Therapy(2) 3.0 - 4.05. Panic Value INR > 5.0 [facility] McKinneyActivated Partial Thromboplast Time 2019-04-12 15:37:00* Test Item Value Reference Range Interpretation Comments Activated Partial Thromboplast Time (test code = 26400-7) 29.2 23.8-35.5 [facility] McKinneyWhite Blood Bwbby5127-06-07 15:36:00* Test Item Value Reference Range Interpretation Comments White Blood Count (test code = 6690-2) 4.68 4.8-10.8 L [facility] McKinneyRed Blood Jybgx9919-95-33 15:36:00* Test Item Value Reference Range Interpretation Comments Red Blood Count (test code = 789-8) 2.89 3.6-5.1 L [facility] McKinneyMean Corpuscular Xukzdc3846-24-12 15:36:00* Test Item Value Reference Range Interpretation Comments Mean Corpuscular Volume (test code = 787-2) 82.0 81-99 [facility] McKinneyMean Corpuscular Mvxgfghkfo2365-32-18 15:36:00* Test Item Value Reference Range Interpretation Comments Mean Corpuscular Hemoglobin (test code = 785-6) 24.6 28-32 L [facility] McKinneyMean Corpuscular Hemoglobin Concent 2019-04-12 15:36:00* Test Item Value Reference Range Interpretation Comments Mean Corpuscular Hemoglobin Concent (test code = 786-4) 30.0 31-35 L [facility] McKinneyRed Cell Distribution Sjtdf2188-04-47 15:36:00* Test Item Value Reference Range Interpretation Comments Red Cell Distribution Width (test code = 61236-2) 20.3 11.7 -14.4 [facility] [facility]neyPlatelet [id number] 15:36:00* Test Item Value Reference Range Interpretation Comments Platelet Count (test code = 777-3) 133 140-360 L [facility]neyNeutrophils (%) (Auto)2019-04-12 15:36:00 * Test Item Value Reference Range Interpretation Comments Neutrophils (%) (Auto) (test code = 10219-6) 78.0 38.7-80.0 [facility]neyLymphocytes (%) (Auto)2019-04-12 15:36:00 * Test Item Value Reference Range Interpretation Comments Lymphocytes (%) (Auto) (test code = 736-9) 12.0 18.0-39.1 L [facility]neyMonocytes (%) (Auto)2019-04-12 15:36:00* Test Item Value Reference Range Interpretation Comments Monocytes (%) (Auto) (test code = 5905-5) 7.3 4.4-11.3 [facility]neyEosinophils (%) (Auto)2019-04-12 15:36:00 * Test Item Value Reference Range Interpretation Comments Eosinophils (%) (Auto) (test code = 713-8) 1.9 0.0-6.0 [facility]neyBasophils (%) (Auto)2019-04-12 15:36:00* Test Item Value Reference Range Interpretation Comments Basophils (%) (Auto) (test code = 706-2) 0.4 0.0-1.0 [facility]neyIM GRANULOCYTES %2019-04-12 15:36:00* Test Item Value Reference Range Interpretation Comments IM GRANULOCYTES % (test code = IM GRANULOCYTES %) 0.4 0.0- 1.0 [facility]neyNeutrophils # (Auto)2019-04-12 15:36:00* Test Item Value Reference Range Interpretation Comments Neutrophils # (Auto) (test code = 751-8) 3.7 2.1-6.9 [facility] McKinneyLymphocytes # (Auto)2019-04-12 15:36:00* Test Item Value Reference Range Interpretation Comments Lymphocytes # (Auto) (test code = 21982-6) 0.6 1.0-3.2 L [facility]neyMonocytes # (Auto)2019-04-12 15:36:00* Test Item Value Reference Range Interpretation Comments Monocytes # (Auto) (test code = 742-7) 0.3 0.2-0.8 [facility]neyEosinophils # (Auto)2019-04-12 15:36:00* Test Item Value Reference Range Interpretation Comments Eosinophils # (Auto) (test code = 711-2) 0.1 0.0-0.4 [facility]neyBasophils # (Auto)2019-04-12 15:36:00* Test Item Value Reference Range Interpretation Comments Basophils # (Auto) (test code = 704-7) 0.0 0.0-0.1 [facility] McKinneyAbsolute Immature Granulocyte (auto 2019-04-12 15:36:00* Test Item Value Reference Range Interpretation Comments Absolute Immature Granulocyte (auto (noemi t code = Absolute Immature Granulocyte (auto) 0.02 0-0.1 [facility] McKinneyAB SPECIFICITY CLASS [id number] 16:37:00* Test Item Value Reference Range Interpretation Comments AB Specificity Class II (test code = 3458) NO CLASS II ANTIBODY DETECTED WITH MFIs > 4000 AB Specificity Titr Class Report (test code = 3251) CHETNA (test code = CHETNA) Disclaimer: This test was de veloped and its performance characteristics determined by the [facility]. It has not been cleared or [...] to perform high complexity clinical laboratory testing. [facility]FL[facility] CLASS I WITH REFLEX TO ANTIBODY [id number] 17:35:00* Test Item Value Reference Range Interpretation Comments Flow Class I Percent Positive (test code = 3229) 0 Flow Class Report Comments (test code = 3230) CHETNA (test code = CHETNA) Disclaimer: This test was de veloped and its performance characteristics determined by the [facility]. It has not been cleared or [...] to perform high complexity clinical laboratory testing. [facility] CenterFLOW PRA CLASS II WITH REFLEX TO ANTIBODY [id number] 17:35:00* Test Item Value Reference Range Interpretation Comments Flow Class II Percent Positive (test code = 3231) 22 Flow Class Report Comments (test code = 3230) CHETNA (test code = CHETNA) Disclaimer: This test was de veloped and its performance characteristics determined by the [facility]. It has not been cleared or [...] to perform high complexity clinical laboratory testing. [facility] CenterUS [id number] 12:00:00 [place] [address] Patient Name: SAGRARIO WARE MR #: [id number] : 1950 Age/Sex: 68/F Req #: [id number] Adm Physician: Ordered by: ALFREDO QUINONEZ MD Report #: [id number] Location: Room/Bed: Procedure: [id number] US/US LIVER Exam Date: 11/21/18 Exam Time: [...] MD 1202 Transcribed By: EMMA on 11/21/18 1 202 COPY TO: ALFREDO QUINONEZ MD Direct [id number] 11:52:00* Test Item Value Reference Range Interpretation Comments Direct Bilirubin (test code = 22540-5) 0.2 0.0-0.5 [facility] McKinneyAmylase [id number] 11:52:00* Test Item Value Reference Range Interpretation Comments Amylase Level (test code = 1798-8) 56 25-125 [facility] McKinneyLipase2019-02-18 11:52:00* Test Item Value Reference Range Interpretation Comments Lipase (test code = 3040-3) 58 8-78 [facility] McKinneyPET, CARDIAC PERFUSION MULTIPLE STUDIES, REST AND [id number] 16:04:00PT started dialysis 03/05/2015. Reason for Exam:->Awaiting renal transplant, ESRD on HDFINAL REPORT PROCEDURE: Rest/Stress MYOCARDIAL PERFUSION PET with regadenoson\\XA9\\CPT CODE: [id number]: ESRD, Risk stratification, prior to renal transplantHISTORY: [...] rest and no ischemic changes with stress. ([facility] ECG interpretation and other stress and monitoring [...] Normal extracardiac tracer distribution. 6. No previous [facility] study for comparison. Signed: Malik Perez MDReport Verified Date/Time: 04/20/2018 16:04:01 Reading Location: [address] Reading Room SPECIFICITY CLASS [id number] 11:09:00* Test Item Value Reference Range Interpretation Comments DATE OF SERUM (BEAKER) (test code = 2288) 159307 SERUM # (BEAKER) (test code = 2290) 331365 AB SPECIFICITY CLASS II (BEAKER) (test code = 2430) See Scanned Rep ort FLOW PRA CLASS I AND [id number] 23:14:00* Test Item Value Reference Range Interpretation Comments DATE OF SERUM (BEAKER) (test code = 2288) 793677 SERUM # (BEAKER) (test code = 2290) 311256 FLOW PRA CLASS I AND II (test code = 2421) See Scanned Report HEPATITIS B SURFACE [id number] 16:55:00* Test Item Value Reference Range Interpretation Comments HEPATITIS B SURFACE ANTIBODY (BEAKER) (test code = 647) 68.8 mIU/mL <8.0 H AB SPECIFICITY CLASS [id number] 13:02:00* Test Item Value Reference Range Interpretation Comments DATE OF SERUM (BEAKER) (test code = 2288) 085688 SERUM # (BEAKER) (test code = 2290) 599241 AB SPECIFICITY CLASS II (BEAKER) (test code = 2430) See Scanned Rep ort FLOW PRA CLASS I AND [id number] 12:56:00* Test Item Value Reference Range Interpretation Comments DATE OF SERUM (BEAKER) (test code = 2288) 365824 SERUM # (BEAKER) (test code = 2290) 794846 FLOW PRA CLASS I AND II (test code = 2421) See Scanned Report US ABDOMEN COMPLETE [place] [address] Patient Name: SAGRARIO WARE MR #: [id number] : 1950 Age/Sex: 67/F Req #: [id number] Adm Physician: Ordered by: ALFREDO QUINONEZ MD Report #: [id number] Location: Room/Bed: Procedure: [id number] US/US ABDOMEN COMPLETE Exam Ramirez e: Exam [...] ALFREDO QUINONEZ MD KNEE LEFT THREE VIEWS [place] [address] Patient Name: SAGRARIO WARE MR #: [id number] : 1950 Age/Sex: 67/F Req #: [id number] Adm Physician: Ordered by: SPENSER ROJAS R D MANAGER Report #: [id number] Location: ER Room/Bed: Procedure: [id number] DX/KNEE LEFT THREE VIEWS Exam Date: 08/22/17 [...] EMMA on 08/22/172015 COPY TO: BECKI ROJAS R D MANAGER ANKLE 3+ VIEWS LEFT [facility] [address] [place] [address] Patient Name: SAGRARIO WARE MR #: [id number] : 1950 Age/Sex: 67/F Req #: [id number] Adm Physician: Ordered by: SPENSER ROJAS R D MANAGER Report #: [id number] Location: ER Room/Bed: Procedure: [id number] DX/ANKLE 3+ VIEWS LEFT Exam Da te: [...] STRONG MD 15 COPY TO: MEÑO ROJAS R D MANAGER LOWER LEG LEFT [facility] [address] [place] [address] Patient Name: SAGRARIO WARE MR #: [id number] : 1950 Age/Sex: 67/F Req #: [id number] Adm Physician: Ordered by: SPENSER ROJAS R D MANAGER Report #: [id number] Location: ER Room/Bed: Procedure: [id number] DX/LOWER LEG LEFT Exam Date: 0 08/22/17 Exam Time: 1834 REPORT STATUS: Signed KNEE LEFT THREE VIEWS, [...] Transcribed By: EMMA on 08/22/172015 COPY TO: SPENSER ROJAS R D MANAGER CHEST 2 VIEWS [place] [address] Patient Name: SAGRARIO WARE MR #: [id number] : 1950 Age/Sex: 66/F Req #: [id number] Adm Physician: Ordered by: VALENTÍN BRAVO MD Report #: [id number] Location: ER Room/Bed: Procedure: [id number] DX/CHEST 2 VIEWS Exam Date: Exam Time: 1820 REPORT STATUS: Signed PROCEDURE: Frontal and lateral [...] TO: VALENTÍN BRAVO MD CHEST SINGLE (PORTABLE) [place] [address] Patient Name: SAGRARIO WARE MR #: [id number] : 1950 Age/Sex: 66/F Req #: [id number] Adm Physician: Ordered by: LB CRUZ MD Report #: [id number] Location: ER Room/Bed: Procedure: [id number] DX/CHEST SINGLE (PORTABLE) Exam Date: Exam Time: [...]
--- NOTE | 2019-12-12 10:47 | Emergency Department Note ---
History of Present Illnes History of Present Illness Chief Complaint: General Medicine Complaints History of Present Illness This is a 69 year old female SOB, COUGH X 3 DAYS. MOD-SEVERE RESP DISTRESS NOTED. BILAT LEG EDEMA. RECENT DX OF CANCER PER DAUGHTER AND MIXED CONNECTIVE TISSUE DZ. Historian: Patient, Family Member (DAUGHTER) Arrival Mode: Car Sand Technician Required: No Onset (how long ago): day(s) (3) Location: LUNGS Quality: SOB Radiation: Reports non-radiation Severity: moderate Onset quality: gradual Duration (how long): day(s) (3) Timing of current episode: constant Progression: worsening Chronicity: recurrent Context: Reports recent illness (ADENOCA LEFT LUNG, RECENT PNEUMONIA AND LEFT PL EFFUSION - HAD THORACENTESIS ~750 ML) Relieving factors: none Exacerbating factors: other (EXERTION) Associated symptoms: Reports denies other symptoms, Reports cough, Reports shortness of breath Treatments prior to arrival: none Past Medical/Family History Physician Review I have reviewed the patient's past medical and family history. Any updates have been documented here. Past Medical History Recent Fever: No Clinical Suspicion of Infectio: No New/Unexplained Change in Ment: No Past Medical History: Hypertension, Diabetes, ESRD Other Medical History: ANEMIA, GI BLEED Past Surgical History: Cholecysctectomy, Hysterectomy, Pacer/AICD Other Surgery: LEFT UPPER ARM FISTULA Social History Smoking Cessation: Never Smoker Counseling Performed: No Alcohol Use: None Any Illegal Drug Use: No TB Exposure/Symptoms: No Physically hurt or threatened: No Family History Family history of heart diseas: No Other Last Tetanus: UTD Any Pre-Existing Lines (PICC,: Yes (L/AV FISTULA) Is patient up to date on immun: Yes Last Flu: UTD Last Pneumovax: UTD Review of Systems Review of Systems Constitutional: Reports no symptoms EENTM: Reports no symptoms Cardiovascular: Reports no symptoms Respiratory: Reports as per HPI, Reports cough, Reports dyspnea, Reports dyspnea on exertion Gastrointestinal: Reports no symptoms Genitourinary: Reports no symptoms Musculoskeletal: Reports no symptoms Integumentary: Reports no symptoms Neurological: Reports no symptoms Psychological: Reports no symptoms Endocrine: Reports no symptoms Hematological/Lymphatic: Reports no symptoms Review of other systems All other systems reviewed and negative. Physical Exam Related Data Allergies: Coded Allergies: No Known Allergies (Verified , 06/29/17) Triage Vital Signs Vital Signs Date Time Temp Pulse Resp B/P (MAP) Pulse Ox O2 Delivery O2 Flow Rate FiO2 12/12/19 09:04 97.9 98 18 145/76 97 Vital signs reviewed: Yes Physical Exam CONSTITUTIONAL Constitutional: Reports well-developed, Reports well-nourished HENT HENT: Reports normocephalic, Reports atraumatic, Reports oropharynx clear/moist, Reports nose normal HENT L/R: Reports left ext ear normal, Reports right ext ear normal EYES Eyes: Reports PERRL, Reports conjunctivae normal NECK Neck: Reports ROM normal PULMONARY Pulmonary: Reports respiratory distress (MILD), Reports rhonchi (LEFT LOWER 1/2 LUNG FIELD), Reports other (DECREASED BREATH SOUNDS LEFT LUNG 1/2 WAY UP); Denies breath sounds normal CARDIOVASCULAR Cardiovascular: Reports regular rhythm, Reports heart sounds normal, Reports capillary refill normal, Reports normal rate GASTROINTESTINAL Abdominal: Reports soft, Reports nontender, Reports bowel sounds normal GENITOURINARY Genitourinary: Reports exam deferred SKIN Skin: Reports warm, Reports dry MUSCULOSKELETAL Musculoskeletal: Reports ROM normal NEUROLOGICAL Neurological: Reports alert, Reports oriented x 3, Reports no gross motor or sensory deficits PSYCHOLOGICAL Psychological: Reports mood/affect normal, Reports judgement normal Results Laboratory Result Diagram: 12/12/19 0910 Laboratory Laboratory Tests Test 12/12/19 09:10 White Blood Count 4.92 x10e3/uL (4.8-10.8) Red Blood Count 3.22 x10e6/uL (3.6-5.1) Hemoglobin 9.3 g/dL (12.0-16.0) Hematocrit 29.7 % (34.2-44.1) Mean Corpuscular Volume 92.2 fL (81-99) Mean Corpuscular Hemoglobin 28.9 pg (28-32) Mean Corpuscular Hemoglobin Concent 31.3 g/dL (31-35) Red Cell Distribution Width 17.2 % (11.7-14.4) Platelet Count 137 x10e3/uL (140-360) Neutrophils (%) (Auto) 78.6 % (38.7-80.0) Lymphocytes (%) (Auto) 9.8 % (18.0-39.1) Monocytes (%) (Auto) 5.5 % (4.4-11.3) Eosinophils (%) (Auto) 4.7 % (0.0-6.0) Basophils (%) (Auto) 0.8 % (0.0-1.0) Neutrophils # (Auto) 3.9 (2.1-6.9) Lymphocytes # (Auto) 0.5 (1.0-3.2) Monocytes # (Auto) 0.3 (0.2-0.8) Eosinophils # (Auto) 0.2 (0.0-0.4) Basophils # (Auto) 0.0 (0.0-0.1) Absolute Immature Granulocyte (auto 0.03 x10e3/uL (0-0.1) Prothrombin Time 13.4 seconds (11.9-14.5) Prothromb Time International Ratio 0.96 Activated Partial Thromboplast Time 34.4 seconds (23.8-35.5) Lab results reviewed: Yes Laboratory comments CHEMISTRIES DELAYED - HEMOLYZED AND REDRAWN Imaging Imaging results reviewed: Yes Diagnostics Tests Diagnostic test(s) reviewed: Yes Procedures 12 Lead ECG Interpretation ECG Interpretation : Sand Technician: Interpreted by ED physician Date: Dec 12, 2019 Time: 09:40 Rhythm: sinus rhythm QRS axis: left Conduction: right bundle branch block ST segments normal: Yes Q waves: II, III, aVF, V1, V2, V3, V4, V5, V6 Clinical Impression: non-specific ECG Assessment & Plan Medical Decision Making MDM WEAKNESS, MELENIC STOOLS TODAY - CHECK CBC, CHEM'S, ECG, CARDIAC ENZYMES, T&C - R/O ANEMIA, ELECTROLYTE ABNL, HYPERKALEMIA, STEMI/NSTEMI. ADMIT TO Ramesh PEREZ WHO I SPOKE WITH, ALSO SPOKE WITH Mary Jane PEREZ, AND DR ROJAS Reassessment Reassessment WEAKNESS, MELENIC STOOLS TODAY - CHECK CBC, CHEM'S, ECG, CARDIAC ENZYMES, T&C - R/O ANEMIA, ELECTROLYTE ABNL, HYPERKALEMIA, STEMI/NSTEMI. ADMIT TO Ramesh PEREZ WHO I SPOKE WITH, ALSO SPOKE WITH Mary Jane PEREZ, AND DR ROJAS Assessment & Plan Final Impression: (1) Upper GI bleed (2) ESRD (end stage renal disease) on dialysis (3) Anemia (4) Weakness Depart Disposition: ADMITTED Last Vital Signs Date Time Temp Pulse Resp B/P (MAP) Pulse Ox O2 Delivery O2 Flow Rate FiO2 12/12/19 10:05 90 18 137/67 100 12/12/19 09:04 97.9 Home Meds Reported Medications [Glucosamina Cond] No Conflict Check, 1 TAB PO DAILY 12/12/19 Ferrous Sulfate (FERROUS SULFATE) 325 Mg Tablet, 325 MG PO BID 12/12/19 Pantoprazole Sodium (PROTONIX) 20 Mg Tablet.dr, 20 MG PO DAILY, #30 TAB 12/12/19 [D3 ] No Conflict Check, 5000 PO DAILY 12/12/19 Docusate Sodium (DOCUSATE SODIUM) 100 Mg Capsule, 100 MG PO BID, CAP 08/15/18 [Novolog] No Conflict Check, U SC AC 12/09/16 Carvedilol (CARVEDILOL) 12.5 Mg Tablet, 25 MG PO BID, #60 TAB 10/24/16 Discontinued Reported Medications Hydralazine Hcl (HYDRALAZINE HCL) 25 Mg Tab, 50 MG PO BID, TAB 08/15/18 Medications in the ED Pantoprazole Sodium 40 mg ONCE IV Last administered on 12/12/19at 09:37; Admin Dose 40 MG; Start 12/12/19 at 10:00; Stop 12/12/19 at 11:00 Ondansetron HCl 4 mg ONCE IV Last administered on 12/12/19at 09:37; Admin Dose 4 MG; Start 12/12/19 at 09:15; Stop 12/12/19 at 10:59 Pantoprazole Sodium 40 mg Q12HR IV ; Start 12/12/19 at 21:00; Stop 01/11/20 at 20:59 REGI CERON MD Dec 12, 2019 10:46
[2019-12-12] MEDS ORDERED: DEXTROSE 50% SYRINGE 50 ML IV PRN (11:00)
[2019-12-12 11:04] LABS: ALBUMIN 2.6 g/dL (3.5-5.0); ALBUMIN/GLOBULIN RATIO 0.5 (0.8-2.0); ANION GAP 21.8 mmol/L (8-16); CALCIUM 8.1 mg/dL (8.4-10.2); CREATININE, SERUM 8.36 mg/dL (0.57-1.11); POTASSIUM 5.8 mmol/L (3.5-5.1)
[2019-12-12 11:11] LABS: CREATINE KINASE MB 5.8 ng/mL (0-5.0)
--- NOTE | 2019-12-12 11:11 | NUR ---
PINK TOPS X 2 TAKEN TO LAB, PATIENT HAS ANTIBODIES
[2019-12-12] MEDS ORDERED: DEXTROSE 50% SYRINGE 50 ML IV STA (11:14)
[2019-12-12] MEDS ORDERED: SODIUM BICARBONATE 8.4% INJ 50 ML SYR IV STA (11:14)
[2019-12-12] MEDS ORDERED: CALCIUM GLUCONATE 10% INJ 4.65 MEQ in SODIUM CHLORIDE 0.9% 50ML 50 ML IV ONE (11:15)
[2019-12-12] MEDS ORDERED: INSULIN REGULAR, HUMAN 100 UNIT/1 ML 3ML VIAL IV ONE (11:15)
[2019-12-12] MEDS ORDERED: CALCIUM GLUCONATE 10% INJ 0.465 MEQ/ML VIAL ONE (11:28)
[2019-12-12] MEDS ORDERED: INSULIN REGULAR, HUMAN 100 UNIT/1 ML 3ML VIAL ONE (11:29)
[2019-12-12] MEDS ORDERED: SODIUM BICARBONATE 8.4% SYRING 50 ML ONE (11:29)
[2019-12-12] MEDS ORDERED: DEXTROSE 50% SYRINGE 50 ML IV ONE (11:29)
[2019-12-12] MEDS: INSULIN LISPRO 100 UNIT/1 ML 3ML VIAL SQ SCH ×3 (11:30→21:00)
[2019-12-12] MEDS ORDERED: GLUCOSAMINE &1 EAC1 PO (12:21)
[2019-12-12] MEDS ORDERED: PROTONIX40 MG PO (12:21)
[2019-12-12] MEDS ORDERED: VITAMIN D3125 MCG PO (12:21)
[2019-12-12 12:22] VITALS: BP 138/58
--- NOTE | 2019-12-12 12:30 | NUR ---
PATIENT ADMITTED FROM ER TO ROOM 288. PATIENT IS IN STABLE CONDITION, NO S/S OF DISTRESS NOTED. DAUGHTER AT BEDSIDE. ADMISSION HISTORY AND INITIAL PHYSICAL ASSESSMENT COMPLETED. CALL LIGHT WITHIN REACH. BED IN THE LOWEST POSITION.
[2019-12-12 12:34] VITALS: BP 138/58
--- NOTE | 2019-12-12 13:34 | NUR ---
CALLED [facility] FOR STAT DIALYSIS, SPOKE TO PHILIPP.
[2019-12-12 15:21] LABS: BASOPHILS % 0.8 % (0.0-1.0); EOSINOPHILS # (AUTO) 0.1 (0.0-0.4); EOSINOPHILS % 3.3 % (0.0-6.0); HEMATOCRIT 25.9 % (34.2-44.1); LYMPHOCYTES # (AUTO) 0.6 (1.0-3.2); LYMPHOCYTES % 13.8 % (18.0-39.1); MEAN CORPUSCULAR HEMOGLOBIN 28.9 pg (28-32); MEAN CORPUSCULAR HGB CONC 30.9 g/dL (31-35); MEAN CORPUSCULAR VOLUME 93.5 fL (81-99); MONOCYTES # (AUTO) 0.3 (0.2-0.8); MONOCYTES % 6.8 % (4.4-11.3); NEUTROPHILS % 74.5 % (38.7-80.0); PLATELET COUNT 119 x10e3/uL (140-360); RED BLOOD COUNT 2.77 x10e6/uL (3.6-5.1); RED CELL DISTRIBUTION WIDTH 17.1 % (11.7-14.4)
[2019-12-12 15:41] VITALS: BP 141/69
--- NOTE | 2019-12-12 16:50 | NUR ---
DR. ROJAS IN TO SEE PATIENT. ASKED NURSE TO CALL [facility] TO FIND OUT ETA FOR PATIENT'S HD. SPOKE TO JENNY.
--- NOTE | 2019-12-12 18:17 | NUR ---
STAT CBC DRAWN BY DIRECT MARKETING SPECIALIST AT THIS TIME.
[2019-12-12 18:21] LABS: BASOPHILS % 0.5 % (0.0-1.0); EOSINOPHILS # (AUTO) 0.1 (0.0-0.4); EOSINOPHILS % 3.3 % (0.0-6.0); HEMATOCRIT 28.6 % (34.2-44.1); HEMOGLOBIN 8.7 g/dL (12.0-16.0); LYMPHOCYTES # (AUTO) 0.6 (1.0-3.2); LYMPHOCYTES % 14.7 % (18.0-39.1); MEAN CORPUSCULAR HEMOGLOBIN 28.2 pg (28-32); MEAN CORPUSCULAR HGB CONC 30.4 g/dL (31-35); MEAN CORPUSCULAR VOLUME 92.9 fL (81-99); MONOCYTES # (AUTO) 0.3 (0.2-0.8); MONOCYTES % 7.7 % (4.4-11.3); NEUTROPHILS # (AUTO) 3.2 (2.1-6.9); NEUTROPHILS % 73.3 % (38.7-80.0); PLATELET COUNT 136 x10e3/uL (140-360); RED BLOOD COUNT 3.08 x10e6/uL (3.6-5.1); RED CELL DISTRIBUTION WIDTH 17.2 % (11.7-14.4)
--- NOTE | 2019-12-12 19:10 | NUR ---
PER DIALYSIS NURSE SYLVIA, DR. ROJAS STATED NO BLOOD TO BE TRANSFUSED WITH HD TODAY.
[2019-12-12] MEDS ORDERED: SODIUM CHLORIDE 0.9% 1000ML 2,000 ML ONE (19:15)
--- NOTE | 2019-12-12 19:16 | NUR ---
Bedside shift report given to oncoming nurse. Patient is resting in bed. No acute distress noted. Dialysis nurse at bedside. Call light within reach. Bed in the lowest position.
--- NOTE | 2019-12-12 19:55 | Consultation ---
DATE OF CONSULTATION: REASON FOR CONSULTATION: COVID-19. HISTORY OF PRESENT ILLNESS: This patient who is a very pleasant 69-year-old female with history of end-stage disease on hemodialysis, history of AVM malformation. Three weeks ago, she was at [facility] with COVID-19. She was there for a couple of weeks. The patient did well. She was told that two tests of COVID-19 came back negative. She was discharged home. She is coming here because she needs to be on dialysis. The patient, when I saw her, she was alert oriented. She has no complaint. She said she has been here for dialysis. There is no fever. No chills. No cough. All within normal limit. PAST MEDICAL HISTORY: End-stage renal disease as mentioned above. PAST SURGICAL HISTORY: As above, IV access for dialysis. ALLERGIES: NKA. SOCIAL HISTORY: There is no smoking, drug abuse, or alcohol abuse. FAMILY HISTORY: Otherwise unremarkable. REVIEW OF SYSTEMS: At the present time, HEENT: Negative. PULMONARY: Negative. CARDIAC: Negative. : Negative. SKIN: There is no rash. GENERAL: There is no fever. No chills. All other symptoms within normal limits. PHYSICAL EXAMINATION: GENERAL: She is currently alert, oriented, does not seem to be in acute distress. VITAL SIGNS: Stable, currently afebrile. HEENT: She is not icteric. NECK: Supple. CHEST: Clear. HEART: S1, S2. ABDOMEN: Soft. IMPRESSION: 1. History of coronavirus disease-19 treated, asymptomatic. There is no need to be re-checked. The patient is not infectious, there is no need for isolation. 2. Fluid overload for dialysis as ordered. 3. Anemia. 4. Arteriovenous malformation. Stable from Infectious Disease point of view. Answered all the question. I will see the patient as an outpatient in a couple months to check her antibody status. MD MASOOD Medeiros/MODL /[id number]
[2019-12-12 20:00] VITALS: BP 137/67
--- NOTE | 2019-12-12 20:00 | NUR ---
Received report from AM nurse. Walking rounds completed. Patient starting dialysis at this time. Per dialysis nurse no blood to be given at this time. Patient AAOx3. Family member will be at bedside.
[2019-12-12] MEDS: PANTOPRAZOLE 40 MG 10ML VIAL IV SCH (23:00)
--- NOTE | 2019-12-12 23:06 | Consultation ---
DATE OF CONSULTATION: 12/12/2019 HISTORY OF PRESENT ILLNESS: Ms. Ware is very well known to me. She is a pleasant 69-year-old female, who was recently tested positive for cold weight, was admitted in [place]. She has recovered. She has apparently has had 2 negative tests according to family. Since then, today is her dialysis day. She came in with progressive weakness, some dyspnea on exertion and noticed black stools today. She has a history of arteriovenous malformations in the GI tract leading to anemia requiring multiple transfusions. She also has been very stubborn about not taking the IV iron at the dialysis facility. She is on erythropoietin stimulating agent, but they do not work very well given the fact that she remains iron deficient. Nevertheless, she recently lost her to COVID also. She is currently awake, alert, sitting up, in no apparent distress. She had blood tests done this morning shows a white count of 4.9 with a hemoglobin 9.3, repeat 8. Chemistry shows sodium 135, potassium 5.8, BUN 65, creatinine 8.36. Her BNP level is 1890. Chest x-ray suggestive of above pulmonary edema. ALLERGIES: NO APPARENT DRUG ALLERGIES. SOCIAL HISTORY: Does not smoke or drink. Very supportive family. PAST MEDICAL HISTORY: Diabetes, hypertension, end-stage renal disease, recurrent GI bleed. CURRENT MEDICATIONS: The patient received immediate treatment for hyperkalemia in the emergency room, currently on insulin, Protonix, Zofran p.r.n. FAMILY HISTORY: Significant for diabetes. PHYSICAL EXAMINATION: GENERAL: Awake, alert, oriented x3. Sitting up, in no apparent distress. VITAL SIGNS: Blood pressure 136/67, pulse rate 90, afebrile, respiratory rate 17. HEAD AND NECK: Cornea clear. Oral mucosa moist. NECK: Veins flat. LUNGS: Bibasilar rales. HEART: S1, S2 audible. Soft, 2 to 3/6 ejection systolic murmur heard at the left sternal border. ABDOMEN: Otherwise soft, nontender. No apparent visceromegaly. EXTREMITIES: Lower extremity examination shows no edema. IMPRESSION AND PLAN: 1. Gastrointestinal bleed, black stools with progressive drop in hemoglobin, now down to 8. 2. I will repeat a stat hemoglobin again awaiting dialysis nurse to show up. First call made at 1:34 p.m. and then subsequently 2 more calls were made. We made the contact just now hopefully dialysis nurse will show up and then we will dialyze and transfuse her with packed RBC. Dr. Luciano Quinonez to see, Dr. Graham consulted. Daughter requested to bring the negative test results to the hospital. Discussed with bedside RN. Also, has underlying fluid overload. We will place the patient on renal diet, p.o. fluid restriction. Please see orders. MD LASHANDA Dover/MEENAKSHI /[id number]
--- NOTE | 2019-12-12 23:25 | NUR ---
Dialysis completed and 4L taken off per nurse.
[2019-12-13] VITALS (7 sets, daily range): BP systolic 136–154; BP diastolic 54–79
--- NOTE | 2019-12-13 01:47 | NUR ---
Dr Quinonez on the floor to see pain. F/u with new orders.
[2019-12-13 06:55] LABS: BASOPHILS % 0.7 % (0.0-1.0); EOSINOPHILS # (AUTO) 0.2 (0.0-0.4); EOSINOPHILS % 3.6 % (0.0-6.0); HEMATOCRIT 27.2 % (34.2-44.1); HEMOGLOBIN 8.4 g/dL (12.0-16.0); LYMPHOCYTES # (AUTO) 0.5 (1.0-3.2); LYMPHOCYTES % 10.7 % (18.0-39.1); MEAN CORPUSCULAR HEMOGLOBIN 28.6 pg (28-32); MEAN CORPUSCULAR HGB CONC 30.9 g/dL (31-35); MEAN CORPUSCULAR VOLUME 92.5 fL (81-99); MONOCYTES # (AUTO) 0.3 (0.2-0.8); MONOCYTES % 7.6 % (4.4-11.3); NEUTROPHILS # (AUTO) 3.5 (2.1-6.9); PLATELET COUNT 131 x10e3/uL (140-360); RED BLOOD COUNT 2.94 x10e6/uL (3.6-5.1); RED CELL DISTRIBUTION WIDTH 17.2 % (11.7-14.4)
--- NOTE | 2019-12-13 07:15 | NUR ---
RECEIVED PT ON BEDSIDE ROUNDS RESTING QUIETLY. EASILY AWAKEN NO COMPLAINTS VOICE.
[2019-12-13 07:26] LABS: CALCIUM 8.5 mg/dL (8.4-10.2); CREATININE, SERUM 4.76 mg/dL (0.57-1.11)
[2019-12-13 08:02] LABS: FERRITIN 413.5 ng/mL (4.63-204.00)
[2019-12-13] MEDS: PANTOPRAZOLE 40 MG 10ML VIAL IV SCH ×2 (09:00→21:55)
--- NOTE | 2019-12-13 10:06 | NUR ---
THIS PT WAS BEING SEEN AT [facility] DIALYSIS UNTIL POSITIVE THEN WENT TO [facility] IF SHE GETS ANOTHER NEGATIVE SHE CAN RETURN TO [facility]. PER MADISON MANGLE TENDER AT [facility].
[2019-12-13] MEDS: INSULIN LISPRO 100 UNIT/1 ML 3ML VIAL SQ SCH ×4 (10:08→21:55)
--- NOTE | 2019-12-13 12:08 | Progress Note ---
DATE: SUBJECTIVE: The patient is seen and evaluated. Discussed with Dr. Graham in detail. Discussed with staff. REVIEW OF SYSTEMS: No nausea, vomiting, fever, chills, chest pain, shortness of breath, cough, headache, rash, or diarrhea. The patient's daughter is in her room and she also helped to answers all the questions. PHYSICAL EXAMINATION: VITAL SIGNS: Temperature is 98.1. The patient is afebrile since admission to the hospital. Pulse is 92, respirations 16, and blood pressure 154/70. GENERAL: Alert and oriented, very pleasant, in no acute distress. CV: S1 and S2. CHEST: Equal expansion. Decreased breath sounds. No acute distress. ABDOMEN: Soft, obese, and nontender. HEENT: Moist. No pallor. No JVD. EXTREMITIES: With 1+ edema of all extremities. Moves all extremities. No acute finding. MEDICATIONS: Medication list reviewed and from Infectious Disease point of view, the patient is off antibiotics. LABORATORY STUDIES: White count of 4.48, hemoglobin 8.4, and platelet 131 with a small drop from yesterday. Sodium 135, potassium 5, and creatinine 4.76. The patient is on dialysis. Ferritin level of 413.5. Serology; coronavirus PCR and hepatitis B panel both are pending. Fecal occult blood pending. MICROBIOLOGY: No new microbiology. RADIOLOGY STUDIES: Chest x-ray from 12/11, showed CHF, although superimposed pneumonia cannot be excluded. ASSESSMENT AND PLAN: This is a pleasant 69-year-old lady, who was recently treated for COVID-19 in other facility and the patient was discharged home. Apparently, she had some issues with shortness of breath and her dialysis. Therefore, the patient reported back to the hospital for shortness of breath, fluid overload, and dialysis. Remains afebrile and no cough or any other symptoms. The patient feels overall much better. We will follow with the serology and remains off the antibiotics. Continue monitor the patient off antibiotics. Refer to chart please for further information. Discussed with Dr. Graham in details. Dictated by Jacques Mathew PA-C (Al) Harpal Graham MD /MODL /[id number]
[2019-12-13 12:16] LABS: BASOPHILS % 0.9 % (0.0-1.0); EOSINOPHILS # (AUTO) 0.1 (0.0-0.4); EOSINOPHILS % 2.3 % (0.0-6.0); HEMATOCRIT 28.9 % (34.2-44.1); HEMOGLOBIN 8.9 g/dL (12.0-16.0); LYMPHOCYTES # (AUTO) 0.5 (1.0-3.2); LYMPHOCYTES % 11.5 % (18.0-39.1); MEAN CORPUSCULAR HGB CONC 30.8 g/dL (31-35); MEAN CORPUSCULAR VOLUME 94.1 fL (81-99); MONOCYTES # (AUTO) 0.3 (0.2-0.8); MONOCYTES % 7.8 % (4.4-11.3); NEUTROPHILS # (AUTO) 3.4 (2.1-6.9); NEUTROPHILS % 77.3 % (38.7-80.0); PLATELET COUNT 135 x10e3/uL (140-360); RED BLOOD COUNT 3.07 x10e6/uL (3.6-5.1); RED CELL DISTRIBUTION WIDTH 16.9 % (11.7-14.4)
--- NOTE | 2019-12-13 12:30 | NUR ---
WOUND CARE CONSULT FOR 69 YO MALE HX OF AMV OF COLON ALLEN 18 ON CONSERVATIVE PUP STATUS AND INTERVENTIONS AND ALTERNATING PRESSURE MATTRESS LABS: WBC-4.48 HGB_6.4 GLUCOSE-PEND SKIN ASSESSMENT COMPLETE PATIENT PRESENTS WITH HEALING STAGE 2 BLISTER 1CM X 2CM CLOSED BLISTER RECOMMENDATIONS: NURSING TO CONTINUE TO MAINTAIN CONSERVATIVE PUP STATUS AND INTERVENTIONS AND ALTERNATING PRESSURE MATTRESS NURSING TO CONTINUE TO ASSIST PATIENT OUT OF BED FOR MEALS AND MUCH TOLERATED NURSING TO CONTINUE TO ASSIST PATIENT NEEDED WITH MEALS AND NUTRITIONAL SUPPLEMENTS TO ENSURE PROPER REQUIREMENTS FOR HEALING NURSING TO CONTINUE TO OFFLOAD FEET AND HEELS NEEDED WITH PILLOW SUSPENSION WHEN IN BED NURSING TO CLEAN RIGHT BUTTOCKS HEALING STG 2 WITH NORMAL SALINE DAILY AND APPLY VENELEX OINTMENT AND ALLEVYN FOAM DRESSING Addendum: 12/13/19 at 1235 by Evan Kathleen RN Amended: Links added.
--- NOTE | 2019-12-13 14:15 | NUR ---
PT HAD ECHO DONE EARLIER. FAMILY MEMBER AT BEDSIDE.
--- NOTE | 2019-12-13 17:21 | NUR ---
TRANSFERRED PT TO 183 ORDERED. FAMILY AWARE OF TRANSFER
--- NOTE | 2019-12-13 18:50 | NUR ---
Resumed care of patient. Patient awake and sitting at bedside, no s/s of distress at this time. Bed locked and in lowest position, side rails up x3, call light placed within reach. Patient instructed to call for assistance if needed, verbalized understanding. All safety measures in place. Will continue to monitor.
--- NOTE | 2019-12-13 19:00 | NUR ---
Dr. Amanda Quinonez here to see patient. No new orders received at this time.
--- NOTE | 2019-12-13 20:25 | Progress Note ---
DATE: Ms. Ware is doing well. There are no complaints. Her COVID-19 came back positive, so we moved her to COVID unit. This patient, who was treated, she was sick few weeks ago. She had 2 negative, one thus came back positive. However, the patient with no complaints whatsoever. Review of systems totally negative. The patient's test came back positive and told that the patient will be moved to droplet isolation room at [facility] Unit. The patient could be discharged home with no treatment really, but we just need to arrange dialysis for her. Discussed with the family. We will follow. MD MASOOD Medeiros/MEENAKSHI /[id number]
[2019-12-14] VITALS: BP 134/68
--- NOTE | 2019-12-14 00:37 | NUR ---
Dr. Ramsey Quinonez here to see patient. No new orders received. Says patient is clear to go home from his standpoint.
[2019-12-14 04:00] VITALS: BP 138/66
[2019-12-14 05:47] LABS: BASOPHILS % 0.7 % (0.0-1.0); EOSINOPHILS # (AUTO) 0.2 (0.0-0.4); HEMOGLOBIN 8.3 g/dL (12.0-16.0); LYMPHOCYTES # (AUTO) 0.5 (1.0-3.2); LYMPHOCYTES % 13.2 % (18.0-39.1); MEAN CORPUSCULAR HEMOGLOBIN 29.7 pg (28-32); MEAN CORPUSCULAR HGB CONC 31.9 g/dL (31-35); MEAN CORPUSCULAR VOLUME 93.2 fL (81-99); MONOCYTES # (AUTO) 0.4 (0.2-0.8); MONOCYTES % 10.5 % (4.4-11.3); NEUTROPHILS # (AUTO) 2.9 (2.1-6.9); NEUTROPHILS % 71.1 % (38.7-80.0); PLATELET COUNT 135 x10e3/uL (140-360); RED BLOOD COUNT 2.79 x10e6/uL (3.6-5.1); RED CELL DISTRIBUTION WIDTH 16.8 % (11.7-14.4)
[2019-12-14 06:02] LABS: ALBUMIN 2.6 g/dL (3.5-5.0); ALBUMIN/GLOBULIN RATIO 0.5 (0.8-2.0); ANION GAP 20.2 mmol/L (8-16); CREATININE, SERUM 6.68 mg/dL (0.57-1.11); POTASSIUM 5.2 mmol/L (3.5-5.1)
--- NOTE | 2019-12-14 07:01 | NUR ---
received change of shift report from PM nurse. pt in stable condition.
[2019-12-14 08:00] VITALS: BP 147/73
[2019-12-14] MEDS: PANTOPRAZOLE 40 MG 10ML VIAL IV SCH (08:21)
[2019-12-14] MEDS: INSULIN LISPRO 100 UNIT/1 ML 3ML VIAL SQ SCH ×2 (08:21→11:30)
[2019-12-14] MEDS ORDERED: BALSAM PERU/CASTOR OIL 60 GM OINT...G. TP SCH (09:00)
[2019-12-14 09:09] VITALS: BP 147/73
--- NOTE | 2019-12-14 09:15 | NUR ---
Telephone visit attempted by Manager Of Engineering. No answer. Will follow as able. LAURENCE SCOTT Manager Of Engineering Spiritual Care Department O: [phone]
[2019-12-14] MEDS ORDERED: SODIUM CHLORIDE 0.9% 1000ML 2,000 ML ONE (10:22)
[2019-12-14 11:32] VITALS: BP 120/57
--- NOTE | 2019-12-14 14:06 | NUR ---
spoke with Dr. Live Anne at the bedside; he states from his perspective pt can be discharged home. paging Dr. Ramesh Quinonez for orders.
--- NOTE | 2019-12-14 15:31 | NUR ---
pt finished hemodialysis. tolerated well. 3L removed.
--- NOTE | 2019-12-14 19:25 | Progress Note ---
DATE: 12/14/2019 SUBJECTIVE: Ms. Ware is doing much better. She has no complaint. REVIEW OF SYSTEMS: HEENT: Negative. PULMONARY: Negative. CARDIAC: Negative. Her dialysis was arranged. PHYSICAL EXAMINATION: GENERAL: She is currently alert and oriented. VITAL SIGNS: Stable, afebrile. HEENT: She is not icteric. NECK: Supple. CHEST: Clear. HEART: S1 and S2. No S3, S4, or murmurs. ABDOMEN: Soft. IMPRESSION: History of COVID-19. Clinically, she is over it, however, still positive PCI, which could represent other fragment of the virus or very low level of virus in the nasopharynx. No need for treatment. Continue droplet isolation. Continue good hand hygiene. Dialysis to be done in COVID-19 unit. To recheck again in a week. Prefer to get 2 more negative as an outpatient. We will see her back in a month when we get to check her antibody and IgG. Discussed with the patient. Answered all her questions. MD MASOOD Medeiros/MODL /[id number]
== END 2019-12-14 17:09 | disposition home or self-care (01) | DRG 177 ==
LOC: ER 09:00 → ERHOLD 10:11 → MED/SURG3 10:52 → IMCU 12-13 16:58
DX: U07.1 COVID-19 (principal); N18.6 End stage renal disease; K92.2 Gastrointestinal hemorrhage, unspecified; Z99.2 Dependence on renal dialysis; D64.9 Anemia, unspecified; Z95.810 Presence of automatic (implantable) cardiac defibrillator
CPT/HCPCS: 36415; 71045; 80048; 80053; 82550; 82553; 82607; 82728; 82746; 82948; 83540; 83880; 84466; 84484; 85025; 85045; 85610; 85730; 86704; 86705; 86850; 86900; 86920; 86922; 87350; 87635; 90962; 93005; 93306; 96372; 99251; 99284; J0610; J1817; J2405; J7030; J7799

== ENCOUNTER → 2020-08-24 | Day surgery (SDC) | payer MEDICARE, BC ==
[~2020-08-24] MED LIST changes: +CYCLOPENTOLATE HCL 2% OPTH SOLN 2 ML BTL OP ONE; +D3 PO; +FERROUS SULFAT325 MG PO; +GLUCOSAMINE &1 EAC1 PO; +LIDOCAINE HCL 1% 2 ML AMP ONE; +NEOMYCIN/POLYMYXIN/DEX (OPTH) 3.5 GM TUBE ONE; +OR PHACO EYE KIT ONE; +POVIDONE IODINE 5% (OPTH) 30 ML BTL ONE; +PROTONIX20 MG PO; +PROTONIX40 MG PO; +RENVELA0.8 GM PO; +SODIUM CHLORIDE 0.9% 500ML 500 ML ONE; +VITAMIN D3125 MCG PO; +[UNRECOGNIZED DRUG - OTHER] PO
[2020-08-24 07:57] LABS: INR 1.01; PARTIAL THROMBOPLASTIN TIME 31.5 seconds (23.8-35.5); PROTHROMBIN TIME 13.9 seconds (11.9-14.5)
[2020-08-24 10:14] VITALS: BP 129/56
== END | disposition home or self-care (01) ==
LOC: OR 06:45
PROVIDERS: ATTEND Ophthalmology
DX: H25.11 Age-related nuclear cataract, right eye (principal); I25.10 Atherosclerotic heart disease of native coronary artery without angina pectoris; E11.22 Type 2 diabetes mellitus with diabetic chronic kidney disease; I12.0 Hypertensive chronic kidney disease with stage 5 chronic kidney disease or end stage renal disease; Z01.812 Encounter for preprocedural laboratory examination; Z20.822 Contact with and (suspected) exposure to COVID-19; N18.6 End stage renal disease; E03.9 Hypothyroidism, unspecified; Z79.4 Long term (current) use of insulin; Z99.2 Dependence on renal dialysis; Z95.0 Presence of cardiac pacemaker; Z98.61 Coronary angioplasty status
CPT/HCPCS: 36415; 66984; 82948; 84132; 85610; 85730; J2001; J7040; U0002 ×2; V2632

== ENCOUNTER → 2020-09-06 | Day surgery (SDC) | payer MEDICARE, BC ==
[2020-09-02 14:39] LABS: BASOPHILS % 0.7 % (0.0-1.0); EOSINOPHILS # (AUTO) 0.2 (0.0-0.4); EOSINOPHILS % 3.5 % (0.0-6.0); HEMATOCRIT 30.4 % (34.2-44.1); HEMOGLOBIN 9.8 g/dL (12.0-16.0); LYMPHOCYTES # (AUTO) 0.5 (1.0-3.2); MEAN CORPUSCULAR HEMOGLOBIN 27.9 pg (28-32); MEAN CORPUSCULAR HGB CONC 32.2 g/dL (31-35); MEAN CORPUSCULAR VOLUME 86.6 fL (81-99); MONOCYTES # (AUTO) 0.4 (0.2-0.8); MONOCYTES % 6.5 % (4.4-11.3); NEUTROPHILS # (AUTO) 4.3 (2.1-6.9); NEUTROPHILS % 78.7 % (38.7-80.0); PLATELET COUNT 107 x10e3/uL (140-360); RED BLOOD COUNT 3.51 x10e6/uL (3.6-5.1); RED CELL DISTRIBUTION WIDTH 16.8 % (11.7-14.4)
[2020-09-02 14:49] LABS: INR 0.97; PARTIAL THROMBOPLASTIN TIME 29.7 seconds (23.8-35.5); PROTHROMBIN TIME 13.5 seconds (11.9-14.5)
[2020-09-02 14:56] LABS: ALBUMIN 3.5 g/dL (3.5-5.0); ALBUMIN/GLOBULIN RATIO 0.7 (0.8-2.0); ANION GAP 21.9 mmol/L (8-16); CALCIUM 8.8 mg/dL (8.4-10.2); CREATININE, SERUM 7.14 mg/dL (0.57-1.11)
[2020-09-02 14:58] LABS: POTASSIUM 5.9 mmol/L (3.5-5.1)
[~2020-09-06] VITALS: Ht 170.2 cm; Wt 86.6 kg
[2020-09-06] VITALS (9 sets, daily range): BP systolic 121–138; BP diastolic 52–90
[~2020-09-06] MED LIST changes: -CYCLOPENTOLATE HCL 2% OPTH SOLN 2 ML BTL OP ONE; +FENTANYL CITRATE/PF 100MCG/2 ML INJ ONE; +HEPARIN SOD (PORCINE) 1000 UNIT/ML 30ML ONE; +HEPARIN SOD/SOD CHLORIDE 2,000 ML ONE; +IOPAMIDOL 370 MG/ML 200 ML INFUS..BTL INJ ONE; -LIDOCAINE HCL 1% 2 ML AMP ONE; +LIDOCAINE HCL 2% LOCAL 20 ML VIAL ONE; +MIDAZOLAM HCL 2 MG/2 ML VIAL ONE; -NEOMYCIN/POLYMYXIN/DEX (OPTH) 3.5 GM TUBE ONE; +NITROGLYCERIN/D5W 200 MCG/ML 250 ML ONE; +NOVOLOG100 UNIT/1 SC; +OMEPRAZOLE40 MG PO; -OR PHACO EYE KIT ONE; -POVIDONE IODINE 5% (OPTH) 30 ML BTL ONE; +SODIUM CHLORIDE 0.9% 1000ML 1,000 ML ONE; -SODIUM CHLORIDE 0.9% 500ML 500 ML ONE; +VERAPAMIL HCL 2.5 MG/ML 2 ML VIAL ONE
== END | disposition home or self-care (01) ==
LOC: CATH LAB 06:49
PROVIDERS: ATTEND Internal Medicine Cardiovascular Disease
DX: I25.110 Atherosclerotic heart disease of native coronary artery with unstable angina pectoris (principal); I49.5 Sick sinus syndrome; E11.22 Type 2 diabetes mellitus with diabetic chronic kidney disease; I12.0 Hypertensive chronic kidney disease with stage 5 chronic kidney disease or end stage renal disease; N18.6 End stage renal disease; E03.9 Hypothyroidism, unspecified; Z01.810 Encounter for preprocedural cardiovascular examination; Z01.812 Encounter for preprocedural laboratory examination; Z01.818 Encounter for other preprocedural examination; Z20.822 Contact with and (suspected) exposure to COVID-19; Z79.4 Long term (current) use of insulin; Z68.30 Body mass index [BMI] 30.0-30.9, adult; Z99.2 Dependence on renal dialysis; Z95.0 Presence of cardiac pacemaker; Z95.5 Presence of coronary angioplasty implant and graft; Z86.16 Personal history of COVID-19
CPT/HCPCS: 36415; 71046; 80048; 80053; 85025; 85610; 85730; 92978; 93005; 93458; C1753; C1760; C1769; C1887 ×2; J1644; J2001; J2250; J3010; J7030; Q9967; U0002; 99152; 99153

== ENCOUNTER 2020-09-11 12:10 | Inpatient (IN) | payer MEDICARE, BC ==
[~2020-09-11] VITALS: Ht 170.2 cm; Wt 86.6 kg
[~2020-09-11 12:10] MED LIST changes: -FENTANYL CITRATE/PF 100MCG/2 ML INJ ONE; -HEPARIN SOD (PORCINE) 1000 UNIT/ML 30ML ONE; -HEPARIN SOD/SOD CHLORIDE 2,000 ML ONE; -IOPAMIDOL 370 MG/ML 200 ML INFUS..BTL INJ ONE; -LIDOCAINE HCL 2% LOCAL 20 ML VIAL ONE; -MIDAZOLAM HCL 2 MG/2 ML VIAL ONE; -NITROGLYCERIN/D5W 200 MCG/ML 250 ML ONE; -OMEPRAZOLE40 MG PO; -SODIUM CHLORIDE 0.9% 1000ML 1,000 ML ONE; -VERAPAMIL HCL 2.5 MG/ML 2 ML VIAL ONE
[2020-09-11] MEDS ORDERED: ONDANSETRON HCL INJ 2MG/ML 2ML 2 MG/ML VIAL IV STA (12:49)
[2020-09-11] MEDS ORDERED: PANTOPRAZOLE 40 MG 10ML VIAL IV STA (12:49)
[2020-09-11 13:07] LABS: BASOPHILS % 0.3 % (0.0-1.0); EOSINOPHILS # (AUTO) 0.1 (0.0-0.4); EOSINOPHILS % 2.3 % (0.0-6.0); LYMPHOCYTES # (AUTO) 0.4 (1.0-3.2); LYMPHOCYTES % 7.1 % (18.0-39.1); MEAN CORPUSCULAR HEMOGLOBIN 27.4 pg (28-32); MEAN CORPUSCULAR HGB CONC 31.1 g/dL (31-35); MEAN CORPUSCULAR VOLUME 88.1 fL (81-99); MONOCYTES # (AUTO) 0.5 (0.2-0.8); MONOCYTES % 7.6 % (4.4-11.3); NEUTROPHILS % 82.2 % (38.7-80.0); PLATELET COUNT 120 x10e3/uL (140-360); RED BLOOD COUNT 2.19 x10e6/uL (3.6-5.1); RED CELL DISTRIBUTION WIDTH 17.8 % (11.7-14.4)
[2020-09-11 13:10] LABS: HEMATOCRIT 19.3 % (34.2-44.1)
[2020-09-11] MEDS ORDERED: OCTREOTIDE ACETATE 0.05 MG/ML AMP IV STA (13:13)
[2020-09-11 13:15] LABS: INR 1.06; PARTIAL THROMBOPLASTIN TIME 31.8 seconds (23.8-35.5); PROTHROMBIN TIME 14.5 seconds (11.9-14.5)
[2020-09-11] MEDS ORDERED: FUROSEMIDE INJ 10 MG/ML 2 ML VIAL IV SCH (13:15)
[2020-09-11] MEDS ORDERED: SODIUM CHLORIDE 0.9% 250ML 250 ML IV ONE (13:15)
[2020-09-11 13:26] LABS: ALBUMIN/GLOBULIN RATIO 0.6 (0.8-2.0); ANION GAP 19.1 mmol/L (8-16); CALCIUM 8.4 mg/dL (8.4-10.2); CREATININE, SERUM 5.7 mg/dL (0.57-1.11); MAGNESIUM 2.1 MG/DL (1.3-2.1); POTASSIUM 5.1 mmol/L (3.5-5.1)
[2020-09-11 13:33] LABS: CREATINE KINASE MB 1.4 ng/mL (0-5.0)
[2020-09-11] MEDS: OCTREOTIDE ACETATE 500 MCG in SODIUM CHLORIDE 0.9% 250ML 250 ML IV SCH ×2 (13:55→22:43)
[2020-09-11 16:39] VITALS: BP 123/58
[2020-09-11 16:59] VITALS: BP 123/58
[2020-09-11] MEDS ORDERED: SODIUM CHLORIDE 0.9% 250ML 250 ML ONE ×2 (18:07→22:54)
[2020-09-11 20:00] VITALS: BP 124/59
[2020-09-11 20:08] VITALS: BP 124/59
[2020-09-11] MEDS: PANTOPRAZOLE 40 MG 10ML VIAL IV SCH (22:38)
[2020-09-11] MEDS ORDERED: OCTREOTIDE ACETATE 2 ML ONE (22:49)
[2020-09-11 23:12] LABS: BASOPHILS % 0.5 % (0.0-1.0); EOSINOPHILS # (AUTO) 0.2 (0.0-0.4); EOSINOPHILS % 3.5 % (0.0-6.0); HEMATOCRIT 25.3 % (34.2-44.1); HEMOGLOBIN 8.1 g/dL (12.0-16.0); LYMPHOCYTES # (AUTO) 0.5 (1.0-3.2); LYMPHOCYTES % 7.9 % (18.0-39.1); MEAN CORPUSCULAR VOLUME 90.7 fL (81-99); MONOCYTES # (AUTO) 0.4 (0.2-0.8); MONOCYTES % 6.9 % (4.4-11.3); NEUTROPHILS # (AUTO) 4.9 (2.1-6.9); NEUTROPHILS % 80.4 % (38.7-80.0); PLATELET COUNT 95 x10e3/uL (140-360); RED BLOOD COUNT 2.79 x10e6/uL (3.6-5.1); RED CELL DISTRIBUTION WIDTH 15.8 % (11.7-14.4)
[2020-09-11 23:37] LABS: CREATINE KINASE MB 1.1 ng/mL (0-5.0)
[2020-09-12] VITALS (8 sets, daily range): BP systolic 123–148; BP diastolic 49–67
[2020-09-12 06:43] LABS: BASOPHILS % 0.5 % (0.0-1.0); EOSINOPHILS # (AUTO) 0.2 (0.0-0.4); EOSINOPHILS % 3.5 % (0.0-6.0); HEMATOCRIT 25.4 % (34.2-44.1); HEMOGLOBIN 8.3 g/dL (12.0-16.0); LYMPHOCYTES # (AUTO) 0.4 (1.0-3.2); LYMPHOCYTES % 6.4 % (18.0-39.1); MEAN CORPUSCULAR HEMOGLOBIN 29.9 pg (28-32); MEAN CORPUSCULAR HGB CONC 32.7 g/dL (31-35); MEAN CORPUSCULAR VOLUME 91.4 fL (81-99); MONOCYTES # (AUTO) 0.4 (0.2-0.8); NEUTROPHILS # (AUTO) 4.9 (2.1-6.9); NEUTROPHILS % 81.9 % (38.7-80.0); PLATELET COUNT 96 x10e3/uL (140-360); RED BLOOD COUNT 2.78 x10e6/uL (3.6-5.1); RED CELL DISTRIBUTION WIDTH 15.9 % (11.7-14.4)
[2020-09-12 07:03] LABS: CREATINE KINASE MB 1.1 ng/mL (0-5.0)
[2020-09-12 07:17] LABS: ANION GAP 14.6 mmol/L (8-16); CALCIUM 8.1 mg/dL (8.4-10.2); CREATININE, SERUM 3.91 mg/dL (0.57-1.11); POTASSIUM 4.6 mmol/L (3.5-5.1)
[2020-09-12] MEDS: PANTOPRAZOLE 40 MG 10ML VIAL IV SCH ×2 (08:39→21:00)
[2020-09-12] MEDS: OCTREOTIDE ACETATE 500 MCG in SODIUM CHLORIDE 0.9% 250ML 250 ML IV SCH ×2 (09:45→20:45)
[2020-09-12 11:58] LABS: BASOPHILS % 0.5 % (0.0-1.0); EOSINOPHILS # (AUTO) 0.2 (0.0-0.4); EOSINOPHILS % 3.8 % (0.0-6.0); HEMATOCRIT 27.2 % (34.2-44.1); HEMOGLOBIN 8.8 g/dL (12.0-16.0); LYMPHOCYTES # (AUTO) 0.4 (1.0-3.2); LYMPHOCYTES % 7.7 % (18.0-39.1); MEAN CORPUSCULAR HEMOGLOBIN 29.6 pg (28-32); MEAN CORPUSCULAR HGB CONC 32.4 g/dL (31-35); MEAN CORPUSCULAR VOLUME 91.6 fL (81-99); MONOCYTES # (AUTO) 0.4 (0.2-0.8); MONOCYTES % 7.7 % (4.4-11.3); NEUTROPHILS # (AUTO) 4.6 (2.1-6.9); NEUTROPHILS % 79.4 % (38.7-80.0); PLATELET COUNT 99 x10e3/uL (140-360); RED BLOOD COUNT 2.97 x10e6/uL (3.6-5.1)
[2020-09-12] MEDS ORDERED: SODIUM CHLORIDE 0.9% 1000ML 2,000 ML ONE (17:07)
[2020-09-12 18:37] LABS: BASOPHILS % 0.4 % (0.0-1.0); EOSINOPHILS # (AUTO) 0.3 (0.0-0.4); EOSINOPHILS % 5.6 % (0.0-6.0); HEMATOCRIT 23.8 % (34.2-44.1); HEMOGLOBIN 7.7 g/dL (12.0-16.0); LYMPHOCYTES # (AUTO) 0.4 (1.0-3.2); LYMPHOCYTES % 8.4 % (18.0-39.1); MEAN CORPUSCULAR HEMOGLOBIN 28.6 pg (28-32); MEAN CORPUSCULAR HGB CONC 32.4 g/dL (31-35); MEAN CORPUSCULAR VOLUME 88.5 fL (81-99); MONOCYTES # (AUTO) 0.5 (0.2-0.8); NEUTROPHILS # (AUTO) 3.8 (2.1-6.9); PLATELET COUNT 107 x10e3/uL (140-360); RED BLOOD COUNT 2.69 x10e6/uL (3.6-5.1); RED CELL DISTRIBUTION WIDTH 15.9 % (11.7-14.4)
[2020-09-13] VITALS (8 sets, daily range): BP systolic 109–144; BP diastolic 50–70
[2020-09-13] MEDS: OCTREOTIDE ACETATE 500 MCG in SODIUM CHLORIDE 0.9% 250ML 250 ML IV SCH ×2 (06:21→14:46)
[2020-09-13 06:45] LABS: BASOPHILS % 0.4 % (0.0-1.0); EOSINOPHILS # (AUTO) 0.3 (0.0-0.4); EOSINOPHILS % 5.1 % (0.0-6.0); HEMATOCRIT 25.4 % (34.2-44.1); HEMOGLOBIN 8.1 g/dL (12.0-16.0); LYMPHOCYTES # (AUTO) 0.6 (1.0-3.2); LYMPHOCYTES % 11.1 % (18.0-39.1); MEAN CORPUSCULAR HEMOGLOBIN 28.8 pg (28-32); MEAN CORPUSCULAR HGB CONC 31.9 g/dL (31-35); MEAN CORPUSCULAR VOLUME 90.4 fL (81-99); MONOCYTES # (AUTO) 0.5 (0.2-0.8); MONOCYTES % 8.9 % (4.4-11.3); NEUTROPHILS # (AUTO) 4.1 (2.1-6.9); NEUTROPHILS % 74.1 % (38.7-80.0); PLATELET COUNT 114 x10e3/uL (140-360); RED BLOOD COUNT 2.81 x10e6/uL (3.6-5.1); RED CELL DISTRIBUTION WIDTH 16.3 % (11.7-14.4)
[2020-09-13] MEDS ORDERED: SODIUM CHLORIDE 0.9% 500ML 500 ML ONE (07:20)
[2020-09-13] MEDS: PANTOPRAZOLE 40 MG 10ML VIAL IV SCH ×2 (09:02→20:53)
[2020-09-13 12:09] LABS: BASOPHILS % 0.5 % (0.0-1.0); EOSINOPHILS # (AUTO) 0.2 (0.0-0.4); EOSINOPHILS % 2.9 % (0.0-6.0); HEMATOCRIT 25.8 % (34.2-44.1); HEMOGLOBIN 8.1 g/dL (12.0-16.0); LYMPHOCYTES # (AUTO) 0.5 (1.0-3.2); LYMPHOCYTES % 6.5 % (18.0-39.1); MEAN CORPUSCULAR HEMOGLOBIN 29.1 pg (28-32); MEAN CORPUSCULAR HGB CONC 31.4 g/dL (31-35); MEAN CORPUSCULAR VOLUME 92.8 fL (81-99); MONOCYTES # (AUTO) 0.5 (0.2-0.8); NEUTROPHILS # (AUTO) 6.7 (2.1-6.9); NEUTROPHILS % 83.5 % (38.7-80.0); PLATELET COUNT 104 x10e3/uL (140-360); RED BLOOD COUNT 2.78 x10e6/uL (3.6-5.1); RED CELL DISTRIBUTION WIDTH 16.4 % (11.7-14.4)
[2020-09-13] MEDS ORDERED: FENTANYL CITRATE/PF 100MCG/2 ML INJ ONE (12:57)
[2020-09-13] MEDS ORDERED: MIDAZOLAM HCL 2 MG/2 ML VIAL ONE (12:57)
[2020-09-13 18:49] LABS: BASOPHILS % 0.4 % (0.0-1.0); EOSINOPHILS # (AUTO) 0.3 (0.0-0.4); EOSINOPHILS % 4.7 % (0.0-6.0); HEMATOCRIT 26.2 % (34.2-44.1); HEMOGLOBIN 8.4 g/dL (12.0-16.0); LYMPHOCYTES # (AUTO) 0.6 (1.0-3.2); LYMPHOCYTES % 8.8 % (18.0-39.1); MEAN CORPUSCULAR HEMOGLOBIN 29.3 pg (28-32); MEAN CORPUSCULAR HGB CONC 32.1 g/dL (31-35); MEAN CORPUSCULAR VOLUME 91.3 fL (81-99); MONOCYTES # (AUTO) 0.6 (0.2-0.8); MONOCYTES % 7.8 % (4.4-11.3); NEUTROPHILS # (AUTO) 5.5 (2.1-6.9); NEUTROPHILS % 77.7 % (38.7-80.0); PLATELET COUNT 121 x10e3/uL (140-360); RED BLOOD COUNT 2.87 x10e6/uL (3.6-5.1); RED CELL DISTRIBUTION WIDTH 16.5 % (11.7-14.4)
[2020-09-14] VITALS (8 sets, daily range): BP systolic 120–134; BP diastolic 54–68
[2020-09-14] MEDS: OCTREOTIDE ACETATE 500 MCG in SODIUM CHLORIDE 0.9% 250ML 250 ML IV SCH ×2 (01:28→11:45)
[2020-09-14 07:04] LABS: BASOPHILS % 0.7 % (0.0-1.0); EOSINOPHILS # (AUTO) 0.3 (0.0-0.4); EOSINOPHILS % 5.2 % (0.0-6.0); HEMATOCRIT 23.4 % (34.2-44.1); HEMOGLOBIN 7.4 g/dL (12.0-16.0); LYMPHOCYTES # (AUTO) 0.6 (1.0-3.2); LYMPHOCYTES % 11.4 % (18.0-39.1); MEAN CORPUSCULAR HEMOGLOBIN 28.5 pg (28-32); MEAN CORPUSCULAR HGB CONC 31.6 g/dL (31-35); MONOCYTES # (AUTO) 0.5 (0.2-0.8); MONOCYTES % 8.8 % (4.4-11.3); NEUTROPHILS % 73.5 % (38.7-80.0); PLATELET COUNT 113 x10e3/uL (140-360); RED CELL DISTRIBUTION WIDTH 16.9 % (11.7-14.4)
[2020-09-14 07:29] LABS: ALBUMIN 2.8 g/dL (3.5-5.0); ALBUMIN/GLOBULIN RATIO 0.7 (0.8-2.0); CALCIUM 7.9 mg/dL (8.4-10.2); CREATININE, SERUM 5.67 mg/dL (0.57-1.11)
[2020-09-14] MEDS ORDERED: DEXTROSE 50% SYRINGE 50 ML IV PRN (08:15)
[2020-09-14] MEDS: INSULIN ASPART 70/30 100 UNITS/ML VIAL SC SCH ×3 (09:00→20:59)
[2020-09-14] MEDS: PANTOPRAZOLE 40 MG 10ML VIAL IV SCH (09:37)
[2020-09-14] MEDS ORDERED: ALBUMIN 25% 12.5GM 0.25 GM/ML BTL IV PRN (10:30)
[2020-09-14] MEDS ORDERED: SODIUM CHLORIDE 0.9% 1000ML 2,000 ML IV PRN (10:30)
[2020-09-14] MEDS: INSULIN LISPRO 100 UNIT/1 ML 3ML VIAL SQ SCH ×3 (11:30→20:58)
[2020-09-14] MEDS ORDERED: SODIUM CHLORIDE 0.9% 250ML 250 ML IV ONE (12:00)
[2020-09-14 12:11] LABS: BASOPHILS % 0.2 % (0.0-1.0); EOSINOPHILS # (AUTO) 0.3 (0.0-0.4); EOSINOPHILS % 5.9 % (0.0-6.0); LYMPHOCYTES # (AUTO) 0.5 (1.0-3.2); LYMPHOCYTES % 8.6 % (18.0-39.1); MEAN CORPUSCULAR HEMOGLOBIN 28.9 pg (28-32); MEAN CORPUSCULAR HGB CONC 32.2 g/dL (31-35); MEAN CORPUSCULAR VOLUME 89.5 fL (81-99); MONOCYTES # (AUTO) 0.4 (0.2-0.8); MONOCYTES % 6.5 % (4.4-11.3); NEUTROPHILS # (AUTO) 4.2 (2.1-6.9); NEUTROPHILS % 78.4 % (38.7-80.0); PLATELET COUNT 117 x10e3/uL (140-360); RED BLOOD COUNT 2.39 x10e6/uL (3.6-5.1); RED CELL DISTRIBUTION WIDTH 16.7 % (11.7-14.4)
[2020-09-14 12:15] LABS: HEMATOCRIT 21.4 % (34.2-44.1)
[2020-09-14 12:16] LABS: HEMOGLOBIN 6.9 g/dL (12.0-16.0)
[2020-09-14] MEDS ORDERED: SODIUM CHLORIDE 0.9% 250ML 250 ML ONE (20:45)
[2020-09-14] MEDS ORDERED: HYDROCORTISONE ACETATE 25 MG/SUPP.RECT SUPP RC STA (23:50)
[2020-09-15] VITALS: BP 115/70
[2020-09-15 04:00] VITALS: BP 131/66
[2020-09-15 08:03] VITALS: BP 131/66
[2020-09-15 08:12] VITALS: BP 125/53
[2020-09-15] MEDS: INSULIN ASPART 70/30 100 UNITS/ML VIAL SC SCH (08:23)
[2020-09-15] MEDS: INSULIN LISPRO 100 UNIT/1 ML 3ML VIAL SQ SCH (08:23)
[2020-09-15] MEDS ORDERED: HYDROCORTISONE ACETATE 25 MG/SUPP.RECT SUPP RC SCH (09:00)
[2020-09-15 09:09] LABS: HEMATOCRIT 25.4 % (34.2-44.1); HEMOGLOBIN 8.2 g/dL (12.0-16.0)
[2020-09-15] MEDS ORDERED: OMEPRAZOLE40 MG PO (10:54)
== END 2020-09-15 12:00 | disposition home or self-care (01) | DRG 377 ==
LOC: ER 12:23 → ERHOLD 13:50 → MED/SURG3 16:14
PROC: 30233N1 Transfusion of Nonautologous Red Blood Cells into Peripheral Vein, Percutaneous Approach (ICD-10-PCS; 2020-09-11)
PROC: 5A1D70Z Performance of Urinary Filtration, Intermittent, Less than 6 Hours Per Day (ICD-10-PCS; 2020-09-11)
PROC: 5A1D70Z Performance of Urinary Filtration, Intermittent, Less than 6 Hours Per Day (ICD-10-PCS; 2020-09-12)
PROC: 0D578ZZ Destruction of Stomach, Pylorus, Via Natural or Artificial Opening Endoscopic (ICD-10-PCS; 2020-09-13)
PROC: 0D568ZZ Destruction of Stomach, Via Natural or Artificial Opening Endoscopic (ICD-10-PCS; principal; 2020-09-13 07:44)
PROC: 30233N1 Transfusion of Nonautologous Red Blood Cells into Peripheral Vein, Percutaneous Approach (ICD-10-PCS; 2020-09-14)
PROC: 5A1D70Z Performance of Urinary Filtration, Intermittent, Less than 6 Hours Per Day (ICD-10-PCS; 2020-09-14)
DX: K31.811 Angiodysplasia of stomach and duodenum with bleeding (principal); N18.6 End stage renal disease; D62 Acute posthemorrhagic anemia; I12.0 Hypertensive chronic kidney disease with stage 5 chronic kidney disease or end stage renal disease; K44.9 Diaphragmatic hernia without obstruction or gangrene; E11.22 Type 2 diabetes mellitus with diabetic chronic kidney disease; Z99.2 Dependence on renal dialysis; Z86.16 Personal history of COVID-19; Z95.810 Presence of automatic (implantable) cardiac defibrillator; Z90.49 Acquired absence of other specified parts of digestive tract; I25.10 Atherosclerotic heart disease of native coronary artery without angina pectoris; Z83.3 Family history of diabetes mellitus; E11.43 Type 2 diabetes mellitus with diabetic autonomic (poly)neuropathy; K31.84 Gastroparesis; Z79.4 Long term (current) use of insulin; Z20.822 Contact with and (suspected) exposure to COVID-19
CPT/HCPCS: 36415; 43235; 71045; 80048; 80053; 82270; 82550; 82553; 82607; 82728; 82746; 82948; 83735; 84132; 84484; 85014; 85018; 85025; 85045; 85610; 85730; 86704; 86706; 86850; 86900; 86920; 86922; 87340; 90962; 93005; 99284; J1815; J2250; J2353; J2354; J2405; J3010; J7030; J7040; J7050; P9016; U0002

== ENCOUNTER 2021-03-08 20:00 | Emergency (ER) | payer MEDICARE, BC ==
[~2021-03-08] VITALS: Ht 157.5 cm; Wt 88.5 kg
[~2021-03-08 20:00] MED LIST changes: +OMEPRAZOLE40 MG PO
[2021-03-08] MEDS ORDERED: DOXYCYCLINE HY100 MG PO (20:25)
== END 2021-03-08 20:45 | disposition home or self-care (01) ==
LOC: FSED 20:20
DX: L03.115 Cellulitis of right lower limb (principal); I12.0 Hypertensive chronic kidney disease with stage 5 chronic kidney disease or end stage renal disease; E11.22 Type 2 diabetes mellitus with diabetic chronic kidney disease; N18.6 End stage renal disease; Z99.2 Dependence on renal dialysis; D64.9 Anemia, unspecified
CPT/HCPCS: 99282

== ENCOUNTER 2021-03-25 17:45 | Inpatient (IN) | payer MEDICARE, BC ==
[~2021-03-25] VITALS: Ht 157.5 cm; Wt 88.5 kg
[~2021-03-25 17:45] MED LIST changes: +DOXYCYCLINE HY100 MG PO
[2021-03-25 18:36] LABS: BASOPHILS % 0.5 % (0.0-1.0); EOSINOPHILS % 0.7 % (0.0-6.0); LYMPHOCYTES # (AUTO) 0.3 (1.0-3.2); MEAN CORPUSCULAR HEMOGLOBIN 27.4 pg (28-32); MONOCYTES # (AUTO) 0.3 (0.2-0.8); NEUTROPHILS # (AUTO) 3.6 (2.1-6.9); NEUTROPHILS % 84.3 % (38.7-80.0); PLATELET COUNT 101 x10e3/uL (140-360); RED BLOOD COUNT 2.23 x10e6/uL (3.6-5.1); RED CELL DISTRIBUTION WIDTH 19.4 % (11.7-14.4)
[2021-03-25 18:39] LABS: HEMATOCRIT 20.3 % (34.2-44.1)
[2021-03-25 18:40] LABS: HEMOGLOBIN 6.1 g/dL (12.0-16.0)
[2021-03-25 18:47] LABS: ANION GAP 17.8 mmol/L (8-16); CALCIUM 7.9 mg/dL (8.4-10.2); CREATININE, SERUM 3.65 mg/dL (0.57-1.11); POTASSIUM 3.8 mmol/L (3.5-5.1)
[2021-03-25 18:55] LABS: INR 1.04; PARTIAL THROMBOPLASTIN TIME 30.3 seconds (23.8-35.5); PROTHROMBIN TIME 13.8 seconds (11.9-14.5)
[2021-03-25] MEDS ORDERED: SODIUM CHLORIDE 0.9% 250ML 250 ML IV ONE (19:00)
[2021-03-25] MEDS ORDERED: DEXTROSE 50% SYRINGE 50 ML IV PRN (19:00)
[2021-03-25] MEDS: SODIUM CHLORIDE 0.9% 1000ML 1,000 ML IV SCH (20:55)
[2021-03-25] MEDS: INSULIN REGULAR, HUMAN 100 UNIT/1 ML SQ SCH (21:00)
[2021-03-25] MEDS ORDERED: SODIUM CHLORIDE 0.9% 250ML 250 ML ONE (23:44)
[2021-03-26 00:15] LABS: % IRON SATURATION 95 % (15-50); IRON 280 ug/dL (50-170); TOTAL IRON BINDING CAPACITY 294 ug/dL (261-478); TRANSFERRIN 210 mg/dL (180-382)
[2021-03-26 05:44] LABS: HEMATOCRIT 21.9 % (34.2-44.1); HEMOGLOBIN 6.6 g/dL (12.0-16.0)
[2021-03-26] MEDS ORDERED: SODIUM CHLORIDE 0.9% 250ML 250 ML IV ONE ×2 (06:00→14:00)
[2021-03-26 06:01] LABS: ANION GAP 17.2 mmol/L (8-16); CALCIUM 7.5 mg/dL (8.4-10.2); CREATININE, SERUM 4.23 mg/dL (0.57-1.11); POTASSIUM 4.2 mmol/L (3.5-5.1)
[2021-03-26] MEDS: INSULIN REGULAR, HUMAN 100 UNIT/1 ML SQ SCH ×4 (07:30→21:00)
[2021-03-26] MEDS ORDERED: NON-FORMULARY MEDICATION (Cholecalciferol (Vitamin D3) (Vitamin D3) 1 TAB) PO SCH (09:00)
[2021-03-26] MEDS ORDERED: DOXYCYCLINE HYCLATE TABLET 100 MG TAB PO SCH (09:00)
[2021-03-26] MEDS ORDERED: INSULIN LISPRO 100 UNIT/1 ML 3ML VIAL SQ SCH (11:30)
[2021-03-26] MEDS: CARVEDILOL 12.5 MG TAB PO SCH ×2 (11:39→17:41)
[2021-03-26] MEDS: SEVELAMER CARBONATE 800 MG TAB PO SCH ×2 (12:00→17:00)
[2021-03-26] MEDS: CHOLECALCIFEROL 1,000 UNIT TAB PO SCH (13:00)
[2021-03-26 15:09] LABS: HEMOGLOBIN 6.9 g/dL (12.0-16.0)
[2021-03-26 15:10] LABS: HEMATOCRIT 22.5 % (34.2-44.1)
[2021-03-26] MEDS: SODIUM CHLORIDE 0.9% 1000ML 1,000 ML IV SCH (17:39)
[2021-03-26 18:15] VITALS: BP 136/65
[2021-03-26] MEDS ORDERED: SODIUM CHLORIDE 0.9% 250ML 250 ML ONE (19:35)
[2021-03-26 20:00] VITALS: BP 128/56
[2021-03-26 20:31] VITALS: BP 128/56
[2021-03-27] VITALS (8 sets, daily range): BP systolic 123–149; BP diastolic 51–67
[2021-03-27 02:05] LABS: HEMATOCRIT 28.4 % (34.2-44.1); HEMOGLOBIN 8.9 g/dL (12.0-16.0)
[2021-03-27] MEDS ORDERED: COLACE100 MG PO (04:20)
[2021-03-27 05:59] LABS: HEMATOCRIT 27.7 % (34.2-44.1); HEMOGLOBIN 8.8 g/dL (12.0-16.0)
[2021-03-27] MEDS: INSULIN REGULAR, HUMAN 100 UNIT/1 ML SQ SCH ×4 (07:30→21:00)
[2021-03-27] MEDS: SEVELAMER CARBONATE 800 MG TAB PO SCH ×3 (07:32→17:14)
[2021-03-27] MEDS: CARVEDILOL 12.5 MG TAB PO SCH ×2 (09:00→17:18)
[2021-03-27 09:13] LABS: BASOPHILS % 0.5 % (0.0-1.0); EOSINOPHILS # (AUTO) 0.1 (0.0-0.4); EOSINOPHILS % 1.2 % (0.0-6.0); HEMATOCRIT 28.1 % (34.2-44.1); HEMOGLOBIN 8.8 g/dL (12.0-16.0); LYMPHOCYTES # (AUTO) 0.3 (1.0-3.2); LYMPHOCYTES % 8.2 % (18.0-39.1); MEAN CORPUSCULAR HEMOGLOBIN 27.8 pg (28-32); MEAN CORPUSCULAR HGB CONC 31.3 g/dL (31-35); MEAN CORPUSCULAR VOLUME 88.6 fL (81-99); MONOCYTES # (AUTO) 0.3 (0.2-0.8); MONOCYTES % 8.4 % (4.4-11.3); NEUTROPHILS # (AUTO) 3.3 (2.1-6.9); NEUTROPHILS % 81.2 % (38.7-80.0); PLATELET COUNT 66 x10e3/uL (140-360); RED BLOOD COUNT 3.17 x10e6/uL (3.6-5.1); RED CELL DISTRIBUTION WIDTH 17.7 % (11.7-14.4)
[2021-03-27] MEDS ORDERED: LIDOCAINE HCL 5% OINMENT 35.44 GM TUBE TP PRN (09:30)
[2021-03-27 09:34] LABS: ANION GAP 20.3 mmol/L (8-16); CREATININE, SERUM 2.83 mg/dL (0.57-1.11); POTASSIUM 4.3 mmol/L (3.5-5.1)
[2021-03-27] MEDS: SODIUM CHLORIDE 0.9% 1000ML 1,000 ML IV SCH (11:00)
[2021-03-27 14:02] LABS: HEMATOCRIT 29.3 % (34.2-44.1)
[2021-03-27] MEDS: DOCUSATE SODIUM 100 MG CAP PO SCH (17:13)
[2021-03-27] MEDS: CHOLECALCIFEROL 1,000 UNIT TAB PO SCH (17:13)
[2021-03-27 18:10] LABS: HEMATOCRIT 30.8 % (34.2-44.1); HEMOGLOBIN 9.4 g/dL (12.0-16.0)
[2021-03-28] VITALS (7 sets, daily range): BP systolic 113–152; BP diastolic 50–67
[2021-03-28 06:01] LABS: HEMATOCRIT 26.8 % (34.2-44.1); HEMOGLOBIN 8.2 g/dL (12.0-16.0)
[2021-03-28] MEDS: SODIUM CHLORIDE 0.9% 1000ML 1,000 ML IV SCH (07:00)
[2021-03-28] MEDS: INSULIN REGULAR, HUMAN 100 UNIT/1 ML SQ SCH ×4 (07:30→20:17)
[2021-03-28] MEDS: SEVELAMER CARBONATE 800 MG TAB PO SCH ×3 (08:00→17:00)
[2021-03-28] MEDS: DOCUSATE SODIUM 100 MG CAP PO SCH (09:00)
[2021-03-28] MEDS: CHOLECALCIFEROL 1,000 UNIT TAB PO SCH (09:00)
[2021-03-28] MEDS: CARVEDILOL 12.5 MG TAB PO SCH ×3 (09:00→21:27)
[2021-03-28 12:17] LABS: HEMATOCRIT 30.7 % (34.2-44.1); HEMOGLOBIN 9.3 g/dL (12.0-16.0)
[2021-03-28] MEDS ORDERED: HEPARIN SOD (PORCINE) 1000 UNIT/ML SDV ONE (15:30)
[2021-03-28] MEDS ORDERED: BISACODYL 5 MG TAB EC PO ONE ×2 (16:00→20:00)
[2021-03-28 19:03] LABS: HEMATOCRIT 27.7 % (34.2-44.1); HEMOGLOBIN 8.3 g/dL (12.0-16.0)
[2021-03-29] VITALS: BP 116/60
[2021-03-29 04:02] VITALS: BP 115/48
[2021-03-29 06:42] LABS: BASOPHILS % 0.3 % (0.0-1.0); EOSINOPHILS # (AUTO) 0.1 (0.0-0.4); EOSINOPHILS % 2.1 % (0.0-6.0); HEMATOCRIT 27.2 % (34.2-44.1); HEMOGLOBIN 8.3 g/dL (12.0-16.0); LYMPHOCYTES # (AUTO) 0.5 (1.0-3.2); LYMPHOCYTES % 14.2 % (18.0-39.1); MEAN CORPUSCULAR HEMOGLOBIN 27.7 pg (28-32); MEAN CORPUSCULAR HGB CONC 30.5 g/dL (31-35); MEAN CORPUSCULAR VOLUME 90.7 fL (81-99); MONOCYTES # (AUTO) 0.4 (0.2-0.8); MONOCYTES % 12.4 % (4.4-11.3); NEUTROPHILS # (AUTO) 2.3 (2.1-6.9); NEUTROPHILS % 70.4 % (38.7-80.0); PLATELET COUNT 70 x10e3/uL (140-360); RED CELL DISTRIBUTION WIDTH 18.6 % (11.7-14.4)
[2021-03-29] MEDS: INSULIN REGULAR, HUMAN 100 UNIT/1 ML SQ SCH ×2 (07:30→11:30)
[2021-03-29] MEDS: SEVELAMER CARBONATE 800 MG TAB PO SCH ×2 (08:00→11:50)
[2021-03-29 08:32] VITALS: BP 141/66
[2021-03-29] MEDS ORDERED: SODIUM CHLORIDE 0.9% 1000ML 1,000 ML ONE (08:47)
[2021-03-29] MEDS: CHOLECALCIFEROL 1,000 UNIT TAB PO SCH (09:00)
[2021-03-29] MEDS: DOCUSATE SODIUM 100 MG CAP PO SCH (09:00)
[2021-03-29] MEDS: CARVEDILOL 12.5 MG TAB PO SCH (09:00)
[2021-03-29 09:02] LABS: ANION GAP 14.6 mmol/L (8-16); CALCIUM 7.7 mg/dL (8.4-10.2); CREATININE, SERUM 5.43 mg/dL (0.57-1.11); POTASSIUM 4.6 mmol/L (3.5-5.1)
[2021-03-29 09:31] VITALS: BP 141/66
[2021-03-29] MEDS ORDERED: SODIUM CHLORIDE 0.9% 250ML 500 ML IV PRN (09:45)
[2021-03-29] MEDS ORDERED: SODIUM CHLORIDE 0.9% 1000ML 2,000 ML IV PRN (09:45)
[2021-03-29 12:18] VITALS: BP 134/61
== END 2021-03-29 16:15 | disposition home or self-care (01) | DRG 377 ==
LOC: ER 17:52 → ERHOLD 19:14 → MED/SURG 03-26 18:12
PROVIDERS: ADMIT Internal Medicine; ATTEND Internal Medicine
PROC: 30233N1 Transfusion of Nonautologous Red Blood Cells into Peripheral Vein, Percutaneous Approach (ICD-10-PCS; 2021-03-25)
PROC: 5A1D70Z Performance of Urinary Filtration, Intermittent, Less than 6 Hours Per Day (ICD-10-PCS; 2021-03-26)
PROC: 0D598ZZ Destruction of Duodenum, Via Natural or Artificial Opening Endoscopic (ICD-10-PCS; principal; 2021-03-28 07:30)
DX: K55.21 Angiodysplasia of colon with hemorrhage (principal); N18.6 End stage renal disease; D62 Acute posthemorrhagic anemia; I13.2 Hypertensive heart and chronic kidney disease with heart failure and with stage 5 chronic kidney disease, or end stage renal disease; I50.32 Chronic diastolic (congestive) heart failure; D61.818 Other pancytopenia; E11.22 Type 2 diabetes mellitus with diabetic chronic kidney disease; E11.21 Type 2 diabetes mellitus with diabetic nephropathy; D63.1 Anemia in chronic kidney disease; E66.9 Obesity, unspecified; E11.42 Type 2 diabetes mellitus with diabetic polyneuropathy; K29.70 Gastritis, unspecified, without bleeding; K44.9 Diaphragmatic hernia without obstruction or gangrene; Z99.2 Dependence on renal dialysis; Z90.49 Acquired absence of other specified parts of digestive tract; Z95.810 Presence of automatic (implantable) cardiac defibrillator; Z86.16 Personal history of COVID-19; Z68.35 Body mass index [BMI] 35.0-35.9, adult; Z20.822 Contact with and (suspected) exposure to COVID-19; Z79.4 Long term (current) use of insulin
CPT/HCPCS: 36415; 43255; 78278; 80048; 82607; 82746; 82948; 83540; 84132; 84466; 85014; 85018; 85025; 85045; 85610; 85730; 86850; 86900; 86920; 86922; 90962; 93005; 99284; A9512; J1644; J1817; J7030; J7050; P9016; U0002

== ENCOUNTER 2021-06-10 07:40 | Inpatient (IN) | payer MEDICARE, BC ==
[2021-06-10] VITALS (14 sets, daily range): BP systolic 123–156; BP diastolic 52–69
[~2021-06-10] VITALS: Ht 167.6 cm; Wt 91.2 kg
[~2021-06-10 07:40] MED LIST changes: +COLACE100 MG PO
[2021-06-10 08:31] LABS: BASOPHILS % 0.6 % (0.0-1.0); EOSINOPHILS # (AUTO) 0.1 (0.0-0.4); EOSINOPHILS % 1.7 % (0.0-6.0); HEMATOCRIT 42.2 % (34.2-44.1); HEMOGLOBIN 13.2 g/dL (12.0-16.0); LYMPHOCYTES # (AUTO) 0.6 (1.0-3.2); LYMPHOCYTES % 11.9 % (18.0-39.1); MEAN CORPUSCULAR HGB CONC 31.3 g/dL (31-35); MEAN CORPUSCULAR VOLUME 89.4 fL (81-99); MONOCYTES # (AUTO) 0.4 (0.2-0.8); MONOCYTES % 9.4 % (4.4-11.3); NEUTROPHILS # (AUTO) 3.6 (2.1-6.9); NEUTROPHILS % 76.2 % (38.7-80.0); RED BLOOD COUNT 4.72 x10e6/uL (3.6-5.1); RED CELL DISTRIBUTION WIDTH 17.1 % (11.7-14.4)
[2021-06-10 08:44] LABS: PLATELET COUNT 67 x10e3/uL (140-360)
[2021-06-10 08:51] LABS: ALANINE AMINOTRANSFERASE 25 IU/L (0-55); ALBUMIN 3.5 g/dL (3.5-5.0); ALBUMIN/GLOBULIN RATIO 0.7 (0.8-2.0); ALKALINE PHOSPHATASE 164 IU/L (40-150); ANION GAP 25.7 mmol/L (8-16); BLOOD UREA NITROGEN 74 mg/dL (7-26); BUN/CREATININE RATIO 8 (6-25); CALCIUM 8.7 mg/dL (8.4-10.2); CARBON DIOXIDE 21 mmol/L (22-29); CHLORIDE 93 mmol/L (98-107); CREATINE KINASE 40 IU/L (29-168); CREATININE, SERUM 9.13 mg/dL (0.57-1.11); EST GLOMERULAR FILTRATION RATE 4 ML/MIN (60-); GLUCOSE 255 mg/dL (74-118); MAGNESIUM 2.5 MG/DL (1.3-2.1); SODIUM 132 mmol/L (136-145)
[2021-06-10 08:54] LABS: POTASSIUM 7.7 mmol/L (3.5-5.1)
[2021-06-10 08:59] LABS: INR 0.97; PARTIAL THROMBOPLASTIN TIME 32.6 seconds (23.8-35.5); PROTHROMBIN TIME 13.7 seconds (11.9-14.5)
[2021-06-10] MEDS ORDERED: DEXTROSE 50% SYRINGE 50 ML IV STA (09:05)
[2021-06-10] MEDS ORDERED: SODIUM BICARBONATE 8.4% INJ 50 ML SYR IV NR (09:15)
[2021-06-10] MEDS ORDERED: ALBUTEROL SULF 0.083% NEB SOLN 3 ML NEB NEB ONE (09:15)
[2021-06-10] MEDS ORDERED: CALCIUM GLUCONATE 10% INJ 4.65 MEQ in SODIUM CHLORIDE 0.9% 50ML 50 ML IV ONE (09:15)
[2021-06-10] MEDS ORDERED: INSULIN REGULAR, HUMAN 100 UNIT/1 ML IV ONE (09:15)
[2021-06-10] MEDS ORDERED: SODIUM CHLORIDE 0.9% 1000ML 2,000 ML ONE (11:09)
[2021-06-10] MEDS ORDERED: DEXTROSE 50% SYRINGE 50 ML IV PRN (11:15)
[2021-06-10] MEDS: INSULIN REGULAR, HUMAN 100 UNIT/1 ML SQ SCH ×3 (11:30→21:00)
[2021-06-10] MEDS: SEVELAMER CARBONATE 800 MG TAB PO SCH ×2 (12:00→17:00)
[2021-06-10] MEDS ORDERED: SODIUM CHLORIDE 0.9% 1000ML 2,000 ML IV PRN (16:30)
[2021-06-10] MEDS: CARVEDILOL 3.125 MG TAB PO SCH (17:27)
[2021-06-11] VITALS (17 sets, daily range): BP systolic 114–146; BP diastolic 54–81
[2021-06-11 05:03] LABS: BASOPHILS % 0.9 % (0.0-1.0); EOSINOPHILS # (AUTO) 0.1 (0.0-0.4); HEMATOCRIT 37.6 % (34.2-44.1); HEMOGLOBIN 11.7 g/dL (12.0-16.0); LYMPHOCYTES # (AUTO) 0.4 (1.0-3.2); LYMPHOCYTES % 11.9 % (18.0-39.1); MEAN CORPUSCULAR HEMOGLOBIN 27.7 pg (28-32); MEAN CORPUSCULAR HGB CONC 31.1 g/dL (31-35); MEAN CORPUSCULAR VOLUME 88.9 fL (81-99); MONOCYTES # (AUTO) 0.4 (0.2-0.8); MONOCYTES % 9.9 % (4.4-11.3); NEUTROPHILS # (AUTO) 2.7 (2.1-6.9); NEUTROPHILS % 75.3 % (38.7-80.0); PLATELET COUNT 64 x10e3/uL (140-360); RED BLOOD COUNT 4.23 x10e6/uL (3.6-5.1); RED CELL DISTRIBUTION WIDTH 17.2 % (11.7-14.4)
[2021-06-11 05:20] LABS: ALBUMIN 3.3 g/dL (3.5-5.0); ALBUMIN/GLOBULIN RATIO 0.8 (0.8-2.0); ANION GAP 19.2 mmol/L (8-16); CALCIUM 8.2 mg/dL (8.4-10.2); CREATININE, SERUM 5.62 mg/dL (0.57-1.11); POTASSIUM 5.2 mmol/L (3.5-5.1)
[2021-06-11] MEDS: DOCUSATE SODIUM 100 MG CAP PO SCH (08:03)
[2021-06-11] MEDS: PANTOPRAZOLE SOD 40 MG TABEC PO SCH (08:03)
[2021-06-11] MEDS: CARVEDILOL 3.125 MG TAB PO SCH ×2 (08:03→16:53)
[2021-06-11] MEDS: SEVELAMER CARBONATE 800 MG TAB PO SCH ×3 (08:03→16:53)
[2021-06-11] MEDS: INSULIN REGULAR, HUMAN 100 UNIT/1 ML SQ SCH ×4 (08:06→21:00)
[2021-06-12] VITALS: BP 132/63
[2021-06-12 04:00] VITALS: BP 129/56
[2021-06-12 07:55] VITALS: BP 129/50
[2021-06-12] MEDS: SEVELAMER CARBONATE 800 MG TAB PO SCH ×3 (08:19→19:03)
[2021-06-12] MEDS: PANTOPRAZOLE SOD 40 MG TABEC PO SCH (08:19)
[2021-06-12] MEDS: INSULIN REGULAR, HUMAN 100 UNIT/1 ML SQ SCH ×3 (08:19→16:30)
[2021-06-12] MEDS: DOCUSATE SODIUM 100 MG CAP PO SCH (08:19)
[2021-06-12] MEDS: CARVEDILOL 3.125 MG TAB PO SCH ×2 (08:20→17:00)
[2021-06-12 08:24] VITALS: BP 129/50
[2021-06-12 11:18] LABS: BASOPHILS % 0.6 % (0.0-1.0); EOSINOPHILS # (AUTO) 0.1 (0.0-0.4); EOSINOPHILS % 1.4 % (0.0-6.0); HEMATOCRIT 38.1 % (34.2-44.1); LYMPHOCYTES # (AUTO) 0.3 (1.0-3.2); LYMPHOCYTES % 9.8 % (18.0-39.1); MEAN CORPUSCULAR HEMOGLOBIN 28.2 pg (28-32); MEAN CORPUSCULAR HGB CONC 31.5 g/dL (31-35); MEAN CORPUSCULAR VOLUME 89.6 fL (81-99); MONOCYTES # (AUTO) 0.3 (0.2-0.8); MONOCYTES % 8.4 % (4.4-11.3); NEUTROPHILS # (AUTO) 2.8 (2.1-6.9); NEUTROPHILS % 79.5 % (38.7-80.0); PLATELET COUNT 62 x10e3/uL (140-360); RED BLOOD COUNT 4.25 x10e6/uL (3.6-5.1)
[2021-06-12 12:45] VITALS: BP 139/63
[2021-06-12 16:37] VITALS: BP 118/58
== END 2021-06-12 20:04 | disposition home or self-care (01) | DRG 682 ==
LOC: MERGE 08:13 → ER 08:13 → ERHOLD 09:40 → ICU 10:59 → MED/SURG 06-11 18:59
PROC: 5A1D70Z Performance of Urinary Filtration, Intermittent, Less than 6 Hours Per Day (ICD-10-PCS; principal; 2021-06-10)
DX: I12.0 Hypertensive chronic kidney disease with stage 5 chronic kidney disease or end stage renal disease (principal); N18.6 End stage renal disease; K31.811 Angiodysplasia of stomach and duodenum with bleeding; E87.5 Hyperkalemia; E11.22 Type 2 diabetes mellitus with diabetic chronic kidney disease; Z99.2 Dependence on renal dialysis; Z91.15 Patient's noncompliance with renal dialysis; Z79.899 Other long term (current) drug therapy; D64.9 Anemia, unspecified; Z91.14 Patient's other noncompliance with medication regimen; Z20.822 Contact with and (suspected) exposure to COVID-19; Z79.4 Long term (current) use of insulin
CPT/HCPCS: 36415; 71045; 80053; 82550; 82553; 82948; 83735; 84484; 85025; 85610; 85730; 86704; 86706; 87340; 90962; 93005; 94640; 94799; 99284; J0610; J1817; J7030; J7799; U0002

== ENCOUNTER → 2021-08-13 | Day surgery (SDC) | payer MEDICARE, BC ==
[~2021-08-13] MED LIST changes: +FENTANYL CITRATE/PF 100MCG/2 ML INJ ONE; +GLUCAGON FOR INJ 1 MG VIAL ONE; +HYOSCYAMINE SULFATE 0.5 MG/ML INJ ONE; +INSULIN REGULAR, HUMAN 100 UNIT/1 ML ONE; +LIDOCAINE HCL 2% LOCAL INJ 5 ML SDV VIAL INJ ONE; +MIDAZOLAM HCL 2 MG/2 ML VIAL ONE; +PHYTONADIONE 10MG/ML 20 MG in SODIUM CHLORIDE 0.9% 50ML 50 ML IV ONE; +PROPOFOL IV EMULSION 10 MG/ML 20 ML VIAL ONE; +SODIUM CHLORIDE 0.9% 500ML 500 ML ONE
[2021-08-13 10:46] LABS: BASOPHILS % 0.5 % (0.0-1.0); EOSINOPHILS # (AUTO) 0.3 (0.0-0.4); HEMATOCRIT 28.6 % (34.2-44.1); HEMOGLOBIN 8.8 g/dL (12.0-16.0); LYMPHOCYTES # (AUTO) 0.5 (1.0-3.2); LYMPHOCYTES % 9.2 % (18.0-39.1); MEAN CORPUSCULAR HEMOGLOBIN 29.4 pg (28-32); MEAN CORPUSCULAR HGB CONC 30.8 g/dL (31-35); MEAN CORPUSCULAR VOLUME 95.7 fL (81-99); MONOCYTES # (AUTO) 0.5 (0.2-0.8); MONOCYTES % 8.6 % (4.4-11.3); NEUTROPHILS # (AUTO) 4.2 (2.1-6.9); NEUTROPHILS % 76.3 % (38.7-80.0); PLATELET COUNT 130 x10e3/uL (140-360); RED BLOOD COUNT 2.99 x10e6/uL (3.6-5.1); RED CELL DISTRIBUTION WIDTH 17.2 % (11.7-14.4)
[2021-08-13 11:09] LABS: ANION GAP 18.6 mmol/L (8-16); CALCIUM 9.2 mg/dL (8.4-10.2); CREATININE, SERUM 4.67 mg/dL (0.57-1.11); POTASSIUM 3.6 mmol/L (3.5-5.1)
[2021-08-13 13:15] VITALS: BP 130/60
[2021-08-13 13:24] LABS: INR 1.06; PROTHROMBIN TIME 14.6 seconds (11.9-14.5)
== END | disposition home or self-care (01) ==
LOC: OR 09:31
PROVIDERS: ATTEND Internal Medicine Gastroenterology
DX: D50.9 Iron deficiency anemia, unspecified (principal); K62.1 Rectal polyp; Q27.33 Arteriovenous malformation of digestive system vessel; K57.30 Diverticulosis of large intestine without perforation or abscess without bleeding; K64.8 Other hemorrhoids; K62.5 Hemorrhage of anus and rectum; K29.70 Gastritis, unspecified, without bleeding; E11.22 Type 2 diabetes mellitus with diabetic chronic kidney disease; I12.0 Hypertensive chronic kidney disease with stage 5 chronic kidney disease or end stage renal disease; N18.6 End stage renal disease; Z01.810 Encounter for preprocedural cardiovascular examination; Z01.812 Encounter for preprocedural laboratory examination; Z20.822 Contact with and (suspected) exposure to COVID-19; Z99.2 Dependence on renal dialysis; Z79.4 Long term (current) use of insulin; Z68.29 Body mass index [BMI] 29.0-29.9, adult; Z95.0 Presence of cardiac pacemaker
CPT/HCPCS: 36415; 45384; 45388; 80048; 82948; 85025; 85610; 85730; 88305; 93005; J1610; J1980; J2001; J2250; J2704; J3010; J3430; J7040; U0002; 45378; 45385; J1817

== ENCOUNTER 2021-08-22 16:57 | Inpatient (IN) | payer MEDICARE, BC ==
[~2021-08-22] VITALS: Ht 320 cm; Wt 91.2 kg
[~2021-08-22 16:57] MED LIST changes: -FENTANYL CITRATE/PF 100MCG/2 ML INJ ONE; -GLUCAGON FOR INJ 1 MG VIAL ONE; -HYOSCYAMINE SULFATE 0.5 MG/ML INJ ONE; -INSULIN REGULAR, HUMAN 100 UNIT/1 ML ONE; -LIDOCAINE HCL 2% LOCAL INJ 5 ML SDV VIAL INJ ONE; -MIDAZOLAM HCL 2 MG/2 ML VIAL ONE; -PHYTONADIONE 10MG/ML 20 MG in SODIUM CHLORIDE 0.9% 50ML 50 ML IV ONE; -PROPOFOL IV EMULSION 10 MG/ML 20 ML VIAL ONE; -SODIUM CHLORIDE 0.9% 500ML 500 ML ONE
[2021-08-22 18:07] LABS: BASOPHILS # (AUTO) 0.1 (0.0-0.1); BASOPHILS % 0.7 % (0.0-1.0); EOSINOPHILS # (AUTO) 0.3 (0.0-0.4); EOSINOPHILS % 4.6 % (0.0-6.0); HEMATOCRIT 27.9 % (34.2-44.1); HEMOGLOBIN 8.6 g/dL (12.0-16.0); LYMPHOCYTES # (AUTO) 0.6 (1.0-3.2); LYMPHOCYTES % 9.5 % (18.0-39.1); MEAN CORPUSCULAR HEMOGLOBIN 29.6 pg (28-32); MEAN CORPUSCULAR HGB CONC 30.8 g/dL (31-35); MEAN CORPUSCULAR VOLUME 95.9 fL (81-99); MONOCYTES # (AUTO) 0.5 (0.2-0.8); MONOCYTES % 7.6 % (4.4-11.3); NEUTROPHILS # (AUTO) 5.2 (2.1-6.9); NEUTROPHILS % 76.9 % (38.7-80.0); PLATELET COUNT 151 x10e3/uL (140-360); RED BLOOD COUNT 2.91 x10e6/uL (3.6-5.1); RED CELL DISTRIBUTION WIDTH 17.4 % (11.7-14.4)
[2021-08-22 18:25] LABS: ALBUMIN/GLOBULIN RATIO 0.6 (0.8-2.0); ANION GAP 18.7 mmol/L (8-16); CALCIUM 8.9 mg/dL (8.4-10.2); CREATININE, SERUM 4.54 mg/dL (0.57-1.11); POTASSIUM 3.7 mmol/L (3.5-5.1)
[2021-08-22 18:28] LABS: INR 1.06; PROTHROMBIN TIME 14.6 seconds (11.9-14.5)
[2021-08-22 18:29] LABS: PARTIAL THROMBOPLASTIN TIME 34.3 seconds (23.8-35.5)
[2021-08-22] MEDS ORDERED: SODIUM CHLORIDE 0.9% 100 ML ONE (19:35)
[2021-08-22] MEDS ORDERED: IOPAMIDOL 370 MG/ML 200 ML INFUS..BTL INJ ONE (19:35)
[2021-08-22] MEDS ORDERED: DEXTROSE 50% SYRINGE 50 ML IV PRN (21:30)
[2021-08-22] MEDS: SODIUM CHLORIDE 0.9% 1000ML 1,000 ML IV SCH (23:21)
[2021-08-22 23:52] VITALS: BP 122/47
[2021-08-23] VITALS (8 sets, daily range): BP systolic 86–122; BP diastolic 39–48
[2021-08-23 01:33] LABS: HEMATOCRIT 22.4 % (34.2-44.1)
[2021-08-23] MEDS ORDERED: PHYTONADIONE 10 MG/ML AMP IV ONE ×2 (02:45→23:15)
[2021-08-23] MEDS ORDERED: SODIUM CHLORIDE 0.9% 50ML 50 ML ONE ×2 (02:59→23:37)
[2021-08-23 06:50] LABS: HEMATOCRIT 21.2 % (34.2-44.1)
[2021-08-23 06:53] LABS: HEMOGLOBIN 6.5 g/dL (12.0-16.0)
[2021-08-23] MEDS ORDERED: SODIUM CHLORIDE 0.9% 250ML 250 ML IV ONE (07:30)
[2021-08-23] MEDS: INSULIN REGULAR, HUMAN 100 UNIT/1 ML SQ SCH ×4 (07:30→21:44)
[2021-08-23 16:35] LABS: HEMATOCRIT 27.1 % (34.2-44.1); HEMOGLOBIN 8.7 g/dL (12.0-16.0)
[2021-08-23] MEDS ORDERED: EPOETIN ALFA-EPBX 10,000 UNIT/ML VIAL SC SCH (17:00)
[2021-08-23] MEDS: SODIUM CHLORIDE 0.9% 1000ML 1,000 ML IV SCH (17:23)
[2021-08-23 21:57] LABS: INR 1.11; PROTHROMBIN TIME 15.1 seconds (11.9-14.5)
[2021-08-24] VITALS (8 sets, daily range): BP systolic 112–133; BP diastolic 41–56
[2021-08-24] MEDS: INSULIN REGULAR, HUMAN 100 UNIT/1 ML SQ SCH ×4 (07:31→21:00)
[2021-08-24 07:38] LABS: BASOPHILS # (AUTO) 0.1 (0.0-0.1); BASOPHILS % 1.1 % (0.0-1.0); EOSINOPHILS # (AUTO) 0.2 (0.0-0.4); EOSINOPHILS % 4.7 % (0.0-6.0); HEMATOCRIT 25.4 % (34.2-44.1); LYMPHOCYTES # (AUTO) 0.5 (1.0-3.2); LYMPHOCYTES % 10.8 % (18.0-39.1); MEAN CORPUSCULAR HEMOGLOBIN 30.2 pg (28-32); MEAN CORPUSCULAR HGB CONC 31.5 g/dL (31-35); MEAN CORPUSCULAR VOLUME 95.8 fL (81-99); MONOCYTES # (AUTO) 0.5 (0.2-0.8); MONOCYTES % 10.6 % (4.4-11.3); NEUTROPHILS # (AUTO) 3.4 (2.1-6.9); NEUTROPHILS % 71.7 % (38.7-80.0); PLATELET COUNT 125 x10e3/uL (140-360); RED BLOOD COUNT 2.65 x10e6/uL (3.6-5.1); RED CELL DISTRIBUTION WIDTH 16.8 % (11.7-14.4)
[2021-08-24 08:02] LABS: ALBUMIN 2.5 g/dL (3.5-5.0); ALBUMIN/GLOBULIN RATIO 0.6 (0.8-2.0); ANION GAP 17.9 mmol/L (8-16); CALCIUM 8.1 mg/dL (8.4-10.2); CREATININE, SERUM 4.08 mg/dL (0.57-1.11); POTASSIUM 3.9 mmol/L (3.5-5.1)
[2021-08-24 12:25] LABS: HEMATOCRIT 27.3 % (34.2-44.1); HEMOGLOBIN 8.7 g/dL (12.0-16.0)
[2021-08-24] MEDS: SODIUM CHLORIDE 0.9% 1000ML 1,000 ML IV SCH (13:04)
[2021-08-24 18:50] LABS: HEMATOCRIT 27.9 % (34.2-44.1); HEMOGLOBIN 8.6 g/dL (12.0-16.0)
[2021-08-24] MEDS: INSULIN GLARGINE 100 UNITS/ML VIAL SQ SCH (21:00)
[2021-08-24 22:51] LABS: INR 0.99; PROTHROMBIN TIME 13.8 seconds (11.9-14.5)
[2021-08-25] VITALS (8 sets, daily range): BP systolic 109–133; BP diastolic 45–60
[2021-08-25 06:28] LABS: BASOPHILS % 0.7 % (0.0-1.0); EOSINOPHILS # (AUTO) 0.3 (0.0-0.4); EOSINOPHILS % 5.9 % (0.0-6.0); HEMATOCRIT 24.1 % (34.2-44.1); HEMOGLOBIN 7.7 g/dL (12.0-16.0); LYMPHOCYTES # (AUTO) 0.7 (1.0-3.2); LYMPHOCYTES % 15.9 % (18.0-39.1); MEAN CORPUSCULAR HEMOGLOBIN 30.6 pg (28-32); MEAN CORPUSCULAR VOLUME 95.6 fL (81-99); MONOCYTES # (AUTO) 0.4 (0.2-0.8); MONOCYTES % 8.6 % (4.4-11.3); NEUTROPHILS # (AUTO) 3.1 (2.1-6.9); NEUTROPHILS % 68.5 % (38.7-80.0); PLATELET COUNT 123 x10e3/uL (140-360); RED BLOOD COUNT 2.52 x10e6/uL (3.6-5.1); RED CELL DISTRIBUTION WIDTH 17.3 % (11.7-14.4)
[2021-08-25 07:08] LABS: CALCIUM 7.6 mg/dL (8.4-10.2); CREATININE, SERUM 5.68 mg/dL (0.57-1.11)
[2021-08-25] MEDS: INSULIN REGULAR, HUMAN 100 UNIT/1 ML SQ SCH ×4 (07:30→20:46)
[2021-08-25] MEDS: POLYETHYLENE GLYCOL 3350 17 GM PACK PO SCH (09:18)
[2021-08-25] MEDS: SODIUM CHLORIDE 0.9% 1000ML 1,000 ML IV SCH (09:30)
[2021-08-25] MEDS: DOCUSATE SODIUM 100 MG CAP PO SCH (16:47)
[2021-08-25] MEDS: INSULIN GLARGINE 100 UNITS/ML VIAL SQ SCH (20:47)
[2021-08-26 00:31] LABS: INR 1.07; PROTHROMBIN TIME 14.7 seconds (11.9-14.5)
[2021-08-26 00:55] VITALS: BP 115/47
[2021-08-26] MEDS ORDERED: PHYTONADIONE 10 MG/ML AMP IV ONE (02:00)
[2021-08-26] MEDS: SODIUM CHLORIDE 0.9% 1000ML 1,000 ML IV SCH (05:30)
[2021-08-26 05:55] VITALS: BP 131/74
[2021-08-26 07:47] VITALS: BP 121/54
[2021-08-26 08:14] LABS: EOSINOPHILS # (AUTO) 0.2 (0.0-0.4); EOSINOPHILS % 5.6 % (0.0-6.0); HEMATOCRIT 24.3 % (34.2-44.1); HEMOGLOBIN 7.6 g/dL (12.0-16.0); LYMPHOCYTES # (AUTO) 0.7 (1.0-3.2); LYMPHOCYTES % 16.5 % (18.0-39.1); MEAN CORPUSCULAR HEMOGLOBIN 30.5 pg (28-32); MEAN CORPUSCULAR HGB CONC 31.3 g/dL (31-35); MEAN CORPUSCULAR VOLUME 97.6 fL (81-99); MONOCYTES # (AUTO) 0.3 (0.2-0.8); MONOCYTES % 8.6 % (4.4-11.3); NEUTROPHILS # (AUTO) 2.7 (2.1-6.9); PLATELET COUNT 109 x10e3/uL (140-360); RED BLOOD COUNT 2.49 x10e6/uL (3.6-5.1); RED CELL DISTRIBUTION WIDTH 17.4 % (11.7-14.4)
[2021-08-26] MEDS ORDERED: SODIUM CHLORIDE 0.9% 250ML 250 ML IV NR (08:15)
[2021-08-26 08:35] LABS: ALBUMIN 2.6 g/dL (3.5-5.0); ALBUMIN/GLOBULIN RATIO 0.7 (0.8-2.0); ANION GAP 16.6 mmol/L (8-16); CALCIUM 8.1 mg/dL (8.4-10.2); CREATININE, SERUM 7.45 mg/dL (0.57-1.11); POTASSIUM 4.6 mmol/L (3.5-5.1)
[2021-08-26] MEDS: INSULIN REGULAR, HUMAN 100 UNIT/1 ML SQ SCH ×3 (08:56→16:58)
[2021-08-26] MEDS: DOCUSATE SODIUM 100 MG CAP PO SCH ×2 (09:00→17:00)
[2021-08-26] MEDS: POLYETHYLENE GLYCOL 3350 17 GM PACK PO SCH (09:03)
[2021-08-26] MEDS ORDERED: SODIUM CHLORIDE 0.9% 250ML 250 ML ONE (15:14)
== END 2021-08-26 18:39 | disposition home or self-care (01) | DRG 377 ==
LOC: ER 17:10 → ERHOLD 21:34 → MED/SURG3 22:15
PROC: 5A1D70Z Performance of Urinary Filtration, Intermittent, Less than 6 Hours Per Day (ICD-10-PCS; 2021-08-23)
PROC: 30243N1 Transfusion of Nonautologous Red Blood Cells into Central Vein, Percutaneous Approach (ICD-10-PCS; principal; 2021-08-26)
DX: K55.21 Angiodysplasia of colon with hemorrhage (principal); N18.6 End stage renal disease; D62 Acute posthemorrhagic anemia; I12.0 Hypertensive chronic kidney disease with stage 5 chronic kidney disease or end stage renal disease; E11.22 Type 2 diabetes mellitus with diabetic chronic kidney disease; Z99.2 Dependence on renal dialysis; Z79.899 Other long term (current) drug therapy; D63.1 Anemia in chronic kidney disease; Z20.822 Contact with and (suspected) exposure to COVID-19
CPT/HCPCS: 36415; 74174; 80048; 80053; 82948; 83735; 85014; 85018; 85025; 85610; 85730; 86705; 86706; 86850; 86900; 86920; 86922; 87340; 93005; 94799; 96372; 99284; J1815; J1817; J3430; J7030; J7050; P9016; Q9967

== ENCOUNTER → 2021-11-14 | Day surgery (SDC) | payer MEDICARE, BC ==
[2021-11-10 14:06] LABS: BASOPHILS % 0.6 % (0.0-1.0); EOSINOPHILS # (AUTO) 0.1 (0.0-0.4); HEMATOCRIT 37.4 % (34.2-44.1); HEMOGLOBIN 11.6 g/dL (12.0-16.0); LYMPHOCYTES # (AUTO) 0.5 (1.0-3.2); LYMPHOCYTES % 15.5 % (18.0-39.1); MEAN CORPUSCULAR HEMOGLOBIN 28.7 pg (28-32); MEAN CORPUSCULAR VOLUME 92.6 fL (81-99); MONOCYTES # (AUTO) 0.4 (0.2-0.8); MONOCYTES % 10.2 % (4.4-11.3); NEUTROPHILS # (AUTO) 2.5 (2.1-6.9); NEUTROPHILS % 71.4 % (38.7-80.0); PLATELET COUNT 62 x10e3/uL (140-360); RED BLOOD COUNT 4.04 x10e6/uL (3.6-5.1); RED CELL DISTRIBUTION WIDTH 15.2 % (11.7-14.4)
[2021-11-10 14:19] LABS: INR 0.98; PROTHROMBIN TIME 13.9 seconds (11.9-14.5)
[2021-11-10 14:20] LABS: PARTIAL THROMBOPLASTIN TIME 28.4 seconds (23.8-35.5)
[2021-11-10 14:29] LABS: ALBUMIN 3.3 g/dL (3.5-5.0); ALBUMIN/GLOBULIN RATIO 0.7 (0.8-2.0); ANION GAP 19.2 mmol/L (8-16); CALCIUM 7.9 mg/dL (8.4-10.2); CHOL/HDL RATIO 3.7 (3.0-3.6); CREATININE, SERUM 7.1 mg/dL (0.57-1.11); POTASSIUM 5.2 mmol/L (3.5-5.1)
[~2021-11-14] VITALS: Ht 170.2 cm; Wt 72.6 kg
[2021-11-14] VITALS (12 sets, daily range): BP systolic 112–145; BP diastolic 43–72
[~2021-11-14] MED LIST changes: +FENTANYL CITRATE/PF 100MCG/2 ML INJ ONE; +HEPARIN SOD (PORCINE) 1000 UNIT/ML 30ML ONE; +HEPARIN SOD/SOD CHLORIDE 2,000 ML ONE; +IOPAMIDOL 370 MG/ML 100 ML INFUS..BTL INJ ONE; +LIDOCAINE HCL 2% LOCAL 20 ML VIAL ONE; +MIDAZOLAM HCL 2 MG/2 ML VIAL ONE; +NITROGLYCERIN/D5W 200 MCG/ML 250 ML ONE; +SODIUM CHLORIDE 0.9% 1000ML 1,000 ML ONE; +VERAPAMIL HCL 2.5 MG/ML 2 ML VIAL ONE
== END | disposition home or self-care (01) ==
LOC: CATH LAB 06:47
PROVIDERS: ATTEND Internal Medicine Cardiovascular Disease
DX: I25.110 Atherosclerotic heart disease of native coronary artery with unstable angina pectoris (principal); R94.39 Abnormal result of other cardiovascular function study; Z95.5 Presence of coronary angioplasty implant and graft; E11.22 Type 2 diabetes mellitus with diabetic chronic kidney disease; I12.0 Hypertensive chronic kidney disease with stage 5 chronic kidney disease or end stage renal disease; N18.6 End stage renal disease; E03.9 Hypothyroidism, unspecified; Z01.818 Encounter for other preprocedural examination; Z01.812 Encounter for preprocedural laboratory examination; Z20.822 Contact with and (suspected) exposure to COVID-19; Z79.4 Long term (current) use of insulin; Z79.899 Other long term (current) drug therapy; Z99.2 Dependence on renal dialysis; Z68.30 Body mass index [BMI] 30.0-30.9, adult; Z95.0 Presence of cardiac pacemaker
CPT/HCPCS: 36415; 71046; 76937; 80053; 80061; 85025; 85610; 85730; 93454; C1769; C1887 ×2; J1644; J2001; J2250; J3010; J7030; Q9967; U0002; 99152; 99153

== ENCOUNTER → 2022-01-19 | Outpatient (CLI) | payer MEDICARE, BC ==
[~2022-01-19] MED LIST changes: -FENTANYL CITRATE/PF 100MCG/2 ML INJ ONE; -HEPARIN SOD (PORCINE) 1000 UNIT/ML 30ML ONE; -HEPARIN SOD/SOD CHLORIDE 2,000 ML ONE; -IOPAMIDOL 370 MG/ML 100 ML INFUS..BTL INJ ONE; -LIDOCAINE HCL 2% LOCAL 20 ML VIAL ONE; -MIDAZOLAM HCL 2 MG/2 ML VIAL ONE; -NITROGLYCERIN/D5W 200 MCG/ML 250 ML ONE; -SODIUM CHLORIDE 0.9% 1000ML 1,000 ML ONE; -VERAPAMIL HCL 2.5 MG/ML 2 ML VIAL ONE
== END ==
LOC: US 08:48
PROVIDERS: ATTEND Internal Medicine Hematology & Oncology
DX: K75.81 Nonalcoholic steatohepatitis (NASH) (principal)
CPT/HCPCS: 76700

== ENCOUNTER 2022-03-09 09:57 | Inpatient (IN) | payer MEDICARE, BC ==
[~2022-03-09] VITALS: Ht 170.2 cm; Wt 72.6 kg
[2022-03-09 10:44] LABS: BASOPHILS % 0.4 % (0.0-1.0); EOSINOPHILS # (AUTO) 0.1 (0.0-0.4); EOSINOPHILS % 2.2 % (0.0-6.0); HEMATOCRIT 28.9 % (34.2-44.1); HEMOGLOBIN 9.2 g/dL (12.0-16.0); INR 0.97; LYMPHOCYTES # (AUTO) 0.6 (1.0-3.2); LYMPHOCYTES % 12.1 % (18.0-39.1); MEAN CORPUSCULAR HEMOGLOBIN 29.9 pg (28-32); MEAN CORPUSCULAR HGB CONC 31.8 g/dL (31-35); MEAN CORPUSCULAR VOLUME 93.8 fL (81-99); MONOCYTES # (AUTO) 0.4 (0.2-0.8); MONOCYTES % 7.7 % (4.4-11.3); NEUTROPHILS # (AUTO) 3.5 (2.1-6.9); NEUTROPHILS % 77.2 % (38.7-80.0); PLATELET COUNT 71 x10e3/uL (140-360); PROTHROMBIN TIME 13.8 seconds (11.9-14.5); RED BLOOD COUNT 3.08 x10e6/uL (3.6-5.1); RED CELL DISTRIBUTION WIDTH 16.4 % (11.7-14.4)
[2022-03-09 10:45] LABS: PARTIAL THROMBOPLASTIN TIME 29.7 seconds (23.8-35.5)
[2022-03-09 10:51] LABS: ALANINE AMINOTRANSFERASE 13 IU/L (0-55); ALBUMIN 3.4 g/dL (3.5-5.0); ALBUMIN/GLOBULIN RATIO 0.8 (0.8-2.0); ALKALINE PHOSPHATASE 146 IU/L (40-150); ANION GAP 22.5 mmol/L (8-16); BLOOD UREA NITROGEN 67 mg/dL (7-26); BUN/CREATININE RATIO 11 (6-25); CALCIUM 8.4 mg/dL (8.4-10.2); CARBON DIOXIDE 27 mmol/L (22-29); CHLORIDE 92 mmol/L (98-107); CREATINE KINASE 37 IU/L (29-168); CREATININE, SERUM 6.26 mg/dL (0.57-1.11); GLUCOSE 234 mg/dL (74-118); MAGNESIUM 2.4 MG/DL (1.3-2.1); POTASSIUM 5.5 mmol/L (3.5-5.1); SODIUM 136 mmol/L (136-145)
[2022-03-09] MEDS ORDERED: SODIUM CHLORIDE 0.9% 250ML 250 ML IV ONE (11:30)
[2022-03-09] MEDS ORDERED: FUROSEMIDE INJ 10 MG/ML 2 ML VIAL IV PRN (11:30)
[2022-03-09] MEDS ORDERED: OCTREOTIDE ACETATE 0.05 MG/ML AMP IV STA (11:30)
[2022-03-09] MEDS: OCTREOTIDE ACETATE 500 MCG in SODIUM CHLORIDE 0.9% 250ML 249 ML IV SCH (12:02)
[2022-03-09 13:45] VITALS: BP 138/65
[2022-03-09 15:42] VITALS: BP 127/58
[2022-03-09] MEDS ORDERED: SENSIPAR30 MG PO (16:33)
[2022-03-09] MEDS ORDERED: LIPITOR20 MG PO (16:33)
[2022-03-09 18:56] LABS: BASOPHILS % 0.6 % (0.0-1.0); EOSINOPHILS # (AUTO) 0.1 (0.0-0.4); HEMOGLOBIN 8.8 g/dL (12.0-16.0); LYMPHOCYTES # (AUTO) 0.6 (1.0-3.2); LYMPHOCYTES % 16.4 % (18.0-39.1); MEAN CORPUSCULAR HEMOGLOBIN 29.6 pg (28-32); MEAN CORPUSCULAR HGB CONC 31.4 g/dL (31-35); MEAN CORPUSCULAR VOLUME 94.3 fL (81-99); MONOCYTES # (AUTO) 0.4 (0.2-0.8); MONOCYTES % 9.9 % (4.4-11.3); NEUTROPHILS # (AUTO) 2.5 (2.1-6.9); NEUTROPHILS % 70.8 % (38.7-80.0); PLATELET COUNT 63 x10e3/uL (140-360); RED BLOOD COUNT 2.97 x10e6/uL (3.6-5.1); RED CELL DISTRIBUTION WIDTH 16.5 % (11.7-14.4)
[2022-03-09] MEDS ORDERED: SODIUM CHLORIDE 0.9% 1000ML 2,000 ML ONE (19:03)
[2022-03-09 19:22] LABS: CREATINE KINASE MB 2.6 ng/mL (0-5.0)
[2022-03-09 20:00] VITALS: BP 116/46
[2022-03-09 23:26] VITALS: BP 116/46
[2022-03-10] VITALS (8 sets, daily range): BP systolic 107–137; BP diastolic 44–60
[2022-03-10 01:26] LABS: FERRITIN 373.24 ng/mL (4.63-204.00)
[2022-03-10] MEDS: OCTREOTIDE ACETATE 500 MCG in SODIUM CHLORIDE 0.9% 250ML 249 ML IV SCH ×4 (05:00→19:35)
[2022-03-10 05:46] LABS: BASOPHILS % 0.6 % (0.0-1.0); EOSINOPHILS # (AUTO) 0.1 (0.0-0.4); EOSINOPHILS % 2.3 % (0.0-6.0); HEMATOCRIT 25.5 % (34.2-44.1); LYMPHOCYTES # (AUTO) 0.5 (1.0-3.2); LYMPHOCYTES % 12.9 % (18.0-39.1); MEAN CORPUSCULAR HEMOGLOBIN 29.4 pg (28-32); MEAN CORPUSCULAR HGB CONC 31.4 g/dL (31-35); MEAN CORPUSCULAR VOLUME 93.8 fL (81-99); MONOCYTES # (AUTO) 0.3 (0.2-0.8); MONOCYTES % 8.3 % (4.4-11.3); NEUTROPHILS # (AUTO) 2.6 (2.1-6.9); NEUTROPHILS % 75.6 % (38.7-80.0); PLATELET COUNT 65 x10e3/uL (140-360); RED BLOOD COUNT 2.72 x10e6/uL (3.6-5.1); RED CELL DISTRIBUTION WIDTH 16.5 % (11.7-14.4)
[2022-03-10 06:09] LABS: ALBUMIN 3.1 g/dL (3.5-5.0); ALBUMIN/GLOBULIN RATIO 0.8 (0.8-2.0); ANION GAP 18.1 mmol/L (8-16); CALCIUM 8.4 mg/dL (8.4-10.2); CREATININE, SERUM 3.93 mg/dL (0.57-1.11); POTASSIUM 4.1 mmol/L (3.5-5.1)
[2022-03-10 06:29] LABS: CREATINE KINASE MB 2.3 ng/mL (0-5.0)
[2022-03-10 12:12] LABS: BASOPHILS % 0.9 % (0.0-1.0); EOSINOPHILS # (AUTO) 0.1 (0.0-0.4); EOSINOPHILS % 1.7 % (0.0-6.0); HEMATOCRIT 24.8 % (34.2-44.1); HEMOGLOBIN 7.7 g/dL (12.0-16.0); LYMPHOCYTES # (AUTO) 0.5 (1.0-3.2); LYMPHOCYTES % 14.4 % (18.0-39.1); MEAN CORPUSCULAR HEMOGLOBIN 29.7 pg (28-32); MEAN CORPUSCULAR VOLUME 95.8 fL (81-99); MONOCYTES # (AUTO) 0.3 (0.2-0.8); MONOCYTES % 8.9 % (4.4-11.3); NEUTROPHILS # (AUTO) 2.6 (2.1-6.9); NEUTROPHILS % 73.8 % (38.7-80.0); PLATELET COUNT 67 x10e3/uL (140-360); RED BLOOD COUNT 2.59 x10e6/uL (3.6-5.1); RED CELL DISTRIBUTION WIDTH 16.5 % (11.7-14.4)
[2022-03-10 13:01] LABS: CREATINE KINASE MB 2.3 ng/mL (0-5.0)
[2022-03-10] MEDS: SODIUM BICARBONATE 650 MG TAB PO SCH ×2 (15:21→20:29)
[2022-03-10] MEDS ORDERED: BISACODYL 5 MG TAB EC PO ONE ×2 (18:15→19:00)
[2022-03-10] MEDS ORDERED: PEG (High)/E-LYTE SOLN 4,000 ML BTL PO ONE (18:15)
[2022-03-10 18:19] LABS: HEMATOCRIT 27.1 % (34.2-44.1); HEMOGLOBIN 8.5 g/dL (12.0-16.0)
[2022-03-10] MEDS: ATORVASTATIN 20 MG TAB PO SCH (20:29)
[2022-03-11] VITALS (8 sets, daily range): BP systolic 107–136; BP diastolic 40–63
[2022-03-11 00:46] LABS: BASOPHILS % 0.7 % (0.0-1.0); EOSINOPHILS # (AUTO) 0.1 (0.0-0.4); EOSINOPHILS % 2.4 % (0.0-6.0); HEMATOCRIT 24.9 % (34.2-44.1); HEMOGLOBIN 7.7 g/dL (12.0-16.0); LYMPHOCYTES # (AUTO) 0.7 (1.0-3.2); LYMPHOCYTES % 16.4 % (18.0-39.1); MEAN CORPUSCULAR HEMOGLOBIN 29.3 pg (28-32); MEAN CORPUSCULAR HGB CONC 30.9 g/dL (31-35); MEAN CORPUSCULAR VOLUME 94.7 fL (81-99); MONOCYTES # (AUTO) 0.5 (0.2-0.8); MONOCYTES % 11.2 % (4.4-11.3); NEUTROPHILS # (AUTO) 2.8 (2.1-6.9); NEUTROPHILS % 69.1 % (38.7-80.0); PLATELET COUNT 75 x10e3/uL (140-360); RED BLOOD COUNT 2.63 x10e6/uL (3.6-5.1); RED CELL DISTRIBUTION WIDTH 16.5 % (11.7-14.4)
[2022-03-11 05:49] LABS: BASOPHILS % 0.6 % (0.0-1.0); EOSINOPHILS # (AUTO) 0.1 (0.0-0.4); EOSINOPHILS % 2.9 % (0.0-6.0); LYMPHOCYTES # (AUTO) 0.5 (1.0-3.2); LYMPHOCYTES % 16.6 % (18.0-39.1); MEAN CORPUSCULAR HEMOGLOBIN 29.5 pg (28-32); MEAN CORPUSCULAR HGB CONC 31.6 g/dL (31-35); MEAN CORPUSCULAR VOLUME 93.4 fL (81-99); MONOCYTES # (AUTO) 0.3 (0.2-0.8); MONOCYTES % 9.4 % (4.4-11.3); NEUTROPHILS # (AUTO) 2.2 (2.1-6.9); NEUTROPHILS % 70.2 % (38.7-80.0); PLATELET COUNT 72 x10e3/uL (140-360); RED BLOOD COUNT 2.27 x10e6/uL (3.6-5.1); RED CELL DISTRIBUTION WIDTH 16.7 % (11.7-14.4)
[2022-03-11 06:04] LABS: HEMATOCRIT 21.2 % (34.2-44.1)
[2022-03-11 06:07] LABS: HEMOGLOBIN 6.7 g/dL (12.0-16.0)
[2022-03-11 06:18] LABS: ALBUMIN 2.9 g/dL (3.5-5.0); ALBUMIN/GLOBULIN RATIO 0.9 (0.8-2.0); ANION GAP 20.3 mmol/L (8-16); CALCIUM 7.7 mg/dL (8.4-10.2); CREATININE, SERUM 5.04 mg/dL (0.57-1.11); POTASSIUM 5.3 mmol/L (3.5-5.1)
[2022-03-11] MEDS ORDERED: SODIUM CHLORIDE 0.9% 1000ML 1,000 ML ONE (08:45)
[2022-03-11] MEDS: CYANOCOBALAMIN INJ 1,000 MCG/ML VIAL IM SCH (09:27)
[2022-03-11] MEDS: PANTOPRAZOLE SOD 40 MG TABEC PO SCH ×2 (09:27→16:55)
[2022-03-11] MEDS: SODIUM BICARBONATE 650 MG TAB PO SCH ×3 (09:27→20:23)
[2022-03-11] MEDS ORDERED: SODIUM CHLORIDE 0.9% 250ML 250 ML ONE (10:41)
[2022-03-11] MEDS: OCTREOTIDE ACETATE 500 MCG in SODIUM CHLORIDE 0.9% 250ML 249 ML IV SCH ×2 (15:40→23:17)
[2022-03-11 15:47] LABS: BASOPHILS % 0.6 % (0.0-1.0); EOSINOPHILS # (AUTO) 0.1 (0.0-0.4); EOSINOPHILS % 2.4 % (0.0-6.0); HEMATOCRIT 23.5 % (34.2-44.1); HEMOGLOBIN 7.4 g/dL (12.0-16.0); LYMPHOCYTES # (AUTO) 0.7 (1.0-3.2); LYMPHOCYTES % 19.5 % (18.0-39.1); MEAN CORPUSCULAR HEMOGLOBIN 29.7 pg (28-32); MEAN CORPUSCULAR HGB CONC 31.5 g/dL (31-35); MEAN CORPUSCULAR VOLUME 94.4 fL (81-99); MONOCYTES # (AUTO) 0.5 (0.2-0.8); MONOCYTES % 13.8 % (4.4-11.3); NEUTROPHILS # (AUTO) 2.1 (2.1-6.9); NEUTROPHILS % 63.4 % (38.7-80.0); PLATELET COUNT 69 x10e3/uL (140-360); RED BLOOD COUNT 2.49 x10e6/uL (3.6-5.1); RED CELL DISTRIBUTION WIDTH 16.7 % (11.7-14.4)
[2022-03-11] MEDS: ATORVASTATIN 20 MG TAB PO SCH (20:22)
[2022-03-12] VITALS (7 sets, daily range): BP systolic 95–142; BP diastolic 40–63
[2022-03-12] MEDS ORDERED: LACTATED RINGER'S 0 ML ONE (03:36)
[2022-03-12 06:14] LABS: BASOPHILS % 0.6 % (0.0-1.0); EOSINOPHILS # (AUTO) 0.1 (0.0-0.4); EOSINOPHILS % 2.5 % (0.0-6.0); HEMATOCRIT 23.3 % (34.2-44.1); HEMOGLOBIN 7.3 g/dL (12.0-16.0); LYMPHOCYTES # (AUTO) 0.6 (1.0-3.2); LYMPHOCYTES % 19.9 % (18.0-39.1); MEAN CORPUSCULAR HEMOGLOBIN 29.6 pg (28-32); MEAN CORPUSCULAR HGB CONC 31.3 g/dL (31-35); MEAN CORPUSCULAR VOLUME 94.3 fL (81-99); MONOCYTES # (AUTO) 0.4 (0.2-0.8); MONOCYTES % 11.2 % (4.4-11.3); NEUTROPHILS # (AUTO) 2.1 (2.1-6.9); NEUTROPHILS % 65.2 % (38.7-80.0); PLATELET COUNT 84 x10e3/uL (140-360); RED BLOOD COUNT 2.47 x10e6/uL (3.6-5.1); RED CELL DISTRIBUTION WIDTH 16.8 % (11.7-14.4)
[2022-03-12] MEDS ORDERED: SODIUM CHLORIDE 0.9% 1000ML 2,000 ML ONE (08:12)
[2022-03-12] MEDS: PANTOPRAZOLE SOD 40 MG TABEC PO SCH ×2 (08:40→16:58)
[2022-03-12] MEDS: SODIUM BICARBONATE 650 MG TAB PO SCH ×3 (08:40→21:13)
[2022-03-12] MEDS: CYANOCOBALAMIN INJ 1,000 MCG/ML VIAL IM SCH (08:43)
[2022-03-12] MEDS: OCTREOTIDE ACETATE 500 MCG in SODIUM CHLORIDE 0.9% 250ML 249 ML IV SCH ×2 (09:40→21:14)
[2022-03-12] MEDS ORDERED: SODIUM CHLORIDE 0.9% 1000ML 2,000 ML IV PRN (12:45)
[2022-03-12 14:18] LABS: BASOPHILS % 1.1 % (0.0-1.0); EOSINOPHILS % 1.5 % (0.0-6.0); HEMATOCRIT 24.2 % (34.2-44.1); HEMOGLOBIN 8.2 g/dL (12.0-16.0); LYMPHOCYTES # (AUTO) 0.5 (1.0-3.2); LYMPHOCYTES % 17.2 % (18.0-39.1); MEAN CORPUSCULAR HEMOGLOBIN 30.4 pg (28-32); MEAN CORPUSCULAR HGB CONC 33.9 g/dL (31-35); MEAN CORPUSCULAR VOLUME 89.6 fL (81-99); MONOCYTES # (AUTO) 0.3 (0.2-0.8); MONOCYTES % 11.8 % (4.4-11.3); NEUTROPHILS # (AUTO) 1.8 (2.1-6.9); PLATELET COUNT 57 x10e3/uL (140-360); RED CELL DISTRIBUTION WIDTH 16.1 % (11.7-14.4)
[2022-03-12 18:41] LABS: BASOPHILS % 0.3 % (0.0-1.0); EOSINOPHILS % 0.9 % (0.0-6.0); HEMATOCRIT 25.9 % (34.2-44.1); HEMOGLOBIN 8.9 g/dL (12.0-16.0); LYMPHOCYTES # (AUTO) 0.6 (1.0-3.2); LYMPHOCYTES % 16.2 % (18.0-39.1); MEAN CORPUSCULAR HEMOGLOBIN 30.7 pg (28-32); MEAN CORPUSCULAR HGB CONC 34.4 g/dL (31-35); MEAN CORPUSCULAR VOLUME 89.3 fL (81-99); MONOCYTES # (AUTO) 0.4 (0.2-0.8); MONOCYTES % 11.3 % (4.4-11.3); NEUTROPHILS # (AUTO) 2.5 (2.1-6.9); PLATELET COUNT 67 x10e3/uL (140-360); RED CELL DISTRIBUTION WIDTH 16.4 % (11.7-14.4)
[2022-03-12] MEDS: ATORVASTATIN 20 MG TAB PO SCH (21:12)
[2022-03-12] MEDS ORDERED: BISACODYL 5 MG TAB EC PO ONE (23:45)
[2022-03-13] VITALS (9 sets, daily range): BP systolic 119–133; BP diastolic 48–86
[2022-03-13] MEDS ORDERED: BISACODYL 5 MG TAB EC PO ONE ×2 (00:30→08:00)
[2022-03-13] MEDS: OCTREOTIDE ACETATE 500 MCG in SODIUM CHLORIDE 0.9% 250ML 249 ML IV SCH ×2 (08:55→15:30)
[2022-03-13] MEDS: SODIUM BICARBONATE 650 MG TAB PO SCH ×3 (08:56→21:00)
[2022-03-13] MEDS: PANTOPRAZOLE SOD 40 MG TABEC PO SCH ×2 (08:57→17:00)
[2022-03-13] MEDS: CYANOCOBALAMIN INJ 1,000 MCG/ML VIAL IM SCH (08:57)
[2022-03-13] MEDS ORDERED: PROPOFOL IV EMULSION 10 MG/ML 20 ML VIAL ONE (13:00)
[2022-03-13] MEDS ORDERED: POVIDONE IODINE 0.05% 0.05 % ML PO ONE (13:00)
[2022-03-13] MEDS ORDERED: FENTANYL CITRATE/PF 100MCG/2 ML INJ ONE (13:36)
[2022-03-13] MEDS ORDERED: MIDAZOLAM HCL 2 MG/2 ML VIAL ONE (13:36)
[2022-03-13] MEDS ORDERED: SODIUM CHLORIDE 0.9% 250ML 250 ML IV ONE (16:00)
[2022-03-13] MEDS: ATORVASTATIN 20 MG TAB PO SCH (21:00)
[2022-03-14] VITALS (8 sets, daily range): BP systolic 102–131; BP diastolic 47–68
[2022-03-14 07:23] LABS: BASOPHILS % 0.4 % (0.0-1.0); EOSINOPHILS # (AUTO) 0.1 (0.0-0.4); EOSINOPHILS % 1.5 % (0.0-6.0); LYMPHOCYTES # (AUTO) 0.5 (1.0-3.2); LYMPHOCYTES % 9.9 % (18.0-39.1); MEAN CORPUSCULAR HEMOGLOBIN 30.6 pg (28-32); MEAN CORPUSCULAR HGB CONC 33.3 g/dL (31-35); MEAN CORPUSCULAR VOLUME 91.9 fL (81-99); MONOCYTES # (AUTO) 0.4 (0.2-0.8); MONOCYTES % 7.3 % (4.4-11.3); NEUTROPHILS # (AUTO) 4.3 (2.1-6.9); NEUTROPHILS % 80.7 % (38.7-80.0); PLATELET COUNT 71 x10e3/uL (140-360); RED BLOOD COUNT 2.22 x10e6/uL (3.6-5.1); RED CELL DISTRIBUTION WIDTH 16.3 % (11.7-14.4)
[2022-03-14 07:27] LABS: HEMOGLOBIN 6.8 g/dL (12.0-16.0)
[2022-03-14 07:35] LABS: HEMATOCRIT 20.4 % (34.2-44.1)
[2022-03-14 07:45] LABS: ALBUMIN/GLOBULIN RATIO 0.9 (0.8-2.0); CREATININE, SERUM 5.66 mg/dL (0.57-1.11)
[2022-03-14] MEDS: SODIUM BICARBONATE 650 MG TAB PO SCH ×3 (08:31→21:10)
[2022-03-14] MEDS: CYANOCOBALAMIN INJ 1,000 MCG/ML VIAL IM SCH (08:31)
[2022-03-14] MEDS: PANTOPRAZOLE SOD 40 MG TABEC PO SCH ×2 (08:31→16:34)
[2022-03-14] MEDS: OCTREOTIDE ACETATE 500 MCG in SODIUM CHLORIDE 0.9% 250ML 249 ML IV SCH ×2 (11:30→16:36)
[2022-03-14] MEDS ORDERED: SODIUM CHLORIDE 0.9% 250ML 250 ML ONE (13:56)
[2022-03-14 18:11] LABS: HEMOGLOBIN 7.2 g/dL (12.0-16.0)
[2022-03-14 18:16] LABS: HEMATOCRIT 22.3 % (34.2-44.1)
[2022-03-14] MEDS: ATORVASTATIN 20 MG TAB PO SCH (21:10)
[2022-03-15] VITALS: BP 109/55
[2022-03-15 04:00] VITALS: BP 111/50
[2022-03-15] MEDS: OCTREOTIDE ACETATE 500 MCG in SODIUM CHLORIDE 0.9% 250ML 249 ML IV SCH (07:30)
[2022-03-15 08:00] VITALS: BP 111/50
[2022-03-15] MEDS: CYANOCOBALAMIN INJ 1,000 MCG/ML VIAL IM SCH (08:49)
[2022-03-15] MEDS: PANTOPRAZOLE SOD 40 MG TABEC PO SCH ×2 (08:49→16:31)
[2022-03-15] MEDS: SODIUM BICARBONATE 650 MG TAB PO SCH ×2 (08:49→16:31)
[2022-03-15 09:01] VITALS: BP 125/52
[2022-03-15 13:10] VITALS: BP 120/57
[2022-03-15 14:10] LABS: BASOPHILS % 0.6 % (0.0-1.0); EOSINOPHILS % 0.8 % (0.0-6.0); HEMATOCRIT 23.5 % (34.2-44.1); HEMOGLOBIN 7.6 g/dL (12.0-16.0); LYMPHOCYTES # (AUTO) 0.6 (1.0-3.2); LYMPHOCYTES % 11.7 % (18.0-39.1); MEAN CORPUSCULAR HEMOGLOBIN 30.6 pg (28-32); MEAN CORPUSCULAR HGB CONC 32.3 g/dL (31-35); MEAN CORPUSCULAR VOLUME 94.8 fL (81-99); MONOCYTES # (AUTO) 0.3 (0.2-0.8); MONOCYTES % 6.2 % (4.4-11.3); NEUTROPHILS % 80.5 % (38.7-80.0); PLATELET COUNT 94 x10e3/uL (140-360); RED BLOOD COUNT 2.48 x10e6/uL (3.6-5.1); RED CELL DISTRIBUTION WIDTH 16.8 % (11.7-14.4)
== END 2022-03-15 17:33 | disposition home or self-care (01) | DRG 377 ==
LOC: ER 10:06 → ERHOLD 12:51 → MED/SURG2 13:57
PROC: 30233N1 Transfusion of Nonautologous Red Blood Cells into Peripheral Vein, Percutaneous Approach (ICD-10-PCS; 2022-03-11)
PROC: 5A1D70Z Performance of Urinary Filtration, Intermittent, Less than 6 Hours Per Day (ICD-10-PCS; 2022-03-12)
PROC: 0D5K8ZZ Destruction of Ascending Colon, Via Natural or Artificial Opening Endoscopic (ICD-10-PCS; principal; 2022-03-13 17:02)
PROC: 30233R1 Transfusion of Nonautologous Platelets into Peripheral Vein, Percutaneous Approach (ICD-10-PCS; 2022-03-14)
DX: K55.21 Angiodysplasia of colon with hemorrhage (principal); N18.6 End stage renal disease; D62 Acute posthemorrhagic anemia; I12.0 Hypertensive chronic kidney disease with stage 5 chronic kidney disease or end stage renal disease; Z99.2 Dependence on renal dialysis; E11.65 Type 2 diabetes mellitus with hyperglycemia; I25.10 Atherosclerotic heart disease of native coronary artery without angina pectoris; Z95.5 Presence of coronary angioplasty implant and graft; Z95.0 Presence of cardiac pacemaker; K57.30 Diverticulosis of large intestine without perforation or abscess without bleeding; K64.8 Other hemorrhoids; Z20.822 Contact with and (suspected) exposure to COVID-19; E11.22 Type 2 diabetes mellitus with diabetic chronic kidney disease
CPT/HCPCS: 0223U; 36415; 45378; 71045; 78278; 80053; 82270; 82550; 82553; 82607; 82728; 82746; 82948; 83540; 83735; 84466; 84484; 85014; 85018; 85025; 85045; 85610; 85730; 86704; 86706; 86850; 86900; 86920; 86922; 87340; 93005; 94799; 96366; 99251; 99284; A9512; J2250; J2353; J2354; J3010; J3420; J7030; J7050; J7121; P9016; P9034

== ENCOUNTER 2022-03-18 12:36 | Inpatient (IN) | payer MEDICARE, BC ==
[~2022-03-18] VITALS: Ht 170.2 cm; Wt 72.6 kg
[~2022-03-18 12:36] MED LIST changes: +LIPITOR20 MG PO; +SENSIPAR30 MG PO
[2022-03-18] MEDS ORDERED: ONDANSETRON HCL INJ 2MG/ML 2ML 2 MG/ML VIAL IV STA (13:09)
[2022-03-18] MEDS ORDERED: SODIUM CHLORIDE FLUSH 10 ML SYR IV PRN (13:10)
[2022-03-18 13:26] LABS: BASOPHILS % 0.4 % (0.0-1.0); EOSINOPHILS # (AUTO) 0.1 (0.0-0.4); EOSINOPHILS % 1.2 % (0.0-6.0); LYMPHOCYTES # (AUTO) 0.7 (1.0-3.2); LYMPHOCYTES % 14.6 % (18.0-39.1); MEAN CORPUSCULAR HGB CONC 31.1 g/dL (31-35); MEAN CORPUSCULAR VOLUME 96.6 fL (81-99); MONOCYTES # (AUTO) 0.4 (0.2-0.8); MONOCYTES % 8.4 % (4.4-11.3); NEUTROPHILS # (AUTO) 3.7 (2.1-6.9); NEUTROPHILS % 74.8 % (38.7-80.0); PLATELET COUNT 106 x10e3/uL (140-360); RED BLOOD COUNT 2.03 x10e6/uL (3.6-5.1); RED CELL DISTRIBUTION WIDTH 17.5 % (11.7-14.4)
[2022-03-18 13:29] LABS: INR 1.1; PROTHROMBIN TIME 15.2 seconds (11.9-14.5)
[2022-03-18 13:30] LABS: PARTIAL THROMBOPLASTIN TIME 29.5 seconds (23.8-35.5)
[2022-03-18 13:33] LABS: HEMOGLOBIN 6.1 g/dL (12.0-16.0)
[2022-03-18 13:34] LABS: HEMATOCRIT 19.6 % (34.2-44.1)
[2022-03-18 13:35] LABS: ALBUMIN 3.2 g/dL (3.5-5.0); ALBUMIN/GLOBULIN RATIO 0.8 (0.8-2.0); ANION GAP 17.7 mmol/L (8-16); CALCIUM 7.8 mg/dL (8.4-10.2); CREATININE, SERUM 3.94 mg/dL (0.57-1.11); POTASSIUM 3.7 mmol/L (3.5-5.1)
[2022-03-18 13:45] LABS: LIPASE 81 U/L (8-78)
[2022-03-18] MEDS ORDERED: ONDANSETRON HCL INJ 2MG/ML 2ML 2 MG/ML VIAL IV PRN (15:00)
[2022-03-18] MEDS ORDERED: HEPARIN SOD (PORCINE) 1000 UNIT/ML SDV ONE (15:16)
[2022-03-18 21:00] VITALS: BP 108/53
[2022-03-18] MEDS ORDERED: SODIUM CHLORIDE 0.9% 250ML 250 ML IV ONE (21:00)
[2022-03-18 22:00] VITALS: BP 108/53
[2022-03-18] MEDS ORDERED: PHYTONADIONE 10 MG/ML AMP IV ONE (23:15)
[2022-03-19 04:00] VITALS: BP 119/53
[2022-03-19 05:47] LABS: BASOPHILS % 0.4 % (0.0-1.0); EOSINOPHILS % 0.8 % (0.0-6.0); LYMPHOCYTES # (AUTO) 0.7 (1.0-3.2); LYMPHOCYTES % 14.5 % (18.0-39.1); MEAN CORPUSCULAR HEMOGLOBIN 29.9 pg (28-32); MEAN CORPUSCULAR HGB CONC 31.5 g/dL (31-35); MEAN CORPUSCULAR VOLUME 94.9 fL (81-99); MONOCYTES # (AUTO) 0.5 (0.2-0.8); MONOCYTES % 9.4 % (4.4-11.3); NEUTROPHILS # (AUTO) 3.6 (2.1-6.9); NEUTROPHILS % 74.5 % (38.7-80.0); RED BLOOD COUNT 1.77 x10e6/uL (3.6-5.1); RED CELL DISTRIBUTION WIDTH 17.9 % (11.7-14.4)
[2022-03-19 05:54] LABS: HEMATOCRIT 16.8 % (34.2-44.1); HEMOGLOBIN 5.3 g/dL (12.0-16.0)
[2022-03-19 05:56] LABS: PLATELET COUNT 86 x10e3/uL (140-360)
[2022-03-19 06:23] LABS: ALBUMIN 2.8 g/dL (3.5-5.0); ALBUMIN/GLOBULIN RATIO 0.8 (0.8-2.0); CALCIUM 7.3 mg/dL (8.4-10.2); CREATININE, SERUM 4.99 mg/dL (0.57-1.11)
[2022-03-19 08:39] VITALS: BP 117/57
[2022-03-19] MEDS ORDERED: SODIUM CHLORIDE 0.9% 1000ML 2,000 ML ONE (08:43)
[2022-03-19] MEDS ORDERED: ALBUMIN 25% 12.5GM 0.25 GM/ML BTL IV PRN (09:30)
[2022-03-19] MEDS ORDERED: SODIUM CHLORIDE 0.9% 1000ML 2,000 ML IV PRN (09:30)
[2022-03-19 11:47] VITALS: BP 119/57
[2022-03-19 15:35] VITALS: BP 132/67
[2022-03-19 17:53] LABS: HEMOGLOBIN 7.7 g/dL (12.0-16.0)
[2022-03-19 20:00] VITALS: BP 121/52
[2022-03-19 21:00] VITALS: BP 121/52
[2022-03-20] VITALS (7 sets, daily range): BP systolic 95–134; BP diastolic 51–69
[2022-03-20] MEDS ORDERED: DESMOPRESSIN ACETATE 4 MCG/ML VIAL IV ONE (01:00)
[2022-03-20] MEDS ORDERED: DESMOPRESSIN ACETATE IV ONE (01:15)
[2022-03-20] MEDS ORDERED: SODIUM CHLORIDE 0.9% IV ONE (01:15)
[2022-03-20 08:36] LABS: BASOPHILS % 0.3 % (0.0-1.0); EOSINOPHILS # (AUTO) 0.1 (0.0-0.4); EOSINOPHILS % 2.3 % (0.0-6.0); HEMATOCRIT 23.7 % (34.2-44.1); HEMOGLOBIN 7.6 g/dL (12.0-16.0); LYMPHOCYTES # (AUTO) 0.3 (1.0-3.2); LYMPHOCYTES % 8.7 % (18.0-39.1); MEAN CORPUSCULAR HEMOGLOBIN 30.2 pg (28-32); MEAN CORPUSCULAR HGB CONC 32.1 g/dL (31-35); MONOCYTES # (AUTO) 0.3 (0.2-0.8); NEUTROPHILS # (AUTO) 3.1 (2.1-6.9); NEUTROPHILS % 80.4 % (38.7-80.0); PLATELET COUNT 99 x10e3/uL (140-360); RED BLOOD COUNT 2.52 x10e6/uL (3.6-5.1); RED CELL DISTRIBUTION WIDTH 18.2 % (11.7-14.4)
[2022-03-20] MEDS ORDERED: DEXTROSE 50% SYRINGE 50 ML IV PRN (12:45)
[2022-03-20] MEDS: INSULIN REGULAR, HUMAN 100 UNIT/1 ML SQ SCH ×3 (13:00→21:00)
[2022-03-20] MEDS: ACETAMINOPHEN 325 MG TAB PO PRN (18:45)
[2022-03-20] MEDS: INSULIN GLARGINE 100 UNITS/ML VIAL SQ SCH (21:00)
[2022-03-21] VITALS: BP 110/51
[2022-03-21 04:00] VITALS: BP 118/59
[2022-03-21 06:17] LABS: BASOPHILS % 0.5 % (0.0-1.0); EOSINOPHILS # (AUTO) 0.1 (0.0-0.4); EOSINOPHILS % 3.1 % (0.0-6.0); HEMOGLOBIN 7.5 g/dL (12.0-16.0); LYMPHOCYTES # (AUTO) 0.5 (1.0-3.2); MEAN CORPUSCULAR HEMOGLOBIN 30.2 pg (28-32); MEAN CORPUSCULAR HGB CONC 31.3 g/dL (31-35); MEAN CORPUSCULAR VOLUME 96.8 fL (81-99); MONOCYTES # (AUTO) 0.4 (0.2-0.8); MONOCYTES % 9.8 % (4.4-11.3); NEUTROPHILS # (AUTO) 3.1 (2.1-6.9); NEUTROPHILS % 75.1 % (38.7-80.0); PLATELET COUNT 92 x10e3/uL (140-360); RED BLOOD COUNT 2.48 x10e6/uL (3.6-5.1); RED CELL DISTRIBUTION WIDTH 18.5 % (11.7-14.4)
[2022-03-21] MEDS: INSULIN REGULAR, HUMAN 100 UNIT/1 ML SQ SCH ×4 (07:30→21:00)
[2022-03-21 08:00] VITALS: BP 118/59
[2022-03-21 08:10] VITALS: BP 135/70
[2022-03-21] MEDS: ACETAMINOPHEN 325 MG TAB PO PRN ×2 (10:51→20:09)
[2022-03-21] MEDS ORDERED: SODIUM CHLORIDE 0.9% 250ML 250 ML IV ONE (14:30)
[2022-03-21 16:05] VITALS: BP 138/88
[2022-03-21 20:00] VITALS: BP_SYST 137; BP_SYST 138; BP_DIAS 82; BP_DIAS 88
[2022-03-21] MEDS ORDERED: SODIUM CHLORIDE 0.9% 250ML 250 ML ONE (20:54)
[2022-03-21] MEDS: INSULIN GLARGINE 100 UNITS/ML VIAL SQ SCH (21:00)
[2022-03-22] VITALS (7 sets, daily range): BP systolic 120–159; BP diastolic 53–79
[2022-03-22] MEDS ORDERED: DESMOPRESSIN ACETATE 4 MCG/ML VIAL IV ONE (01:15)
[2022-03-22] MEDS ORDERED: DESMOPRESSIN ACETATE IV ONE ×2 (01:30→09:00)
[2022-03-22] MEDS ORDERED: SODIUM CHLORIDE 0.9% IV ONE ×2 (01:30→09:00)
[2022-03-22 07:03] LABS: HEMATOCRIT 29.6 % (34.2-44.1); HEMOGLOBIN 9.5 g/dL (12.0-16.0)
[2022-03-22 07:26] LABS: INR 1.05; PROTHROMBIN TIME 14.7 seconds (11.9-14.5)
[2022-03-22] MEDS: INSULIN REGULAR, HUMAN 100 UNIT/1 ML SQ SCH ×4 (08:32→21:00)
[2022-03-22] MEDS: INSULIN GLARGINE 100 UNITS/ML VIAL SQ SCH (21:00)
[2022-03-23] VITALS: BP 116/63
[2022-03-23] MEDS: INSULIN GLARGINE 100 UNITS/ML VIAL SQ SCH (00:16)
[2022-03-23 04:00] VITALS: BP 118/69
[2022-03-23 07:56] VITALS: BP 112/49
[2022-03-23 08:00] VITALS: BP 112/49
[2022-03-23] MEDS: INSULIN REGULAR, HUMAN 100 UNIT/1 ML SQ SCH ×2 (08:32→12:00)
[2022-03-23] MEDS ORDERED: DESMOPRESSIN ACETATE IV ONE (09:00)
[2022-03-23] MEDS ORDERED: DIPHENHYDRAMINE HCL INJ 50 MG/ML VIAL IV PRN (09:00)
[2022-03-23] MEDS ORDERED: DESMOPRESSIN ACETATE 4 MCG/ML VIAL IV ONE (09:00)
[2022-03-23] MEDS ORDERED: SODIUM CHLORIDE 0.9% IV ONE (09:00)
[2022-03-23] MEDS ORDERED: DOCUSATE SODIUM 100 MG CAP PO SCH (09:00)
[2022-03-23 11:37] VITALS: BP 135/52
[2022-03-23] MEDS ORDERED: SODIUM CHLORIDE 0.9% 250ML 250 ML ONE (12:58)
[2022-03-23] MEDS ORDERED: ONDANSETRON HCL 4 MG ORAL DISINTEGRATING TAB PO PRN (14:45)
== END 2022-03-23 15:18 | disposition home or self-care (01) | DRG 377 ==
LOC: ER 12:46 → ERHOLD 15:02 → MED/SURG2 21:22
PROC: 30243R1 Transfusion of Nonautologous Platelets into Central Vein, Percutaneous Approach (ICD-10-PCS; principal; 2022-03-19)
PROC: 30243N1 Transfusion of Nonautologous Red Blood Cells into Central Vein, Percutaneous Approach (ICD-10-PCS; 2022-03-19)
PROC: 5A1D70Z Performance of Urinary Filtration, Intermittent, Less than 6 Hours Per Day (ICD-10-PCS; 2022-03-22)
DX: K55.21 Angiodysplasia of colon with hemorrhage (principal); N18.6 End stage renal disease; I12.0 Hypertensive chronic kidney disease with stage 5 chronic kidney disease or end stage renal disease; T82.9XXA Unspecified complication of cardiac and vascular prosthetic device, implant and graft, initial encounter; E11.22 Type 2 diabetes mellitus with diabetic chronic kidney disease; Z99.2 Dependence on renal dialysis; N25.0 Renal osteodystrophy; D50.9 Iron deficiency anemia, unspecified; Z20.822 Contact with and (suspected) exposure to COVID-19; D50.0 Iron deficiency anemia secondary to blood loss (chronic); Z86.16 Personal history of COVID-19
CPT/HCPCS: 0223U; 36415; 71045; 74176; 78278; 80053; 82948; 83690; 84484; 85014; 85018; 85025; 85610; 85730; 86850; 86900; 86920; 86922; 93005; 99284; A9512; J1644; J1815; J1817; J2405; J3430; J7030; J7050; P9016; P9034

== ENCOUNTER 2022-05-05 15:09 | Emergency (ER) | payer MEDICARE, BC ==
[~2022-05-05] VITALS: Ht 170.2 cm; Wt 84.8 kg
[2022-05-05] MEDS ORDERED: PREDNISONE20 MG PO (16:31)
[2022-05-05] MEDS ORDERED: TAMIFLU75 MG PO (16:31)
[2022-05-05] MEDS ORDERED: VENTOLIN HFA18 GM INH (16:31)
== END 2022-05-05 16:58 | disposition home or self-care (01) ==
LOC: FSED 15:47
DX: J10.1 Influenza due to other identified influenza virus with other respiratory manifestations (principal); E11.22 Type 2 diabetes mellitus with diabetic chronic kidney disease; I12.0 Hypertensive chronic kidney disease with stage 5 chronic kidney disease or end stage renal disease; N18.6 End stage renal disease; Z99.2 Dependence on renal dialysis; E78.5 Hyperlipidemia, unspecified; Z95.810 Presence of automatic (implantable) cardiac defibrillator; Z20.822 Contact with and (suspected) exposure to COVID-19; Z79.4 Long term (current) use of insulin
CPT/HCPCS: 71046; 80053; 82553; 83518; 84484; 85025; 87400; 93005; 99284; U0002

== ENCOUNTER 2022-08-18 11:18 | Inpatient (IN) | payer MEDICARE, BC ==
[~2022-08-18] VITALS: Ht 170.2 cm; Wt 89.0 kg
[2022-08-18] VITALS (11 sets, daily range): BP systolic 73–99; BP diastolic 47–82
[~2022-08-18 11:18] MED LIST changes: +PREDNISONE20 MG PO; +TAMIFLU75 MG PO; +VENTOLIN HFA18 GM INH
[2022-08-18 12:27] LABS: BASOPHILS % 0.4 % (0.0-1.0); EOSINOPHILS % 0.6 % (0.0-6.0); HEMATOCRIT 25.1 % (34.2-44.1); LYMPHOCYTES # (AUTO) 0.9 (1.0-3.2); LYMPHOCYTES % 16.1 % (18.0-39.1); MEAN CORPUSCULAR HEMOGLOBIN 29.7 pg (28-32); MEAN CORPUSCULAR HGB CONC 31.9 g/dL (31-35); MEAN CORPUSCULAR VOLUME 93.3 fL (81-99); MONOCYTES # (AUTO) 0.5 (0.2-0.8); MONOCYTES % 8.3 % (4.4-11.3); NEUTROPHILS % 74.2 % (38.7-80.0); PLATELET COUNT 91 x10e3/uL (140-360); RED BLOOD COUNT 2.69 x10e6/uL (3.6-5.1); RED CELL DISTRIBUTION WIDTH 16.9 % (11.7-14.4)
[2022-08-18] MEDS ORDERED: ONDANSETRON HCL INJ 2MG/ML 2ML 2 MG/ML VIAL IV PRN ×2 (12:30→14:00)
[2022-08-18 12:45] LABS: INR 1.1; PROTHROMBIN TIME 14.4 seconds (11.9-14.5)
[2022-08-18] MEDS ORDERED: IOPAMIDOL 370 MG/ML 100 ML INFUS..BTL INJ ONE (12:53)
[2022-08-18] MEDS ORDERED: SODIUM CHLORIDE 0.9% 100 ML ONE (12:53)
[2022-08-18 13:01] LABS: ALBUMIN 3.7 g/dL (3.5-5.0); ALBUMIN/GLOBULIN RATIO 0.8 (0.8-2.0); ANION GAP 25.6 mmol/L (8-16); CALCIUM 8.2 mg/dL (8.4-10.2); CREATININE, SERUM 8.16 mg/dL (0.57-1.11)
[2022-08-18 13:04] LABS: POTASSIUM 6.6 mmol/L (3.5-5.1)
[2022-08-18] MEDS ORDERED: PROPOFOL IV EMULSION 10 MG/ML 20 ML VIAL ONE (13:14)
[2022-08-18] MEDS ORDERED: LIDOCAINE HCL 2% LOCAL INJ 5 ML SDV VIAL INJ ONE (13:14)
[2022-08-18 13:16] LABS: MAGNESIUM 2.1 MG/DL (1.3-2.1)
[2022-08-18] MEDS ORDERED: SODIUM BICARBONATE 8.4% INJ 50 ML SYR IV STA (13:36)
[2022-08-18] MEDS ORDERED: DEXTROSE 50% SYRINGE 50 ML IV STA (13:36)
[2022-08-18] MEDS ORDERED: ALBUTEROL SULF 0.083% NEB SOLN 3 ML NEB NEB STA (13:36)
[2022-08-18] MEDS ORDERED: SOD POLYSTYRENE SULFONATE SUSP 15 GM/60 ML BTL PO ONE (13:45)
[2022-08-18] MEDS ORDERED: INSULIN REGULAR, HUMAN 100 UNIT/1 ML IV ONE (13:45)
[2022-08-18] MEDS ORDERED: DESMOPRESSIN ACETATE 4 MCG/ML VIAL IV ONE (14:00)
[2022-08-18] MEDS ORDERED: SODIUM CHLORIDE FLUSH 10 ML SYR INJ PRN (14:00)
[2022-08-18] MEDS ORDERED: CALCIUM GLUCONATE 10% INJ 13.95 MEQ in SODIUM CHLORIDE 0.9% 100 ML IV ONE (14:30)
[2022-08-18] MEDS ORDERED: SODIUM CHLORIDE 0.9% 1000ML 2,000 ML IV PRN (16:00)
[2022-08-18] MEDS ORDERED: ALBUMIN 25% 12.5GM 0.25 GM/ML BTL IV ONE ×2 (19:15)
[2022-08-18] MEDS ORDERED: ASPIRIN 81 MG CHEW TAB PO ONE (19:15)
[2022-08-18] MEDS: ALBUMIN 25% 12.5GM 50ML 50 ML IV SCH ×2 (19:27→19:55)
[2022-08-18 19:41] LABS: CREATINE KINASE MB 4.4 ng/mL (0-5.0)
[2022-08-18] MEDS ORDERED: SODIUM CHLORIDE 0.9% 500ML 500 ML IV ONE (20:00)
[2022-08-18] MEDS ORDERED: SODIUM CHLORIDE 0.9% 250ML 250 ML IV ONE ×2 (20:00→23:30)
[2022-08-18] MEDS ORDERED: HYDRALAZINE HCL 20 MG/ML VIAL IV PRN (22:15)
[2022-08-18] MEDS ORDERED: GUAIFENESIN/DEXTROMETHORPHAN LIQD 5 ML UDC PO PRN (22:15)
[2022-08-18] MEDS ORDERED: ACETAMINOPHEN 325 MG TAB PO PRN (22:15)
[2022-08-18] MEDS ORDERED: DEXTROSE 50% SYRINGE 50 ML IV PRN (22:15)
[2022-08-18] MEDS ORDERED: MELATONIN 3 MG TAB PO PRN (22:15)
[2022-08-19] VITALS (26 sets, daily range): BP systolic 88–114; BP diastolic 48–69
[2022-08-19 01:26] LABS: BASOPHILS % 0.2 % (0.0-1.0); LYMPHOCYTES # (AUTO) 0.4 (1.0-3.2); MEAN CORPUSCULAR HGB CONC 32.1 g/dL (31-35); MEAN CORPUSCULAR VOLUME 93.4 fL (81-99); MONOCYTES # (AUTO) 0.3 (0.2-0.8); MONOCYTES % 5.4 % (4.4-11.3); NEUTROPHILS # (AUTO) 4.8 (2.1-6.9); NEUTROPHILS % 86.9 % (38.7-80.0); PLATELET COUNT 75 x10e3/uL (140-360); RED BLOOD COUNT 2.27 x10e6/uL (3.6-5.1); RED CELL DISTRIBUTION WIDTH 17.2 % (11.7-14.4)
[2022-08-19 01:27] LABS: HEMATOCRIT 21.2 % (34.2-44.1); HEMOGLOBIN 6.8 g/dL (12.0-16.0)
[2022-08-19] MEDS ORDERED: METOCLOPRAMIDE HCL 10 MG/2ML VIAL IV ONE (04:00)
[2022-08-19 05:16] LABS: BASOPHILS % 0.1 % (0.0-1.0); EOSINOPHILS % 0.1 % (0.0-6.0); HEMATOCRIT 25.7 % (34.2-44.1); HEMOGLOBIN 8.5 g/dL (12.0-16.0); LYMPHOCYTES # (AUTO) 0.5 (1.0-3.2); LYMPHOCYTES % 6.4 % (18.0-39.1); MEAN CORPUSCULAR HEMOGLOBIN 30.8 pg (28-32); MEAN CORPUSCULAR HGB CONC 33.1 g/dL (31-35); MEAN CORPUSCULAR VOLUME 93.1 fL (81-99); MONOCYTES # (AUTO) 0.5 (0.2-0.8); MONOCYTES % 6.4 % (4.4-11.3); NEUTROPHILS # (AUTO) 6.1 (2.1-6.9); NEUTROPHILS % 86.4 % (38.7-80.0); PLATELET COUNT 70 x10e3/uL (140-360); RED BLOOD COUNT 2.76 x10e6/uL (3.6-5.1)
[2022-08-19 05:36] LABS: ANION GAP 30.2 mmol/L (8-16); CALCIUM 8.2 mg/dL (8.4-10.2); CREATININE, SERUM 5.18 mg/dL (0.57-1.11); POTASSIUM 5.2 mmol/L (3.5-5.1)
[2022-08-19 05:59] LABS: THYROID STIMULATING HORMONE 4.455 uIU/mL (0.350-4.940)
[2022-08-19 06:38] LABS: FERRITIN 11438.99 ng/mL (4.63-204.00)
[2022-08-19] MEDS: INSULIN LISPRO 100 UNIT/1 ML 3ML VIAL SQ SCH ×4 (07:30→22:00)
[2022-08-19 08:55] LABS: ALBUMIN 3.4 g/dL (3.5-5.0); BILIRUBIN,DIRECT 0.9 mg/dL (0.0-0.5); CHOL/HDL RATIO 3.5 (3.0-3.6)
[2022-08-19] MEDS ORDERED: DESMOPRESSIN ACETATE 4 MCG/ML VIAL IV ONE ×3 (09:00)
[2022-08-19] MEDS: DOCUSATE SODIUM 100 MG CAP PO SCH (12:22)
[2022-08-19] MEDS: SENNOSIDES 8.6 MG TAB PO SCH (12:22)
[2022-08-19 12:30] LABS: CREATINE KINASE MB 20.3 ng/mL (0-5.0)
[2022-08-20] VITALS (17 sets, daily range): BP systolic 83–132; BP diastolic 43–85
[2022-08-20 06:11] LABS: BASOPHILS % 0.5 % (0.0-1.0); EOSINOPHILS % 0.5 % (0.0-6.0); HEMATOCRIT 25.1 % (34.2-44.1); HEMOGLOBIN 8.4 g/dL (12.0-16.0); LYMPHOCYTES # (AUTO) 0.9 (1.0-3.2); LYMPHOCYTES % 14.4 % (18.0-39.1); MEAN CORPUSCULAR HEMOGLOBIN 32.3 pg (28-32); MEAN CORPUSCULAR HGB CONC 33.5 g/dL (31-35); MEAN CORPUSCULAR VOLUME 96.5 fL (81-99); MONOCYTES # (AUTO) 0.6 (0.2-0.8); NEUTROPHILS # (AUTO) 4.9 (2.1-6.9); PLATELET COUNT 79 x10e3/uL (140-360); RED CELL DISTRIBUTION WIDTH 18.5 % (11.7-14.4)
[2022-08-20 06:46] LABS: ALBUMIN 3.5 g/dL (3.5-5.0); ALBUMIN/GLOBULIN RATIO 0.9 (0.8-2.0); ANION GAP 28.4 mmol/L (8-16); CALCIUM 8.5 mg/dL (8.4-10.2); CREATININE, SERUM 5.06 mg/dL (0.57-1.11); POTASSIUM 4.4 mmol/L (3.5-5.1)
[2022-08-20] MEDS: INSULIN LISPRO 100 UNIT/1 ML 3ML VIAL SQ SCH ×4 (07:30→20:45)
[2022-08-20] MEDS ORDERED: HEPARIN SOD (PORCINE) 1000 UNIT/ML SDV ONE (07:35)
[2022-08-20] MEDS: DOCUSATE SODIUM 100 MG CAP PO SCH (08:22)
[2022-08-20] MEDS: SENNOSIDES 8.6 MG TAB PO SCH (08:22)
[2022-08-20] MEDS ORDERED: DEXTROSE 5%/0.45% SOD CHL 1,000 ML IV ONE (13:15)
[2022-08-20] MEDS ORDERED: ALBUMIN 25% 25GM 100ML 0.25 GM/ML BTL IV ONE (13:15)
[2022-08-20] MEDS ORDERED: ALBUMIN 25% 25GM 100ML 100 ML IV ONE (13:30)
[2022-08-20 16:52] LABS: HEMOGLOBIN 8.4 g/dL (12.0-16.0)
[2022-08-20] MEDS ORDERED: SODIUM CHLORIDE 0.9% 500ML 500 ML ONE (18:51)
[2022-08-21] VITALS (23 sets, daily range): BP systolic 67–132; BP diastolic 34–73
[2022-08-21 06:43] LABS: BASOPHILS % 0.2 % (0.0-1.0); EOSINOPHILS % 0.2 % (0.0-6.0); HEMATOCRIT 23.8 % (34.2-44.1); HEMOGLOBIN 7.8 g/dL (12.0-16.0); LYMPHOCYTES # (AUTO) 0.4 (1.0-3.2); LYMPHOCYTES % 4.2 % (18.0-39.1); MEAN CORPUSCULAR HEMOGLOBIN 30.7 pg (28-32); MEAN CORPUSCULAR HGB CONC 32.8 g/dL (31-35); MEAN CORPUSCULAR VOLUME 93.7 fL (81-99); MONOCYTES # (AUTO) 0.5 (0.2-0.8); MONOCYTES % 5.3 % (4.4-11.3); NEUTROPHILS # (AUTO) 8.3 (2.1-6.9); NEUTROPHILS % 89.7 % (38.7-80.0); PLATELET COUNT 73 x10e3/uL (140-360); RED BLOOD COUNT 2.54 x10e6/uL (3.6-5.1); RED CELL DISTRIBUTION WIDTH 18.1 % (11.7-14.4)
[2022-08-21 07:13] LABS: ALBUMIN 3.4 g/dL (3.5-5.0); ALBUMIN/GLOBULIN RATIO 1.1 (0.8-2.0); ANION GAP 24.2 mmol/L (8-16); CALCIUM 7.9 mg/dL (8.4-10.2); CREATININE, SERUM 6.42 mg/dL (0.57-1.11); POTASSIUM 4.2 mmol/L (3.5-5.1)
[2022-08-21] MEDS: INSULIN LISPRO 100 UNIT/1 ML 3ML VIAL SQ SCH ×4 (07:37→20:45)
[2022-08-21] MEDS: DOCUSATE SODIUM 100 MG CAP PO SCH (08:15)
[2022-08-21] MEDS: SENNOSIDES 8.6 MG TAB PO SCH (08:15)
[2022-08-21] MEDS ORDERED: CYCLOBENZAPRINE HCL 10 MG TAB PO PRN (08:30)
[2022-08-21] MEDS ORDERED: SODIUM CHLORIDE 0.9% 250ML 250 ML IV ONE (08:30)
[2022-08-22] VITALS: BP 106/53
[2022-08-22 04:00] VITALS: BP 94/46
[2022-08-22 07:08] LABS: BASOPHILS % 0.4 % (0.0-1.0); EOSINOPHILS % 0.6 % (0.0-6.0); HEMATOCRIT 26.5 % (34.2-44.1); HEMOGLOBIN 8.4 g/dL (12.0-16.0); LYMPHOCYTES # (AUTO) 0.5 (1.0-3.2); LYMPHOCYTES % 8.4 % (18.0-39.1); MEAN CORPUSCULAR HEMOGLOBIN 30.4 pg (28-32); MEAN CORPUSCULAR HGB CONC 31.7 g/dL (31-35); MONOCYTES # (AUTO) 0.4 (0.2-0.8); MONOCYTES % 7.6 % (4.4-11.3); NEUTROPHILS # (AUTO) 4.4 (2.1-6.9); NEUTROPHILS % 82.6 % (38.7-80.0); PLATELET COUNT 55 x10e3/uL (140-360); RED BLOOD COUNT 2.76 x10e6/uL (3.6-5.1); RED CELL DISTRIBUTION WIDTH 18.2 % (11.7-14.4)
[2022-08-22 07:26] LABS: ALBUMIN 3.1 g/dL (3.5-5.0); ANION GAP 17.3 mmol/L (8-16); CREATININE, SERUM 4.8 mg/dL (0.57-1.11); POTASSIUM 3.3 mmol/L (3.5-5.1)
[2022-08-22 08:00] VITALS: BP 106/55
[2022-08-22 08:57] VITALS: BP 106/55
[2022-08-22] MEDS: SENNOSIDES 8.6 MG TAB PO SCH (09:48)
[2022-08-22] MEDS: DOCUSATE SODIUM 100 MG CAP PO SCH (09:48)
[2022-08-22] MEDS: INSULIN LISPRO 100 UNIT/1 ML 3ML VIAL SQ SCH ×3 (10:14→16:56)
[2022-08-22] MEDS ORDERED: CYCLOBENZAPRINE10 MG PO (10:58)
[2022-08-22] MEDS ORDERED: PROTONIX40 MG PO (10:58)
[2022-08-22 13:16] VITALS: BP 122/65
[2022-08-22 15:46] VITALS: BP 105/53
== END 2022-08-22 18:22 | disposition home or self-care (01) | DRG 280 ==
LOC: ER 11:22 → ERHOLD 13:57 → ICU 20:59 → MED/SURG3 08-21 21:43
PROVIDERS: ADMIT Internal Medicine; ATTEND Internal Medicine
PROC: 5A1D70Z Performance of Urinary Filtration, Intermittent, Less than 6 Hours Per Day (ICD-10-PCS; principal; 2022-08-18)
PROC: 05HN33Z Insertion of Infusion Device into Left Internal Jugular Vein, Percutaneous Approach (ICD-10-PCS; 2022-08-18)
PROC: B544ZZA Ultrasonography of Left Jugular Veins, Guidance (ICD-10-PCS; 2022-08-18)
PROC: 0W3P8ZZ Control Bleeding in Gastrointestinal Tract, Via Natural or Artificial Opening Endoscopic (ICD-10-PCS; 2022-08-20)
DX: Q27.33 Arteriovenous malformation of digestive system vessel (principal); I21.4 Non-ST elevation (NSTEMI) myocardial infarction; N18.6 End stage renal disease; R57.8 Other shock; I13.2 Hypertensive heart and chronic kidney disease with heart failure and with stage 5 chronic kidney disease, or end stage renal disease; D62 Acute posthemorrhagic anemia; Z99.2 Dependence on renal dialysis; E87.5 Hyperkalemia; E11.22 Type 2 diabetes mellitus with diabetic chronic kidney disease; I25.10 Atherosclerotic heart disease of native coronary artery without angina pectoris; E78.5 Hyperlipidemia, unspecified; E11.21 Type 2 diabetes mellitus with diabetic nephropathy; I50.9 Heart failure, unspecified; K44.9 Diaphragmatic hernia without obstruction or gangrene; K29.70 Gastritis, unspecified, without bleeding; Z95.0 Presence of cardiac pacemaker; Z95.5 Presence of coronary angioplasty implant and graft; Z86.16 Personal history of COVID-19; Z90.49 Acquired absence of other specified parts of digestive tract; Z79.4 Long term (current) use of insulin; Z20.822 Contact with and (suspected) exposure to COVID-19
CPT/HCPCS: 0223U; 36415; 43239; 71045; 74174; 78278; 80048; 80053; 80061; 80076; 82550; 82553; 82607; 82728; 82746; 82948; 83036; 83540; 83615; 83690; 83735; 83880; 84443; 84466; 84484; 85014; 85018; 85025; 85045; 85379; 85610; 86704; 86706; 86850; 86900; 86920; 86922; 87340; 90962; 93005; 93306; 94640; 94799; 96372; 99252; 99284; A9512; J0610; J1644; J1817; J2001; J2765; J7030; J7040; J7050; J7799; P9016; P9047; Q9967

== ENCOUNTER 2022-08-26 09:33 | Inpatient (IN) | payer MEDICARE, BC ==
[~2022-08-26] VITALS: Ht 167.6 cm; Wt 95.7 kg
[~2022-08-26 09:33] MED LIST changes: +CYCLOBENZAPRINE10 MG PO
[2022-08-26] MEDS ORDERED: SODIUM CHLORIDE FLUSH 10 ML SYR IV PRN (10:30)
[2022-08-26 10:41] LABS: BASOPHILS % 0.5 % (0.0-1.0); EOSINOPHILS # (AUTO) 0.1 (0.0-0.4); EOSINOPHILS % 1.3 % (0.0-6.0); HEMATOCRIT 31.7 % (34.2-44.1); HEMOGLOBIN 9.9 g/dL (12.0-16.0); LYMPHOCYTES # (AUTO) 0.5 (1.0-3.2); LYMPHOCYTES % 12.5 % (18.0-39.1); MEAN CORPUSCULAR HEMOGLOBIN 30.8 pg (28-32); MEAN CORPUSCULAR HGB CONC 31.2 g/dL (31-35); MEAN CORPUSCULAR VOLUME 98.8 fL (81-99); MONOCYTES # (AUTO) 0.5 (0.2-0.8); MONOCYTES % 11.5 % (4.4-11.3); NEUTROPHILS # (AUTO) 2.9 (2.1-6.9); NEUTROPHILS % 73.7 % (38.7-80.0); PLATELET COUNT 74 x10e3/uL (140-360); RED BLOOD COUNT 3.21 x10e6/uL (3.6-5.1)
[2022-08-26 11:07] LABS: ALBUMIN 3.4 g/dL (3.5-5.0); ALBUMIN/GLOBULIN RATIO 0.8 (0.8-2.0); ANION GAP 22.9 mmol/L (8-16); CALCIUM 7.7 mg/dL (8.4-10.2); CREATININE, SERUM 5.74 mg/dL (0.57-1.11); POTASSIUM 3.9 mmol/L (3.5-5.1)
[2022-08-26] MEDS ORDERED: ASPIRIN 81 MG CHEW TAB PO ONE ×3 (12:00→14:00)
[2022-08-26] MEDS ORDERED: SODIUM CHLORIDE FLUSH 10 ML SYR INJ PRN (12:45)
[2022-08-26] MEDS ORDERED: ONDANSETRON HCL INJ 2MG/ML 2ML 2 MG/ML VIAL IV PRN (12:45)
[2022-08-26 15:54] LABS: CREATINE KINASE MB 4.8 ng/mL (0-5.0)
[2022-08-26 20:59] LABS: CREATINE KINASE MB 3.8 ng/mL (0-5.0)
[2022-08-26 21:55] VITALS: BP 116/66
[2022-08-26 22:57] VITALS: BP 116/66
[2022-08-26 23:10] VITALS: BP 116/66
[2022-08-27] VITALS (8 sets, daily range): BP systolic 97–120; BP diastolic 56–70
[2022-08-27 05:24] LABS: BASOPHILS % 0.6 % (0.0-1.0); EOSINOPHILS # (AUTO) 0.1 (0.0-0.4); EOSINOPHILS % 2.1 % (0.0-6.0); HEMATOCRIT 30.1 % (34.2-44.1); HEMOGLOBIN 9.3 g/dL (12.0-16.0); LYMPHOCYTES # (AUTO) 0.4 (1.0-3.2); LYMPHOCYTES % 10.9 % (18.0-39.1); MEAN CORPUSCULAR HEMOGLOBIN 30.1 pg (28-32); MEAN CORPUSCULAR HGB CONC 30.9 g/dL (31-35); MEAN CORPUSCULAR VOLUME 97.4 fL (81-99); MONOCYTES # (AUTO) 0.3 (0.2-0.8); MONOCYTES % 9.4 % (4.4-11.3); NEUTROPHILS # (AUTO) 2.6 (2.1-6.9); NEUTROPHILS % 76.4 % (38.7-80.0); PLATELET COUNT 77 x10e3/uL (140-360); RED BLOOD COUNT 3.09 x10e6/uL (3.6-5.1); RED CELL DISTRIBUTION WIDTH 19.1 % (11.7-14.4)
[2022-08-27 05:48] LABS: ALBUMIN 3.2 g/dL (3.5-5.0); ALBUMIN/GLOBULIN RATIO 0.8 (0.8-2.0); ANION GAP 21.6 mmol/L (8-16); CALCIUM 7.4 mg/dL (8.4-10.2); CREATININE, SERUM 6.85 mg/dL (0.57-1.11); POTASSIUM 3.6 mmol/L (3.5-5.1)
[2022-08-27 06:13] LABS: CREATINE KINASE MB 3.5 ng/mL (0-5.0)
[2022-08-27 07:01] LABS: ANISOCYTOSIS MODERATE; PLATELET ESTIMATE MODERATELY DECREASED; PLATELET MORPHOLOGY COMMENT FEW LARGE; POLYCHROMASIA FEW; RBC MORPHOLOGY COMMENT ABNORMAL
[2022-08-27] MEDS ORDERED: ACETAMINOPHEN 325 MG TAB PO PRN (08:30)
[2022-08-27] MEDS: SENNOSIDES 8.6 MG TAB PO SCH (09:16)
[2022-08-27] MEDS: DOCUSATE SODIUM 100 MG CAP PO SCH (09:16)
[2022-08-27] MEDS ORDERED: DEXTROSE 50% SYRINGE 50 ML IV PRN (09:30)
[2022-08-27] MEDS: INSULIN LISPRO 100 UNIT/1 ML 3ML VIAL SQ SCH ×3 (11:30→21:23)
[2022-08-27] MEDS ORDERED: SODIUM CHLORIDE 0.9% 1000ML 2,000 ML ONE (11:42)
[2022-08-27] MEDS ORDERED: HEPARIN SOD (PORCINE) 1000 UNIT/ML SDV ONE (11:42)
[2022-08-27] MEDS ORDERED: ALBUMIN 25% 12.5GM 50ML 100 ML IV ONE (11:43)
[2022-08-27] MEDS ORDERED: HEPARIN SOD (PORCINE) 1000 UNIT/ML SDV IV PRN (12:30)
[2022-08-27] MEDS ORDERED: ALBUMIN 25% 12.5GM 0.25 GM/ML BTL IV PRN (12:30)
[2022-08-27] MEDS ORDERED: SODIUM CHLORIDE 0.9% 1000ML 2,000 ML IV PRN (12:30)
[2022-08-28] VITALS (7 sets, daily range): BP systolic 106–122; BP diastolic 56–84
[2022-08-28 04:50] LABS: BASOPHILS % 0.6 % (0.0-1.0); EOSINOPHILS # (AUTO) 0.1 (0.0-0.4); EOSINOPHILS % 1.5 % (0.0-6.0); HEMATOCRIT 32.6 % (34.2-44.1); HEMOGLOBIN 9.9 g/dL (12.0-16.0); LYMPHOCYTES # (AUTO) 0.3 (1.0-3.2); LYMPHOCYTES % 9.9 % (18.0-39.1); MEAN CORPUSCULAR HEMOGLOBIN 30.7 pg (28-32); MEAN CORPUSCULAR HGB CONC 30.4 g/dL (31-35); MEAN CORPUSCULAR VOLUME 101.2 fL (81-99); MONOCYTES # (AUTO) 0.3 (0.2-0.8); MONOCYTES % 9.3 % (4.4-11.3); NEUTROPHILS # (AUTO) 2.7 (2.1-6.9); NEUTROPHILS % 78.1 % (38.7-80.0); PLATELET COUNT 74 x10e3/uL (140-360); RED BLOOD COUNT 3.22 x10e6/uL (3.6-5.1); RED CELL DISTRIBUTION WIDTH 19.8 % (11.7-14.4)
[2022-08-28 05:10] LABS: ALBUMIN 3.6 g/dL (3.5-5.0); ALBUMIN/GLOBULIN RATIO 0.9 (0.8-2.0); ANION GAP 18.9 mmol/L (8-16); CALCIUM 8.5 mg/dL (8.4-10.2); CREATININE, SERUM 4.61 mg/dL (0.57-1.11); POTASSIUM 3.9 mmol/L (3.5-5.1)
[2022-08-28] MEDS ORDERED: ONDANSETRON HCL 4 MG ORAL DISINTEGRATING TAB PO PRN (09:30)
[2022-08-28] MEDS: SENNOSIDES 8.6 MG TAB PO SCH (09:46)
[2022-08-28] MEDS: DOCUSATE SODIUM 100 MG CAP PO SCH (09:46)
[2022-08-28] MEDS: INSULIN LISPRO 100 UNIT/1 ML 3ML VIAL SQ SCH ×4 (09:48→21:00)
[2022-08-29] VITALS (8 sets, daily range): BP systolic 106–136; BP diastolic 52–75
[2022-08-29 06:21] LABS: BASOPHILS % 0.6 % (0.0-1.0); EOSINOPHILS # (AUTO) 0.1 (0.0-0.4); HEMATOCRIT 31.6 % (34.2-44.1); HEMOGLOBIN 9.8 g/dL (12.0-16.0); LYMPHOCYTES # (AUTO) 0.5 (1.0-3.2); MEAN CORPUSCULAR HEMOGLOBIN 30.7 pg (28-32); MEAN CORPUSCULAR VOLUME 99.1 fL (81-99); MONOCYTES # (AUTO) 0.3 (0.2-0.8); NEUTROPHILS # (AUTO) 2.6 (2.1-6.9); NEUTROPHILS % 74.8 % (38.7-80.0); PLATELET COUNT 81 x10e3/uL (140-360); RED BLOOD COUNT 3.19 x10e6/uL (3.6-5.1); RED CELL DISTRIBUTION WIDTH 19.2 % (11.7-14.4)
[2022-08-29 06:53] LABS: ALBUMIN 3.5 g/dL (3.5-5.0); ALBUMIN/GLOBULIN RATIO 0.9 (0.8-2.0); ANION GAP 19.2 mmol/L (8-16); CALCIUM 8.1 mg/dL (8.4-10.2); CREATININE, SERUM 6.11 mg/dL (0.57-1.11); MAGNESIUM 1.9 MG/DL (1.3-2.1); POTASSIUM 4.2 mmol/L (3.5-5.1)
[2022-08-29] MEDS: DOCUSATE SODIUM 100 MG CAP PO SCH (09:00)
[2022-08-29] MEDS: SENNOSIDES 8.6 MG TAB PO SCH (09:00)
[2022-08-29] MEDS: INSULIN LISPRO 100 UNIT/1 ML 3ML VIAL SQ SCH ×4 (09:04→21:11)
[2022-08-30] VITALS (8 sets, daily range): BP systolic 106–124; BP diastolic 50–68
[2022-08-30 07:43] LABS: BASOPHILS % 0.7 % (0.0-1.0); EOSINOPHILS % 1.3 % (0.0-6.0); HEMATOCRIT 32.5 % (34.2-44.1); HEMOGLOBIN 9.9 g/dL (12.0-16.0); LYMPHOCYTES # (AUTO) 0.3 (1.0-3.2); LYMPHOCYTES % 9.1 % (18.0-39.1); MEAN CORPUSCULAR HEMOGLOBIN 30.7 pg (28-32); MEAN CORPUSCULAR HGB CONC 30.5 g/dL (31-35); MEAN CORPUSCULAR VOLUME 100.9 fL (81-99); MONOCYTES # (AUTO) 0.2 (0.2-0.8); MONOCYTES % 8.1 % (4.4-11.3); NEUTROPHILS # (AUTO) 2.4 (2.1-6.9); NEUTROPHILS % 80.5 % (38.7-80.0); PLATELET COUNT 86 x10e3/uL (140-360); RED BLOOD COUNT 3.22 x10e6/uL (3.6-5.1); RED CELL DISTRIBUTION WIDTH 19.5 % (11.7-14.4)
[2022-08-30 08:20] LABS: ALBUMIN 3.3 g/dL (3.5-5.0); ALBUMIN/GLOBULIN RATIO 0.8 (0.8-2.0); ANION GAP 18.2 mmol/L (8-16); CALCIUM 8.5 mg/dL (8.4-10.2); CREATININE, SERUM 4.23 mg/dL (0.57-1.11); POTASSIUM 4.2 mmol/L (3.5-5.1)
[2022-08-30] MEDS: DOCUSATE SODIUM 100 MG CAP PO SCH (09:18)
[2022-08-30] MEDS: INSULIN LISPRO 100 UNIT/1 ML 3ML VIAL SQ SCH ×4 (09:18→21:00)
[2022-08-30] MEDS: SENNOSIDES 8.6 MG TAB PO SCH (09:18)
[2022-08-30] MEDS: MELATONIN 3 MG TAB PO SCH (21:33)
[2022-08-31] VITALS (11 sets, daily range): BP systolic 108–136; BP diastolic 61–79
[2022-08-31 05:13] LABS: BASOPHILS % 0.3 % (0.0-1.0); EOSINOPHILS # (AUTO) 0.1 (0.0-0.4); EOSINOPHILS % 1.9 % (0.0-6.0); LYMPHOCYTES # (AUTO) 0.3 (1.0-3.2); LYMPHOCYTES % 10.4 % (18.0-39.1); MEAN CORPUSCULAR HEMOGLOBIN 30.2 pg (28-32); MEAN CORPUSCULAR HGB CONC 30.3 g/dL (31-35); MEAN CORPUSCULAR VOLUME 99.7 fL (81-99); MONOCYTES # (AUTO) 0.3 (0.2-0.8); MONOCYTES % 9.4 % (4.4-11.3); NEUTROPHILS # (AUTO) 2.4 (2.1-6.9); NEUTROPHILS % 77.7 % (38.7-80.0); PLATELET COUNT 87 x10e3/uL (140-360); RED BLOOD COUNT 3.31 x10e6/uL (3.6-5.1); RED CELL DISTRIBUTION WIDTH 19.1 % (11.7-14.4)
[2022-08-31 05:41] LABS: ALBUMIN 3.3 g/dL (3.5-5.0); ALBUMIN/GLOBULIN RATIO 0.8 (0.8-2.0); ANION GAP 18.8 mmol/L (8-16); CALCIUM 8.1 mg/dL (8.4-10.2); CREATININE, SERUM 5.6 mg/dL (0.57-1.11); POTASSIUM 4.8 mmol/L (3.5-5.1)
[2022-08-31] MEDS: INSULIN LISPRO 100 UNIT/1 ML 3ML VIAL SQ SCH ×4 (07:30→22:06)
[2022-08-31] MEDS: SENNOSIDES 8.6 MG TAB PO SCH (09:00)
[2022-08-31] MEDS: DOCUSATE SODIUM 100 MG CAP PO SCH (09:00)
[2022-08-31] MEDS ORDERED: HEPARIN SOD (PORCINE) 1000 UNIT/ML 30ML ONE (11:04)
[2022-08-31] MEDS ORDERED: LIDOCAINE HCL 2% LOCAL 20 ML VIAL ONE ×2 (11:04→13:06)
[2022-08-31] MEDS ORDERED: IOPAMIDOL 370 MG/ML 100 ML INFUS..BTL INJ ONE ×2 (11:05→13:06)
[2022-08-31] MEDS ORDERED: NITROGLYCERIN/D5W 200 MCG/ML 250 ML ONE (11:05)
[2022-08-31] MEDS ORDERED: SODIUM CHLORIDE 0.9% 1000ML 1,000 ML ONE ×2 (11:05→13:06)
[2022-08-31] MEDS ORDERED: HEPARIN SOD/SOD CHLORIDE 2,000 ML ONE ×2 (11:05→13:06)
[2022-08-31] MEDS ORDERED: FENTANYL CITRATE/PF 100MCG/2 ML INJ ONE (11:14)
[2022-08-31] MEDS ORDERED: MIDAZOLAM HCL 2 MG/2 ML VIAL ONE (11:14)
[2022-08-31] MEDS ORDERED: CLOPIDOGREL BISULFATE 75 MG TAB ONE ×2 (13:55→14:06)
[2022-08-31] MEDS ORDERED: ASPIRIN 325 MG TAB ONE (14:10)
[2022-08-31] MEDS ORDERED: ATORVASTATIN 40 MG TAB PO SCH (21:00)
[2022-08-31] MEDS: MELATONIN 3 MG TAB PO SCH ×2 (21:00→22:03)
[2022-09-01] MEDS: INSULIN LISPRO 100 UNIT/1 ML 3ML VIAL SQ SCH ×3 (07:30→16:30)
[2022-09-01] MEDS ORDERED: PLAVIX75 MG PO (08:23)
[2022-09-01] MEDS ORDERED: ASPIRIN CHEW81 MG PO (08:23)
[2022-09-01] MEDS ORDERED: LIPITOR20 MG PO (08:23)
[2022-09-01 09:00] VITALS: BP 117/61
[2022-09-01] MEDS ORDERED: ASPIRIN 81 MG CHEW TAB PO SCH (09:00)
[2022-09-01] MEDS ORDERED: CLOPIDOGREL BISULFATE 75 MG TAB PO SCH (09:00)
[2022-09-01] MEDS: SENNOSIDES 8.6 MG TAB PO SCH (09:17)
[2022-09-01 09:35] LABS: BASOPHILS % 0.3 % (0.0-1.0); EOSINOPHILS # (AUTO) 0.1 (0.0-0.4); EOSINOPHILS % 1.7 % (0.0-6.0); HEMATOCRIT 31.2 % (34.2-44.1); HEMOGLOBIN 9.5 g/dL (12.0-16.0); LYMPHOCYTES # (AUTO) 0.3 (1.0-3.2); LYMPHOCYTES % 8.9 % (18.0-39.1); MEAN CORPUSCULAR HEMOGLOBIN 30.2 pg (28-32); MEAN CORPUSCULAR HGB CONC 30.4 g/dL (31-35); MONOCYTES # (AUTO) 0.3 (0.2-0.8); MONOCYTES % 6.9 % (4.4-11.3); NEUTROPHILS % 81.9 % (38.7-80.0); PLATELET COUNT 84 x10e3/uL (140-360); RED BLOOD COUNT 3.15 x10e6/uL (3.6-5.1)
[2022-09-01 09:47] VITALS: BP 129/56
[2022-09-01 10:11] LABS: ANION GAP 19.5 mmol/L (8-16); CREATININE, SERUM 7.14 mg/dL (0.57-1.11); POTASSIUM 5.5 mmol/L (3.5-5.1)
[2022-09-01 12:43] VITALS: BP 109/60
[2022-09-01 16:45] VITALS: BP 124/67
== END 2022-09-01 17:41 | disposition home or self-care (01) | DRG 248 ==
LOC: ER 09:39 → ERHOLD 12:38 → MED/SURG 21:19
PROVIDERS: ADMIT Internal Medicine; ATTEND Internal Medicine
PROC: 5A1D70Z Performance of Urinary Filtration, Intermittent, Less than 6 Hours Per Day (ICD-10-PCS; 2022-08-27)
PROC: 02713EZ Dilation of Coronary Artery, Two Arteries with Two Intraluminal Devices, Percutaneous Approach (ICD-10-PCS; principal; 2022-08-31)
PROC: B2151ZZ Fluoroscopy of Left Heart using Low Osmolar Contrast (ICD-10-PCS; 2022-08-31)
PROC: B2111ZZ Fluoroscopy of Multiple Coronary Arteries using Low Osmolar Contrast (ICD-10-PCS; 2022-08-31)
PROC: 4A023N7 Measurement of Cardiac Sampling and Pressure, Left Heart, Percutaneous Approach (ICD-10-PCS; 2022-08-31)
DX: I21.4 Non-ST elevation (NSTEMI) myocardial infarction (principal); N18.6 End stage renal disease; I13.2 Hypertensive heart and chronic kidney disease with heart failure and with stage 5 chronic kidney disease, or end stage renal disease; I25.119 Atherosclerotic heart disease of native coronary artery with unspecified angina pectoris; E11.22 Type 2 diabetes mellitus with diabetic chronic kidney disease; I50.9 Heart failure, unspecified; E78.5 Hyperlipidemia, unspecified; D50.0 Iron deficiency anemia secondary to blood loss (chronic); E11.21 Type 2 diabetes mellitus with diabetic nephropathy; D63.1 Anemia in chronic kidney disease; Z99.2 Dependence on renal dialysis; Z86.16 Personal history of COVID-19; Z20.822 Contact with and (suspected) exposure to COVID-19; Z86.73 Personal history of transient ischemic attack (TIA), and cerebral infarction without residual deficits; Z90.49 Acquired absence of other specified parts of digestive tract; Z79.4 Long term (current) use of insulin; Z95.5 Presence of coronary angioplasty implant and graft; Z95.0 Presence of cardiac pacemaker; Z79.82 Long term (current) use of aspirin
CPT/HCPCS: 36415; 71045; 80048; 80053; 82550; 82553; 82784; 82948; 83735; 83880; 84100; 84484; 85025; 86021; 86039; 86140; 86160; 86162; 86200; 86225; 86431; 86706; 87340; 90962; 92920; 92921; 92928; 92929; 93005; 93454; 93971; 94760; 94799; 99152; 99153; 99284; C1725; C1760; C1769; C1874; J1644; J2001; J2250; J3010; J7030; Q9967

== ENCOUNTER → 2022-11-13 | Outpatient (CLI) | payer MEDICARE, BC ==
[~2022-11-13] MED LIST changes: +ASPIRIN CHEW81 MG PO
== END ==
LOC: RAD 13:37
PROVIDERS: ATTEND Internal Medicine
DX: R05.9 Cough, unspecified (principal)
CPT/HCPCS: 71046

== ENCOUNTER → 2022-12-04 | Outpatient (CLI) | payer MEDICARE, BC | LOC: CT 13:26 | PROVIDERS: ATTEND Internal Medicine | DX: R10.9 Unspecified abdominal pain (principal) | CPT/HCPCS: 74176 ==

== ENCOUNTER → 2023-01-08 | Outpatient (CLI) | payer MEDICARE, BC | LOC: RAD 14:10 | PROVIDERS: ATTEND Internal Medicine Critical Care Medicine | DX: R07.81 Pleurodynia (principal) | CPT/HCPCS: 71046 ==